=== PATIENT | male | born 1970 | race Caucasian/White ===

== ENCOUNTER 2020-11-05 19:32 | Emergency (ER) | payer OTHER, SELFPAY ==
[2020-11-05 19:36] VITALS: BP 144/76; PULSE 95; RESP 16; TEMP 37.3; BMI 54.3
--- NOTE | 2020-11-05 19:47 | PC.NURSE ---
PT AMB TO EM WITH STEADY GAIT. PT CHANGING INTO DEBORAH. WAITING EVAL.
--- NOTE | 2020-11-05 19:52 | PC.NURSE ---
PROVIDER AND THIS NURSE LOOKED AT RECTAL AREA FOR C/O HEMORRHOID.
--- NOTE | 2020-11-05 19:54 | PC.NURSE ---
PT EVALED BY DR DUNCAN.
[2020-11-05] MEDS: Lidocaine HCl 1 % MPF 5 ML VIAL SUBCUT ×2 (20:00)
--- NOTE | 2020-11-05 20:05 | CT_ITS ---
EXAMINATION: CT ABDOMEN AND PELVIS WITH CONTRAST CLINICAL INFORMATION: Evaluate perirectal versus perianal abscess. COMPARISON: CT pelvis dated 12/04/2006. TECHNIQUE: Multidetector volumetric images were obtained from the superior aspect of the liver through the pubic symphysis following administration 85 mL of Omnipaque 350 intravenous contrast. Sagittal and coronal reformatted images were obtained on the technologist's workstation. Oral Contrast: No. This CT examination was performed using dose optimization techniques as appropriate, variously including the following: *Automated exposure control. *Adjustment of mA and/or kV according to patient size (this includes techniques or standardized protocols for targeted exams where dose is matched to indication/reason for exam; i.e. extremities or head). *Use of iterative reconstruction technique. DLP: 2409 mGy-cm FINDINGS: LUNG BASES: The visualized lung bases are unremarkable. LIVER, GALLBLADDER, AND BILIARY TREE: The liver is normal in size, shape, and attenuation. No focal hepatic lesion or biliary ductal dilatation is present. The gallbladder is unremarkable with no evidence of radiopaque gallstones, gallbladder wall thickening, or obvious pericholecystic inflammatory changes. PANCREAS: Unremarkable. SPLEEN: Unremarkable. ADRENAL GLANDS: Unremarkable. KIDNEYS AND URETERS: The kidneys are normal in size, shape, and attenuation. No hydronephrosis, hydroureter, or calculi seen. No perinephric stranding. BLADDER: Nondistended and unremarkable. GASTROINTESTINAL TRACT: Sigmoid diverticulosis without evidence of acute diverticulitis. No bowel wall thickening or associated inflammatory change. No small or large bowel obstruction. Unremarkable appendix. Posterior to the anus along the inferior margin of the gluteal cleft is a peripherally enhancing fluid collection measuring 5.7 x 3.2 x 3.5 cm (AP x ML x CC), consistent with an abscess. Mild adjacent soft tissue stranding. PERITONEAL CAVITY: No intra-abdominal free air or free fluid. ABDOMINAL WALL: No significant hernia is appreciated. LYMPH NODES: Subcentimeter mesenteric, retroperitoneal, and right lower quadrant lymph nodes. No significant lymphadenopathy. VASCULAR: Unremarkable. PELVIC VISCERA: Calcifications within the prostate. OSSEOUS STRUCTURES: No concerning lytic or blastic osseous lesion. Bilateral spondylolysis at L5-S1. CT/CT abdomen pelvis w con IMPRESSION: 1. Abscess formation posterior to the anus within the inferior margin of the gluteal cleft measuring up to 5.7 x 3.2 x 3.5 cm. Mild adjacent soft tissue stranding. 2. Diverticulosis without evidence of acute diverticulitis. No small or large bowel obstruction. Unremarkable appendix. 3. Bilateral spondylolysis at L5-S1.
--- NOTE | 2020-11-05 20:29 | ED.GENADULT ---
HPI - General Adult General Chief complaint: General Medical Stated complaint: hemmroid Time Seen by Provider: 11/05/20 19:54 Source: patient Mode of arrival: ambulatory History of Present Illness HPI narrative: 49-year-old male with a past medical history of diabetes, hypertension, complaining of rectal pain/swelling since yesterday. Reports constipation with hard BM yesterday. Denies fever, chills, abdominal pain, nausea/vomiting, rectal bleeding Onset (ago): day(s) Related Data Home Medications Medication Instructions Recorded Confirmed cholecalciferol (vitamin D3) 50 50 mcg PO DAILY 09/30/20 mcg (2,000 unit) capsule Allergies Allergy/AdvReac Type Severity Reaction Status Date / Time lisinopril [LISINOPRIL] Allergy Unknown ANGIOEDEMA Verified 11/05/20 19:46 shrimp Allergy Unknown DIFFICULTY Verified 11/05/20 19:46 BREATHING Review of Systems Review of Systems: Constitutional: No Weight loss, No Fever, No Chills Cardiovascular: No Chest Pain, No SOB Respiratory: No Cough Gastrointestinal: No Nausea, No Vomiting, No Diarrhea, +Constipation, No Abdominal pain, No Melena Genitourinary: No irregular bleeding, + Dysuria, No Hematuria, +rectal pain Musculoskeletal: No joint pain, No Myalgias, No Joint Swelling Skin: No Skin Lesions, No rash Yes all other systems are reviewed and are negative [facility] Past Medical History Attestation statement: The following information was validated with the patient. Medical History (Updated 11/05/20 @ 21:20 by BARI Perez) Diabetes Hypertension Social History Social History Advance Directives: No Advance Directives Information Provided: No Physical Exam Vital Signs: Vital Signs: Last Vital Signs Temp 99.1 F 11/05/20 19:36 Pulse 95 11/05/20 19:36 Resp 16 11/05/20 19:36 BP 144/76 H 11/05/20 19:36 Body Mass Index 54.3 Const: General: cooperative and healthy appearing Orientation/consciousness: patient oriented x3 Limitations: no limitations HENMT: Head: Yes normal to inspection Ears: hearing grossly normal bilaterally General nose exam: Normal external nose present Face and sinus: Yes normal facial exam Eyes: General: appearance normal, both eyes and all related structures EOM: EOMs intact bilaterally Neck: Neck: Yes normal visual inspection Resp: Effort & Inspection: normal respiratory effort Cardio: Rate: regular rate GI: Other: +abscess with fluctuance and ttp noted at 12 o'clock region. +appreciable internal fluctuance noted on digitial rectal exam. No cellulitis, no active drainage. no induration Inspection: Yes normal to inspection Palpation (GI): Soft to palpation, nontender, no guarding and not rigid Skin: Rashes: no rashes Wounds: no wounds Neuro: General: patient oriented x3 Extrem: General: Yes normal to inspection Course Course Course Narrative: -no WBC count, glucose 405 > 1L IVF and 5U IV insulin ordered -2100-- ED care transferred to Dr. Hodges pending CT results and I&D Medical Decision Making [facility] Narrative Medical decision making narrative: 49-year-old male with a past medical history of diabetes, hypertension, complaining of rectal pain/swelling since yesterday. On exam low-grade temp 99.1?, abscess with fluctuance noted on rectal with internal involvement. Concern for perirectal vs perianal abscess. Lower concern for hemorrhoid Plan: Labs, UA, CT AP Lab Data Result diagrams: 11/05/20 20:26 11/05/20 20:26 Labs: Lab Results 11/05/20 11/05/20 11/05/20 Range/Units 20:26 20:26 20:26 WBC 9.1 (4.8-10.8) X10*3/uL RBC 4.96 (4.60-5.80) X10*6/uL Hgb 13.6 L (14.0-18.0) g/dl Hct 41.4 L (42-52) % MCV 83.5 (80-98) fL MCH 27.4 (27.0-33.0) pg MCHC 32.9 (31.0-36.0) g/dl RDW 12.6 (11.0-16.0) % Plt Count 284 (160-400) X10*3/uL MPV 10.2 (9.4-12.4) fL Immature Gran % (Auto) 0.5 H (0.0-0.4) % Neut % (Auto) 71.5 (45-73) % Lymph % (Auto) 16.0 L (20-40) % [place] % (Auto) 10.5 (2-11) % Eos % (Auto) 1.3 (0-4) % Baso % (Auto) 0.2 (0-2) % Lymph # (Auto) 1.5 (1.2-4.9) X10*3/uL [place] # (Auto) 1.0 (0.1-1.2) X10*3/uL Eos # (Auto) 0.1 (0.0-0.4) X10*3/uL Baso # (Auto) 0.0 (0.0-0.2) X10*3/uL Abs Immat Gran (auto) 0.05 H (0.00-0.03) X10*3/uL Absolute Neuts (auto) 6.5 (2.0-8.3) X10*3/uL Absolute Nucleated RBC 0.000 (0.0-0.012) X10*3/uL Nucleated RBC % (auto) 0.0 (0.0-0.2) /100WBC Hold Blue Top SEE NOTE Sodium 134 L (135-145) mmol/L Potassium 4.5 (3.3-5.1) mmol/l Chloride 96 (96-108) mmol/L Carbon Dioxide 26 (22-29) mmol/L Anion Gap 17 (12-20) BUN 11 (9-16) mg/dL Creatinine 0.84 (0.5-1.4) mg/dL Estim Creat Clear Calc 166.0 Estimated GFR > 60 Random Glucose 405 H* (60-115) mg/dL Calcium 8.9 (8.4-10.2) mg/dL Urine Color Urine Appearance Urine pH (5.0-8.0) Ur Specific [place] (1.005-1.025) Urine Protein (NEG-TRACE) MG/DL Urine Glucose (UA) (NEG) MG/DL Urine Ketones (NEG) MG/DL Urine Blood (NEG) Urine Nitrite (NEG) Ur Leukocyte Esterase (NEG) Urine RBC (0) /HPF Urine WBC (0-4) /HPF Ur Squamous Epith Cells /LPF Urine Bacteria /LPF 11/05/20 Range/Units 20:26 WBC (4.8-10.8) X10*3/uL RBC (4.60-5.80) X10*6/uL Hgb (14.0-18.0) g/dl Hct (42-52) % MCV (80-98) fL MCH (27.0-33.0) pg MCHC (31.0-36.0) g/dl RDW (11.0-16.0) % Plt Count (160-400) X10*3/uL MPV (9.4-12.4) fL Immature Gran % (Auto) (0.0-0.4) % Neut % (Auto) (45-73) % Lymph % (Auto) (20-40) % [place] % (Auto) (2-11) % Eos % (Auto) (0-4) % Baso % (Auto) (0-2) % Lymph # (Auto) (1.2-4.9) X10*3/uL [place] # (Auto) (0.1-1.2) X10*3/uL Eos # (Auto) (0.0-0.4) X10*3/uL Baso # (Auto) (0.0-0.2) X10*3/uL Abs Immat Gran (auto) (0.00-0.03) X10*3/uL Absolute Neuts (auto) (2.0-8.3) X10*3/uL Absolute Nucleated RBC (0.0-0.012) X10*3/uL Nucleated RBC % (auto) (0.0-0.2) /100WBC Hold Blue Top Sodium (135-145) mmol/L Potassium (3.3-5.1) mmol/l Chloride (96-108) mmol/L Carbon Dioxide (22-29) mmol/L Anion Gap (12-20) BUN (9-16) mg/dL Creatinine (0.5-1.4) mg/dL Estim Creat Clear Calc Estimated GFR Random Glucose (60-115) mg/dL Calcium (8.4-10.2) mg/dL Urine Color YELLOW Urine Appearance CLEAR Urine pH 5.5 (5.0-8.0) Ur Specific [place] 1.025 (1.005-1.025) Urine Protein NEG (NEG-TRACE) MG/DL Urine Glucose (UA) >=1000 H (NEG) MG/DL Urine Ketones 5 (NEG) MG/DL Urine Blood NEG (NEG) Urine Nitrite NEG (NEG) Ur Leukocyte Esterase NEG (NEG) Urine RBC 0 (0) /HPF Urine WBC 0 (0-4) /HPF Ur Squamous Epith Cells NONE /LPF Urine Bacteria NONE /LPF Discharge Plan Discharge Clinical Impression: Abscess, rectum Prescriptions: No Action cholecalciferol (vitamin D3) 50 mcg (2,000 unit) capsule 50 mcg PO DAILY RF: 0
[2020-11-05 20:36] LABS: MANUAL DIFF FLAG NO
[2020-11-05 20:47] LABS: Glucose Urine UA >=1000 MG/DL (NEG); Leukocyte Esterase Urine NEG (NEG); Nitrite Urine NEG (NEG); PH 5.5 (5.0-8.0); Specific Gravity - Urine 1.025 (1.005-1.025); Urine Blood NEG (NEG); Urine Ketones 5 MG/DL (NEG); Urine Protein NEG (NEG-TRACE)
[2020-11-05 20:49] LABS: Appearance Urine CLEAR; Color Urine YELLOW
[2020-11-05 20:52] LABS: Basophils Percent Auto 0.2 % (0-2); Eosinophils Absolute Auto 0.1 X10*3/uL (0.0-0.4); Eosinophils Percent Auto 1.3 % (0-4); Hematocrit 41.4 % (42-52); Hemoglobin 13.6 g/dl (14.0-18.0); Imm Gran Abs Auto 0.05 X10*3/uL (0.00-0.03); Imm Gran Pct Auto 0.5 % (0.0-0.4); Lymphocytes Absolute Auto 1.5 X10*3/uL (1.2-4.9); Mean Corpuscular HGB Conc 32.9 g/dl (31.0-36.0); Mean Corpuscular Hemoglobin 27.4 pg (27.0-33.0); Mean Corpuscular Volume 83.5 fL (80-98); Mean Platelet Volume 10.2 fL (9.4-12.4); Monocytes Percent Auto 10.5 % (2-11); Neutrophils Absolute Auto 6.5 X10*3/uL (2.0-8.3); Neutrophils Percent Auto 71.5 % (45-73); Platelet Count 284 X10*3/uL (160-400); Red Blood Count 4.96 X10*6/uL (4.60-5.80); Red Cell Distribution Width 12.6 % (11.0-16.0); White Blood Count 9.1 X10*3/uL (4.8-10.8)
[2020-11-05] MEDS: Ketorolac Tromethamine 15 MG/ML VIAL IVPUSH (20:53)
[2020-11-05 20:57] LABS: Anion Gap 17 (12-20); Blood Urea Nitrogen 11 mg/dL (9-16); Calcium 8.9 mg/dL (8.4-10.2); Carbon Dioxide 26 mmol/L (22-29); Chloride 96 mmol/L (96-108); Estimated Glomerular Filt Rate > 60; Glucose Random 405 mg/dL (60-115); Potassium 4.5 mmol/l (3.3-5.1); Sodium 134 mmol/L (135-145)
[2020-11-05 21:01] LABS: RBC Urine 0 /HPF (0); WBC Urine 0 /HPF (0-4)
[2020-11-05] MEDS: iohexoL 350 MG/ML 100 ML INFUS..BTL IV (21:32)
[2020-11-05] MEDS: 0.9 % Sodium Chloride 1,000 ML 999 ML IVCONT (22:01)
[2020-11-05] MEDS: Insulin Regular, Human 100 UNIT/ML 3 ML VIAL IVPUSH (22:04)
--- NOTE | 2020-11-05 22:42 | ED_ITS ---
HPI - Skin/Abscess/Foreign Bdy General Chief complaint: General Medical Stated complaint: hemmroid Time Seen by Provider: 11/05/20 19:54 Source: patient Mode of arrival: ambulatory Related Data Home Medications Medication Instructions Recorded Confirmed cholecalciferol (vitamin D3) 50 50 mcg PO DAILY 09/30/20 mcg (2,000 unit) capsule Allergies Allergy/AdvReac Type Severity Reaction Status Date / Time lisinopril [LISINOPRIL] Allergy Unknown ANGIOEDEMA Verified 11/05/20 19:46 shrimp Allergy Unknown DIFFICULTY Verified 11/05/20 19:46 BREATHING PMFSH Past Medical History Medical History (Updated 11/05/20 @ 21:20 by BARI Perez) Diabetes Hypertension Social History Social History Advance Directives: No Advance Directives Information Provided: No Physical Exam Vital Signs: Vital Signs: Last Vital Signs Temp 99.1 F 11/05/20 19:36 Pulse 95 11/05/20 19:36 Resp 16 11/05/20 19:36 BP 144/76 H 11/05/20 19:36 Body Mass Index 54.3 Procedures Abscess I/D Site: ortega-rectal (Pilonidal) Local Anesthetic: lidocaine 1% Amount of anesthesia used (mL): 10 Technique: incised with blade Amount of fluid expressed (mL): 20 Sent for culture/gram staining?: No Irrigation: No Packing used?: [email or web address] Complications: pain MDM - Skin/Abscess/Foreign Bdy MDM Narrative Medical decision making narrative: Patient with palatal abscess CT scan confirms location of abscess no difference extension. Identity was and was drained packing placed will discharge patient home on antibiotics Lab Data Result diagrams: 11/05/20 20:26 11/05/20 20:26 Labs: Lab Results 11/05/20 11/05/20 11/05/20 Range/Units 20:26 20:26 20:26 WBC 9.1 (4.8-10.8) X10*3/uL RBC 4.96 (4.60-5.80) X10*6/uL Hgb 13.6 L (14.0-18.0) g/dl Hct 41.4 L (42-52) % MCV 83.5 (80-98) fL MCH 27.4 (27.0-33.0) pg MCHC 32.9 (31.0-36.0) g/dl RDW 12.6 (11.0-16.0) % Plt Count 284 (160-400) X10*3/uL MPV 10.2 (9.4-12.4) fL Immature Gran % (Auto) 0.5 H (0.0-0.4) % Neut % (Auto) 71.5 (45-73) % Lymph % (Auto) 16.0 L (20-40) % [place] % (Auto) 10.5 (2-11) % Eos % (Auto) 1.3 (0-4) % Baso % (Auto) 0.2 (0-2) % Lymph # (Auto) 1.5 (1.2-4.9) X10*3/uL [place] # (Auto) 1.0 (0.1-1.2) X10*3/uL Eos # (Auto) 0.1 (0.0-0.4) X10*3/uL Baso # (Auto) 0.0 (0.0-0.2) X10*3/uL Abs Immat Gran (auto) 0.05 H (0.00-0.03) X10*3/uL Absolute Neuts (auto) 6.5 (2.0-8.3) X10*3/uL Absolute Nucleated RBC 0.000 (0.0-0.012) X10*3/uL Nucleated RBC % (auto) 0.0 (0.0-0.2) /100WBC Hold Blue Top SEE NOTE Sodium 134 L (135-145) mmol/L Potassium 4.5 (3.3-5.1) mmol/l Chloride 96 (96-108) mmol/L Carbon Dioxide 26 (22-29) mmol/L Anion Gap 17 (12-20) BUN 11 (9-16) mg/dL Creatinine 0.84 (0.5-1.4) mg/dL Estim Creat Clear Calc 166.0 Estimated GFR > 60 Random Glucose 405 H* (60-115) mg/dL Calcium 8.9 (8.4-10.2) mg/dL Urine Color Urine Appearance Urine pH (5.0-8.0) Ur Specific [place] (1.005-1.025) Urine Protein (NEG-TRACE) MG/DL Urine Glucose (UA) (NEG) MG/DL Urine Ketones (NEG) MG/DL Urine Blood (NEG) Urine Nitrite (NEG) Ur Leukocyte Esterase (NEG) Urine RBC (0) /HPF Urine WBC (0-4) /HPF Ur Squamous Epith Cells /LPF Urine Bacteria /LPF 11/05/20 Range/Units 20:26 WBC (4.8-10.8) X10*3/uL RBC (4.60-5.80) X10*6/uL Hgb (14.0-18.0) g/dl Hct (42-52) % MCV (80-98) fL MCH (27.0-33.0) pg MCHC (31.0-36.0) g/dl RDW (11.0-16.0) % Plt Count (160-400) X10*3/uL MPV (9.4-12.4) fL Immature Gran % (Auto) (0.0-0.4) % Neut % (Auto) (45-73) % Lymph % (Auto) (20-40) % [place] % (Auto) (2-11) % Eos % (Auto) (0-4) % Baso % (Auto) (0-2) % Lymph # (Auto) (1.2-4.9) X10*3/uL [place] # (Auto) (0.1-1.2) X10*3/uL Eos # (Auto) (0.0-0.4) X10*3/uL Baso # (Auto) (0.0-0.2) X10*3/uL Abs Immat Gran (auto) (0.00-0.03) X10*3/uL Absolute Neuts (auto) (2.0-8.3) X10*3/uL Absolute Nucleated RBC (0.0-0.012) X10*3/uL Nucleated RBC % (auto) (0.0-0.2) /100WBC Hold Blue Top Sodium (135-145) mmol/L Potassium (3.3-5.1) mmol/l Chloride (96-108) mmol/L Carbon Dioxide (22-29) mmol/L Anion Gap (12-20) BUN (9-16) mg/dL Creatinine (0.5-1.4) mg/dL Estim Creat Clear Calc Estimated GFR Random Glucose (60-115) mg/dL Calcium (8.4-10.2) mg/dL Urine Color YELLOW Urine Appearance CLEAR Urine pH 5.5 (5.0-8.0) Ur Specific [place] 1.025 (1.005-1.025) Urine Protein NEG (NEG-TRACE) MG/DL Urine Glucose (UA) >=1000 H (NEG) MG/DL Urine Ketones 5 (NEG) MG/DL Urine Blood NEG (NEG) Urine Nitrite NEG (NEG) Ur Leukocyte Esterase NEG (NEG) Urine RBC 0 (0) /HPF Urine WBC 0 (0-4) /HPF Ur Squamous Epith Cells NONE /LPF Urine Bacteria NONE /LPF Discharge Plan Discharge Clinical Impression: Abscess, rectum Prescriptions: No Action cholecalciferol (vitamin D3) 50 mcg (2,000 unit) capsule 50 mcg PO DAILY RF: 0
[2020-11-05] MEDS: cephALEXin 500 MG CAPSULE PO (23:03)
== END 2020-11-05 23:35 | disposition home or self-care (01) ==
PROVIDERS: Physician Assistant; Emergency Provider Internal Medicine
DX: K61.1 Rectal abscess (principal); E11.9 Type 2 diabetes mellitus without complications; I10 Essential (primary) hypertension
CPT/HCPCS: 36415; 46040; 74177; 80048; 81001; 85025; 96361; 96374; 96376; 99283; 99284; J1885; Q9967

== ENCOUNTER 2020-11-07 16:18 | Emergency (ER) | payer OTHER, SELFPAY ==
[2020-11-07 16:43] VITALS: BP 162/99; PULSE 79; RESP 16; TEMP 36.3; O2SAT 97; BMI 52.8
--- NOTE | 2020-11-07 18:26 | PC.NURSE ---
PT AMB TO ED19 WITH STEADY GAIT. PT HERE FOR PACKING REMOVAL. PT CHANGING INTO DEBORAH.
--- NOTE | 2020-11-07 18:42 | ED.SKABFB ---
HPI - Skin/Abscess/Foreign Bdy General Chief complaint: Skin/Abscess/Foreign Body Stated complaint: wound check Time Seen by Provider: 11/07/20 18:26 Source: patient Mode of arrival: ambulatory History of Present Illness HPI narrative: 49-year-old male with a past medical history of diabetes, hypertension, recently seen in the ED with perianal abscess s/p I&D on 11/05 presenting to ED for wound check/packing removal. Admits to compliance with previously prescribed antibiotics. Patient denies complaints since previous visit, reports symptomatic improvement, denies drainage, fever, chills, pain Related Data Home Medications Medication Instructions Recorded Confirmed cholecalciferol (vitamin D3) 50 50 mcg PO DAILY 09/30/20 mcg (2,000 unit) capsule Previous Rx's Medication Instructions Recorded cephalexin [Keflex] 500 mg PO QID 10 Days #40 cap 11/05/20 doxycycline hyclate 100 mg PO BID #20 cap 11/05/20 ibuprofen 600 mg PO Q6H PRN #20 tab 11/05/20 Allergies Allergy/AdvReac Type Severity Reaction Status Date / Time lisinopril [LISINOPRIL] Allergy Unknown ANGIOEDEMA Verified 11/07/20 16:46 shrimp Allergy Unknown DIFFICULTY Verified 11/07/20 16:46 BREATHING Review of Systems Review of Systems: Constitutional: No Weight loss, No Fever, No Chills Gastrointestinal: No Nausea, No Vomiting, No Diarrhea, No Constipation, No Abdominal pain Skin: +abscess Yes all other systems are reviewed and are negative PMFSH Past Medical History Attestation statement: The following information was validated with the patient. Medical History (Updated 11/07/20 @ 18:41 by BARI Perez) Diabetes Hypertension Social History Social History Smoking Status: Former smoker Advance Directives: No Advance Directives Information Provided: No Physical Exam Vital Signs: Vital Signs: Last Vital Signs Temp 97.3 F 11/07/20 16:43 Pulse 79 11/07/20 16:43 Resp 16 11/07/20 16:43 BP 162/99 H 11/07/20 16:43 Pulse Ox 97 11/07/20 16:43 Body Mass Index 52.8 Const: General: cooperative and healthy appearing Orientation/consciousness: patient oriented x3 Limitations: no limitations HENMT: Head: Yes normal to inspection Ears: hearing grossly normal bilaterally General nose exam: Normal external nose present Face and sinus: Yes normal facial exam Eyes: General: appearance normal, both eyes and all related structures EOM: EOMs intact bilaterally Neck: Neck: Yes normal visual inspection Resp: Effort & Inspection: normal respiratory effort Cardio: Rate: regular rate GI: Inspection: Yes normal to inspection : Other: Healing abscess with packing intact to perianal area @ 12o'clock. Packing removed. No expressible drainage. No fluctuance or induration. No surrounding cellulitis Neuro: General: patient oriented x3 Gait exam (Neuro): Normal gait present Extrem: General: Yes normal to inspection MDM - Skin/Abscess/Foreign Bdy MDM Narrative Medical decision making narrative: Healing abscess noted. No active infection. Packing removed. No fluctuance or induration. Worrisome signs and symptoms and strict return precautions discussed. Discharge Plan Discharge Clinical Impression: Wound check, abscess Patient Disposition: Home, Self-Care Instructions: Abscess Follow-up (ED) Additional Instructions: Continue taking her previously prescribed antibiotics until they are gone Keep area dry and clean If area begins to look infected, it grows, it turns red, it starts to drain, or your fever return to the ED Follow-up with the surgeon as needed Prescriptions: No Action cholecalciferol (vitamin D3) 50 mcg (2,000 unit) capsule 50 mcg PO DAILY RF: 0 doxycycline hyclate 100 mg capsule 100 mg PO BID Qty: 20 RF: 0 cephalexin [Keflex] 500 mg capsule 500 mg PO QID 10 Days Qty: 40 RF: 0 ibuprofen 600 mg tablet 600 mg PO Q6H PRN (Reason: pain) Qty: 20 RF: 0 Referrals: Physician,Unknown [Primary Care Provider] - 1 week (Your doctor)
== END 2020-11-07 18:55 | disposition home or self-care (01) ==
PROVIDERS: Emergency Provider Internal Medicine
DX: Z48.00 Encounter for change or removal of nonsurgical wound dressing (principal); E11.9 Type 2 diabetes mellitus without complications; I10 Essential (primary) hypertension
CPT/HCPCS: 99283

== ENCOUNTER 2023-10-13 10:12 | Inpatient (IN) | payer OTHER, SELFPAY ==
[2023-10-13] VITALS (8 sets, daily range): BP systolic 99–138; BP diastolic 50–71; PULSE 94–128; RESP 18–24; TEMP 36.3–37.5; O2SAT 94–97; BMI 50.7; BMI 51.3
--- NOTE | ~2023-10-13 | CT_ITS ---
CT head/brain wo IV con CLINICAL INFORMATION: Reason for Exam headache COMPARISON: No prior CT available for comparison. TECHNIQUE: Department standard protocol. This CT examination was performed using dose optimization techniques as appropriate, variously including the following: *Automated exposure control *Adjustment of mA and/or kV according to patient size (this includes techniques or standardized protocols for targeted exams where dose is matched to indication/reason for exam; i.e. extremities or head) *Use of iterative reconstruction technique DLP: 758 mGy-cm FINDINGS: CEREBRAL HEMISPHERES: There is an area of encephalomalacia in the right occipital lobe distribution of the right posterior cerebral artery might be a sequela of an old infarct. No CT evidence of acute infarct. BRAIN PARENCHYMA: Normal blevins-white matter differentiation. SUBDURAL SPACE: No bleed. BASAL GANGLIA AND PINEAL GLAND: Unremarkable VENTRICLES: Symmetric and normal in size. CEREBELLUM AND BRAINSTEM: No space-occupying mass, hemorrhage or acute infarct. CEREBELLOPONTINE ANGLES: No lesion found. ORBITS: No intraorbital mass. VESSELS: Unremarkable SKULL BASE: Unremarkable INCLUDED SINUSES AT SKULL BASE: Clear SKULL AND SKIN: No fracture or bone lesion found. CT/CT head/brain wo IV con IMPRESSION: * No CT evidence of intracranial space-occupying mass, bleed or infarct. * There is an area of encephalomalacia in the right occipital lobe distribution of the right posterior cerebral artery might be a sequela of an old infarct.
--- NOTE | ~2023-10-13 | US_ITS ---
EXAMINATION: US VENOUS ULTRASOUND WITH DOPPLER LOWER EXTREMITY, BILATERAL CLINICAL INFORMATION: Pain and swelling COMPARISON: None available. TECHNIQUE: Ultrasound of the deep veins is performed from the hip to the calf with compression sonography and color and pulse Doppler assessment. Spectral analysis with color-flow imaging is performed. FINDINGS: RIGHT: There is normal venous compression and respiratory variation and augmented flow. The visualized common femoral vein, superficial femoral vein, profunda femoral vein, popliteal vein, and the trifurcation region shows no evidence of deep venous thrombosis. There is no significant popliteal fossa cyst. LEFT: There is normal venous compression and respiratory variation and augmented flow. The visualized common femoral vein, superficial femoral vein, profunda femoral vein, popliteal vein, and the trifurcation region shows no evidence of deep venous thrombosis. There is no significant popliteal fossa cyst. If the patient's symptoms persist, followup ultrasound in 5 days 7 days might be of value to exclude proximal propagation from a non-visualized calf vein. US/US venous duplex LE BI IMPRESSION: No DVT demonstrated in the bilateral lower extremities.
--- NOTE | ~2023-10-13 | CT_ITS ---
EXAMINATION: CT head/brain w IV con, CT cervical spine w IV con INDICATION INFORMATION: Reason for Exam ?Meningitis COMPARISON: CT head 10/13/2023 TECHNIQUE: Separate CT examinations of the head and cervical spine were performed during administration of 70 mL Omnipaque 350. Coronal and sagittal images were created for each examination at the technologist workstation. This CT examination was performed using dose optimization techniques as appropriate, variously including the following: *Automated exposure control *Adjustment of mA and/or kV according to patient size (this includes techniques or standardized protocols for targeted exams where dose is matched to indication/reason for exam; i.e. extremities or head) *Use of iterative reconstruction technique DLP: 877 mGy-cm FINDINGS: Head: The ventricles and sulci are normal in size and configuration without significant volume loss or hydrocephalus. Redemonstrated chronic right MAINTENANCE EQUIPMENT OPERATOR territory infarct within the right occipitotemporal lobe with ex vacuo dilatation of the right ventricular atria and occipital horn. No new territorial loss of blevins-white differentiation. No extra-axial fluid collection. Limited assessment for intracranial hemorrhage on postcontrast acquisition, however none is suspected. No pathologic intracranial enhancement within limitations of CT, noting MRI would be more sensitive modality if not clinically contraindicated. No significant mass effect or herniation pattern. Heterogeneous appearance of the pituitary gland with apparent ovoid region of differential hypoenhancement posteriorly measuring 5 mm for which underlying lesion is not excluded and would be better assessed on contrast-enhanced MRI sellar protocol. Normal opacification of the intracranial vascular structures. The orbits are grossly normal. Paranasal sinuses and mastoid air cells are well aerated. Osseous structures are intact. Cervical spine: Smooth reversal of the normal cervical lordosis. The craniocervical junction is intact. Foci of ossification inferior to the anterior arch of C1. Several partially calcified ventral disc osteophytes. There is no significant spondylolisthesis. Vertebral body heights are normal without acute compression fracture or traumatic posterior element subluxation. No suspicious osseous lesion. Mild C5-C6 and C6-C7 disc height loss. Mild cervical spondylosis. Please note contrast enhanced MRI of the cervical spine would be a more sensitive modality if there is concern for underlying infectious process. Normal appearance of the paraspinal soft tissues. Calcified bilateral palatine tonsilloliths. Elongated and calcified styloid processes/stylohyoid ligaments can be correlated clinically for [place] syndrome. Lobulated soft tissue along the base of tongue pronounced on the left, presumably lingual tonsillar hyperplasia. Medialization of the right aryepiglottic fold with prominence of the right performed sinus and slight prominence of the right lateral ventricle can be correlated for right vocal cord paresis. The imaged lungs are clear. Partially retropharyngeal course of the distal left common carotid artery. Grossly normal opacification of the major neck vessels. Normal appearance of the thyroid gland. Nonspecific clustered right level 2/3 lymph nodes with a level 3 lymph node measuring up to 1.6 cm, and additional scattered morphologically benign-appearing cervical chain lymph nodes possibly reactive. CT/CT head/brain w IV con IMPRESSION: 1. No CT evidence of acute intracranial injury. Chronic right MAINTENANCE EQUIPMENT OPERATOR territory infarct 2. No pathologic intracranial enhancement within limitations of CT, noting MRI would be more sensitive modality if not clinically contraindicated. 3. Heterogeneous appearance of the pituitary gland with apparent 5 mm ovoid region of differential hypoenhancement posteriorly for which underlying lesion is not excluded and could be correlated with pituitary function tests and further evaluated with contrast-enhanced MRI sellar protocol. 4. Mild cervical spondylosis. Please note contrast enhanced MRI of the cervical spine would be a more sensitive modality if there is concern for underlying infectious process. 5. Findings described above that can be correlated for signs of right vocal cord paresis. 6. Elongated and calcified styloid processes/stylohyoid ligaments can be correlated clinically for [place] syndrome. 7. Nonspecific clustered right level 2/3 lymph nodes with a level 3 lymph node measuring up to 1.6 cm, possibly reactive.
--- NOTE | ~2023-10-13 | CT_ITS ---
EXAMINATION: CT LOWER LEG WITH CONTRAST, RIGHT CLINICAL INFORMATION: Right leg redness/erythema. Evaluate for abscess, deep space infection. COMPARISON: Lower extremity venous ultrasound dated 10/13/2023. TECHNIQUE: Contiguous axial CT images of the right lower leg were obtained following the IV administration of 85 mL Omnipaque [address] examination was performed using dose optimization techniques as appropriate, variously including the following: *Automated exposure control *Adjustment of mA and/or kV according to patient size (this includes techniques or standardized protocols for targeted exams where dose is matched to indication/reason for exam; i.e. extremities or head) *Use of iterative reconstruction technique. DOSE: 321 mGy-cm FINDINGS: Circumferential skin thickening within the lower leg with subcutaneous stranding. Findings could represent subcutaneous edema or indicate cellulitis in the appropriate clinical setting. No organized fluid collection or abscess formation. No evidence of infectious or inflammatory change deep to the fascia or associated with the visualized muscles and tendons. The visualized muscles and tendons are intact without evidence of tear or injury. Unremarkable vascular structures. No significant right knee joint effusion. No acute fracture or dislocation. Mild medial compartment joint space narrowing within the right knee. Tiny tricompartmental marginal osteophytes. No concerning lytic or blastic osseous lesion. No periosteal reaction or cortical erosion. CT/CT lower leg RT w IV con IMPRESSION: 1. Circumferential skin thickening and subcutaneous stranding within the lower leg. Findings could represent subcutaneous edema or indicate cellulitis in the appropriate clinical setting. No organized fluid collection or abscess formation. 2. No evidence of infectious or inflammatory change deep to the fascia or associated with the visualized muscles and tendons. 3. Mild tricompartmental osteoarthritis within the right knee.
--- NOTE | ~2023-10-13 | XR_ITS ---
EXAMINATION: XR CHEST CLINICAL INFORMATION: Shortness of breath COMPARISON: 09/25/2019 TECHNIQUE: Portable AP upright view of the chest was obtained. FINDINGS: Cardiac and mediastinal silhouettes are normal in appearance. No focal consolidation or atelectasis. The lung volumes are decreased. No acute osseous abnormality. XR/XR chest 1V IMPRESSION: Low lung volumes. The lungs are clear.
--- NOTE | ~2023-10-13 | CT_ITS ---
EXAMINATION: CT head/brain w IV con, CT cervical spine w IV con INDICATION INFORMATION: Reason for Exam ?Meningitis COMPARISON: CT head 10/13/2023 TECHNIQUE: Separate CT examinations of the head and cervical spine were performed during administration of 70 mL Omnipaque 350. Coronal and sagittal images were created for each examination at the technologist workstation. This CT examination was performed using dose optimization techniques as appropriate, variously including the following: *Automated exposure control *Adjustment of mA and/or kV according to patient size (this includes techniques or standardized protocols for targeted exams where dose is matched to indication/reason for exam; i.e. extremities or head) *Use of iterative reconstruction technique DLP: 877 mGy-cm FINDINGS: Head: The ventricles and sulci are normal in size and configuration without significant volume loss or hydrocephalus. Redemonstrated chronic right F[employer] DESIGNER territory infarct within the right occipitotemporal lobe with ex vacuo dilatation of the right ventricular atria and occipital horn. No new territorial loss of blevins-white differentiation. No extra-axial fluid collection. Limited assessment for intracranial hemorrhage on postcontrast acquisition, however none is suspected. No pathologic intracranial enhancement within limitations of CT, noting MRI would be more sensitive modality if not clinically contraindicated. No significant mass effect or herniation pattern. Heterogeneous appearance of the pituitary gland with apparent ovoid region of differential hypoenhancement posteriorly measuring 5 mm for which underlying lesion is not excluded and would be better assessed on contrast-enhanced MRI sellar protocol. Normal opacification of the intracranial vascular structures. The orbits are grossly normal. Paranasal sinuses and mastoid air cells are well aerated. Osseous structures are intact. Cervical spine: Smooth reversal of the normal cervical lordosis. The craniocervical junction is intact. Foci of ossification inferior to the anterior arch of C1. Several partially calcified ventral disc osteophytes. There is no significant spondylolisthesis. Vertebral body heights are normal without acute compression fracture or traumatic posterior element subluxation. No suspicious osseous lesion. Mild C5-C6 and C6-C7 disc height loss. Mild cervical spondylosis. Please note contrast enhanced MRI of the cervical spine would be a more sensitive modality if there is concern for underlying infectious process. Normal appearance of the paraspinal soft tissues. Calcified bilateral palatine tonsilloliths. Elongated and calcified styloid processes/stylohyoid ligaments can be correlated clinically for [place] syndrome. Lobulated soft tissue along the base of tongue pronounced on the left, presumably lingual tonsillar hyperplasia. Medialization of the right aryepiglottic fold with prominence of the right performed sinus and slight prominence of the right lateral ventricle can be correlated for right vocal cord paresis. The imaged lungs are clear. Partially retropharyngeal course of the distal left common carotid artery. Grossly normal opacification of the major neck vessels. Normal appearance of the thyroid gland. Nonspecific clustered right level 2/3 lymph nodes with a level 3 lymph node measuring up to 1.6 cm, and additional scattered morphologically benign-appearing cervical chain lymph nodes possibly reactive. CT/CT cervical spine w IV con IMPRESSION: 1. No CT evidence of acute intracranial injury. Chronic right [employer] territory infarct 2. No pathologic intracranial enhancement within limitations of CT, noting MRI would be more sensitive modality if not clinically contraindicated. 3. Heterogeneous appearance of the pituitary gland with apparent 5 mm ovoid region of differential hypoenhancement posteriorly for which underlying lesion is not excluded and could be correlated with pituitary function tests and further evaluated with contrast-enhanced MRI sellar protocol. 4. Mild cervical spondylosis. Please note contrast enhanced MRI of the cervical spine would be a more sensitive modality if there is concern for underlying infectious process. 5. Findings described above that can be correlated for signs of right vocal cord paresis. 6. Elongated and calcified styloid processes/stylohyoid ligaments can be correlated clinically for [place] syndrome. 7. Nonspecific clustered right level 2/3 lymph nodes with a level 3 lymph node measuring up to 1.6 cm, possibly reactive.
[2023-10-13 10:38] LABS: Glucose, Whole Blood 334 mg/dL (60-115)
--- NOTE | 2023-10-13 10:58 | ED.GENADULT ---
HPI - General Adult General Chief complaint: Fever Stated complaint: Fever/Headache/HBS Time Seen by Provider: 10/13/23 10:38 Source: patient Mode of arrival: ambulatory Limitations: no limitations History of Present Illness HPI narrative: This is a 52-year-old male presenting to the emergency department complaints of fatigue, malaise, fevers, headache, neck pain, myalgias, high sugars at home for the past few days. Patient reports yesterday his sugars were too high for his meter to read. He reports that he missed his morning meds and insulin and Lantus last night. He reports he just feels overall unwell. No history of DKA. Reports slight shortness of breath with ambulation. When he arrives he is diaphoretic with ambulation. Denies chest pain, shortness of breath, nausea, vomiting, abdominal pain, vision changes, dizziness and weakness. Related Data Home Medications Medication Instructions Recorded Confirmed cholecalciferol (vitamin D3) 50 50 mcg PO DAILY 09/30/20 mcg (2,000 unit) capsule Previous Rx's Medication Instructions Recorded cephalexin 500 mg capsule (Keflex) 500 mg PO QID 10 days #40 caps 11/05/20 doxycycline hyclate 100 mg capsule 100 mg PO BID #20 caps 11/05/20 ibuprofen 600 mg tablet 600 mg PO Q6H PRN pain #20 tabs 11/05/20 Allergies Allergy/AdvReac Type Severity Reaction Status Date / Time lisinopril [LISINOPRIL] Allergy Unknown ANGIOEDEMA Verified 10/13/23 10:22 shrimp Allergy Unknown DIFFICULTY Verified 10/13/23 10:22 BREATHING Review of Systems Review of Systems: Constitutional : No Weight loss, No Fever, No Chills, + Fatigue, + Malaise ENT/Mouth : No sore throat, No Rhinorrhea Eyes: No Eye Pain, No Swelling, No Redness Cardiovascular : No Chest Pain, No SOB, No Dyspnea on Exertion, No Orthopnea, No Edema, No Palpitations Respiratory : No Cough, No Sputum, No Wheezing Gastrointestinal : No Nausea, No Vomiting, No Diarrhea, No Constipation, No abdominal Pain, No Hematochezia, No Melena Genitourinary : No Dysuria, No Urinary Frequency, No Hematuria, Musculoskeletal : No joint pain, + Myalgias, No Joint Swelling Skin : No Skin Lesions, No rash Neuro : No Weakness, No Numbness, No Dizziness, No Headache Psych : No Anxiety/Panic, No Depression All other systems reviewed and are negative Yes all other systems are reviewed and are negative [facility] Past Medical History Attestation statement: The following information was validated with the patient. Source: old records reviewed and nursing notes reviewed Medical History (Updated 10/13/23 @ 11:48 by BARI Corona) Diabetes Hypertension Social History Social History Smoked in Last 30 Days: No Advance Directives: No Advance Directives Information Provided: Yes Physical Exam ED Vital Signs: Vital Signs - 24 hr 10/13/23 10:22 10/13/23 12:00 10/13/23 13:01 Temperature 99.5 F 97.7 F Pulse Rate 128 H 113 H Respiratory Rate 24 H 20 18 Blood Pressure 119/64 99/54 L 108/51 L Pulse Oximetry 95 94 96 Oxygen Delivery Method Room Air Room Air BMI result Body Mass Index 50.7 tachycardia, tachypnea noted and a low grade oral temp Appearance: Alert.? Oriented X3.? No acute distress.? Head: Normocephalic, atraumatic, no step-offs or deformities Eyes: Pupils equal, round and reactive to light.? Neck: Normal inspection.? Neck supple.?Negative kernig and burdinzski CVS: Normal heart rate and rhythm.? Pulses normal.? Respiratory: No respiratory distress.? Breath sounds normal.? Abdomen: Soft and nontender.? Skin: Skin warm and dry.? Normal skin color.? Normal skin turgor.? Extremities: No lower extremity edema.? No calf ttp. 5/5 strength to bilateral upper and lower extremities Neuro: Oriented X 3.? No motor deficit.? No sensory deficit. CN 2-12 intact. Normal finger to nose, heel to cates. Course Reevaluation(s) Reevaluation #1: Patient noted to have leukocytosis 17.5 without a shift. Chemistry unremarkable however is noted to have an elevated blood glucose 356, insulin, fluids ordered. Lactic acid elevated 2.6 this could be secondary to metformin lactic acidosis type 2 or from infection, due to unclear etiology will cover with ceftriaxone and vanco Case discussed w/ Dr. Amezcua agrees w/ dx and tx plan. Time: 11:42 Reevaluation #2: CXR and head CT pending. Obtained verbaconsent for lumbar puncture. Time: 12:29 Reevaluation #3: When I went to go get written consent patient refused and said he no longer wants lumbar puncture. I did express to him we are concerned about a possible aseptic meningitis. He is okay with antibiotics and treatment however at this time he does not want a lumbar puncture I did educate him on risk versus benefits. Patient verbalizes understanding. Reached out to Infectious Disease for input to see of initiating acyclovir is appropriate this time. Time: 12:50 Additional Reevaluation(s): Spoke to ID who states no need for IV acyclovir. Recommends MRI Cspine. Spoke to hospitalist for admission. 1320 This time plan is for hospital admission. Medications Administered Generic Name Dose Route Start Last Admin Trade Name Freq PRN Reason Stop Dose Admin Vancomycin HCl 2,000 mg in 500 mls @ 250 mls/hr 10/13/23 11:33 10/13/23 12:09 Vancomycin/Ns IV 10/13/23 13:32 250 mls/hr ONCE ONE Administration Discontinued Medications Generic Name Dose Route Start Last Admin Trade Name Freq PRN Reason Stop Dose Admin Acetaminophen 650 mg 10/13/23 11:05 10/13/23 11:39 Acetaminophen 325 Mg Tablet PO 10/13/23 11:06 650 mg ONCE ONE Administration Sodium Chloride 4,674 mls @ 4,674 mls/hr 10/13/23 10:57 10/13/23 11:06 Ns 30 ml/kg infuse over 1 hr (4674 ml) 10/13/23 11:56 4,674 mls/hr IV Administration .Q1H STA Ceftriaxone Sodium 1 gm/ 50 mls @ 100 mls/hr 10/13/23 10:57 10/13/23 12:15 Sodium Chloride IV 10/13/23 11:26 Infused ONCE ONE Infusion Insulin Human Regular 10 unit 10/13/23 11:25 10/13/23 11:40 Insulin Regular, Human 100 Unit/Ml 3 Ml Vial IVPUSH 10/13/23 11:26 10 unit ONCE ONE Administration Ketorolac Tromethamine 30 mg 10/13/23 11:06 10/13/23 11:43 Ketorolac Tromethamine 15 Mg/Ml Vial IVPUSH 10/13/23 11:07 30 mg ONCE ONE Administration Medical Decision Making Medical Decision Making [facility] Narrative: 1057 52 yo m presents w/ fevers, headache, neck pain, high surgars, myalgias X since yesterday PE- tachycardia rate around 120, tachypnea respiratory rate around 26, and low grade temp. Fast rate normal rhythm. Lungs clear. Abdomen non tender non distended. Neuro nonfocal. No meningeal signs History and physical exam concerning for viral illness flu versus COVID versus RSV. Unlikely meningitis, encephalitis. Will rule out UTI, pulmonary embolism. Unlikely ACS, dissection, CHF. Will rule out DKA/HHS . Will need to rule out aseptic meningitis, Plan- labs, urine, imaging, viral test Differential Diagnosis Differential Diagnoses: The differential diagnosis associated with the presentation includes History and physical exam concerning for viral illness flu versus COVID versus RSV. Unlikely meningitis, encephalitis. Will rule out UTI, pulmonary embolism. Unlikely ACS, dissection, CHF. Will rule out DKA/HHS . Will need to rule out aseptic meningitis, Admission/Observation Consideration of admission/observation: Escalation of care including admission/observation considered possible Lab Data [facility] Lab Attestation statement: I reviewed the patient's lab results. 10/13/23 10:55 10/13/23 10:55 Labs: Lab Results 10/13/23 10/13/23 10/13/23 Range/Units 10:32 10:55 10:56 WBC 17.5 H (4.8-10.8) X10*3/uL RBC 4.80 (4.60-5.80) X10*6/uL Hgb 13.4 L (14.0-18.0) g/dl Hct 40.4 L (42.0-52.0) % MCV 84.2 (80.0-98.0) fL MCH 27.9 (27.0-33.0) pg MCHC 33.2 (31.0-36.0) g/dl RDW 12.2 (11.0-16.0) % Plt Count 242 (160-400) X10*3/uL MPV 10.4 (9.4-12.4) fL Immature Gran % (Auto) 0.9 H (0.0-0.4) % Neut % (Auto) 90.8 H (45-73) % Lymph % (Auto) 2.7 L (20-40) % [place] % (Auto) 5.3 (2-11) % Eos % (Auto) 0.1 (0-4) % Baso % (Auto) 0.2 (0-2) % Lymph # (Auto) 0.5 L (1.2-4.9) X10*3/uL [place] # (Auto) 0.9 (0.1-1.2) X10*3/uL Eos # (Auto) 0.0 (0.0-0.4) X10*3/uL Baso # (Auto) 0.0 (0.0-0.2) X10*3/uL Abs Immat Gran (auto) 0.15 H (0.00-0.03) X10*3/uL Absolute Neuts (auto) 15.9 H (2.0-8.3) x10*3/uL Absolute Nucleated RBC 0.000 (0.0-0.012) X10*3/uL Nucleated RBC % (auto) 0.0 (0.0-0.2) /100WBC Smear Tech's Comments VERIFIED ESR 17 H (0-15) MM/HR D-Dimer High Sensitivty NG/ML VBG pH (7.32-7.43) VBG pCO2 mmHg VBG pO2 mmHg VBG HCO3 (22-26) mmol/L VBG O2 Saturation % VBG Base Excess mmol/L Sodium 136 (135-145) mmol/L Potassium 3.6 (3.3-5.1) mmol/L Chloride 102 (96-108) mmol/L Carbon Dioxide 24 (22-29) mmol/L Anion Gap 14 (12-20) BUN 13 (9-16) mg/dL Creatinine 0.83 (0.5-1.4) mg/dL Estim Creat Clear Calc 155.9 Estimated GFR > 60 POC Glucose 334 H (60-115) mg/dL Random Glucose 356 H* (60-115) mg/dL Lactic Acid (0.5-2.0) mmol/L Calcium 9.2 (8.4-10.2) mg/dL Total Bilirubin 0.7 (0.0-1.0) mg/dL AST 26 (5-37) U/L ALT 28 (0-40) U/L Alkaline Phosphatase 74 (39-117) U/L C-Reactive Protein 2.15 H (< or = 0.50) mg/dL Total Protein 7.4 (6.5-8.0) g/dL Albumin 3.9 (3.5-5.0) g/dL Beta-Hydroxybutyrate 0.14 (0.02-0.27) mmol/L Influenza Type A (PCR) (Negative) Influenza Type B (PCR) (Negative) RSV RNA Qual (PCR) (Negative) SARS-CoV-2 RNA (RT-PCR) (Negative) 10/13/23 10/13/23 10/13/23 Range/Units 10:57 11:08 11:18 WBC (4.8-10.8) X10*3/uL RBC (4.60-5.80) X10*6/uL Hgb (14.0-18.0) g/dl Hct (42.0-52.0) % MCV (80.0-98.0) fL MCH (27.0-33.0) pg MCHC (31.0-36.0) g/dl RDW (11.0-16.0) % Plt Count (160-400) X10*3/uL MPV (9.4-12.4) fL Immature Gran % (Auto) (0.0-0.4) % Neut % (Auto) (45-73) % Lymph % (Auto) (20-40) % [place] % (Auto) (2-11) % Eos % (Auto) (0-4) % Baso % (Auto) (0-2) % Lymph # (Auto) (1.2-4.9) X10*3/uL [place] # (Auto) (0.1-1.2) X10*3/uL Eos # (Auto) (0.0-0.4) X10*3/uL Baso # (Auto) (0.0-0.2) X10*3/uL Abs Immat Gran (auto) (0.00-0.03) X10*3/uL Absolute Neuts (auto) (2.0-8.3) x10*3/uL Absolute Nucleated RBC (0.0-0.012) X10*3/uL Nucleated RBC % (auto) (0.0-0.2) /100WBC Smear Tech's Comments ESR (0-15) MM/HR D-Dimer High Sensitivty 161 NG/ML VBG pH 7.39 (7.32-7.43) VBG pCO2 44 mmHg VBG pO2 56 mmHg VBG HCO3 27 H (22-26) mmol/L VBG O2 Saturation 87.0 % VBG Base Excess 1.8 mmol/L Sodium (135-145) mmol/L Potassium (3.3-5.1) mmol/L Chloride (96-108) mmol/L Carbon Dioxide (22-29) mmol/L Anion Gap (12-20) BUN (9-16) mg/dL Creatinine (0.5-1.4) mg/dL Estim Creat Clear Calc Estimated GFR POC Glucose (60-115) mg/dL Random Glucose (60-115) mg/dL Lactic Acid 2.6 H* (0.5-2.0) mmol/L Calcium (8.4-10.2) mg/dL Total Bilirubin (0.0-1.0) mg/dL AST (5-37) U/L ALT (0-40) U/L Alkaline Phosphatase (39-117) U/L C-Reactive Protein (< or = 0.50) mg/dL Total Protein (6.5-8.0) g/dL Albumin (3.5-5.0) g/dL Beta-Hydroxybutyrate (0.02-0.27) mmol/L Influenza Type A (PCR) NEGATIVE (Negative) Influenza Type B (PCR) NEGATIVE (Negative) RSV RNA Qual (PCR) NEGATIVE (Negative) SARS-CoV-2 RNA (RT-PCR) NEGATIVE (Negative) 10/13/23 Range/Units 12:19 WBC (4.8-10.8) X10*3/uL RBC (4.60-5.80) X10*6/uL Hgb (14.0-18.0) g/dl Hct (42.0-52.0) % MCV (80.0-98.0) fL MCH (27.0-33.0) pg MCHC (31.0-36.0) g/dl RDW (11.0-16.0) % Plt Count (160-400) X10*3/uL MPV (9.4-12.4) fL Immature Gran % (Auto) (0.0-0.4) % Neut % (Auto) (45-73) % Lymph % (Auto) (20-40) % [place] % (Auto) (2-11) % Eos % (Auto) (0-4) % Baso % (Auto) (0-2) % Lymph # (Auto) (1.2-4.9) X10*3/uL [place] # (Auto) (0.1-1.2) X10*3/uL Eos # (Auto) (0.0-0.4) X10*3/uL Baso # (Auto) (0.0-0.2) X10*3/uL Abs Immat Gran (auto) (0.00-0.03) X10*3/uL Absolute Neuts (auto) (2.0-8.3) x10*3/uL Absolute Nucleated RBC (0.0-0.012) X10*3/uL Nucleated RBC % (auto) (0.0-0.2) /100WBC Smear Tech's Comments ESR (0-15) MM/HR D-Dimer High Sensitivty NG/ML VBG pH (7.32-7.43) VBG pCO2 mmHg VBG pO2 mmHg VBG HCO3 (22-26) mmol/L VBG O2 Saturation % VBG Base Excess mmol/L Sodium (135-145) mmol/L Potassium (3.3-5.1) mmol/L Chloride (96-108) mmol/L Carbon Dioxide (22-29) mmol/L Anion Gap (12-20) BUN (9-16) mg/dL Creatinine (0.5-1.4) mg/dL Estim Creat Clear Calc Estimated GFR POC Glucose 233 H (60-115) mg/dL Random Glucose (60-115) mg/dL Lactic Acid (0.5-2.0) mmol/L Calcium (8.4-10.2) mg/dL Total Bilirubin (0.0-1.0) mg/dL AST (5-37) U/L ALT (0-40) U/L Alkaline Phosphatase (39-117) U/L C-Reactive Protein (< or = 0.50) mg/dL Total Protein (6.5-8.0) g/dL Albumin (3.5-5.0) g/dL Beta-Hydroxybutyrate (0.02-0.27) mmol/L Influenza Type A (PCR) (Negative) Influenza Type B (PCR) (Negative) RSV RNA Qual (PCR) (Negative) SARS-CoV-2 RNA (RT-PCR) (Negative) Independent Interpretation I performed an independent interpretation of an: Plain X-Ray Radiology Impression Discussion of test interpretation with radiology: I have reviewed the radiologist's reading. Critical Care Time Critical Care Time Critical Care Time: Yes Total Critical Care Time: 45 Attestation: I attest to this time spent taking care of the patient, obtaining history, physical, reviewing labs, imaging, speaking to my attending, speaking to specialist. Discharge Plan Discharge Clinical Impression: Acute hyperglycemia, Headache, Neck pain Patient Disposition: Admitted As Inpatient Prescriptions: No Action cholecalciferol (vitamin D3) 50 mcg (2,000 unit) capsule 50 mcg PO DAILY doxycycline hyclate 100 mg capsule 100 mg PO BID Qty: 20 0RF cephalexin [Keflex] 500 mg capsule 500 mg PO QID 10 Days Qty: 40 0RF ibuprofen 600 mg tablet 600 mg PO Q6H PRN (Reason: pain) Qty: 20 0RF
[2023-10-13 11:02] LABS: Venous Blood Gas Refer to POC result
[2023-10-13 11:03] LABS: VBG Base Excess 1.8 mmol/L; VBG HCO3 27 mmol/L (22-26); VBG pCO2 44 mmHg; VBG pH 7.39 (7.32-7.43); VBG pO2 56 mmHg
[2023-10-13 11:13] LABS: Basophils Percent Auto 0.2 % (0-2); Eosinophils Percent Auto 0.1 % (0-4); Hematocrit 40.4 % (42.0-52.0); Hemoglobin 13.4 g/dl (14.0-18.0); Imm Gran Abs Auto 0.15 X10*3/uL (0.00-0.03); Imm Gran Pct Auto 0.9 % (0.0-0.4); Lymphocytes Absolute Auto 0.5 X10*3/uL (1.2-4.9); Lymphocytes Percent Auto 2.7 % (20-40); MANUAL DIFF FLAG SCAN; Mean Corpuscular HGB Conc 33.2 g/dl (31.0-36.0); Mean Corpuscular Hemoglobin 27.9 pg (27.0-33.0); Mean Corpuscular Volume 84.2 fL (80.0-98.0); Mean Platelet Volume 10.4 fL (9.4-12.4); Monocytes Absolute Auto 0.9 X10*3/uL (0.1-1.2); Monocytes Percent Auto 5.3 % (2-11); Neutrophils Absolute Auto 15.9 x10*3/uL (2.0-8.3); Neutrophils Percent Auto 90.8 % (45-73); Platelet Count 242 X10*3/uL (160-400); Red Cell Distribution Width 12.2 % (11.0-16.0); SCAN SMEAR FLAG 1; White Blood Count 17.5 X10*3/uL (4.8-10.8)
[2023-10-13 11:18] LABS: Beta-Hydroxybutyrate 0.14 mmol/L (0.02-0.27)
[2023-10-13 11:21] LABS: Alanine Aminotransferase 28 U/L (0-40); Albumin Level 3.9 g/dL (3.5-5.0); Alkaline Phosphatase 74 U/L (39-117); Anion Gap 14 (12-20); Aspartate Amino Transferase 26 U/L (5-37); Bilirubin Total 0.7 mg/dL (0.0-1.0); Blood Urea Nitrogen 13 mg/dL (9-16); Calcium 9.2 mg/dL (8.4-10.2); Carbon Dioxide 24 mmol/L (22-29); Chloride 102 mmol/L (96-108); Creatinine Clr Calc Pharmacy 155.9; Estimated Glomerular Filt Rate > 60; Glucose Random 356 mg/dL (60-115); Potassium 3.6 mmol/L (3.3-5.1); Sodium 136 mmol/L (135-145); Total Protein 7.4 g/dL (6.5-8.0)
[2023-10-13 11:34] LABS: Lactic Acid 2.6 mmol/L (0.5-2.0)
[2023-10-13] MEDS: Acetaminophen 325 MG TABLET 650 MG PO (11:39)
[2023-10-13] MEDS: Insulin Regular, Human 100 UNIT/ML 3 ML VIAL 10 UNIT IVPUSH (11:40)
[2023-10-13] MEDS: cefTRIAXone sodium 1 GM in 0.9 % Sodium Chloride 50 ML IV (11:41)
[2023-10-13] MEDS: Ketorolac Tromethamine 15 MG/ML VIAL 30 MG IVPUSH (11:43)
[2023-10-13 11:49] LABS: C Reactive Protein 2.15 mg/dL (< or = 0.50)
[2023-10-13 11:50] LABS: SLIDE REVIEW VERIFIED
[2023-10-13 12:05] LABS: D Dimer High Sensitivity 161 NG/ML
[2023-10-13] MEDS: vancomycin/NS 2,000 MG/500 ML PLAST..BAG 250 MG IV (12:09)
--- NOTE | 2023-10-13 12:20 | MHC.EDTECH ---
POC 233 RN AWARE
[2023-10-13 12:22] LABS: Glucose, Whole Blood 233 mg/dL (60-115)
[2023-10-13 12:22] LABS: Erythrocyte Sedimentation Rate 17 MM/HR (0-15)
[2023-10-13 12:29] LABS: Influenza A PCR NEGATIVE (Negative); Influenza B PCR NEGATIVE (Negative); Resp Syncy Virus RNA Qual PCR NEGATIVE (Negative); SARS COV2 PCR INHOUSE NEGATIVE (Negative)
--- NOTE | 2023-10-13 12:55 | PM.IMHP ---
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 Patient said he experienced subjective fever and chills last evening. Does not have a thermometer at home. Symptoms seemingly resolved shortly before bedtime and patient was able to sleep restfully throughout the night. However, when he awoke this morning symptoms returned and included a 2/10 headache primarily centered in the front of his head though also wraps around to the sides of his head with neck movement. Patient also complained of neck stiffness that he describes feels like he ?slept on it wrong?. Patient also says his blood sugar levels have been quite high lately, and he admits to forgetting to take his insulin last night. Patient additionally notes he has a ?bad molar? on the upper right side, but denies any mouth pain or swelling. Denies nasal congestion, earache, sore throat. No chest pain/pressure, palpitations. No shortness of breath. Denies nausea, vomiting, abdominal pain. No changes to bowel or bladder habits. Denies any rashes. In the ED patient apparently presented with diaphoresis and nuchal rigidity thought Kernig's and Brudzinski signs were negative. Patient received ketorolac which resolved his symptoms. ED clinicians wanted to perform an LP but patient refused procedure. In the ED pt with low-grade fever of 99.5, tachycardia up to 128, tachypnea up to 24, soft BP as low as 99/54, satting 94% on RA. Labs were significant for leukocytosis of 17.5, H&H 13.4/40.4, random glucose 356, lactic acid 2.6. D-dimer negative. Electrolytes WNL. Renal function baseline. Beta hydroxybutyrate WNL at 0.14. VBG with pH WNL at 7.39. Patient tested negative for influenza type a and B, RSV, and COVID. CXR showed low lung volumes but clear lungs. CT?of head and brain pending. Pt was treated with IVF, acetaminophen, 10 units insulin, ketorolac, ceftriaxone and vancomycin. Pt will be admitted to the hospital for treatment and further workup of potential meningitis. <BARI Yang - Last Filed: 10/13/23 15:14> Review of Systems Review of Systems: Subjective fever, chills Headache Dizziness Denies nausea, vomiting, abdominal pain No changes to bowel or bowel habits Denies chest pain/pressure, palpitations No Shortness of breath <BARI Yang - Last Filed: 10/13/23 15:14> [facility] Medical History: Medical History (Updated 10/13/23 @ 14:35 by BARI Yang) Class 3 obesity CARSON (obstructive sleep apnea) CVA (cerebral vascular accident) HLD (hyperlipidemia) Insulin dependent type 2 diabetes mellitus Hypertension <BARI Yang - Last Filed: 10/13/23 15:14> Social History: Social History Household Members: Spouse Household Members Other:: Housing: Apartment Do you presently have visiting nurse or other home services: No Patient Tobacco Use Status: Former Tobacco user Smoked in Last 30 Days: No Use of substances other than those prescribed or required for medical reasons: No Currently Displaying Signs/Symptoms of Drug Intoxication Withdrawal: No Do you feel safe in your current relationship?: Yes Advance Directives: No Advance Directives Information Provided: Yes Do you have thoughts of harming others: None Do you have a plan to hurt others: No Plan Recently lost weight without trying: No Nutrition Risks: No Nutritional Risk Poor oral hygiene: No service: No <BAIR Yang Last Filed: 10/13/23 15:14> Meds Allergies/Adverse reactions: Allergies Allergy/AdvReac Type Severity Reaction Status Date / Time lisinopril [LISINOPRIL] Allergy Unknown ANGIOEDEMA Verified 10/13/23 10:22 shrimp Allergy Unknown DIFFICULTY Verified 10/13/23 10:22 BREATHING <BARI Yang - Last Filed: 10/13/23 15:14> Active Medications: Current Medications Vancomycin HCl (Vancomycin/Ns) 2,000 mg in 500 mls @ 250 mls/hr IV ONCE ONE Stop: 10/13/23 13:32 Last Admin: 10/13/23 12:09 Dose: 250 mls/hr <BARI Yang - Last Filed: 10/13/23 15:14> Home medications: Home Medications Medication Instructions Recorded Confirmed Last Taken Type cholecalciferol (vitamin D3) 50 50 mcg PO DAILY 09/30/20 10/13/23 10/12/23 History mcg (2,000 unit) capsule albuterol sulfate 90 mcg/actuation 2 puff inhalation Q4H PRN wheezing 10/13/23 10/13/23 Unknown History aerosol inhaler (Ventolin HFA) amlodipine 10 mg tablet 10 mg PO DAILY 10/13/23 10/13/23 10/12/23 History aspirin 81 mg tablet,delayed 81 mg PO DAILY 10/13/23 10/13/23 10/12/23 History release atorvastatin 80 mg tablet 80 mg PO BEDTIME 10/13/23 10/13/23 10/12/23 History cyclobenzaprine 5 mg tablet 5 mg PO BID PRN low back pain 10/13/23 10/13/23 Unknown History dulaglutide 3 mg/0.5 mL 3 mg subcut GOMEZ@0900 10/13/23 10/13/23 10/06/23 History subcutaneous pen injector (Trulicity) glipizide 5 mg tablet, extended 5 mg PO BEDTIME 10/13/23 10/13/23 10/12/23 History release 24 hr hydrochlorothiazide 12.5 mg tablet 12.5 mg PO DAILY 10/13/23 10/13/23 10/12/23 History insulin glargine 100 unit/mL (3 18 unit subcut BEDTIME 10/13/23 10/13/23 10/12/23 History mL) subcutaneous pen (Lantus Solostar U-100 Insulin) loratadine 10 mg tablet 10 mg PO DAILY 10/13/23 10/13/23 10/12/23 History metformin 500 mg tablet,extended 1,000 mg PO BID 10/13/23 10/13/23 10/12/23 History release 24 hr cgrpucxf-nrq-bgnqn acid 0.4 1 tab PO DAILY 10/13/23 10/13/2310/12/23 History mg-lycopene 300 mcg-lutein 250 mcg tablet (Cerovite Senior) naproxen 500 mg tablet 500 mg PO BID 10/13/23 10/13/23 10/12/23 History <BARI Yang - Last Filed: 10/13/23 15:14> Physical Exam Vital Signs and Narrative: Vital Signs: Last Vital Signs Temp 99.5 F 10/13/23 10:22 Pulse 113 H 10/13/23 12:00 Resp 20 10/13/23 12:00 BP 99/54 L 10/13/23 12:00 Pulse Ox 94 10/13/23 12:00 O2 Del Method Room Air 10/13/23 12:00 BMI result Body Mass Index 50.7 <BARI Yang - Last Filed: 10/13/23 15:14> Constitutional: Alert, in no acute distress. Mental Status: Oriented to person, place and time. Eyes: Pupils are equal, round, and reactive to light. Ear, Nose, and Throat: Oropharynx clear, mucous membranes moist. Ears and nose without deformities. Trachea midline. Respiratory: Clear to auscultation bilaterally. No wheezing, rales, or rhonchi. Cardiovascular: S1, S2 regular. No murmurs, rubs, or gallops. Gastrointestinal: Abdomen soft, non-tender, non-distended, obese. Normal bowel sounds. Neurologic: Cranial nerves II-XII are grossly intact bilaterally. No focal neurological deficits. Moves all extremities spontaneously. Brudzinski sign negative. Kernig's sign negative. Skin: Warm, dry. Musculoskeletal: No cyanosis or clubbing. Extremities: Non pitting edema. Psychiatric: Normal mood and affect. <BARI Yang - Last Filed: 10/13/23 15:14> Results Labs CBC and Chem 7: 10/14/23 05:50 10/14/23 05:50 <BARI Yang - Last Filed: 10/13/23 15:14> Labs: Laboratory Results - last 24 hr 10/13/23 10/13/23 10/13/23 10:32 10:55 10:56 MCV 84.2 MCH 27.9 MCHC 33.2 RDW 12.2 Plt Count 242 MPV 10.4 Immature Gran % (Auto) 0.9 H Neut % (Auto) 90.8 H Lymph % (Auto) 2.7 L Thayer % (Auto) 5.3 Eos % (Auto) 0.1 Baso % (Auto) 0.2 Lymph # (Auto) 0.5 L Thayer # (Auto) 0.9 Eos # (Auto) 0.0 Baso # (Auto) 0.0 Abs Immat Gran (auto) 0.15 H Absolute Neuts (auto) 15.9 H Absolute Nucleated RBC 0.000 Nucleated RBC % (auto) 0.0 Smear Tech's Comments VERIFIED ESR 17 H D-Dimer High Sensitivty VBG pH VBG pCO2 VBG pO2 VBG HCO3 VBG O2 Saturation VBG Base Excess Anion Gap 14 Estim Creat Clear Calc 155.9 Estimated GFR > 60 POC Glucose 334 H Random Glucose 356 H* Lactic Acid Calcium 9.2 Total Bilirubin 0.7 AST 26 ALT 28 Alkaline Phosphatase 74 C-Reactive Protein 2.15 H Total Protein 7.4 Albumin 3.9 Beta-Hydroxybutyrate 0.14 Influenza Type A (PCR) Influenza Type B (PCR) RSV RNA Qual (PCR) SARS-CoV-2 RNA (RT-PCR) 10/13/23 10/13/23 10/13/23 10:57 11:08 11:18 MCV MCH MCHC RDW Plt Count MPV Immature Gran % (Auto) Neut % (Auto) Lymph % (Auto) Thayer % (Auto) Eos % (Auto) Baso % (Auto) Lymph # (Auto) Thayer # (Auto) Eos # (Auto) Baso # (Auto) Abs Immat Gran (auto) Absolute Neuts (auto) Absolute Nucleated RBC Nucleated RBC % (auto) Smear Tech's Comments ESR D-Dimer High Sensitivty 161 VBG pH 7.39 VBG pCO2 44 VBG pO2 56 VBG HCO3 27 H VBG O2 Saturation 87.0 VBG Base Excess 1.8 Anion Gap Estim Creat Clear Calc Estimated GFR POC Glucose Random Glucose Lactic Acid 2.6 H* Calcium Total Bilirubin AST ALT Alkaline Phosphatase C-Reactive Protein Total Protein Albumin Beta-Hydroxybutyrate Influenza Type A (PCR) NEGATIVE Influenza Type B (PCR) NEGATIVE RSV RNA Qual (PCR) NEGATIVE SARS-CoV-2 RNA (RT-PCR) NEGATIVE 10/13/23 12:19 MCV MCH MCHC RDW Plt Count MPV Immature Gran % (Auto) Neut % (Auto) Lymph % (Auto) Thayer % (Auto) Eos % (Auto) Baso % (Auto) Lymph # (Auto) Thayer # (Auto) Eos # (Auto) Baso # (Auto) Abs Immat Gran (auto) Absolute Neuts (auto) Absolute Nucleated RBC Nucleated RBC % (auto) Smear Tech's Comments ESR D-Dimer High Sensitivty VBG pH VBG pCO2 VBG pO2 VBG HCO3 VBG O2 Saturation VBG Base Excess Anion Gap Estim Creat Clear Calc Estimated GFR POC Glucose 233 H Random Glucose Lactic Acid Calcium Total Bilirubin AST ALT Alkaline Phosphatase C-Reactive Protein Total Protein Albumin Beta-Hydroxybutyrate Influenza Type A (PCR) Influenza Type B (PCR) RSV RNA Qual (PCR) SARS-CoV-2 RNA (RT-PCR) <BARI Yang - Last Filed: 10/13/23 15:14> Imaging Radiologist's Impressions: Impressions Chest X-Ray 10/13/23 11:30 IMPRESSION: Low lung volumes. The lungs are clear. 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 Pt will be admitted to the hospital for treatment and further workup of potential meningitis. Question of meningitis Patient with subjective fever, chills, headache, nuchal rigidity and time of presentation to the ED Patient meets sepsis criteria: Tachypnea, tachycardia, leukocytosis, lactic acid 2.6 Patient received IVF and started on broad-spectrum antibiotics in ED Patient refused to get lumbar puncture Will treat with vancomycin, ceftriaxone, started 10/13/2023 Patient unable to fit into MRI; will get CT of head and C-spine with contrast instead Will check respiratory panel, HIV status, UA ID consult Hyperglycemia/poorly-controlled insulin-dependent diabetes type 2 Patient non compliant with home meds, insulin, Trulicity UA positive for ketones, A1c 11.5, random glucose 356 Hold metformin Sliding-scale insulin, Lantus, continue glipizide Diabetic diet HTN Will hold antihypertensives for now due to soft BP Continue home meds as warranted HLD/hx of CVA Continue statin, aspirin CARSON CPAP at night Obesity class 3 Weight loss encouraged Full Code Attending:?Dr. Campos DVT Prophylaxis: Lovenox Pt will require a hospitalization of at least two nights for treatment and further evaluation of?sepsis in the setting of possible meningitis with IV antibiotics and specialist consultation. 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 Pt will be admitted to the hospital for treatment and further workup of potential meningitis. Question of meningitis Patient with subjective fever, chills, headache, nuchal rigidity and time of presentation to the ED Patient meets sepsis criteria: Tachypnea, tachycardia, leukocytosis, lactic acid 2.6 Patient received IVF and started on broad-spectrum antibiotics in ED Patient refused to get lumbar puncture Will treat with vancomycin, ceftriaxone, started 10/13/2023 Patient unable to fit into MRI; will get CT of head and C-spine with contrast instead Will check respiratory panel, HIV status, UA ID consult Hyperglycemia/poorly-controlled insulin-dependent diabetes type 2 Patient non compliant with home meds, insulin, Trulicity UA positive for ketones, A1c 11.5, random glucose 356 Hold metformin Sliding-scale insulin, Lantus, continue glipizide Diabetic diet HTN Will hold antihypertensives for now due to soft BP Continue home meds as warranted HLD/hx of CVA Continue statin, aspirin CARSON CPAP at night Obesity class 3 Weight loss encouraged Full Code Attending:?Dr. Campos DVT Prophylaxis: Lovenox Pt will require a hospitalization of at least two nights for treatment and further evaluation of?sepsis in the setting of possible meningitis with IV antibiotics and specialist consultation. Addendum to history and physical by the advanced practice provider, BARI Waller, ALEJO 10/13/23 I interviewed and examined the patient. I discussed their presentation and management with the KUSH. I reviewed the history and physical and agree with the documentation, with the following additions and corrections: 52yo M with uncontrolled DM2, HTN, hx CVA 2005 with residual peripheral L vision loss, CARSON on CPAP presenting with 1d of subjective fever/chills/headache + kaycee stiffness. in ED noted to have nuchal rigidity; refused LP despite ED, ID, and my urging septic by HR + WBC count. LA 2.6 no thrush, no nuchal rigidity by my exam, bilateral OMs shiny and translucent, no obvious dental abscess, no adenopathy in neck check HIV, A1c per ID empiric vanco + ceftriaxone; resp pathogen panel; MRI C-spine pt cannot fit in our MRI so will do CT C-spine + contrast, also repeat CTH with contrast to see if there is leptomeningeal enhacement <Mary Campos MD - Last Filed: 10/14/23 10:44> Quality Stroke Does the patient have a stroke diagnosis?: No <BARI Yang - Last Filed: 10/13/23 15:14> VTE Prior VTE?: No <BARI Yang - Last Filed: 10/13/23 15:14> VTE Risk Level:: Medical - moderate - high <BARI Yang - Last Filed: 10/13/23 15:14> VTE Device Contraindication: Treatment Not Indicated <BARI Yang - Last Filed: 10/13/23 15:14> VTE Drug Contraindication: N/A - Med Ordered <BARI Yang - Last Filed: 10/13/23 15:14>
[2023-10-13 13:14] LABS: Reflex Lactate? Lactic Acid Added
[2023-10-13 13:48] LABS: ~Lactic Acid-LAB USE ONLY 2.1 mmol/L (0.5-2.0)
[2023-10-13 13:56] LABS: Estimated Average Glucose 283 mg/dL; Hemoglobin A1c % 11.5 % (<6.0)
[2023-10-13 14:08] LABS: Cancel Lactic Acid Canceled
--- NOTE | 2023-10-13 14:50 | PHA.MEDREC ---
Pharmacy Consult ? Medication Reconciliation Pharmacy has completed the medication reconciliation. Spoke to patient to confirm meds. Patient speaks vietnamese.
[2023-10-13 15:16] LABS: Appearance Urine Clear; Color Urine Yellow; Glucose Urine UA >=1000 mg/dL (Negative); Leukocyte Esterase Urine Negative (Negative); Nitrite Urine Negative (Negative); Specific Gravity - Urine >= 1.030 (1.005-1.025); UMIC TRIGGER UACC YES; Urine Blood Negative (Negative); Urine Ketones Trace mg/dL (Negative); Urine Protein Negative (Neg-Trace)
[2023-10-13 15:28] LABS: Bacteria Urine None Seen (None Seen); Hyaline Casts Urine 0-2 /LPF (0-2); RBC Urine 0-2 /HPF (0-2); Squamous Epithelial Cell Urine 0-2 /HPF (0-2); WBC Urine 0-5 /HPF (0-5)
--- NOTE | 2023-10-13 15:58 | PC.NURSE ---
Patient at CT at this time
[2023-10-13] MEDS: iohexoL 350 MG/ML 100 ML INFUS..BTL IV (16:10)
--- NOTE | 2023-10-13 16:12 | PC.NURSE ---
Report given to accepting unit
[2023-10-13 16:35] LABS: Glucose, Whole Blood 188 mg/dL (60-115)
[2023-10-13] MEDS: Cholecalciferol (Vitamin D3) 25 MCG TABLET 50 MCG PO (16:54)
[2023-10-13] MEDS: Multivitamin TABLET 1 TAB PO (16:54)
[2023-10-13] MEDS: 0.9 % Sodium Chloride Flush 3 ML SYRINGE IVFLUSH ×2 (16:54→19:55)
[2023-10-13] MEDS: Loratadine 10 MG TABLET PO (16:54)
[2023-10-13] MEDS: Enoxaparin Sodium 40 MG/0.4 ML SYRINGE SUBCUT (16:54)
--- NOTE | 2023-10-13 17:15 | PC.NURSE ---
Pt arrived to unit from ED A&Ox4 and cooperative with care. Pt was able to ambulate to bathroom independently. Pt LS clear on room air. Abd soft non-tender, +BS all 4 quads. Skin is intact, pt states he had scratched his right leg, upon assessment no scratch found, feet inspected skin intact. Non-pitting edema noted in bilateral lower extremities, right leg greater then left. MD Campos made aware that pts right leg is more edematous, warm to touch, and slight redness noted, Duplex US ordered. Vital signs stable, POC 188 at 1630. All needs met at this time.
[2023-10-13] MEDS: Insulin Lispro 100 UNIT/ML 3 ML VIAL SUBCUT ×2 (17:36→22:08)
[2023-10-13 20:13] LABS: Glucose, Whole Blood 219 mg/dL (60-115)
[2023-10-13] MEDS: Atorvastatin Calcium 80 MG TABLET PO (22:07)
[2023-10-13] MEDS: Insulin Glargine,Hum.rec.anlog 100 UNIT/ML 10 ML VIAL 13 UNIT SUBCUT (22:08)
[2023-10-13] MEDS: vancomycin HCL 1,500 MG in 0.9 % Sodium Chloride 500 ML 333.33 MG IV (22:10)
[2023-10-14 03:05] VITALS: BP 147/67; PULSE 100; RESP 17; TEMP 36.4; O2SAT 94
[2023-10-14 06:47] LABS: Hematocrit 36.2 % (42.0-52.0); Hemoglobin 11.9 g/dl (14.0-18.0); Mean Corpuscular HGB Conc 32.9 g/dl (31.0-36.0); Mean Corpuscular Hemoglobin 27.7 pg (27.0-33.0); Mean Corpuscular Volume 84.2 fL (80.0-98.0); Mean Platelet Volume 10.6 fL (9.4-12.4); Platelet Count 216 X10*3/uL (160-400); Red Cell Distribution Width 12.7 % (11.0-16.0); White Blood Count 13.5 X10*3/uL (4.8-10.8)
[2023-10-14 06:51] LABS: Anion Gap 9 (12-20); Blood Urea Nitrogen 6 mg/dL (9-16); Calcium 8.7 mg/dL (8.4-10.2); Carbon Dioxide 23 mmol/L (22-29); Chloride 106 mmol/L (96-108); Creatinine Clr Calc Pharmacy 197.5; Estimated Glomerular Filt Rate > 60; Glucose Random 160 mg/dL (60-115); Potassium 3.6 mmol/L (3.3-5.1); Sodium 134 mmol/L (135-145)
--- NOTE | 2023-10-14 07:00 | CA_ITS ---
Transthoracic Echocardiogram Patient (Last, First, Middle): Pavel Boyd L Gender: Male Date of : 1970 Age: 52 Procedure Date: 10/14/2023 Procedure Type: Transthoracic Echocardiogram Location: S3E Height: 175.26 cm Weight: 157.4 kg BSA: 2.61 m2 Heart Rate: bpm BP: 108 / 57 mmHg Marketing Admin: Referring MD: Mary Campos MD Symptoms: leg swelling, r/o HF Study Quality: Fair, adequate w Contrast ECG Rhythm: Sinus Conclusions: - Normal left ventricular size and systolic function. There is moderately increased left ventricular wall thickness. The visually estimated ejection fraction is between 55-60%. - E/E prime ratio is between 8 and 15 consistent with indeterminate filling pressures. - Normal right ventricular cavity size and systolic function. - There is mild dilatation of the ascending aorta measuring 3.90 cm. Findings Left Ventricle Normal left ventricular size and systolic function. There is moderately increased left ventricular wall thickness. The visually estimated ejection fraction is between 55-60%. There is no evidence of regional wall motion abnormalities. Abnormal diastolic function is noted. Spectral Doppler is indicative of a pseudonormal filling pattern. E/E prime ratio is between 8 and 15 consistent with indeterminate filling pressures. Right Ventricle Normal right ventricular cavity size and systolic function. Atria The left atrium is normal in size. Aortic Valve There is a normal trileaflet aortic valve. There is mild calcification of the aortic valve. There is no aortic valve stenosis. There is no aortic valve regurgitation. Mitral Valve The mitral valve appears normal. There is no mitral valve regurgitation. There is no mitral valve stenosis. Pulmonic Valve The pulmonic valve is likely normal. Tricuspid Valve Normal tricuspid valve structure. There is no tricuspid valve regurgitation. Normal right atrial pressure. There is no evidence of pulmonary hypertension. Great Vessels There is mild dilatation of the ascending aorta measuring 3.90 cm. The visualized portions of the pulmonary artery and branches are normal. Venous The inferior vena cava is normal in size and collapses greater than 50% with inspiration. Pericardium/Pleural There is no evidence of pericardial effusion. Measurements 2D Linear Measurements IVSd: 1.41 0.6-0.9/0.6-1.0 cm LVIDd: 3.31 3.9-5.3/4.2-5.9 cm LVIDd Index: 1.27 2.4-3.2/2.2-3.1 cm/m2 LVIDs: 2.22 2.0-3.6 cm LVPWd: 1.46 0.7-1.1 cm Ao Root: 3.10 2.1-3.5 cm LA Diam: 3.80 2.7-3.8/3.0-4.0 cm LAIDs Index: 1.46 1.5-2.3 cm/m2 LV Mass: 207.75 67-162/88-224 g LV Mass Index: 79.60 43-95/49-115 g/m2 LVOT Diam: 2.30 3.0+(-)1.3 cm Mitral Valve MV Pk E: 1.16 MV PK A: 0.78 MV Decel Time: 161.00 E/A: 1.50 E'Lateral: 11.40 E'Medial: 6.74 E/E' Med: 17.20 E/E' Lat: 10.20 PHT: 47.00 MVA PHT: 4.68 Decel Liberty: 7.17 Aortic Valve AoV Pk Giovanni: 1.66 AoV Mn Giovanni: 1.03 AoV VTI: 0.30 AoV Pk Grad: 11.00 Aov Mn Grad: 5.00 SHIRLEY Cont.VTI: 3.16 LVOT LVOT Pk Giovanni: 1.15 LVOT Mn Giovanni: 0.88 LVOT VTI: 0.23 LVOT Pk Grad: 5.00 LVOT Mn Grad: 3.00 LVOT Diam: 2.30 LVOT Area: 4.15 Diastolic Function MV Pk E: 1.16 MV Pk A: 0.78 E/A: 1.50 E'Medial: 6.74 E/E' Med: 17.20 E' Laterial: 11.40 E/E' Lat: 10.20 Right Ventricle TAPSE (mm): 26.00 TVS' Giovanni: 14.00 Tricuspid Valve TR Pk Giovanni: 2.00 TR Pk Grad: 16.00 RA Press: 3.00 RVSP: 19.00 Great Vessels Aorta Ao Root-2D: 3.10 2.0-3.7 cm Ao Asc: 3.90 2.1-3.4 cm Pulmonary Valve PV Pk Giovanni: 1.39 Peak PV Grad: 8.00 Updated in Other Vendor System with Status of Final Kalen Roth MD electronically signed on 10/15/2023 11:11:08 AM with status of Final
[2023-10-14 07:12] LABS: HIV AB/AG Nonreactive (Nonreactive); HIV Num 1 0.06 S/CO (0.00-0.99)
[2023-10-14 07:29] LABS: Glucose, Whole Blood 165 mg/dL (60-115)
[2023-10-14 07:41] VITALS: BP 108/57; PULSE 95; RESP 18; TEMP 37.1; O2SAT 95
[2023-10-14] MEDS: Multivitamin TABLET 1 TAB PO (07:56)
[2023-10-14] MEDS: Insulin Lispro 100 UNIT/ML 3 ML VIAL SUBCUT ×4 (07:56→21:13)
[2023-10-14] MEDS: 0.9 % Sodium Chloride Flush 3 ML SYRINGE IVFLUSH ×3 (07:56→21:29)
[2023-10-14] MEDS: Cholecalciferol (Vitamin D3) 25 MCG TABLET 50 MCG PO (07:57)
[2023-10-14] MEDS: Loratadine 10 MG TABLET PO (07:57)
--- NOTE | 2023-10-14 09:26 | MHC.CM.PN ---
IMM DELIVERED PT LIVES WITH SPOUSE. INDEPENDENT WITH MOBILITY. USES CPAP AT NIGHT. PT STATES MACHINE NOT WORKING ADEQUATELY. CM ENCOURAGED PT TO REACH OUT TO VENDOR ([facility]) -THRIVE ASSESSMENT. NO HCP, WILL THINK ABOUT COMPLETING ONE. PCP DEVEN JACOME. DP: HOME, NO SERVICES ANTICIPATED. PT HAS OWN RIDE HOME. CM WILL CONTINUE TO FOLLOW FOR ANY CHANGE IN DC NEEDS/PLAN.
[2023-10-14] MEDS: vancomycin HCL 1,500 MG in 0.9 % Sodium Chloride 500 ML 333.33 MG IV (09:51)
[2023-10-14 09:56] LABS: Adenovirus PCR Not Detected (Not Detect.); Bordetella parapertussis PCR Not Detected (Not Detect.); Bordetella pertussis PCR Not Detected (Not Detect.); Chlamydia pneumoniae PCR Not Detected (Not Detect.); Coronavirus 229E PCR Not Detected (Not Detect.); Coronavirus HKU1 PCR Not Detected (Not Detect.); Coronavirus NL63 PCR Not Detected (Not Detect.); Coronavirus OC43 PCR Not Detected (Not Detect.); Human metapneumovirus PCR Not Detected (Not Detect.); Influenza A PCR Not Detected (Not Detect.); Influenza B PCR Not Detected (Not Detect.); Mycoplasma pneumoniae PCR Not Detected (Not Detect.); Parainfluenza 1 PCR Not Detected (Not Detect.); Parainfluenza 2 PCR Not Detected (Not Detect.); Parainfluenza 3 PCR Not Detected (Not Detect.); Parainfluenza 4 PCR Not Detected (Not Detect.); RSV PCR Not Detected (Not Detect.); Rhino/Enterovirus PCR Not Detected (Not Detect.)
--- NOTE | 2023-10-14 10:44 | P.PNIM_ITS ---
Subjective Subjective Date of Service: 10/14/23 Interval History: no fever, headache, neck stiffness, sore throat, or cough legs swollen, tight Review of Systems Review of Systems: Yes all other systems are reviewed and are negative Physical Exam 2 Vital Signs: Vital Signs: Last Vital Signs Temp 98.8 F 10/14/23 07:41 Pulse 95 10/14/23 07:41 Resp 18 10/14/23 07:41 BP 108/57 L 10/14/23 07:41 Pulse Ox 95 10/14/23 07:41 O2 Del Method CPAP 10/14/23 07:41 BMI result Body Mass Index 51.3 Gen: in no acute distress HEENT: sclera anicteric, TMs pearly bilaterally, moist mucus membranes, no tonsillar hypertrophy, no thrush Neck: supple, no adenopathy Lungs: clear to auscultation bilaterally Heart: regular rate and rhythm, no murmurs Abd: soft, non-tender, non-distended, morbidly obese Ext: 2+ edema RLE, 1+ edema LLE Skin: warm/well-perfused Neuro: alert and oriented x3, no focal findings Psych: appropriate affect Objective Data Active Medications Acetaminophen (Acetaminophen 325 Mg Tablet) 650 mg PO Q6H PRN PRN Reason: Pain, Mild (Pain Scale 1-3) Albuterol Sulfate (Albuterol Sulfate 90 Mcg 8 Gm Inhaler) 2 puff INHALE Q4H PRN PRN Reason: wheezing Atorvastatin Calcium (Atorvastatin Calcium 80 Mg Tablet) 80 mg PO BEDTIME [facility] Last Admin: 10/13/23 22:07 Dose: 80 mg Documented By: AMANDA Benzonatate (Benzonatate 100 Mg Capsule) 100 mg PO TID PRN PRN Reason: Cough Cyclobenzaprine HCl (Cyclobenzaprine Hcl 5 Mg Tablet) 5 mg PO BID PRN PRN Reason: low back pain Dextrose (Dextrose 50 % 25 Gm/50 Ml Syringe) 25 gm IVPUSH Q15M PRN; Protocol PRN Reason: per Hypoglycemia Standing Ord. Docusate Sodium (Docusate Sodium 100 Mg Capsule) 100 mg PO DAILY PRN PRN Reason: Constipation Enoxaparin Sodium (Enoxaparin Sodium 40 Mg/0.4 Ml Syringe) 40 mg SUBCUT Q24H [facility] Last Admin: 10/13/23 16:54 Dose: 40 mg Documented By: ELIF Furosemide (Furosemide 20 Mg/2 Ml Vial) 20 mg IVPUSH BID@0900,1800 [facility]; Protocol Glucose (Glucose Gel 15 Gm Gel..Gram.) 15 gm PO Q15M PRN; Protocol PRN Reason: per Hypoglycemia Standing Ord. Vancomycin HCl 1,500 mg/ (Sodium Chloride) 500 mls @ 333.333 mls/hr IV Q12H [facility] Last Admin: 10/14/23 09:51 Dose: 333.33 mls/hr Documented By: CIERA Insulin Glargine (Insulin Glargine,Hum.Rec.Anlog 100 Unit/Ml 10 Ml Vial) 13 unit SUBCUT BEDTIME [facility] Last Admin: 10/13/23 22:08 Dose: 13 unit Documented By: AMNADA Insulin Human Lispro (Insulin Lispro 100 Unit/Ml 3 Ml Vial) 0 unit SUBCUT QIDACHS [facility]; Protocol Last Admin: 10/14/23 07:56 Dose: 2 unit Documented By: CIERA Loratadine (Loratadine 10 Mg Tablet) 10 mg PO DAILY [facility] Last Admin: 10/14/23 07:57 Dose: 10 mg Documented By: CIERA Melatonin (Melatonin 3 Mg Tablet) 6 mg PO BEDTIME PRN PRN Reason: Insomnia Multivitamins/Vitamin C (Multivitamin Tablet) 1 tab PO DAILY [facility] Last Admin: 10/14/23 07:56 Dose: 1 tab Documented By: CIERA Ondansetron HCl (Ondansetron Hcl 4 Mg/2 Ml Vial) 4 mg IVPUSH Q8H PRN PRN Reason: Nausea and Vomiting Pharmacy Consult (Consult Rx Vancomycin Dosing) 1 each MISCELLANE DAILY PRN PRN Reason: Consult order Sodium Chloride (0.9 % Sodium Chloride Flush 3 Ml Syringe) 3 ml IVFLUSH QSHIFT [facility] Last Admin: 10/14/23 07:56 Dose: 3 ml Documented By: CIERA Vitamin D (Cholecalciferol (Vitamin D3) 25 Mcg Tablet) 50 mcg PO DAILY [facility] Last Admin: 10/14/23 07:57 Dose: 50 mcg Documented By: CIERA Labs 10/14/23 05:50 10/14/23 05:50 Labs: Laboratory Results - last 24 hr 10/13/23 10/13/23 10/13/23 10:32 10:55 10:56 MCV 84.2 MCH 27.9 MCHC 33.2 RDW 12.2 Plt Count 242 MPV 10.4 Immature Gran % (Auto) 0.9 H Neut % (Auto) 90.8 H Lymph % (Auto) 2.7 L [place] % (Auto) 5.3 Eos % (Auto) 0.1 Baso % (Auto) 0.2 Lymph # (Auto) 0.5 L [place] # (Auto) 0.9 Eos # (Auto) 0.0 Baso # (Auto) 0.0 Abs Immat Gran (auto) 0.15 H Absolute Neuts (auto) 15.9 H Absolute Nucleated RBC 0.000 Nucleated RBC % (auto) 0.0 Smear Tech's Comments VERIFIED ESR 17 H D-Dimer High Sensitivty VBG pH VBG pCO2 VBG pO2 VBG HCO3 VBG O2 Saturation VBG Base Excess Anion Gap 14 Estim Creat Clear Calc 155.9 Estimated GFR > 60 POC Glucose 334 H Random Glucose 356 H* Estimat Average Glucose 283 Hemoglobin A1c % 11.5 H Lactic Acid Lactic Acid F/U @ 2Hr Calcium 9.2 Total Bilirubin 0.7 AST 26 ALT 28 Alkaline Phosphatase 74 C-Reactive Protein 2.15 H Total Protein 7.4 Albumin 3.9 Beta-Hydroxybutyrate 0.14 Urine Color Urine Appearance Urine pH Ur Specific [place] Urine Protein Urine Glucose (UA) Urine Ketones Urine Blood Urine Nitrite Ur Leukocyte Esterase Urine RBC Urine WBC Ur Squamous Epith Cells Urine Bacteria Hyaline Casts HIV 1&2 Ab/P24 Ag 4thGn Influenza Type A (PCR) Influenza Type B (PCR) RSV RNA Qual (PCR) SARS-CoV-2 RNA (RT-PCR) 10/13/23 10/13/23 10/13/23 10:57 11:08 11:18 MCV MCH MCHC RDW Plt Count MPV Immature Gran % (Auto) Neut % (Auto) Lymph % (Auto) [place] % (Auto) Eos % (Auto) Baso % (Auto) Lymph # (Auto) [place] # (Auto) Eos # (Auto) Baso # (Auto) Abs Immat Gran (auto) Absolute Neuts (auto) Absolute Nucleated RBC Nucleated RBC % (auto) Smear Tech's Comments ESR D-Dimer High Sensitivty 161 VBG pH 7.39 VBG pCO2 44 VBG pO2 56 VBG HCO3 27 H VBG O2 Saturation 87.0 VBG Base Excess 1.8 Anion Gap Estim Creat Clear Calc Estimated GFR POC Glucose Random Glucose Estimat Average Glucose Hemoglobin A1c % Lactic Acid 2.6 H* Lactic Acid F/U @ 2Hr Calcium Total Bilirubin AST ALT Alkaline Phosphatase C-Reactive Protein Total Protein Albumin Beta-Hydroxybutyrate Urine Color Urine Appearance Urine pH Ur Specific [place] Urine Protein Urine Glucose (UA) Urine Ketones Urine Blood Urine Nitrite Ur Leukocyte Esterase Urine RBC Urine WBC Ur Squamous Epith Cells Urine Bacteria Hyaline Casts HIV 1&2 Ab/P24 Ag 4thGn Influenza Type A (PCR) NEGATIVE Influenza Type B (PCR) NEGATIVE RSV RNA Qual (PCR) NEGATIVE SARS-CoV-2 RNA (RT-PCR) NEGATIVE 10/13/23 10/13/23 10/13/23 12:19 13:27 15:05 MCV MCH MCHC RDW Plt Count MPV Immature Gran % (Auto) Neut % (Auto) Lymph % (Auto) [place] % (Auto) Eos % (Auto) Baso % (Auto) Lymph # (Auto) [place] # (Auto) Eos # (Auto) Baso # (Auto) Abs Immat Gran (auto) Absolute Neuts (auto) Absolute Nucleated RBC Nucleated RBC % (auto) Smear Tech's Comments ESR D-Dimer High Sensitivty VBG pH VBG pCO2 VBG pO2 VBG HCO3 VBG O2 Saturation VBG Base Excess Anion Gap Estim Creat Clear Calc Estimated GFR POC Glucose 233 H Random Glucose Estimat Average Glucose Hemoglobin A1c % Lactic Acid Lactic Acid F/U @ 2Hr 2.1 H* Calcium Total Bilirubin AST ALT Alkaline Phosphatase C-Reactive Protein Total Protein Albumin Beta-Hydroxybutyrate Urine Color Yellow Urine Appearance Clear Urine pH 5.0 Ur Specific [place] >= 1.030 H Urine Protein Negative Urine Glucose (UA) >=1000 H Urine Ketones Trace Urine Blood Negative Urine Nitrite Negative Ur Leukocyte Esterase Negative Urine RBC 0-2 Urine WBC 0-5 Ur Squamous Epith Cells 0-2 Urine Bacteria None Seen Hyaline Casts 0-2 HIV 1&2 Ab/P24 Ag 4thGn Influenza Type A (PCR) Influenza Type B (PCR) RSV RNA Qual (PCR) SARS-CoV-2 RNA (RT-PCR) 10/13/23 10/13/23 10/14/23 16:30 20:00 05:50 MCV 84.2 MCH 27.7 MCHC 32.9 RDW 12.7 Plt Count 216 MPV 10.6 Immature Gran % (Auto) Neut % (Auto) Lymph % (Auto) [place] % (Auto) Eos % (Auto) Baso % (Auto) Lymph # (Auto) [place] # (Auto) Eos # (Auto) Baso # (Auto) Abs Immat Gran (auto) Absolute Neuts (auto) Absolute Nucleated RBC 0.000 Nucleated RBC % (auto) 0.0 Smear Tech's Comments ESR D-Dimer High Sensitivty VBG pH VBG pCO2 VBG pO2 VBG HCO3 VBG O2 Saturation VBG Base Excess Anion Gap 9 L Estim Creat Clear Calc 197.5 Estimated GFR > 60 POC Glucose 188 H 219 H Random Glucose 160 H Estimat Average Glucose Hemoglobin A1c % Lactic Acid Lactic Acid F/U @ 2Hr Calcium 8.7 Total Bilirubin AST ALT Alkaline Phosphatase C-Reactive Protein Total Protein Albumin Beta-Hydroxybutyrate Urine Color Urine Appearance Urine pH Ur Specific [place] Urine Protein Urine Glucose (UA) Urine Ketones Urine Blood Urine Nitrite Ur Leukocyte Esterase Urine RBC Urine WBC Ur Squamous Epith Cells Urine Bacteria Hyaline Casts HIV 1&2 Ab/P24 Ag 4thGn Nonreactive Influenza Type A (PCR) Influenza Type B (PCR) RSV RNA Qual (PCR) SARS-CoV-2 RNA (RT-PCR) 10/14/23 07:24 MCV MCH MCHC RDW Plt Count MPV Immature Gran % (Auto) Neut % (Auto) Lymph % (Auto) [place] % (Auto) Eos % (Auto) Baso % (Auto) Lymph # (Auto) [place] # (Auto) Eos # (Auto) Baso # (Auto) Abs Immat Gran (auto) Absolute Neuts (auto) Absolute Nucleated RBC Nucleated RBC % (auto) Smear Tech's Comments ESR D-Dimer High Sensitivty VBG pH VBG pCO2 VBG pO2 VBG HCO3 VBG O2 Saturation VBG Base Excess Anion Gap Estim Creat Clear Calc Estimated GFR POC Glucose 165 H Random Glucose Estimat Average Glucose Hemoglobin A1c % Lactic Acid Lactic Acid F/U @ 2Hr Calcium Total Bilirubin AST ALT Alkaline Phosphatase C-Reactive Protein Total Protein Albumin Beta-Hydroxybutyrate Urine Color Urine Appearance Urine pH Ur Specific [place] Urine Protein Urine Glucose (UA) Urine Ketones Urine Blood Urine Nitrite Ur Leukocyte Esterase Urine RBC Urine WBC Ur Squamous Epith Cells Urine Bacteria Hyaline Casts HIV 1&2 Ab/P24 Ag 4thGn Influenza Type A (PCR) Influenza Type B (PCR) RSV RNA Qual (PCR) SARS-CoV-2 RNA (RT-PCR) Assessment and Plan (1) Sepsis: Status: Acute Plan d2 52yo M with HTN, uncontrolled DM2, 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 ID consulted from ED and recommended continuing vanco + ceftriaxone. follow BCx. RVP pending. currently no SANTILLAN or neck stiffness. formal ID consult pending peripheral edema - could be amlodipine side effect. also assess for HF- will get TTE + BNP. will give a few doses of IV furosemide DM2, uncontrolled, with hyperglycemia - basal-bolus insulin, hold OHGs - A1c 11.5, needs better control, close PCP f/u HTN - hold amlodipine + HCTZ due to soft BP HLD hx CVA - statin, ASA CARSON - CPAP @ night morbid obesity - diet/exercise counseling VTE ppx - LMWH dispo - eventual home In my clinical judgment, the patient requires continued inpatient hospitalization for the following reasons: IV ABX, specialist consultation Total time managing care of this patient today: 35 minutes. Quality Stroke Does the patient have a stroke diagnosis?: No VTE Prior VTE?: No VTE Risk Level:: Medical - moderate - high VTE Device Contraindication: Treatment Not Indicated VTE Drug Contraindication: N/A - Med Ordered
[2023-10-14 11:17] LABS: Glucose, Whole Blood 258 mg/dL (60-115)
[2023-10-14 11:21] LABS: SARS-CoV-2 PCR Not Detected (Not Detect.)
[2023-10-14] MEDS: Aspirin 81 MG TAB.CHEW PO (11:35)
[2023-10-14] MEDS: Furosemide 20 MG/2 ML VIAL IVPUSH ×2 (11:35→18:16)
[2023-10-14 11:52] LABS: B Type Natriuretic Peptide 102 pg/mL (<100)
[2023-10-14 15:42] VITALS: BP 137/68; PULSE 95; RESP 18; TEMP 36.7; O2SAT 95
--- NOTE | 2023-10-14 15:58 | W.PM.IDCN ---
History of Present Illness Data of Consult Service Date: 10/14/23 Requesting physician: Mary Campos Primary Care Provider: AYAZ Sheikh HPI Reason for consult: headache and neck stiffness He presents with fever,malaise,frontal headache and neck stiffness reported for three days,not better with acetominophen He has DM and HTN. Headache is 7/10. He is febrile with tachycardia and tachypnea. He has WBC elevation. Review of Systems Review of Systems: Yes all other systems are reviewed and are negative PMF Past Medical History Medical History Class 3 obesity CARSON (obstructive sleep apnea) CVA (cerebral vascular accident) HLD (hyperlipidemia) Insulin dependent type 2 diabetes mellitus Hypertension Family History Family history: reviewed and not pertinent Social History Social History Household Members: Spouse Household Members Other:: Housing: Apartment Do you presently have visiting nurse or other home services: No Patient Tobacco Use Status: Former Tobacco user Smoked in Last 30 Days: No Use of substances other than those prescribed or required for medical reasons: No Currently Displaying Signs/Symptoms of Drug Intoxication Withdrawal: No Do you feel safe in your current relationship?: Yes Advance Directives: No Advance Directives Information Provided: Yes Do you have thoughts of harming others: None Do you have a plan to hurt others: No Plan Recently lost weight without trying: No Nutrition Risks: No Nutritional Risk Poor oral hygiene: No service: No Meds Allergies Allergy/AdvReac Type Severity Reaction Status Date / Time lisinopril [LISINOPRIL] Allergy Unknown ANGIOEDEMA Verified 10/13/23 10:22 shrimp Allergy Unknown DIFFICULTY Verified 10/13/23 10:22 BREATHING Active Medications: Current Medications Acetaminophen (Acetaminophen 325 Mg Tablet) 650 mg PO Q6H PRN PRN Reason: Pain, Mild (Pain Scale 1-3) Albuterol Sulfate (Albuterol Sulfate 90 Mcg 8 Gm Inhaler) 2 puff INHALE Q4H PRN PRN Reason: wheezing Aspirin (Aspirin 81 Mg Tab.Chew) 81 mg PO DAILY [facility] Last Admin: 10/14/23 11:35 Dose: 81 mg Atorvastatin Calcium (Atorvastatin Calcium 80 Mg Tablet) 80 mg PO BEDTIME [facility] Last Admin: 10/13/23 22:07 Dose: 80 mg Benzonatate (Benzonatate 100 Mg Capsule) 100 mg PO TID PRN PRN Reason: Cough Cyclobenzaprine HCl (Cyclobenzaprine Hcl 5 Mg Tablet) 5 mg PO BID PRN PRN Reason: low back pain Dextrose (Dextrose 50 % 25 Gm/50 Ml Syringe) 25 gm IVPUSH Q15M PRN; Protocol PRN Reason: per Hypoglycemia Standing Ord. Docusate Sodium (Docusate Sodium 100 Mg Capsule) 100 mg PO DAILY PRN PRN Reason: Constipation Enoxaparin Sodium (Enoxaparin Sodium 40 Mg/0.4 Ml Syringe) 40 mg SUBCUT Q24H [facility] Last Admin: 10/13/23 16:54 Dose: 40 mg Furosemide (Furosemide 20 Mg/2 Ml Vial) 20 mg IVPUSH BID@0900,1800 [facility]; Protocol Last Admin: 10/14/23 11:35 Dose: 20 mg Glucose (Glucose Gel 15 Gm Gel..Gram.) 15 gm PO Q15M PRN; Protocol PRN Reason: per Hypoglycemia Standing Ord. Vancomycin HCl 1,500 mg/ (Sodium Chloride) 500 mls @ 333.333 mls/hr IV Q12H [facility] Last Infusion: 10/14/23 11:41 Dose: Infused Insulin Glargine (Insulin Glargine,Hum.Rec.Anlog 100 Unit/Ml 10 Ml Vial) 13 unit SUBCUT BEDTIME [facility] Last Admin: 10/13/23 22:08 Dose: 13 unit Insulin Human Lispro (Insulin Lispro 100 Unit/Ml 3 Ml Vial) 0 unit SUBCUT QIDACHS [facility]; Protocol Last Admin: 10/14/23 11:36 Dose: 6 unit Loratadine (Loratadine 10 Mg Tablet) 10 mg PO DAILY [facility] Last Admin: 10/14/23 07:57 Dose: 10 mg Melatonin (Melatonin 3 Mg Tablet) 6 mg PO BEDTIME PRN PRN Reason: Insomnia Multivitamins/Vitamin C (Multivitamin Tablet) 1 tab PO DAILY [facility] Last Admin: 10/14/23 07:56 Dose: 1 tab Ondansetron HCl (Ondansetron Hcl 4 Mg/2 Ml Vial) 4 mg IVPUSH Q8H PRN PRN Reason: Nausea and Vomiting Pharmacy Consult (Consult Rx Vancomycin Dosing) 1 each MISCELLANE DAILY PRN PRN Reason: Consult order Sodium Chloride (0.9 % Sodium Chloride Flush 3 Ml Syringe) 3 ml IVFLUSH QSHIFT [facility] Last Admin: 10/14/23 07:56 Dose: 3 ml Vitamin D (Cholecalciferol (Vitamin D3) 25 Mcg Tablet) 50 mcg PO DAILY [facility] Last Admin: 10/14/23 07:57 Dose: 50 mcg Home Medications Medication Instructions Recorded Confirmed Last Taken Type cholecalciferol (vitamin D3) 50 50 mcg PO DAILY 09/30/20 10/13/23 10/12/23 History mcg (2,000 unit) capsule albuterol sulfate 90 mcg/actuation 2 puff inhalation Q4H PRN wheezing 10/13/23 10/13/23 Unknown History aerosol inhaler (Ventolin HFA) amlodipine 10 mg tablet 10 mg PO DAILY 10/13/23 10/13/23 10/12/23 History aspirin 81 mg tablet,delayed 81 mg PO DAILY 10/13/23 10/13/23 10/12/23 History release atorvastatin 80 mg tablet 80 mg PO BEDTIME 10/13/23 10/13/23 10/12/23 History cyclobenzaprine 5 mg tablet 5 mg PO BID PRN low back pain 10/13/23 10/13/23 Unknown History dulaglutide 3 mg/0.5 mL 3 mg subcut GOMEZ@0900 10/13/23 10/13/23 10/06/23 History subcutaneous pen injector (Trulicity) glipizide 5 mg tablet, extended 5 mg PO BEDTIME 10/13/23 10/13/23 10/12/23 History release 24 hr hydrochlorothiazide 12.5 mg tablet 12.5 mg PO DAILY 10/13/23 10/13/23 10/12/23 History insulin glargine 100 unit/mL (3 18 unit subcut BEDTIME 10/13/23 10/13/23 10/12/23 History mL) subcutaneous pen (Lantus Solostar U-100 Insulin) loratadine 10 mg tablet 10 mg PO DAILY 10/13/23 10/13/23 10/12/23 History metformin 500 mg tablet,extended 1,000 mg PO BID 10/13/23 10/13/23 10/12/23 History release 24 hr [id number]-bqw-ssuhd acid 0.4 1 tab PO DAILY 10/13/23 10/13/23 10/12/23 History mg-lycopene 300 mcg-lutein 250 mcg tablet (Cerovite Senior) naproxen 500 mg tablet 500 mg PO BID 10/13/23 10/13/23 10/12/23 History Physical Exam Vital Signs: Vital Signs: Last Vital Signs Temp 98.1 F 10/14/23 15:42 Pulse 95 10/14/23 15:42 Resp 18 10/14/23 15:42 BP 137/68 10/14/23 15:42 Pulse Ox 95 10/14/23 15:42 O2 Del Method Room Air 10/14/23 15:42 BMI result Body Mass Index 51.3 Const: General: cooperative HEENT: Head: Yes normal to inspection Face and sinus: Yes normal facial exam Mouth: Normal oral and palatal mucosa present Teeth and gingiva: dentition normal Eyes: General: appearance normal, both eyes and all related structures Pupils: Equal, round and reactive pupils present Resp: Effort & Inspection: normal respiratory effort Cardio: Rate: regular rate Rhythm: regular rhythm GI: Palpation (GI): Soft to palpation and nontender : General: Yes no CVA tenderness Back/Spine/Pelvis: Back: no CVA tenderness Skin: General skin exam: no rashes or lesions noted Neuro: General: moves all extremities Cranial nerves: Yes Equal, round and reactive pupils present Extrem: General: Yes normal to inspection Psych: Appearance: grossly normal Results Labs 10/14/23 05:50 10/14/23 05:50 Labs: Short CBC 10/14/23 Range/Units 05:50 WBC 13.5 H (4.8-10.8) X10*3/uL Hgb 11.9 L (14.0-18.0) g/dl Hct 36.2 L (42.0-52.0) % Plt Count 216 (160-400) X10*3/uL BMP 10/14/23 05:50 Sodium 134 L Potassium 3.6 Chloride 106 Carbon Dioxide 23 BUN 6 L Creatinine 0.66 Calcium 8.7 Microbiology Microbiology Results: Microbiology 10/13/23 11:18 Blood - Venous Blood Culture - Preliminary No growth after 24 hours. 10/13/23 11:08 Blood - Venous Blood Culture - Preliminary No growth after 24 hours. Assessment and Plan (1) Headache: Status: Acute (2) Sepsis: Status: Acute Probable viral sepsis like coxsackivirus or echovirus,not West Nile with no mosquitoes. There are no signs of meningitis (no neck stiffness at this time) and patient had refused LP. CT neck is unremarkable. Plan Stop antibiotics.
[2023-10-14 16:41] LABS: Glucose, Whole Blood 208 mg/dL (60-115)
[2023-10-14] MEDS: Enoxaparin Sodium 40 MG/0.4 ML SYRINGE SUBCUT (16:55)
[2023-10-14] MEDS: Acetaminophen 325 MG TABLET 650 MG PO (18:16)
--- NOTE | 2023-10-14 19:29 | PC.NURSE ---
pt reporting swelling, redness, and hot to touch at right calf area. Upon assessment, warm to touch, edematous, and red to lower right extremity. Reported to provider Beth, who reports s/p ultrasound, will order CT scan. Patient given Tylenol for discomfort.
[2023-10-14 19:54] VITALS: BP 142/66; PULSE 88; RESP 18; TEMP 36.7; O2SAT 96
[2023-10-14] MEDS: iohexoL 350 MG/ML 100 ML INFUS..BTL IV (20:16)
[2023-10-14 20:57] LABS: Vancomycin Random 4.6 mcg/mL (15-20)
--- NOTE | 2023-10-14 21:08 | HE.PHANOTE ---
RE VANCO TROUGH WAS 4.6 TODAY. PATIENT'S SCR IS CLEARING. FROM AN AUC STANDPOINT, PATIENT IS THERAPEUTIC WITH AN AUC OF 578. WORRIED THAT PATIENT MAY DOSE DUMP IF I INCREASE THE DOSE, SO INSTEAD I WILL GIVE THE SAME TDD BUT Q8H. PER ID NOTE, ABX TO STOP, SO WILL REEVALUATE BEFORE INCREASING ABX EXPOSURE REA
[2023-10-14] MEDS: Atorvastatin Calcium 80 MG TABLET PO (21:13)
[2023-10-14] MEDS: Insulin Glargine,Hum.rec.anlog 100 UNIT/ML 10 ML VIAL 13 UNIT SUBCUT (21:13)
[2023-10-14 21:23] LABS: Glucose, Whole Blood 221 mg/dL (60-115)
[2023-10-14] MEDS: vancomycin HCL 1,000 MG in 0.9 % Sodium Chloride 250 ML 270 MG IV (21:26)
[2023-10-15 02:55] VITALS: BP 116/60; PULSE 86; RESP 18; TEMP 38.1; O2SAT 96
[2023-10-15] MEDS: Acetaminophen 325 MG TABLET 650 MG PO ×2 (03:05→11:20)
[2023-10-15 03:22] VITALS: PULSE 89; RESP 18; O2SAT 96
[2023-10-15] MEDS: vancomycin HCL 1,000 MG in 0.9 % Sodium Chloride 250 ML 270 MG IV (05:39)
[2023-10-15 05:46] LABS: Hematocrit 37.3 % (42.0-52.0); Hemoglobin 12.2 g/dl (14.0-18.0); Mean Corpuscular HGB Conc 32.7 g/dl (31.0-36.0); Mean Corpuscular Hemoglobin 27.4 pg (27.0-33.0); Mean Corpuscular Volume 83.6 fL (80.0-98.0); Mean Platelet Volume 10.4 fL (9.4-12.4); Platelet Count 211 X10*3/uL (160-400); Red Blood Count 4.46 X10*6/uL (4.60-5.80); Red Cell Distribution Width 12.6 % (11.0-16.0)
[2023-10-15 05:58] LABS: Anion Gap 8 (12-20); Blood Urea Nitrogen 7 mg/dL (9-16); C Reactive Protein 14.78 mg/dL (< or = 0.50); Calcium 8.9 mg/dL (8.4-10.2); Carbon Dioxide 28 mmol/L (22-29); Chloride 102 mmol/L (96-108); Creatinine Clr Calc Pharmacy 188.9; Estimated Glomerular Filt Rate > 60; Glucose Random 182 mg/dL (60-115); Potassium 3.4 mmol/L (3.3-5.1); Sodium 135 mmol/L (135-145)
[2023-10-15 07:25] VITALS: BP 129/76; PULSE 74; RESP 20; TEMP 36.3; O2SAT 96
[2023-10-15 07:33] LABS: Glucose, Whole Blood 170 mg/dL (60-115)
[2023-10-15] MEDS: Aspirin 81 MG TAB.CHEW PO (07:44)
[2023-10-15] MEDS: Furosemide 20 MG/2 ML VIAL IVPUSH ×2 (07:44→17:10)
[2023-10-15] MEDS: 0.9 % Sodium Chloride Flush 3 ML SYRINGE IVFLUSH ×3 (07:45→20:44)
[2023-10-15] MEDS: Insulin Lispro 100 UNIT/ML 3 ML VIAL SUBCUT ×4 (07:45→20:44)
[2023-10-15] MEDS: Cholecalciferol (Vitamin D3) 25 MCG TABLET 50 MCG PO (07:45)
[2023-10-15] MEDS: Multivitamin TABLET 1 TAB PO (07:45)
[2023-10-15] MEDS: Loratadine 10 MG TABLET PO (07:45)
[2023-10-15 11:12] LABS: Glucose, Whole Blood 233 mg/dL (60-115)
--- NOTE | 2023-10-15 11:55 | P.PNIM_ITS ---
Subjective Subjective Date of Service: 10/15/23 Interval History: rle improving, still with pain and erythema Physical Exam 2 Vital Signs: Vital Signs: Last Vital Signs Temp 97.3 F 10/15/23 07:25 Pulse 74 10/15/23 07:25 Resp 20 10/15/23 07:25 BP 129/76 10/15/23 07:25 Pulse Ox 96 10/15/23 07:25 O2 Del Method Room Air 10/15/23 07:25 BMI result Body Mass Index 51.3 rle tender, erythema, swelling Objective Data Active Medications Acetaminophen (Acetaminophen 325 Mg Tablet) 650 mg PO Q6H PRN PRN Reason: Pain, Mild (Pain Scale 1-3) Last Admin: 10/15/23 11:20 Dose: 650 mg Documented By: ALLIE Albuterol Sulfate (Albuterol Sulfate 90 Mcg 8 Gm Inhaler) 2 puff INHALE Q4H PRN PRN Reason: wheezing Aspirin (Aspirin 81 Mg Tab.Chew) 81 mg PO DAILY [facility] Last Admin: 10/15/23 07:44 Dose: 81 mg Documented By: ALLIE Atorvastatin Calcium (Atorvastatin Calcium 80 Mg Tablet) 80 mg PO BEDTIME [facility] Last Admin: 10/14/23 21:13 Dose: 80 mg Documented By: MOOSE Benzonatate (Benzonatate 100 Mg Capsule) 100 mg PO TID PRN PRN Reason: Cough Cyclobenzaprine HCl (Cyclobenzaprine Hcl 5 Mg Tablet) 5 mg PO BID PRN PRN Reason: low back pain Dextrose (Dextrose 50 % 25 Gm/50 Ml Syringe) 25 gm IVPUSH Q15M PRN; Protocol PRN Reason: per Hypoglycemia Standing Ord. Docusate Sodium (Docusate Sodium 100 Mg Capsule) 100 mg PO DAILY PRN PRN Reason: Constipation Enoxaparin Sodium (Enoxaparin Sodium 40 Mg/0.4 Ml Syringe) 40 mg SUBCUT Q24H [facility] Last Admin: 10/14/23 16:55 Dose: 40 mg Documented By: MARJORIE Furosemide (Furosemide 20 Mg/2 Ml Vial) 20 mg IVPUSH BID@0900,1800 [facility]; Protocol Last Admin: 10/15/23 07:44 Dose: 20 mg Documented By: ALLIE Glucose (Glucose Gel 15 Gm Gel..Gram.) 15 gm PO Q15M PRN; Protocol PRN Reason: per Hypoglycemia Standing Ord. Cefazolin Sodium 1 gm/ Sodium (Chloride) 50 mls @ 100 mls/hr IV Q8H [facility] Last Infusion: 10/15/23 10:26 Dose: Infused Documented By: ALLIE Insulin Glargine (Insulin Glargine,Hum.Rec.Anlog 100 Unit/Ml 10 Ml Vial) 13 unit SUBCUT BEDTIME [facility] Last Admin: 10/14/23 21:13 Dose: 13 unit Documented By: MOOSE Insulin Human Lispro (Insulin Lispro 100 Unit/Ml 3 Ml Vial) 0 unit SUBCUT QIDACHS [facility]; Protocol Last Admin: 10/15/23 11:20 Dose: 4 unit Documented By: ALLIE Loratadine (Loratadine 10 Mg Tablet) 10 mg PO DAILY [facility] Last Admin: 10/15/23 07:45 Dose: 10 mg Documented By: ALLIE Melatonin (Melatonin 3 Mg Tablet) 6 mg PO BEDTIME PRN PRN Reason: Insomnia Multivitamins/Vitamin C (Multivitamin Tablet) 1 tab PO DAILY [facility] Last Admin: 10/15/23 07:45 Dose: 1 tab Documented By: ALLIE Ondansetron HCl (Ondansetron Hcl 4 Mg/2 Ml Vial) 4 mg IVPUSH Q8H PRN PRN Reason: Nausea and Vomiting Sodium Chloride (0.9 % Sodium Chloride Flush 3 Ml Syringe) 3 ml IVFLUSH QSHIFT [facility] Last Admin: 10/15/23 07:45 Dose: 3 ml Documented By: ALLIE Vitamin D (Cholecalciferol (Vitamin D3) 25 Mcg Tablet) 50 mcg PO DAILY [facility] Last Admin: 10/15/23 07:45 Dose: 50 mcg Documented By: ALLIE Labs 10/15/23 05:15 10/15/23 05:15 Labs: Laboratory Results - last 24 hr 10/14/23 10/14/23 10/14/23 16:22 20:07 21:05 MCV MCH MCHC RDW Plt Count MPV Absolute Nucleated RBC Nucleated RBC % (auto) Anion Gap Estim Creat Clear Calc Estimated GFR POC Glucose 208 H 221 H Random Glucose Calcium C-Reactive Protein Random Vancomycin 4.6 L 10/15/23 10/15/23 10/15/23 05:15 07:27 11:06 MCV 83.6 MCH 27.4 MCHC 32.7 RDW 12.6 Plt Count 211 MPV 10.4 Absolute Nucleated RBC 0.000 Nucleated RBC % (auto) 0.0 Anion Gap 8 L Estim Creat Clear Calc 188.9 Estimated GFR > 60 POC Glucose 170 H 233 H Random Glucose 182 H Calcium 8.9 C-Reactive Protein 14.78 H Random Vancomycin Microbiology Microbiology Results: Microbiology 10/13/23 11:18 Blood Culture - Preliminary Blood - Venous No growth after 24 hours. 10/13/23 11:08 Blood Culture - Preliminary Blood - Venous No growth after 24 hours. 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, residual L peripheral vision loss], CARSON on CPAP presented with 1d of subjective fever, chills, SANTILLAN, neck stiffness admitted for sepsis, ?source sepsis cultures negative, suspect RLE cellulitis, changed to iv ancef acute on chronic diastolic chf iv lasix DM2, uncontrolled, with hyperglycemia - basal-bolus insulin, hold OHGs - A1c 11.5, needs better control, close PCP f/u HTN hold amlodipine + HCTZ due to soft BP HLD hx CVA statin, ASA CARSON CPAP @ night morbid obesity diet/exercise counseling VTE ppx LMWH dispo - eventual home reason for continued hospitalization:had fever today, monitor for defervesnce Total time managing care of this patient today: 35 minutes. Quality Stroke Does the patient have a stroke diagnosis?: No VTE Prior VTE?: No VTE Risk Level:: Medical - moderate - high VTE Device Contraindication: Treatment Not Indicated VTE Drug Contraindication: N/A - Med Ordered
[2023-10-15] MEDS: Enoxaparin Sodium 40 MG/0.4 ML SYRINGE SUBCUT (14:33)
[2023-10-15 15:12] VITALS: BP 125/72; PULSE 84; RESP 20; TEMP 36.7; O2SAT 96
[2023-10-15] MEDS: Cyclobenzaprine HCl 5 MG TABLET PO (15:24)
[2023-10-15 17:02] LABS: Glucose, Whole Blood 218 mg/dL (60-115)
[2023-10-15 19:17] VITALS: BP 129/69; PULSE 80; RESP 18; TEMP 36.2; O2SAT 97
[2023-10-15 19:55] LABS: Glucose, Whole Blood 231 mg/dL (60-115)
[2023-10-15] MEDS: Insulin Glargine,Hum.rec.anlog 100 UNIT/ML 10 ML VIAL 13 UNIT SUBCUT (20:43)
[2023-10-15] MEDS: Atorvastatin Calcium 80 MG TABLET PO (20:44)
[2023-10-16 00:43] VITALS: PULSE 92; RESP 20; O2SAT 96
[2023-10-16 03:33] VITALS: BP 127/65; PULSE 82; RESP 18; TEMP 36.4; O2SAT 97
[2023-10-16 07:14] VITALS: BP 128/61; PULSE 88; RESP 20; TEMP 36.2; O2SAT 96
[2023-10-16 07:29] LABS: Glucose, Whole Blood 170 mg/dL (60-115)
[2023-10-16 07:54] LABS: Hematocrit 38.5 % (42.0-52.0); Hemoglobin 12.7 g/dl (14.0-18.0); Mean Corpuscular Hemoglobin 27.1 pg (27.0-33.0); Mean Corpuscular Volume 82.3 fL (80.0-98.0); Platelet Count 239 X10*3/uL (160-400); Red Blood Count 4.68 X10*6/uL (4.60-5.80); Red Cell Distribution Width 12.8 % (11.0-16.0); White Blood Count 7.2 X10*3/uL (4.8-10.8)
[2023-10-16] MEDS: Insulin Lispro 100 UNIT/ML 3 ML VIAL SUBCUT (08:01)
[2023-10-16] MEDS: Furosemide 20 MG/2 ML VIAL IVPUSH (08:01)
[2023-10-16] MEDS: Multivitamin TABLET 1 TAB PO (08:02)
[2023-10-16] MEDS: Aspirin 81 MG TAB.CHEW PO (08:02)
[2023-10-16] MEDS: Loratadine 10 MG TABLET PO (08:02)
[2023-10-16] MEDS: Cholecalciferol (Vitamin D3) 25 MCG TABLET 50 MCG PO (08:02)
[2023-10-16] MEDS: 0.9 % Sodium Chloride Flush 3 ML SYRINGE IVFLUSH (08:04)
[2023-10-16 08:05] LABS: Anion Gap 11 (12-20); Blood Urea Nitrogen 8 mg/dL (9-16); Calcium 9.2 mg/dL (8.4-10.2); Carbon Dioxide 29 mmol/L (22-29); Chloride 101 mmol/L (96-108); Estimated Glomerular Filt Rate > 60; Glucose Fasting 181 mg/dL (60-99); Potassium 3.7 mmol/L (3.3-5.1); Sodium 137 mmol/L (135-145)
--- NOTE | 2023-10-16 09:22 | P.DS_ITS ---
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 Patient said he experienced subjective fever and chills last evening. Does not have a thermometer at home. Symptoms seemingly resolved shortly before bedtime and patient was able to sleep restfully throughout the night. However, when he awoke this morning symptoms returned and included a 2/10 headache primarily centered in the front of his head though also wraps around to the sides of his head with neck movement. Patient also complained of neck stiffness that he describes feels like he ?slept on it wrong?. Patient also says his blood sugar levels have been quite high lately, and he admits to forgetting to take his insulin last night. Patient additionally notes he has a ?bad molar? on the upper right side, but denies any mouth pain or swelling. Denies nasal congestion, earache, sore throat. No chest pain/pressure, palpitations. No shortness of breath. Denies nausea, vomiting, abdominal pain. No changes to bowel or bladder habits. Denies any rashes. In the ED patient apparently presented with diaphoresis and nuchal rigidity thought Kernig's and Brudzinski signs were negative. Patient received ketorolac which resolved his symptoms. ED clinicians wanted to perform an LP but patient refused procedure. In the ED pt with low-grade fever of 99.5, tachycardia up to 128, tachypnea up to 24, soft BP as low as 99/54, satting 94% on RA. Labs were significant for leukocytosis of 17.5, H&H 13.4/40.4, random glucose 356, lactic acid 2.6. D- dimer negative. Electrolytes WNL. Renal function baseline. Beta hydroxybutyrate WNL at 0.14. VBG with pH WNL at 7.39. Patient tested negative for influenza type a and B, RSV, and COVID. CXR showed low lung volumes but clear lungs. CT of head and brain pending. Pt was treated with IVF, acetaminophen, 10 units insulin, ketorolac, ceftriaxone and vancomycin. Pt will be admitted to the hospital for treatment and further workup of potential meningitis. hospital course: Patient was admitted for sepsis likely secondary to right lower extremity cellulitis. menigitis was ruled out, as no nuchal rigidity and significant clinical improvement. He was treated with IV vancomycin, transitioned to IV Ancef. Cultures were negative. Swelling, erythema, pain significantly improved. He will continue 7 more days of p.o. Keflex, he is instructed to keep right lower extremity elevated as much as possible. for acute on chronic diastolic chf, he received iv lasix, diuresed well, hctz will be changed to lasix on discharge. amlodipine has also been held for peripheral edema,bps have been fine inpatient, if elevated outpatient may need alternative med. For diabetes with hyperglycemia was treated with basal bolus insulin. For hyperlipidemia and history of CVA was continue aspirin statin. For CARSON was continued on CPAP at night. For morbid obesity weight loss recommended. Patient feeling better will be discharged home. Time Attestation Discharge coordination time: Greater than 30 minutes Quality: Safe Use of Opioids Does Pt have an Active Cancer Diagnosis on the Problem List?: No Quality: Stroke Does the patient have a stroke diagnosis?: No Physical Exam Vital Signs: Vital Signs: Last Vital Signs Temp 97.2 F 10/16/23 07:14 Pulse 88 10/16/23 07:14 Resp 20 10/16/23 07:14 BP 128/61 10/16/23 07:14 Pulse Ox 96 10/16/23 07:14 O2 Del Method Room Air 10/16/23 07:14 BMI result Body Mass Index 51.3 rle tender, erythema, swelling improved DS: Data Data Completed and Pending Labs on day of discharge: Laboratory Results - last 24 hr 10/15/23 10/15/23 10/15/23 11:06 16:09 19:48 WBC RBC Hgb Hct MCV MCH MCHC RDW Plt Count MPV Absolute Nucleated RBC Nucleated RBC % (auto) Sodium Potassium Chloride Carbon Dioxide Anion Gap BUN Creatinine Estim Creat Clear Calc Estimated GFR POC Glucose 233 H 218 H 231 H Fasting Glucose Calcium 10/16/23 10/16/23 07:08 07:18 WBC 7.2 RBC 4.68 Hgb 12.7 L Hct 38.5 L MCV 82.3 MCH 27.1 MCHC 33.0 RDW 12.8 Plt Count 239 MPV 10.0 Absolute Nucleated RBC 0.000 Nucleated RBC % (auto) 0.0 Sodium 137 Potassium 3.7 Chloride 101 Carbon Dioxide 29 Anion Gap 11 L BUN 8 L Creatinine 0.72 Estim Creat Clear Calc 181.0 Estimated GFR > 60 POC Glucose 170 H Fasting Glucose 181 H Calcium 9.2 Preliminary micro results at discharge 10/13/23 11:18 Blood Culture - Preliminary Blood - Venous No growth after 48 hours. 10/13/23 11:08 Blood Culture - Preliminary Blood - Venous No growth after 48 hours. Discharge Plan Discharge Anticipated Discharge Date/Time: 10/16/23 09:19 Patient Disposition: Home, Self-Care Discharge Diagnosis: sepsis, cellulitis Referrals: Ailin Rizo FNP [Primary Care Provider] - 1 Week Discharge Medications: New cephalexin 500 mg capsule 500 mg PO Q12H Qty: 14 0RF furosemide 40 mg tablet 40 mg PO DAILY Qty: 30 0RF Continued cholecalciferol (vitamin D3) 50 mcg (2,000 unit) capsule 50 mcg PO DAILY atorvastatin 80 mg tablet 80 mg PO BEDTIME glipizide 5 mg tablet extended release 24hr 5 mg PO BEDTIME aspirin 81 mg tablet,delayed release (DR/EC) 81 mg PO DAILY albuterol sulfate [Ventolin HFA] 90 mcg/actuation HFA aerosol inhaler 2 puff INHALATION Q4H PRN (Reason: wheezing) metformin 500 mg tablet extended release 24 hr 1,000 mg PO BID loratadine 10 mg tablet 10 mg PO DAILY naproxen 500 mg tablet 500 mg PO BID cyclobenzaprine 5 mg tablet 5 mg PO BID PRN (Reason: low back pain) Cerovite Senior 0.4 mg-300 mcg- 250 mcg tablet 1 tab PO DAILY insulin glargine [Lantus Solostar U-100 Insulin] 100 unit/mL (3 mL) insulin pen 18 unit subcut BEDTIME Trulicity 3 mg/0.5 mL pen injector 3 mg subcut GOMEZ@0900 Discontinued amlodipine 10 mg tablet 10 mg PO DAILY hydrochlorothiazide 12.5 mg tablet 12.5 mg PO DAILY Discharge Orders: Discharge Order (Routine); Ordered 10/16/23 Ordered By: Matthew Brower Diet: Advance to usual diet Activity on Discharge: As tolerated Stand Alone Forms: Patient Portal Discharge page Care Plan Goals: recovery Health Concerns: cellulitis, chf Plan of Treatment: stop amlodipine (monitor bps, may need new med if high), 1 week keflex, start lasix, elevate RLE as much as possible Assessment: see above
--- NOTE | 2023-10-16 10:02 | MHC.CM.PN ---
PT TO [place] HOME TODAY VIA PRIVATE TRANSPORT NO SERVICES INDICATED
== END 2023-10-16 10:24 | disposition home or self-care (01) | DRG 871 ==
LOC: HO.ED 13:21 → HO.EDOVER 14:12 → HO.S3 15:49
PROVIDERS: Family Medicine; Physician Assistant; Admitting Provider Student in an Organized Health Care Education/Training Program; Emergency Provider Emergency Medicine; PCP Registered Nurse; Visit Provider Internal Medicine
DX: A41.9 Sepsis, unspecified organism (principal); I50.33 Acute on chronic diastolic (congestive) heart failure; L03.115 Cellulitis of right lower limb; Z68.43 Body mass index [BMI] 50.0-59.9, adult; I11.0 Hypertensive heart disease with heart failure; E66.01 Morbid (severe) obesity due to excess calories; Z71.3 Dietary counseling and surveillance; I69.398 Other sequelae of cerebral infarction; G47.33 Obstructive sleep apnea (adult) (pediatric); H53.8 Other visual disturbances; E78.5 Hyperlipidemia, unspecified; E11.65 Type 2 diabetes mellitus with hyperglycemia; Z20.822 Contact with and (suspected) exposure to COVID-19; Z79.82 Long term (current) use of aspirin; Z79.84 Long term (current) use of oral hypoglycemic drugs; Z79.85 Long-term (current) use of injectable non-insulin antidiabetic drugs; Z79.899 Other long term (current) drug therapy
CPT/HCPCS: 0241U; 36415; 70450; 70460; 71045; 72126; 73701; 80048; 80053; 80202; 81001; 82010; 82803; 82947; 83036; 83605; 83880; 85025; 85027; 85379; 85652; 86140; 87040; 87389; 87633; 93306; 93970; 94660; 99285; J0690; J0696; J1650; J1885; J1940; J3370; J3371; Q9957; Q9967

== ENCOUNTER 2023-10-13 14:03 | Outpatient (BNV) | payer OTHER, SELFPAY | END 2023-10-14 07:00 | PROVIDERS: Admitting Provider Student in an Organized Health Care Education/Training Program; Emergency Provider Emergency Medicine; PCP Registered Nurse; Visit Provider Internal Medicine Cardiovascular Disease | DX: I35.8 Other nonrheumatic aortic valve disorders (principal) | CPT/HCPCS: 93306 ==

== ENCOUNTER → 2023-10-13 14:03 | Outpatient (BNV) | payer OTHER, SELFPAY | PROVIDERS: Admitting Provider Student in an Organized Health Care Education/Training Program; Emergency Provider Emergency Medicine; PCP Registered Nurse; Visit Provider Internal Medicine | DX: R51.9 Headache, unspecified (principal); A41.9 Sepsis, unspecified organism | CPT/HCPCS: 99222 ==

== ENCOUNTER → 2023-10-13 14:03 | Outpatient (BNV) | payer OTHER, SELFPAY | PROVIDERS: Admitting Provider Student in an Organized Health Care Education/Training Program; Emergency Provider Emergency Medicine; PCP Registered Nurse; Visit Provider Student in an Organized Health Care Education/Training Program | DX: A41.9 Sepsis, unspecified organism (principal); E11.65 Type 2 diabetes mellitus with hyperglycemia | CPT/HCPCS: 99223; 99232; 99239 ==

== ENCOUNTER 2023-10-21 17:12 | Emergency (ER) | payer OTHER, SELFPAY ==
[2023-10-21 17:38] VITALS: BP 120/82; PULSE 71; RESP 18; TEMP 37.1; O2SAT 97; BMI 48.3
--- NOTE | 2023-10-21 17:39 | ED_ITS ---
HPI - Skin/Abscess/Foreign Bdy General Chief complaint: Extremity Problem Stated complaint: Here for IV treatment Time Seen by Provider: 10/22/23 00:15 Related Data Home Medications Medication Instructions Recorded Confirmed cholecalciferol (vitamin D3) 50 50 mcg PO DAILY 09/30/20 10/13/23 mcg (2,000 unit) capsule albuterol sulfate 90 mcg/actuation 2 puff inhalation Q4H PRN wheezing 10/13/23 10/13/23 aerosol inhaler (Ventolin HFA) aspirin 81 mg tablet,delayed 81 mg PO DAILY 10/13/23 10/13/23 release atorvastatin 80 mg tablet 80 mg PO BEDTIME 10/13/23 10/13/23 cyclobenzaprine 5 mg tablet 5 mg PO BID PRN low back pain 10/13/23 10/13/23 dulaglutide 3 mg/0.5 mL 3 mg subcut GOMEZ@0900 10/13/23 10/13/23 subcutaneous pen injector (Trulicity) glipizide 5 mg tablet, extended 5 mg PO BEDTIME 10/13/23 10/13/23 release 24 hr insulin glargine 100 unit/mL (3 18 unit subcut BEDTIME 10/13/23 10/13/23 mL) subcutaneous pen (Lantus Solostar U-100 Insulin) loratadine 10 mg tablet 10 mg PO DAILY 10/13/23 10/13/23 metformin 500 mg tablet,extended 1,000 mg PO BID 10/13/23 10/13/23 release 24 hr nemlsrle-wea-jhnlm acid 0.4 1 tab PO DAILY 10/13/23 10/13/23 mg-lycopene 300 mcg-lutein 250 mcg tablet (Cerovite Senior) naproxen 500 mg tablet 500 mg PO BID 10/13/23 10/13/23 Previous Rx's Medication Instructions Recorded cephalexin 500 mg capsule 500 mg PO Q12H #14 caps 10/16/23 furosemide 40 mg tablet 40 mg PO DAILY #30 tabs 10/16/23 linezolid 600 mg tablet (Zyvox) 600 mg PO BID #20 tabs 10/22/23 Allergies Allergy/AdvReac Type Severity Reaction Status Date / Time lisinopril [LISINOPRIL] Allergy Unknown ANGIOEDEMA Verified 10/13/23 10:22 shrimp Allergy Unknown DIFFICULTY Verified 10/13/23 10:22 BREATHING PMFSH Past Medical History Medical History Class 3 obesity CARSON (obstructive sleep apnea) CVA (cerebral vascular accident) HLD (hyperlipidemia) Insulin dependent type 2 diabetes mellitus Hypertension Social History Social History Household Members: Spouse Household Members Other:: Housing: Apartment Do you presently have visiting nurse or other home services: No Alcohol intake: never Patient Tobacco Use Status: Former Tobacco user Smoked in Last 30 Days: No Use of substances other than those prescribed or required for medical reasons: No Advance Directives: No Advance Directives Information Provided: Yes service: No Physical Exam 2 Vital Signs: Vital Signs: Last Vital Signs Temp 98.3 F 10/22/23 00:18 Pulse 68 10/22/23 00:18 Resp 18 10/22/23 00:18 BP 119/78 10/22/23 00:18 Pulse Ox 98 10/22/23 00:18 O2 Del Method Room Air 10/22/23 00:18 BMI result Body Mass Index 48.3 Course Course Course Narrative: This is rapid medical exam. Deferred additional HPI, ROS, PE to primary provider. 52 yo male with history of CVA with residual vision loss, HTN, DM, asthma, CARSON here for right lower extremity pain. Recent admit for cellulitis discharged on 10/16 currently on keflex only here with worsening pain. Feels redness/swelling the same but more pain. Went to [facility] clinic and sent in to the er. Will obtain labs VSS Medications Administered Discontinued Medications Generic Name Dose Route Start Last Admin Trade Name Freq PRN Reason Stop Dose Admin Doxycycline Monohydrate 100 mg 10/22/23 00:33 10/22/23 00:57 Doxycycline Monohydrate 100 Mg Capsule PO 10/22/23 00:34 100 mg ONCE ONE Administration Insulin Glargine 20 unit 10/22/23 00:27 10/22/23 00:58 Insulin Glargine,Hum.Rec.Anlog 100 Unit/Ml 10 Ml Vial SUBCUT 10/22/23 00:28 20 unit ONCE ONE Administration Insulin Human Lispro 10 unit 10/22/23 00:27 10/22/23 00:57 Insulin Lispro 100 Unit/Ml 3 Ml Vial SUBCUT 10/22/23 00:28 10 unit ONCE ONE Administration Medical Decision Making Lab Data 10/21/23 18:19 10/21/23 18:19 Labs: Lab Results 10/21/23 Range/Units 18:19 WBC 7.0 (4.8-10.8) X10*3/uL RBC 5.02 (4.60-5.80) X10*6/uL Hgb 13.6 L (14.0-18.0) g/dl Hct 40.9 L (42.0-52.0) % MCV 81.5 (80.0-98.0) fL MCH 27.1 (27.0-33.0) pg MCHC 33.3 (31.0-36.0) g/dl RDW 12.3 (11.0-16.0) % Plt Count 428 H D (160-400) X10*3/uL MPV 9.4 (9.4-12.4) fL Immature Gran % (Auto) 1.0 H (0.0-0.4) % Neut % (Auto) 63.1 (45-73) % Lymph % (Auto) 24.4 (20-40) % Gregory % (Auto) 7.7 (2-11) % Eos % (Auto) 3.1 (0-4) % Baso % (Auto) 0.7 (0-2) % Lymph # (Auto) 1.7 (1.2-4.9) X10*3/uL Gregory # (Auto) 0.5 (0.1-1.2) X10*3/uL Eos # (Auto) 0.2 (0.0-0.4) X10*3/uL Baso # (Auto) 0.1 (0.0-0.2) X10*3/uL Abs Immat Gran (auto) 0.07 H (0.00-0.03) X10*3/uL Absolute Neuts (auto) 4.4 (2.0-8.3) x10*3/uL Absolute Nucleated RBC 0.000 (0.0-0.012) X10*3/uL Nucleated RBC % (auto) 0.0 (0.0-0.2) /100WBC ESR 59 H (0-15) MM/HR Sodium 134 L (135-145) mmol/L Potassium 4.5 D (3.3-5.1) mmol/L Chloride 98 (96-108) mmol/L Carbon Dioxide 29 (22-29) mmol/L Anion Gap 12 (12-20) BUN 11 (9-16) mg/dL Creatinine 0.83 (0.5-1.4) mg/dL Estim Creat Clear Calc 151.6 Estimated GFR > 60 Random Glucose 364 H* (60-115) mg/dL Lactic Acid 1.1 (0.5-2.0) mmol/L Calcium 9.8 D (8.4-10.2) mg/dL Total Bilirubin 0.3 (0.0-1.0) mg/dL Direct Bilirubin 0.2 (0.0-0.5) mg/dL AST 15 (5-37) U/L ALT 45 H (0-40) U/L Alkaline Phosphatase 95 (39-117) U/L C-Reactive Protein 2.08 H (< or = 0.50) mg/dL Total Protein 8.3 H (6.5-8.0) g/dL Albumin 4.0 (3.5-5.0) g/dL Discharge Plan Discharge Clinical Impression: Cellulitis Patient Disposition: Home, Self-Care Instructions: Cellulitis (ED) Additional Instructions: Keep your legs elevated Antibiotics as prescribed Report to the ER if fever or worsening of the redness or pain Prescriptions: New linezolid [Zyvox] 600 mg tablet 600 mg PO BID Qty: 20 0RF No Action cholecalciferol (vitamin D3) 50 mcg (2,000 unit) capsule 50 mcg PO DAILY atorvastatin 80 mg tablet 80 mg PO BEDTIME glipizide 5 mg tablet extended release 24hr 5 mg PO BEDTIME aspirin 81 mg tablet,delayed release (DR/EC) 81 mg PO DAILY albuterol sulfate [Ventolin HFA] 90 mcg/actuation HFA aerosol inhaler 2 puff INHALATION Q4H PRN (Reason: wheezing) metformin 500 mg tablet extended release 24 hr 1,000 mg PO BID loratadine 10 mg tablet 10 mg PO DAILY naproxen 500 mg tablet 500 mg PO BID cyclobenzaprine 5 mg tablet 5 mg PO BID PRN (Reason: low back pain) Cerovite Senior 0.4 mg-300 mcg- 250 mcg tablet 1 tab PO DAILY insulin glargine [Lantus Solostar U-100 Insulin] 100 unit/mL (3 mL) insulin pen 18 unit subcut BEDTIME Trulicity 3 mg/0.5 mL pen injector 3 mg subcut GOMEZ@0900 cephalexin 500 mg capsule 500 mg PO Q12H Qty: 14 0RF furosemide 40 mg tablet 40 mg PO DAILY Qty: 30 0RF Interventions: ED Discharge Assessment Last Done: 10/22/23 01:18 Discharge Date/Time: 10/22/23 01:00
[2023-10-21 18:25] LABS: MANUAL DIFF FLAG NO
[2023-10-21 18:36] LABS: Lactic Acid 1.1 mmol/L (0.5-2.0)
[2023-10-21 18:40] LABS: Basophils Absolute Auto 0.1 X10*3/uL (0.0-0.2); Basophils Percent Auto 0.7 % (0-2); Eosinophils Absolute Auto 0.2 X10*3/uL (0.0-0.4); Eosinophils Percent Auto 3.1 % (0-4); Hematocrit 40.9 % (42.0-52.0); Hemoglobin 13.6 g/dl (14.0-18.0); Imm Gran Abs Auto 0.07 X10*3/uL (0.00-0.03); Lymphocytes Absolute Auto 1.7 X10*3/uL (1.2-4.9); Lymphocytes Percent Auto 24.4 % (20-40); Mean Corpuscular HGB Conc 33.3 g/dl (31.0-36.0); Mean Corpuscular Hemoglobin 27.1 pg (27.0-33.0); Mean Corpuscular Volume 81.5 fL (80.0-98.0); Mean Platelet Volume 9.4 fL (9.4-12.4); Monocytes Absolute Auto 0.5 X10*3/uL (0.1-1.2); Monocytes Percent Auto 7.7 % (2-11); Neutrophils Absolute Auto 4.4 x10*3/uL (2.0-8.3); Neutrophils Percent Auto 63.1 % (45-73); Platelet Count 428 X10*3/uL (160-400); Red Blood Count 5.02 X10*6/uL (4.60-5.80); Red Cell Distribution Width 12.3 % (11.0-16.0)
[2023-10-21 18:43] LABS: Alanine Aminotransferase 45 U/L (0-40); Alkaline Phosphatase 95 U/L (39-117); Anion Gap 12 (12-20); Aspartate Amino Transferase 15 U/L (5-37); Bilirubin Direct 0.2 mg/dL (0.0-0.5); Bilirubin Total 0.3 mg/dL (0.0-1.0); Blood Urea Nitrogen 11 mg/dL (9-16); C Reactive Protein 2.08 mg/dL (< or = 0.50); Calcium 9.8 mg/dL (8.4-10.2); Carbon Dioxide 29 mmol/L (22-29); Chloride 98 mmol/L (96-108); Creatinine Clr Calc Pharmacy 151.6; Estimated Glomerular Filt Rate > 60; Glucose Random 364 mg/dL (60-115); Potassium 4.5 mmol/L (3.3-5.1); Sodium 134 mmol/L (135-145); Total Protein 8.3 g/dL (6.5-8.0)
[2023-10-21 19:29] LABS: Erythrocyte Sedimentation Rate 59 MM/HR (0-15)
[2023-10-21 22:38] VITALS: BP 133/77; PULSE 65; RESP 18; O2SAT 97
[2023-10-22 00:18] VITALS: BP 119/78; PULSE 68; RESP 18; TEMP 36.8; O2SAT 98
--- NOTE | 2023-10-22 00:20 | MHC.EDTECH ---
Hourly rounds and vitals completed,patient is resting comfortably at this time,visitor at bedside and call busch within reach.
[2023-10-22] MEDS: Insulin Lispro 100 UNIT/ML 3 ML VIAL 10 UNIT SUBCUT (00:57)
[2023-10-22] MEDS: Doxycycline Monohydrate 100 MG CAPSULE PO (00:57)
[2023-10-22] MEDS: Insulin Glargine,Hum.rec.anlog 100 UNIT/ML 10 ML VIAL 20 UNIT SUBCUT (00:58)
== END 2023-10-22 01:00 | disposition home or self-care (01) ==
PROVIDERS: Nurse Practitioner Family; Emergency Provider Internal Medicine; PCP Registered Nurse
DX: L03.115 Cellulitis of right lower limb (principal); M79.604 Pain in right leg; E11.9 Type 2 diabetes mellitus without complications; I10 Essential (primary) hypertension; Z79.02 Long term (current) use of antithrombotics/antiplatelets; Z79.82 Long term (current) use of aspirin; Z79.4 Long term (current) use of insulin
CPT/HCPCS: 36415; 80048; 80076; 83605; 85025; 85652; 86140; 87040; 99283; 99284

== ENCOUNTER 2024-02-27 12:43 | Outpatient (REF) | payer OTHER, SELFPAY ==
--- NOTE | ~2024-02-27 | XR_ITS ---
EXAMINATION: XR ELBOW, LEFT CLINICAL INFORMATION: Chronic intermittent pain. COMPARISON: None available. TECHNIQUE: AP, lateral, and oblique views of the left elbow. FINDINGS: The bones and soft tissues are normal. No fracture or joint effusion. Alignment is anatomic. Joint spaces are maintained. XR/XR elbow LT min 3V IMPRESSION: Normal left elbow.
--- NOTE | ~2024-02-27 | XR_ITS ---
EXAMINATION: XR SHOULDER, LEFT CLINICAL INFORMATION: Pain. COMPARISON: None available. TECHNIQUE: AP external rotation, Grashey, scapular Y, and axillary views of the left shoulder. FINDINGS: Bony alignment and mineralization are normal. The glenohumeral joint is intact. The acromioclavicular and coracoclavicular intervals are normal. There is mild osteoarthritic change of the glenohumeral and acromioclavicular joints. There is a small distal acromial undersurface osteophyte. There is cortical irregularity and subcortical cyst formation of the greater tuberosity of the proximal left humerus. No soft tissue calcification or foreign body is seen. There is no left pneumothorax. XR/XR shoulder LT min 2V IMPRESSION: 1. No fracture or dislocation is seen. 2. There is mild osteoarthritic change of the left glenohumeral and acromioclavicular joints. 3. Findings suggest left rotator cuff impingement, without tamy calcific tendinitis noted.
== END 2024-02-27 12:44 | disposition home or self-care (01) ==
LOC: HO.XRAY 12:43
PROVIDERS: PCP Registered Nurse; Visit Provider Registered Nurse
DX: M25.522 Pain in left elbow (principal); M25.512 Pain in left shoulder; G89.29 Other chronic pain
CPT/HCPCS: 73030; 73080

== ENCOUNTER 2024-05-01 15:24 | Outpatient (REF) | payer OTHER, SELFPAY ==
--- NOTE | ~2024-05-01 | US_ITS ---
EXAMINATION: US VENOUS ULTRASOUND WITH DOPPLER LOWER EXTREMITY, RIGHT CLINICAL INFORMATION: Tenderness COMPARISON: Ultrasound venous Doppler lower extremity bilateral from 10/13/2023 TECHNIQUE: Ultrasound of the deep veins is performed from the hip to the calf with compression sonography and color and pulse Doppler assessment. Spectral analysis with color-flow imaging is performed. FINDINGS: There is normal venous compression and respiratory variation and augmented flow. The visualized common femoral vein, superficial femoral vein, profunda femoral vein, popliteal vein, and the trifurcation region shows no evidence of deep venous thrombosis. There is no significant popliteal fossa cyst. Contralateral common femoral vein is patent. If the patient's symptoms persist, followup ultrasound in 5 days 7 days might be of value to exclude proximal propagation from a non-visualized calf vein. US/US venous duplex LE RT IMPRESSION: No DVT demonstrated in the right lower extremity.
== END 2024-05-01 15:25 | disposition home or self-care (01) ==
LOC: HO.HMGCX 15:24
PROVIDERS: PCP Registered Nurse; Visit Provider Registered Nurse
DX: M79.89 Other specified soft tissue disorders (principal)
CPT/HCPCS: 93971

== ENCOUNTER 2024-07-21 14:46 | Outpatient (AMB) | payer OTHER, SELFPAY ==
--- NOTE | 2024-07-21 14:50 | MHC.OFFVIS ---
Intake Visit Reasons: AUDITOR INTERNAL- Left Elbow Pain Intake Note: Pavel is a 53 year right hand dominant male who represents today for evaluation of his left elbow pain. No hx of injury. Patient reports ongoing pain for a couple months. He states that his pain is worse when he is lifting his arm and getting dressed. PAPatient has tried and failed Tylenol/ibuprofen. Allergies lisinopril [LISINOPRIL] Allergy (Unknown, Verified 07/21/24 14:53) ANGIOEDEMA shrimp Allergy (Unknown, Verified 07/21/24 14:53) DIFFICULTY BREATHING HPI HPI AUDITOR INTERNAL- Left Elbow Pain: Details: 53-year-old male who presents in the office today for an evaluation of left elbow pain. The patient was evaluated on 06/30/24 by his PCP who referred him to our office. ? ? While in the office today, the patient denies any known history of injury. He reports his pain has been present for a couple of months. He claims to have an increase in pain when lifting his left upper extremity and getting dressed. He reports the use of Tylenol and ibuprofen with no relief. [facility] Medical History Class 3 obesity CARSON (obstructive sleep apnea) CVA (cerebral vascular accident) HLD (hyperlipidemia) Insulin dependent type 2 diabetes mellitus Hypertension Social History (Updated 07/21/24 @ 14:56 by Janet Rizo) Household Members: Spouse Household Members Other:: Housing: Apartment Do you presently have visiting nurse or other home services: No Alcohol intake: never Patient Tobacco Use Status: Former Tobacco user service: No Current occupational status: employed Current occupation: [employer]/ right hand dominant Review of Systems Const All systems reviewed & are unremarkable except as noted in HPI and below Physical Exam Const General: cooperative, healthy appearing and no acute distress Resp Effort & Inspection: normal respiratory effort and able to speak in complete sentences Cardio Rate: regular rate Peripheral pulses: Peripheral pulses 2+ throughout GI Palpation (GI): Soft to palpation Skin Lesions: no lesions Rashes: no rashes Extrem Other: Left elbow: Normal to inspection. No ecchymosis, erythema, or edema. Pain along the lateral epicondyle increased with resisted wrist extension. NVI. Assessment & Plan Assessment & Plan (1) Lateral epicondylitis of left elbow: Code(s): M77.12 - Lateral epicondylitis, left elbow Category: Medical Plan Mr. Boyd is a 53-year-old right hand dominant male who presents in the office today for an evaluation of left elbow pain. The patient was evaluated on 06/30/24 by his PCP who referred him to our office. ? ? While in the office today, the patient denies any known history of injury. He reports his pain has been present for a couple of months. He claims to have an increase in pain when lifting his left upper extremity and getting dressed. He reports the use of Tylenol and ibuprofen with no relief.? ? We discussed the use of a counterforce brace versus a tennis elbow brace. I have provided the patient with information on how to obtain these items. He will be referred to occupational therapy. We briefly discussed the role of cortisone injection in the left elbow but elected to defer at this time. I would like for the patient to?try and fail bracing and occupational therapy before we move forward with this option. Follow-up will be PRN, or sooner if needed. ? ? X-rays of the left elbow, obtained on 02/27/24, revealed: no acute fracture or dislocation. ? Orders: Orders OT Evaluation and Treatment Today M77.12 - Lateral epicondylitis, left elbow Medications: Discontinued furosemide Discontinued Reason: Patient no longer taking 40 mg PO DAILY 30 tabs 0RF Patient Instructions: Scribed by Mildred Gold medical accounts receivable specialist, for Barbie Pappas PA-C on 07/21/2024 at 2:58 pm, EST.? Coding Level of Care Code New Pt Level 3 (09864) Diagnoses Lateral epicondylitis of left elbow M77.12
== END 2024-07-21 15:03 | disposition home or self-care (01) ==
PROVIDERS: PCP Registered Nurse; Visit Provider Physician Assistant
DX: M77.12 Lateral epicondylitis, left elbow (principal)
CPT/HCPCS: 99203

== ENCOUNTER → 2024-07-21 14:46 | Outpatient (BNVA) | payer OTHER, SELFPAY | PROVIDERS: PCP Registered Nurse; Visit Provider Physician Assistant | DX: M77.12 Lateral epicondylitis, left elbow (principal) | CPT/HCPCS: 99202 ==

== ENCOUNTER 2024-08-19 13:30 | Outpatient (RCR) | payer OTHER, SELFPAY ==
--- NOTE | 2024-08-04 15:11 | MHC.OT.EP ---
[address] [phone] Occupational Therapy Plan of Care Patient Name: Pavel Boyd Date of Evaluation: 08/04/24 Diagnosis: Left Tennis Elbow Pain Location: Moderate resting pain left lateral elbow, radiates down forearm Tenderness over lateral elbow and over extensor wad Pain Score: 4 Pain Scale Used: Numeric (0 - 10) Aggravating Factors: Gripping, reaching, sleeping Alleviating Factors: Massage, resting Assessment: 53 yo male presents w/ left elbow/forearm pain over the past several months, now w/ worsening pain and numbness into ulnar aspect of hand. He is not working but is Ind w/ daily activities and spends time with two young grandchildren. Today he reports pain at left lateral epicondyle and at times radiating down dorsal forearm, he has tenderness to palpate both areas. He offers no radial nerve complaints, but does have nighttime ulnar nerve symptoms w/ increased pain w/ prolonged flexed elbow position and left D4-D5 numbness which is nworse on waking. 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 I anticipate he will do well w/ course of occupational therapy to progress functional activities and strengthening w/ focus on joint protection and activity modification. Frequency and Duration: The patient will be seen 2x/wk for 4 weeks Short Term Goals: Ind w/ HEP Ind w/ heat and cold modalities as appropriate Good follow through w/ joint protection techniques (including CFB) Jail Goals: Pain free LUE at rest Pt to report ease of nighttime ulnar nerve symptoms QuickDASH score <35 pts Pt to report pain <3/10 w/ moderate home tasks and lifting grandchildren Treatment Plan: Therapeutic Exercise Therapeutic Activity Home Exercise Program Splinting Patient Education Edema Control ADL Training Ultrasound Iontophoresis Fluidotherapy MHP Cold Packs Soft Tissue Mobilization Kinesiotaping Ionto w/ dex (*discuss with patient re: management) Nighttime wrist orthosis PRN Electronically Signed By: Patsy Church OTR/L CHT Please Sign and return to therapist. Thank you once again for your referral.
--- NOTE | 2024-09-16 14:01 | MHC.OT.DC ---
[address] [phone] F: [phone] Occupational Therapy Discharge Note Patient Name: Pavel Boyd Provider: Barbie Pappas PA-C Diagnosis: Left Tennis Elbow Date of Surgery: Date of Evaluation: 08/04/24 Date of Discharge: 09/16/24 Treatments to Date: 5 Cancellations to Date: 1 No Shows to Date: 1 Discharge Status: Improved Function Independent with HEP Patient Elected to Stop Discharge Summary: Pavel was referred to OT w/ left tennis elbow, was seen for brief course of OT but he missed last two appointments and did not follow up for the past month. On last visit, he was pain free at rest, but aggravated at times w/ heavy tasks. He was very motivated and good follow through w/ HEP and nighttime orthosis wear, I anticipate he is doing well w/ self management. Electronically Signed By: Patsy Church OTR/Shakila CHT Reviewed/agree with student documentation: Therapist: Please Sign and return to therapist, thank you for your referral.
== END 2024-09-16 14:01 | disposition home or self-care (01) ==
LOC: HO.OT 13:30
PROVIDERS: PCP Registered Nurse; Visit Provider Physician Assistant
DX: M77.12 Lateral epicondylitis, left elbow (principal)
CPT/HCPCS: 29125; 97035; 97110; 97140; 97165; 97760

== ENCOUNTER 2024-08-27 10:00 | Outpatient (RCR) | payer OTHER, SELFPAY | END 2024-11-05 13:57 | disposition home or self-care (01) | LOC: HO.PT 10:00 | PROVIDERS: PCP Registered Nurse; Visit Provider Registered Nurse | DX: M25.511 Pain in right shoulder (principal); G89.29 Other chronic pain | CPT/HCPCS: 97110; 97162 ==

== ENCOUNTER 2024-08-28 15:30 | Emergency (ER) | payer OTHER, SELFPAY ==
--- NOTE | ~2024-08-28 | US_ITS ---
EXAMINATION: US ABDOMEN LIMITED CLINICAL INFORMATION: Right upper quadrant pain status post fatty meal. COMPARISON: CT abdomen/pelvis 11/05/2020. TECHNIQUE: Real-time imaging of the right upper quadrant abdominal viscera. FINDINGS: Limited evaluation secondary to body habitus and shadowing from overlying bowel gas. PANCREAS: Not well visualized. LIVER: Partially seen with increased parenchymal echogenicity. No discrete mass or intrahepatic biliary ductal dilatation. GALLBLADDER: No evidence of cholelithiasis, gallbladder wall thickening or pericholecystic free fluid. Negative Kay's sign. COMMON BILE DUCT: Partially visualized measuring up to 0.4 cm in diameter. FREE FLUID: None. US/US abdomen limited IMPRESSION: 1. Limited evaluation secondary to body habitus and shadowing from overlying bowel gas. 2. No evidence of cholelithiasis or acute cholecystitis. 3. Increased parenchymal echogenicity of the liver which is nonspecific but could be seen in the setting of hepatic steatosis. Electronically signed by: Bianka Greer MD 08/28/2024 05:49 PM EDT
--- NOTE | ~2024-08-28 | CT_ITS ---
EXAMINATION: CT ABDOMEN AND PELVIS WITHOUT CONTRAST CLINICAL INFORMATION: Upper abdominal pain. COMPARISON: Abdominal ultrasound 08/28/2024. CT abdomen/pelvis 11/05/2020. TECHNIQUE: Multidetector volumetric imaging was performed from the superior aspect of the liver through the pubic symphysis. Sagittal and coronal reformatted images were obtained on the technologist's workstation. This CT examination was performed using dose optimization techniques as appropriate, variously including the following: *Automated exposure control *Adjustment of mA and/or kV according to patient size (this includes techniques or standardized protocols for targeted exams where dose is matched to indication/reason for exam; i.e. extremities or head) *Use of iterative reconstruction technique DLP: 1253 mGy-cm FINDINGS: The lack of intravenous contrast limits evaluation of the solid visceral organs including the liver, spleen, pancreas, and kidneys. LUNG BASES: No focal consolidation or pleural effusion. LIVER, GALLBLADDER, AND BILIARY TREE: Enlarged liver measuring 19.3 cm craniocaudally with decreased parenchymal density suggesting hepatic steatosis. No discrete focal liver lesion in this limited noncontrast examination. No biliary ductal dilatation. The gallbladder is unremarkable with no evidence of radiopaque gallstones, gallbladder wall thickening, or obvious pericholecystic inflammatory changes. PANCREAS: Unremarkable. SPLEEN: Unremarkable. ADRENAL GLANDS: Unremarkable. KIDNEYS AND URETERS: The kidneys are normal in size, shape, and attenuation. No hydronephrosis, hydroureter, or calculi seen. No perinephric stranding. BLADDER: Unremarkable. GASTROINTESTINAL TRACT: Colonic diverticulosis without significant pericolonic inflammatory changes. Normal appendix. Nonspecific moderate gastric distention. The small bowel is nondilated. ABDOMINAL WALL: No significant hernia. Trace body wall anasarca. Redemonstration of superficial varicosities in the posterior abdominal wall. LYMPH NODES: Mildly enlarged right iliac lymph nodes are stable, for instance on measuring 1.2 cm on image 629 series 4. Scattered prominent retroperitoneal and mesenteric lymph nodes are stable. VASCULAR: [id number] atherosclerotic disease. Normal caliber of the abdominal aorta. PELVIC VISCERA: Unremarkable. OSSEOUS STRUCTURES: No acute or aggressive appearing osseous findings. Degenerative changes of the spine. CT/CT abdomen pelvis wo IV con IMPRESSION: 1. Hepatomegaly and hepatic steatosis. 2. Colonic diverticulosis without evidence of acute diverticulitis. 3. Nonspecific moderate gastric distention. Recommend clinical correlation for postprandial state and gastroparesis, less likely gastric outlet obstruction. Electronically signed by: Bianka Greer MD 08/28/2024 11:30 PM EDT RP
[2024-08-28 15:44] VITALS: BP 128/96; PULSE 115; RESP 18; TEMP 36.9; O2SAT 96; BMI 45.4
--- NOTE | 2024-08-28 15:45 | ED.ABDPAIN ---
HPI - Abdominal Pain General Chief Complaint: Abdominal Pain Stated Complaint: stomach pain Time Seen by Provider: 08/28/24 21:31 Source: patient Mode of arrival: ambulatory Limitations: no limitations History of Present Illness ED Provider: fifi QUEEN narrative: Patient no significant abdominal complaints in the past woke up at 03:00 with right upper abdominal pain in epigastric pain with no nausea and feel hungry all day. Also patient had watery stool about 5 times today,Patient does have history of diabetes blood sugar been high in last 2months has increased dose Lantus 24 units last week on arrival blood sugar was 399 no fever no chills no urinary symptoms Related Data Home Medications ?Medication ?Instructions ?Recorded ?Confirmed cholecalciferol (vitamin D3) 50 50 mcg PO DAILY 09/30/20 10/13/23 mcg (2,000 unit) capsule albuterol sulfate 90 mcg/actuation 2 puff inhalation Q4H PRN wheezing 10/13/23 10/13/23 aerosol inhaler (Ventolin HFA) aspirin 81 mg tablet,delayed 81 mg PO DAILY 10/13/23 10/13/23 release atorvastatin 80 mg tablet 80 mg PO BEDTIME 10/13/23 10/13/23 cyclobenzaprine 5 mg tablet 5 mg PO BID PRN low back pain 10/13/23 10/13/23 dulaglutide 3 mg/0.5 mL 3 mg subcut GOMEZ@0900 10/13/23 10/13/23 subcutaneous pen injector (Trulicity) glipizide 5 mg tablet, extended 5 mg PO BEDTIME 10/13/23 10/13/23 release 24 hr insulin glargine 100 unit/mL (3 18 unit subcut BEDTIME 10/13/23 10/13/23 mL) subcutaneous pen (Lantus Solostar U-100 Insulin) loratadine 10 mg tablet 10 mg PO DAILY 10/13/23 10/13/23 metformin 500 mg tablet,extended 1,000 mg PO BID 10/13/23 10/13/23 release 24 hr rlexwsvz-gcm-ioaga acid 0.4 1 tab PO DAILY 10/13/23 10/13/23 mg-lycopene 300 mcg-lutein 250 mcg tablet (Cerovite Senior) naproxen 500 mg tablet 500 mg PO BID 10/13/23 10/13/23 hydrochlorothiazide 12.5 mg tablet 12.5 mg PO DAILY 08/27/24 Previous Rx's ?Medication ?Instructions ?Recorded cephalexin 500 mg capsule 500 mg PO Q12H #14 caps 10/16/23 linezolid 600 mg tablet (Zyvox) 600 mg PO BID #20 tabs 10/22/23 Allergies Allergy/AdvReac Type Severity Reaction Status Date / Time lisinopril [LISINOPRIL] Allergy Unknown ANGIOEDEMA Verified 08/28/24 15:46 shrimp Allergy Unknown DIFFICULTY Verified 08/28/24 15:46 BREATHING Review of Systems Review of Systems Yes all other systems are reviewed and are negative [facility] Past Medical History Medical History Class 3 obesity CARSON (obstructive sleep apnea) CVA (cerebral vascular accident) HLD (hyperlipidemia) Insulin dependent type 2 diabetes mellitus Hypertension Social History Social History Household Members: Spouse Household Members Other:: Housing: Apartment Do you presently have visiting nurse or other home services: No Alcohol intake: never Patient Tobacco Use Status: Former Tobacco user Smoked in Last 30 Days: No Use of substances other than those prescribed or required for medical reasons: No Advance Directives: No Advance Directives Information Provided: No service: No Current occupational status: employed Current occupation: [employer]/ right hand dominant Physical Exam ED Vital Signs: Vital Signs - 24 hr 08/28/24 15:44 08/28/24 22:14 Temperature 98.5 F 98.7 F Pulse Rate 115 H 99 Respiratory Rate 18 18 Blood Pressure 128/96 H 134/76 Pulse Oximetry 96 97 Oxygen Delivery Method Room Air Room Air BMI result Body Mass Index 45.4 Appearance: Alert. Oriented X3. No acute distress. Eyes: No pallor or icterus ENT: Pharynx normal. Oral Mucosa moist Neck: Normal inspection. Neck supple. CVS: Normal heart rate and rhythm. Pulses normal. Respiratory: No respiratory distress. Equal air entry bilateral, no wheezing/rales/rhonchi Abdomen: Soft and tenderness in right upper quadrant no guarding no rebound tenderness Bowel sounds are present, no mass palpable, no CVA tenderness Skin: Skin warm and dry. Normal skin color. Normal skin turgor. Extremities: No lower extremity edema. No calf tenderness Neuro: Oriented X 3. No motor deficit. No sensory deficit.No cerebellar signs , cranial nerves II-XII intact Course Course Course Narrative: This is a Rapid Medical Examination (RME) performed by Conrad Clark PA-C in triage. Full HPI, ROS, assessment and treatment plan per primary provider in the Main ED. 53 yo male hx of CARSON, HDL, CVA, T2DM, obesity here for eval of acute worsening epigastric/ RUQ abd pain on waking this morning. reports eating [employer] last night. no etoh consumption. still has GB. Plan: labs, RUQ US Medical Decision Making Medical Decision Making [facility] Narrative: Patient has acute enteritis with hyperglycemia improved after IV hydration and insulin ultrasound revealed fatty liver as the cause for the pain. Patient advised to drink plenty of fluids control of blood sugar increase the dose of Lantus to 30 units everyday and follow with PCP Differential Diagnosis Differential Diagnoses: The differential diagnosis associated with the presentation includes Admission/Observation Consideration of admission/observation: Escalation of care including admission/observation considered Lab Data [facility] Lab Attestation statement: I reviewed the patient's lab results. 08/28/24 17:35 08/28/24 17:35 Labs: Lab Results 08/28/24 08/28/24 08/28/24 Range/Units 17:35 21:55 22:21 WBC 10.9 H (4.8-10.8) X10*3/uL RBC 5.41 (4.60-5.80) X10*6/uL Hgb 15.1 (14.0-18.0) g/dl Hct 45.2 (42.0-52.0) % MCV 83.5 (80.0-98.0) fL MCH 27.9 (27.0-33.0) pg MCHC 33.4 (31.0-36.0) g/dl RDW 12.2 (11.0-16.0) % Plt Count 286 D (160-400) X10*3/uL MPV 11.0 (9.4-12.4) fL Immature Gran % (Auto) Cancelled Neut % (Auto) Cancelled Lymph % (Auto) Cancelled [place] % (Auto) Cancelled Eos % (Auto) Cancelled Baso % (Auto) Cancelled Lymph # (Auto) Cancelled [place] # (Auto) Cancelled Eos # (Auto) Cancelled Baso # (Auto) Cancelled Abs Immat Gran (auto) Cancelled Absolute Neuts (auto) Cancelled Absolute Nucleated RBC 0.000 (0.0-0.012) X10*3/uL Nucleated RBC % (auto) 0.0 (0.0-0.2) /100WBC Neutrophils % (Manual) 73 (45-73) % Band Neutrophils % 20 H (3-5) % Lymphocytes % (Manual) 3 L (20-40) % Monocytes % (Manual) 4 (2-11) % Abs Neuts (Manual) 10.1 H (2.0-8.3) X10*3/uL Lymphocytes # (Manual) 0.3 L (1.2-4.9) X10*3/uL Monocytes # (Manual) 0.4 (0.1-1.2) X10*3/uL Platelet Estimate NORMAL (NORMAL) Plt Morphology Comment NORMAL RBC Morphology NORMAL Smear Tech's Comments MANUAL DIFF Sodium 135 (135-145) mmol/L Potassium 4.5 (3.3-5.1) mmol/L Chloride 104 (96-108) mmol/L Carbon Dioxide 20 L (22-29) mmol/L Anion Gap 16 (12-20) BUN 11 (9-16) mg/dL Creatinine 0.80 (0.5-1.4) mg/dL Estim Creat Clear Calc 150.1 Estimated GFR > 60 POC Glucose 351 H* (60-115) mg/dL Random Glucose 399 H* (60-115) mg/dL Lactic Acid 1.9 (0.5-2.0) mmol/L Calcium 9.6 (8.4-10.2) mg/dL Magnesium 1.8 (1.6-2.6) mg/dL Total Bilirubin 0.5 (0.0-1.0) mg/dL AST 10 (5-37) U/L ALT 14 (0-40) U/L Alkaline Phosphatase 73 (39-117) U/L Total Protein 7.9 (6.5-8.0) g/dL Albumin 4.1 (3.5-5.0) g/dL Lipase 17 (8-78) U/L Urine Color Urine Appearance Urine pH (5.0-9.0) Ur Specific [place] (1.005-1.025) Urine Protein (Neg-Trace) mg/dL Urine Glucose (UA) (Negative) mg/dL Urine Ketones (Negative) mg/dL Urine Blood (Negative) Urine Nitrite (Negative) Ur Leukocyte Esterase (Negative) Urine RBC (0-2) /HPF Urine WBC (0-5) /HPF Ur Squamous Epith Cells (0-2) /HPF Urine Bacteria (None Seen) Hyaline Casts (0-2) /LPF 08/28/24 08/29/24 Range/Units 23:58 00:02 WBC (4.8-10.8) X10*3/uL RBC (4.60-5.80) X10*6/uL Hgb (14.0-18.0) g/dl Hct (42.0-52.0) % MCV (80.0-98.0) fL MCH (27.0-33.0) pg MCHC (31.0-36.0) g/dl RDW (11.0-16.0) % Plt Count (160-400) X10*3/uL MPV (9.4-12.4) fL Immature Gran % (Auto) Neut % (Auto) Lymph % (Auto) [place] % (Auto) Eos % (Auto) Baso % (Auto) Lymph # (Auto) [place] # (Auto) Eos # (Auto) Baso # (Auto) Abs Immat Gran (auto) Absolute Neuts (auto) Absolute Nucleated RBC (0.0-0.012) X10*3/uL Nucleated RBC % (auto) (0.0-0.2) /100WBC Neutrophils % (Manual) (45-73) % Band Neutrophils % (3-5) % Lymphocytes % (Manual) (20-40) % Monocytes % (Manual) (2-11) % Abs Neuts (Manual) (2.0-8.3) X10*3/uL Lymphocytes # (Manual) (1.2-4.9) X10*3/uL Monocytes # (Manual) (0.1-1.2) X10*3/uL Platelet Estimate (NORMAL) Plt Morphology Comment RBC Morphology Smear Tech's Comments Sodium (135-145) mmol/L Potassium (3.3-5.1) mmol/L Chloride (96-108) mmol/L Carbon Dioxide (22-29) mmol/L Anion Gap (12-20) BUN (9-16) mg/dL Creatinine (0.5-1.4) mg/dL Estim Creat Clear Calc Estimated GFR POC Glucose 297 H (60-115) mg/dL Random Glucose (60-115) mg/dL Lactic Acid (0.5-2.0) mmol/L Calcium (8.4-10.2) mg/dL Magnesium (1.6-2.6) mg/dL Total Bilirubin (0.0-1.0) mg/dL AST (5-37) U/L ALT (0-40) U/L Alkaline Phosphatase (39-117) U/L Total Protein (6.5-8.0) g/dL Albumin (3.5-5.0) g/dL Lipase (8-78) U/L Urine Color Yellow Urine Appearance Clear Urine pH 5.0 (5.0-9.0) Ur Specific [place] >= 1.030 H (1.005-1.025) Urine Protein Negative (Neg-Trace) mg/dL Urine Glucose (UA) >=1000 H (Negative) mg/dL Urine Ketones 80 (Negative) mg/dL Urine Blood Negative (Negative) Urine Nitrite Negative (Negative) Ur Leukocyte Esterase Negative (Negative) Urine RBC 0-2 (0-2) /HPF Urine WBC 0-5 (0-5) /HPF Ur Squamous Epith Cells 0-2 (0-2) /HPF Urine Bacteria None Seen (None Seen) Hyaline Casts 0-2 (0-2) /LPF Independent Interpretation I performed an independent interpretation of an: Ultrasound Radiology Impression Discussion of test interpretation with radiology: I have reviewed the radiologist's reading. Radiologist Impression: US/US abdomen limited IMPRESSION: 1. Limited evaluation secondary to body habitus and shadowing from overlying bowel gas. 2. No evidence of cholelithiasis or acute cholecystitis. 3. Increased parenchymal echogenicity of the liver which is nonspecific but could be seen in the setting of hepatic steatosis. Electronically signed by: Bianka Greer MD 08/28/2024 05:49 PM EDT Medications Administered Discontinued Medications Generic Name Dose Route Start Last Admin Trade Name Freq PRN Reason Stop Dose Admin Famotidine 20 mg 08/28/24 21:45 08/28/24 21:57 Famotidine/Pf 20 Mg/2 Ml Vial IVPUSH 08/28/24 21:46 20 mg ONCE ONE Administration Sodium Chloride 1,000 mls @ 999 mls/hr 08/28/24 21:35 08/29/24 00:05 Ns IV 08/28/24 22:35 Infused .Q1H1M ONE Infusion Sodium Chloride 1,000 mls @ 999 mls/hr 08/28/24 21:45 08/29/24 00:05 Ns IV 08/28/24 22:45 Infused .Q1H1M ONE Infusion Insulin Human Lispro 8 unit 08/28/24 21:45 08/28/24 22:42 Insulin Lispro 100 Unit/Ml 3 Ml Vial SUBCUT 08/28/24 21:46 8 unit ONCE ONE Administration Ondansetron HCl 4 mg 08/28/24 21:35 08/28/24 21:57 Ondansetron Hcl 4 Mg/2 Ml Vial IVPUSH 08/28/24 21:36 4 mg ONCE ONE Administration Discharge Plan Discharge Clinical Impression: Abdominal pain Patient Disposition: Home, Self-Care Instructions: Abdominal Pain (ED), Enteritis (ED) Additional Instructions: Drink plenty of fluids You have fatty new liver need to reduce weight , exercise and no alcohol Follow with your PCP Prescriptions: No Action cholecalciferol (vitamin D3) 50 mcg (2,000 unit) capsule 50 mcg PO DAILY atorvastatin 80 mg tablet 80 mg PO BEDTIME glipizide 5 mg tablet extended release 24hr 5 mg PO BEDTIME aspirin 81 mg tablet,delayed release (DR/EC) 81 mg PO DAILY albuterol sulfate [Ventolin HFA] 90 mcg/actuation HFA aerosol inhaler 2 puff INHALATION Q4H PRN (Reason: wheezing) metformin 500 mg tablet extended release 24 hr 1,000 mg PO BID loratadine 10 mg tablet 10 mg PO DAILY naproxen 500 mg tablet 500 mg PO BID cyclobenzaprine 5 mg tablet 5 mg PO BID PRN (Reason: low back pain) Cerovite Senior 0.4 mg-300 mcg- 250 mcg tablet 1 tab PO DAILY insulin glargine [Lantus Solostar U-100 Insulin] 100 unit/mL (3 mL) insulin pen 18 unit subcut BEDTIME Trulicity 3 mg/0.5 mL pen injector 3 mg subcut GOMEZ@0900 cephalexin 500 mg capsule 500 mg PO Q12H Qty: 14 0RF linezolid [Zyvox] 600 mg tablet 600 mg PO BID Qty: 20 0RF hydrochlorothiazide 12.5 mg tablet 12.5 mg PO DAILY Print Language: French
[2024-08-28 18:12] LABS: Alanine Aminotransferase 14 U/L (0-40); Albumin Level 4.1 g/dL (3.5-5.0); Alkaline Phosphatase 73 U/L (39-117); Anion Gap 16 (12-20); Aspartate Amino Transferase 10 U/L (5-37); Bilirubin Total 0.5 mg/dL (0.0-1.0); Blood Urea Nitrogen 11 mg/dL (9-16); Calcium 9.6 mg/dL (8.4-10.2); Carbon Dioxide 20 mmol/L (22-29); Chloride 104 mmol/L (96-108); Creatinine Clr Calc Pharmacy 150.1; Estimated Glomerular Filt Rate > 60; Glucose Random 399 mg/dL (60-115); Lipase 17 U/L (8-78); Magnesium 1.8 mg/dL (1.6-2.6); Potassium 4.5 mmol/L (3.3-5.1); Sodium 135 mmol/L (135-145); Total Protein 7.9 g/dL (6.5-8.0)
[2024-08-28 19:21] LABS: Hematocrit 45.2 % (42.0-52.0); Hemoglobin 15.1 g/dl (14.0-18.0); Mean Corpuscular HGB Conc 33.4 g/dl (31.0-36.0); Mean Corpuscular Hemoglobin 27.9 pg (27.0-33.0); Mean Corpuscular Volume 83.5 fL (80.0-98.0); Platelet Count 286 X10*3/uL (160-400); Red Blood Count 5.41 X10*6/uL (4.60-5.80); Red Cell Distribution Width 12.2 % (11.0-16.0); White Blood Count 10.9 X10*3/uL (4.8-10.8)
[2024-08-28 21:09] LABS: SLIDE REVIEW MANUAL DIFF
[2024-08-28 21:18] LABS: Neutrophils Percent Manual 73 % (45-73)
[2024-08-28 21:21] LABS: Band Neutrophils Percent 20 % (3-5); Lymphocytes Absolute Manual 0.3 X10*3/uL (1.2-4.9); Lymphocytes Percent Manual 3 % (20-40); Monocytes Absolute Manual 0.4 X10*3/uL (0.1-1.2); Monocytes Percent Manual 4 % (2-11); Neutrophils Absolute Manual 10.1 X10*3/uL (2.0-8.3)
[2024-08-28 21:23] LABS: Platelet Estimate NORMAL (NORMAL); Platelet Morphology Comment NORMAL; RBC Morphology NORMAL
[2024-08-28] MEDS: Famotidine/PF 20 MG/2 ML VIAL IVPUSH (21:57)
[2024-08-28] MEDS: ondansetron HCL 4 MG/2 ML VIAL IVPUSH (21:57)
[2024-08-28 22:14] VITALS: BP 134/76; PULSE 99; RESP 18; TEMP 37.1; O2SAT 97
[2024-08-28 22:21] LABS: Lactic Acid 1.9 mmol/L (0.5-2.0)
[2024-08-28 22:24] LABS: Glucose, Whole Blood 351 mg/dL (60-115)
[2024-08-28] MEDS: 0.9 % Sodium Chloride 1,000 ML 999 ML IV ×2 (22:42)
[2024-08-28] MEDS: Insulin Lispro 100 UNIT/ML 3 ML VIAL 8 UNIT SUBCUT (22:42)
--- NOTE | 2024-08-28 22:45 | PC.NURSE ---
Patient medicated per JAN. Patient resting on the stretcher bed, watching TV, call busch in reach
[2024-08-29 00:02] LABS: Glucose, Whole Blood 297 mg/dL (60-115)
[2024-08-29 00:08] LABS: Appearance Urine Clear; Color Urine Yellow; Glucose Urine UA >=1000 mg/dL (Negative); Leukocyte Esterase Urine Negative (Negative); Nitrite Urine Negative (Negative); Specific Gravity - Urine >= 1.030 (1.005-1.025); UMIC TRIGGER UACC YES; Urine Blood Negative (Negative); Urine Ketones 80 mg/dL (Negative); Urine Protein Negative (Neg-Trace)
[2024-08-29 00:10] LABS: Bacteria Urine None Seen (None Seen); Hyaline Casts Urine 0-2 /LPF (0-2); RBC Urine 0-2 /HPF (0-2); Squamous Epithelial Cell Urine 0-2 /HPF (0-2); WBC Urine 0-5 /HPF (0-5)
[2024-08-29 01:05] VITALS: BP 112/80; PULSE 95; RESP 16; TEMP 36.8; O2SAT 96
[2024-08-29 01:40] VITALS: BP 112/88; PULSE 95; RESP 16; TEMP 36.8; O2SAT 96
== END 2024-08-29 01:41 | disposition home or self-care (01) ==
PROVIDERS: Physician Assistant Medical; Emergency Provider Internal Medicine; PCP Registered Nurse
DX: R10.13 Epigastric pain (principal); E11.9 Type 2 diabetes mellitus without complications; I10 Essential (primary) hypertension; E78.5 Hyperlipidemia, unspecified; Z87.891 Personal history of nicotine dependence; Z86.73 Personal history of transient ischemic attack (TIA), and cerebral infarction without residual deficits; Z79.82 Long term (current) use of aspirin; Z79.85 Long-term (current) use of injectable non-insulin antidiabetic drugs; Z79.02 Long term (current) use of antithrombotics/antiplatelets; Z79.4 Long term (current) use of insulin; Z79.84 Long term (current) use of oral hypoglycemic drugs
CPT/HCPCS: 36415; 74176; 76705; 80053; 81001; 82947; 83605; 83690; 83735; 85007; 85025; 85027; 87040; 99284; 99285; J2405

== ENCOUNTER 2025-03-05 10:04 | Outpatient (AMB) | payer OTHER, SELFPAY ==
[2025-03-05 10:09] VITALS: BP 120/76; PULSE 82; BMI 43.0
--- NOTE | 2025-03-05 10:09 | A.OFFVIS_ITS ---
Vital Signs 03/05/25 10:09 Height 5 ft 9 in Weight 291 lb 0.163 oz BMI 43.0 BP 120/76 Blood Pressure Location Lt brachial Position Sitting Pulse 82 Intake Visit Reasons: accounts receivable clerk/acacia العليen/intermittent chest pain Intake Note: New patient dx chest pain hasn't been having anymore chest pain Credit Union Manager Required: No Allergies lisinopril [LISINOPRIL] Allergy (Unknown, Verified 08/28/24 15:46) ANGIOEDEMA shrimp Allergy (Unknown, Verified 08/28/24 15:46) DIFFICULTY BREATHING LAVONNE Inhibitors Allergy (Verified 03/01/25 09:51) Unknown Medication List - Last Reconciled 03/05/25 by Edmundo Li MD albuterol sulfate 90 mcg/actuation (Ventolin HFA) 2 puffs inhalation Q4H PRN aspirin 81 mg PO DAILY atorvastatin 80 mg PO BEDTIME cholecalciferol (vitamin D3) 50 mcg PO DAILY cyclobenzaprine 5 mg PO BID PRN dulaglutide (Trulicity) 3 mg subcut GOMEZ@0900 glipizide ER 5 mg PO BEDTIME hydrochlorothiazide 12.5 mg PO DAILY insulin glargine (Lantus Solostar U-100 Insulin) 18 units subcut BEDTIME linezolid (Zyvox) 600 mg PO BID loratadine 10 mg PO DAILY metformin ER 1,000 mg PO BID upfzzqwa-kbh-ZD-lycopen-lutein 0.4 mg-300 mcg- 250 mcg (Cerovite Senior) 1 tab PO DAILY naproxen 500 mg PO BID HPI Comments Details: Thank you for referring Pavel in cardiology consultation today for chest pain. He is a 54-year-old male with prior history of hyperlipidemia, diabetes which is not well controlled, hypertension, obesity, was referred here for further evaluation for chest pain. Patient says that couple months ago while he was hauling trash, heavy trash with a barrel and dumping he then when he came back he started noticing unusual shortness of breath and chest discomfort which is unusual for him. Since then he has not done he says with regular activity does not get similar symptoms. Symptoms have not progressed. He has not. He denies any worsening shortness of breath, orthopnea, PND. No prolonged palpitation irregular heartbeat. No lightheadedness, syncope. He takes all his medications. He is encouraged to pursue lifestyle modification. [facility] Medical History Asthma Allergic rhinitis Class 3 obesity CARSON (obstructive sleep apnea) CVA (cerebral vascular accident) (~2005) HLD (hyperlipidemia) Insulin dependent type 2 diabetes mellitus Hypertension Social History Household Members: Spouse Household Members Other:: Housing: Apartment Do you presently have visiting nurse or other home services: No Alcohol intake: never Patient Tobacco Use Status: Former Tobacco user service: No Current occupational status: employed Current occupation: [employer]/ right hand dominant Review of Systems Const Denies chills, Denies daytime sleepiness, Denies fatigue, Denies fever(s), Denies frequent falls, Denies poor appetite, Denies snoring, Denies stops breathing during sleep, Denies weakness, Denies weight gain and Denies weight loss Eyes Denies loss of vision ENT Denies dizziness and Denies hearing loss Card Denies chest pain, Denies claudication, Denies leg edema, Denies lightheadedness, Denies palpitations, Denies dyspnea, Denies dyspnea on exertion and Denies orthopnea Resp Denies cough, Denies excessive phlegm production, Denies dyspnea, Denies dyspnea on exertion, Denies snoring and Denies wheezing GI Denies abdominal pain, Denies hematochezia, Denies change in bowel habits, Denies nausea and Denies vomiting Denies dysuria and Denies urinary frequency Musc Denies arthralgias, Denies muscle weakness, Denies numbness and Denies other (frequent falls) Skin/Breast Denies nail changes and Denies rash Neuro Denies Abnormal speech present, Denies dizziness, Denies frequent falls, Denies loss of vision, Denies memory loss, Denies numbness and Denies weakness Psych Denies depression and Denies memory loss Endo Denies fatigue and Denies palpitations Ashutosh/Lymph Reports easy bruising and Reports other (anemia) Aller/Immun Denies wheezing Physical Exam Vital Signs: Last Vital Signs Pulse 82 03/05/25 10:09 BP 120/76 03/05/25 10:09 BMI result Body Mass Index 43.0 Const General: cooperative, comfortable, no acute distress, alert and awake Nutritional Appearance: obese Orientation/consciousness: patient oriented x3 Limitations: no limitations HEENT Head: Yes normocephalic and Yes atraumatic Neck Neck: Yes trachea midline, Yes supple and Yes no JVD Resp Effort & Inspection: normal respiratory effort Auscultation: clear to auscultation bilaterally Cardio Jugular venous distension: no JVD Palpation: normal PMI Rate: regular rate Rhythm: regular rhythm Heart sounds: S1 normal heart sound present, S2 normal heart sound present, no click, no gallops and no murmurs GI Inspection: Yes obesity Skin General skin exam: no rashes or lesions noted Neuro General: patient oriented x3 and no focal motor deficits Speech: No Abnormal speech present Extrem General: Yes no clubbing, cyanosis or edema Psych Appearance: grossly normal Office Procedures EKG Details: EKG shows normal sinus rhythm with sinus arrhythmia otherwise normal EKG [id number], Complete Assessment & Plan Assessment & Plan (1) Exertional chest pain: Code(s): R07.9 - Chest pain, unspecified Category: Medical Plan: Exertional chest pain in this middle-aged man with significant risk factors including prior CVA, abdominal atherosclerosis with uncontrolled diabetes, hypertension as well as hyperlipidemia. Patient did have 1 episode of exertional chest pain but no recurrence since then although he was not probably performed similar level activity. With day-to-day life he does not have any significant chest pain. I would recommend him to undergo a treadmill stress test given his normal baseline EKG to assess for myocardial ischemia. Also recommend echocardiogram to evaluate LV systolic and diastolic function to evaluate for RV size and function as well as for pulmonary hypertension. These tests will be scheduled in near future. I have advised him to avoid strenuous exertion till then. He has he is advised to seek emergency care if he was sudd en-onset similar discomfort at rest. He needs more intense lipid modification consider adding SGLT2 inhibitor therapy to control his diabetes. He will benefit from aggressive weight loss program. Blood pressure is optimized. Also recommend lipid panel near future along with CRP. Target goal LDL less than 55 mg/dL. Recommend to continue aspirin therapy. Will follow up in the clinic in 4 weeks time, sooner p.r.n.. Thank you for allowing me to partake in his care Coding Level of Care Code New Pt Level 4 (68035) Complex EM visit Add On G2211 Diagnoses Exertional chest pain R07.9 CPT Codes EKG - CPT: 01386-[id number], Complete ([id number])
--- OUTSIDE RECORDS SUMMARY | 2025-03-05 10:44 | XMS_ITS | Encounter Summary ---
Author Organization [employer] [facility] Address [address] [place] [address] [address] [place] [address] Care Team Providers Care Bulk System Operator Name Role Phone Ailin Rizo HAT MENDER Primary Care Provider [phone] Reason for Visit * Reason Comments Med Refill Encounter Details Date Type Department Care Team (Late Contact Info) Description 06/11/2023 Refill [facility] [address] [place] [address] [facility] [address] [place] [address] Vitamin D insufficiency Social History Tobacco Use Types Packs/Day Years Used Date Smoking Tobacco: Never Passive Smoke Exposure: Never Alcohol Use Standard Drinks/Week Comments Never 0 (1 standard drink = 0.6 oz pur e alcohol) Depression Answer Date Recorded Patient Health Questionnaire-9 Score 2 04/18/2023 Depression Answer Date Recorded Patient Health Questionnaire-2 Score 0 04/18/2023 Sex and Gender Information Value Date Recorded Sex Assigned at Male 09/24/2022 10:15 AM EDT Legal Sex Male 10:15 AM EDT Gender Identity Male 09/24/2022 10:15 AM EDT Sexual Orientation Straight 09/24/2022 10 :15 AM EDT documented as of this encounter Plan of Treatment Upcoming Encounters Date Type Department Care Team (Late st Contact Info) Description 03/08/2025 2:30 PM EDT Medication Management [facility] [address] [place] [address] Juliet Garcia, RashiD [address] [place] [address] documented as of this encounter Visit Diagnoses Diagnosis Vitamin D insufficiency documented in this encounter Additional Health Concerns Assessment Noted Time PHQ-9 Depression Total Score: 2 04/18/20 23 3:00 PM EDT documented as of this encounter Care Teams Bulk System Operator Relationship Specialty Start Date End Date Ailin Rizo FNP [address] [place] [address] PCP - General Family Medicine 07/23/22 documented as of this encounter
--- OUTSIDE RECORDS SUMMARY | 2025-03-05 10:44 | XMS_ITS | Encounter Summary ---
Author Organization [employer] Address [address] [facility] [address] [place] [address] Care Team Providers Care Business Analytics Intern Name Role Phone Ailin Rizo Primary Care Provider [phone] Reason for Visit * Reason Onset Date Comments Medication Question 11/03/2024 Encounter Details Date Type Department Care Team ([facility] st Contact Info) Description 11/03/2024 Telephone [facility] [address] [place] [address] Ailin Rizo FNP [address] [place] [address] Medication Question Social History Tobacco Use Types Packs/Day Years Used Date Smoking Tobacco: Former Cigarettes Passive Smoke Exposure: Never Smokeless Tobacco: Former Comments:Pt Quit 14 years ag o Alcohol Use Standard Drinks/Week Comments Never 0 (1 standard drink = 0.6 oz pur e alcohol) Depression Answer Date Recorded Patient Health Questionnaire-9 Score 3 06/30/2024 Patient Health Questionnaire-9 Score 3 06/30/2024 Last PHQ-9: Questionnaire Data Not on file 0 06/30/2024 Housing Stability Answer Date Recorded What is your housing situation today? I have housing today, but I am worried about losing housing in the future 06/30/[address] you li ve. Do you have problems with any of the following? None of the above 06/30/2024 Food Insecurity Answer Date Recorded Within the past 12 months, y ou worried that your food would run out before you got money to buy more: Never True 06/30/2024 Within the past 12 months,th e food you bought just didn't last and you didn't have enough money to get more: Never True 04/2024 Transportation Answer Date Recorded In the past 12 months, has l ack of transportation kept you from medical appts, meetings, work or from getting things needed for daily living? No 06/30/2024 Utilities Answer Date Recorded In the past 12 months, has t he electric, gas, oil or water company threatened to shut off services in your home? I am not sure 06/30/2024 Depression Answer Date Recorded Patient Health Questionnaire-2 Score 1 06/30/2024 Internet Access Answer Date Recorded Internet Access Q1 Yes 07/27/2024 Internet Access Q2 Not on file 07/27/2024 Sex and Gender Information Value Date Recorded Sex Assigned at Male 09/24/2022 10:15 AM EDT Legal Sex Male 10:15 AM EDT Gender Identity Male 09/24/2022 10:15 AM EDT Sexual Orientation Straight 09/24/2022 10 :15 AM EDT documented as of this encounter Miscellaneous Notes * Telephone Encounter - Wing Princess RN - 11/06/2024 9:07 AM EST Attempted tc to pt to ask if they would like to restart amlodipine with history of side effect lower extremity edema. Unable to reach pt, left message to call back. * Telephone Encounter - AYAZ Sheikh - 11/05/2024 10:03 AM EST Please see under problem list: hypertension - Amlodipine had been discontinued due to lower extremity edema. If he would like to restart, that is okay with me. Please review this with pt/spouse before cuing medication to make sure they indeed would like to restart with hx of SE - lower extremity edema. If interested, please cue: amlodipine 5mg daily. Thanks * Telephone Encounter - Urvashi Kendall RN - 11/05/2024 9:36 AM EST Please review POC regarding amlodipine. Pt is scheduled with you on Saturday. * Telephone Encounter - Flower Reno - 11/03/2024 4:33 PM EST Tc from pt and spouse requesting script for Amlodipine. Curtain Feller Blindstitch did not see medication on medlist. [employer] advise will send a message. Contact pt at [phone] * Telephone Encounter - Dheeraj Adamson - 11/03/2024 3:11 PM EST Tc from spouse requesting a callback as she informs pcp was supposed to give pt a script (unknown name ) to medication and pt has been waiting . Callback number [phone] documented in this encounter Plan of Treatment Upcoming Encounters Date Type Department Care Team (Late st Contact Info) Description 03/08/2025 2:30 PM EDT Medication Management [facility] [address] [place] [address] Juliet Garcia PharmD [address] [place] [address] documented as of this encounter Visit Diagnoses Not on filedocumented in this encounter Additional Health Concerns Assessment Noted Time PHQ-9 Depression Total Score: 3 06/30/20 24 9:37 AM EDT documented as of this encounter Care Teams Business Analytics Intern Relationship Specialty Start Date End Date Ailin Rizo FNP [address] [place] [address] PCP - General Family Medicine 07/23/22 documented as of this encounter
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
--- OUTSIDE RECORDS SUMMARY | 2025-03-05 10:44 | XMS_ITS | Encounter Summary ---
Author Organization [employer] Address [address] [facility] [address] [place] [address] Care Team Providers Care Manager Distribution Name Role Phone Ailin Rizo Primary Care Provider [phone] Reason for Visit * Reason Comments Med Refill Encounter Details Date Type Department Care Team ([facility] st Contact Info) Description 10/04/2024 Refill [facility] [address] [place] [address] Ailin Rizo FNP [address] [place] [address] Primary hypertension Social History Tobacco Use Types Packs/Day Years [...] Description 03/08/2025 2:30 PM EDT Medication Management [facility] [address] [place] [address] Juliet Garcia PharmD [address] [place] [address] documented as of this encounter Visit Diagnoses Diagnosis Primary hypertension Unspecified essential hypertension documented in this encounter Additional Health Concerns Assessment Noted Time PHQ-9 Depression Total Score: 3 06/30/20 24 9:37 AM EDT documented as of this encounter Care Teams Manager Distribution Relationship Specialty Start Date End Date Ailin Rizo FNP [address] [place] [address] PCP - General Family Medicine 07/23/22 documented as of this encounter
--- OUTSIDE RECORDS SUMMARY | 2025-03-05 10:44 | XMS_ITS | Encounter Summary ---
Author Organization [facility] Address [address] [place] [address] [address] [place] [address] Care Team Providers Care Grant Administrator Name Role Phone Ailin Rizo Primary Care Provider Reason for Visit * Reason Onset Date Comments Appointment Request 03/04/2023 Encounter Details Date Type Department Care Team ([facility] Contact Info) Description 03/04/2023 Telephone [facility] [address] [place] [phone] Ailin Rizo FNP [address] [place] [phone] Appointment Request Social History Tobacco Use Types Packs/Day Years Used Date Smoking Tobacco: Never Assessed Sex and Gender Information Value Date Recorded Sex Assigned at Male 09/24/2022 10:15 AM EDT Legal Sex Male 10:15 AM EDT Gender Identity Male 09/24/2022 10:15 AM EDT Sexual Orientation Straight 09/24/2022 10 :15 AM EDT documented as of this encounter Miscellaneous Notes * Telephone Encounter - Moy Delgado - 03/04/2023 9:43 AM EDT Tc from [facility] [place] requesting a Physical appt for pt. Please contact pt at [phone] documented in this encounter Plan of Treatment Upcoming Encounters Date Type Department Care Team ([facility] Contact Info) Description 03/08/2025 2:30 PM EDT Medication Management [facility] [address] [place] [phone] Juliet Garcia, [address] [place] [address] documented as of this encounter Visit Diagnoses Not on filedocumented in this encounter Care Teams Grant Administrator Relationship Specialty Start Date End Date Ailin Rizo FNP [address] [place] [address] PCP - General Family Medicine 07/23/22 documented as of this encounter
--- OUTSIDE RECORDS SUMMARY | 2025-03-05 10:44 | XMS_ITS | Encounter Summary ---
Author Organization [facility] Address [address] [place] [address] [address] [place] [address] Care Team Providers Care Environmental Health Technologist Name Role Phone Ailin Rizo Primary Care Provider [phone] Reason for Visit * Reason Comments Med Refill Encounter Details Date Type Department Care Team (Late st Contact Info) Description 01/13/2023 Refill [facility] [address] [place] [address] Ailin Rizo FNP [address] [place] [address] Vitamin D insufficiency Social History Tobacco Use [...] Encounters Date Type Department Care Team (Late Contact Info) Description 03/08/2025 2:30 PM EDT Medication Management [facility] [address] [place] [address] Juliet Garcia, [address] [place] [address] documented as of this encounter Visit Diagnoses Diagnosis Vitamin D insufficiency documented in this encounter Care Teams Environmental Health Technologist Relationship Specialty Start Date End Date Ailin Rizo FNP [address] [place] [address] PCP - General Family Medicine 07/23/22 documented as of this encounter
--- OUTSIDE RECORDS SUMMARY | 2025-03-05 10:44 | XMS_ITS | Data Portability ---
Author Organization [facility] [place] Address [address] [place] [id number] Care Team Providers Care Insulation Extruder Operator Name Role Phone HIM ERVIN OTHER Assessment Encounter Date Assessment Date Assessment LastModified by Organization Details LastModified Time 11/03/2024 11/03/2024 As noted, we were called to see this patient regarding concerns of chest pain on exertion, resolving with rest, and not worsening. Evaluation in the field was performed by my fitting room associate colleague, as noted above, I provided real-time direction and supervision for this visit. The evaluation revealed normal VS and a story suggestive of angina without any elements pointing to unstable angina or ACS. EKG is reassuring without any acute ischemic stigmata. 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 Mention of palpitations, on questioning these sound benign -- a brief pinging -- without LH, rapid tachy, dyspnea. Probably PACs/PVCs. Impression: Probable angina, ongoing and unchanged over past 2 weeks, not c/w ACS, in a fairly high risk patient. Given the stable pattern and lack of severe sx, I do not think this is ACS, and therefore he would derive relatively little benefit from ED visit, which would likely only evaluate for NM and then d/c to stress testing. That said, there is some risk of progression. This was discussed in detail, and he and I favor calling PCP tomorrow to arrange urgent visit and/or referral for stress testing. Plan: Continue current CAD regimen - confirmed he is taking and emphasized importance Starting metoprolol low dose to further reduce myocardial ischemia and arrhythmia risk Recommended he call PCP office, tell them he was told he was having angina, and ask for urgent visit or urgent stress test referral Emphasized risk of significant exertion and need to minimize supranormal exercise/exerti on Emphasized danger signs to prompt 911 call Emphasized with this approach still some risk of NM, arrhythmia, SCD that cannot be eliminated Primary care, please arrange expedited ischemia workup [place] We discussed the diagnostic uncertainty of home visits and the risk associated with this. In this case, the patient and I felt this to be an acceptable and reasonable amount of risk given the benefit of avoiding an ED visit. We discussed the need to seek care urgently/emerge ntly in the setting of any new or worsening serious symptoms, particularly severe chest pain, unresolving chest pain, severe sudden fatigue, diaphoresis, jaw pain, LH, or pallor. [email or web address] Not available 11/03/2024 21:10:09 Plan of Treatment Reminders Order Date Submit Date Provider Last Modified By Organization Details Last Modified Time Details Appointments None recorded. Lab glucose, fingersti ck, blood [address], [address] 4 08:32:04 BMP, serum or plasma [address], [address] 18:53:37 Referral None recorded. Procedures None recorded. Surgeries None recorded. Imaging electroca rdiogram [email or web address], [address] 4 09:45:01 Medication Orders metoprolo l succinate ER 25 mg tablet,ex tended release 24 hr 2023 [facility], [address] [place], [address], 4 18:30:29 Lasix 40 mg tablet 2023 [facility], [address] [place], [address], 4 18:53:40 furosemid e 20 mg tablet 2023 [facility], [address] [place], [address], 18:53:37 Patient TargetsNo targets recorded. Patient InstructionsNo instructions recorded. Reason for Referral None Reported. Results Created Date Observation Date Name Description Value Unit Range Abnormal Flag Note LastModifiedBy Organization Detail LastModifiedTime 06/01/20 24 06/01/2024 BMP, serum or plasm a CRE 0.44 Not Available [facility] - [facility] [address], [address] [place] [address] 06/01/2024 18:51:00 06/01/20 24 06/01/2024 BMP, serum or plasm a GLU 364 Not Available [facility] [address], [address] [place] [address] 06/01/2024 18:51:00 06/01/20 24 06/01/2024 BMP, serum or plasm a K+ 4.3 Not Available [facility] [address], [address] [place] [address] 06/01/2024 18:51:00 11/03/20 24 11/04/2024 elect ashley siegel am No observ ation record ed. [address], [address] [place] [address] 11/04/2024 07:58:43 Result Notes None recorded. Procedures Surgical History None recorded. Imaging Results Imaging Date Name Status LastModified by Organization Details LastModified Time 11/04/2024 electrocardiogram completed [address], [address] 11/04/2024 07:58:43 Procedure Notes None recorded. Medical Equipment None Reported. Allergies Allergen ID Allergen Name Allergen Category Reaction Reaction Severity Criticality Documentation Date Start Date Code Code System Note Provider Name and Address Organization Details Recorded Time 5348 lisinopri l medicatio n Not available Not available Not available 06/01/2024 54132 RxNorm Not Available [facility] 17:13:04 5349 shrimp allergeni c extract food Not available Not available Not available 06/01/2024 82741 2 RxNorm Bonny Oakley MD [address] [place] [address],[address], [place], [address] [place] [address] [facility] 18:30:52 Medications Name Sig Start Date Stop Date Status Note LastModified by Organization Details LastModified Time amoxicillin 500 mg capsule TAKE ONE CAPSULE BY MOUTH EVERY 8 HOURS FOR 7 DAYS active Not Available Not Available No t Available furosemide 40 mg tablet TAKE ONE TABLET BY MOUTH EVERY DAY FOR 3 DAYS active Not Available Not Available No t Available BD Alcohol Swabs USE TO TEST BLOOD SUGARS 3 TIMES A DAY. active Not Available Not Available No t Available atorvastatin 80 mg tablet TAKE ONE TABLET BY MOUTH DAILY AT BEDTIME active Not Available Not Available N ot Available doxycycline hyclate 100 mg capsule TAKE ONE CAPSULE BY MOUTH TWICE A DAY FOR 7 DAYS; TAKE WITH AT LEAST 8 OUNCES LARGE GLASS) OF WATER, DO NOT LIE DOWN FOR 3O MINUTES AFTER. active Not Available Not Available No t Available ibuprofen 800 mg tablet TAKE ONE TABLET BY MOUTH EVERY 8 HOURS NEEDED FOR PAIN active Not Available Not Available No t Available fluconazole 200 mg tablet TAKE 1 TABLET BY MOUTH ONCE WEEKLY FOR 2 WEEKS active Not Available Not Available No t Available FreeStyle Lancets 28 gauge NOT APPLICABLE ONE THREE TIMES A DAY active Not Available Not Available Not Available glipizide ER 5 mg tablet, extended release 24 hr TAKE 1 TABLET BY MOUTH ONCE DAILY. active Not Available Not Available No t Available clindamycin HCl 150 mg capsule TAKE ONE CAPSULE BY MOUTH FOUR TIMES A DAY FOR 7 DAYS active Not Available Not Available N ot Available aspirin 81 mg tablet,delay ed release TAKE ONE TABLET BY MOUTH EVERY DAY active Not Available Not Available No t Available acetaminophe n 500 mg tablet TAKE ONE TABLET BY MOUTH EVERY 8 HOURS NEEDED FOR MILD OR MODERATE PAIN FOR UP TO 5 DAYS. active Not Available Not Available N ot Available acetaminophe n ER 650 mg tablet,exten ded release TAKE ONE TABLET BY MOUTH EVERY 8 HOURS NEEDED FOR PAIN. DO NOT CRUSH CHEW OR SPLIT active Not Available Not Available No t Available Deep Sea Nasal 0.65 % spray aerosol ADMINISTER 1 SPRAY TO EACH NOSTRIL NEEDED FOR CONGESTION active Not Available Not Available N ot Available linezolid 600 mg tablet TAKE ONE TABLET BY MOUTH TWICE A DAY DO NOT TAKE CYCLOBENZAP RINE WHILE ON LINEZOLID) active Not Available Not Available N ot Available amlodipine 10 mg tablet TAKE ONE TABLET BY MOUTH EVERY DAY IN THE MORNING active Not Available Not Available No t Available econazole nitrate 1 % topical cream APPLY TOPICALLY 2 TIMES A DAY FOR 14 DAYS; MAY USE UP TO 28 DAYS NEEDED. active Not Available Not Available No t Available cephalexin 500 mg capsule TAKE ONE CAPSULE BY MOUTH EVERY 12 HOURS active Not Available Not Available No t Available hydrocortiso ne 2.5 % topical cream APPLY PEA SIZE AMOUNT TO AFFECTED AREA TOPICALLY TWO TIMES A DAY FOR 2 WEEKS active Not Available Not Available No t Available furosemide 20 mg tablet Take 2 tablets every day by oral route for 1 day. 2023 active Not Available Not Available Not Avai lable metoprolol succinate ER 25 mg tablet,exten ded release 24 hr TAKE ONE TABLET BY MOUTH EVERY DAY active Not Available Not Available No t Available ketoconazole 2 % topical cream APPLY A THIN LAYER BY TOPICAL ROUTE DAILY TO AFFECTED AREA active Not Available Not Available No t Available metformin ER 500 mg tablet,exten ded release 24 hr TAKE TWO TABLETS BY MOUTH TWICE A DAY active Not Available Not Available No t Available clotrimazole 1 % topical cream APPLY TWICE DAILY TO AFFECTED AREA OF GENITALS UNTIL 1 WEEK AFTER RESOLUTION OF SYMPTOMS TYPICAL DURATION 2-4 WEEKS) active Not Available Not Available N ot Available doxycycline hyclate 100 mg tablet TAKE ONE TABLET BY MOUTH TWICE A DAY FOR 7 DAYS. TAKE WITH FULL GLASSD OF WATER AND DO NOT LIE DOWN FOR AT LEAST 30 MINUTES AFTER active Not Available Not Available No t Available loratadine 10 mg tablet TAKE ONE TABLET BY MOUTH EVERY DAY IN THE MORNING active Not Available Not Available No t Available naproxen 500 mg tablet TAKE ONE TABLET BY MOUTH TWICE A DAY NEEDED FOR PAIN WITH FOOD active Not Available Not Available No t Available amoxicillin 875 mg-potassium clavulanate 125 mg tablet TAKE ONE TABLET BY MOUTH TWICE A DAY FOR 7 DAYS active Not Available Not Available No t Available Ventolin HFA 90 mcg/actuatio n aerosol inhaler INHALE TWO PUFFS BY MOUTH EVERY 4 HOURS NEEDED FOR WHEEZING OR FOR SHORTNESS OF BREATH active Not Available Not Available No t Available cyclobenzapr ine 5 mg tablet TAKE 1 TO 2 TABLETS BY MOUTH THREE TIMES DAILY NEEDED FOR BACK PAIN active Not Available Not Available No t Available chlorhexidin e gluconate 0.12 % mouthwash USE 15ML BY MOUTH/THROA T IF NEEDED AND SWISH AND SPIT TWO TIMES A DAY FOR UP TO 14 DAYS active Not Available Not Available N ot Available hydrochlorot hiazide 12.5 mg tablet TAKE ONE TABLET BY MOUTH EVERY DAY active Not Available Not Available No t Available FreeStyle Lite Strips USE DIRECTED TO TEST BLOOD SUGAR THREE TIMES DAILY active Not Available Not Available Not Available Lantus Solostar U-100 Insulin 100 unit/mL (3 mL) subcutaneous pen INJECT 25 UNITS SUBCUTANEOU SLY EVERY EVENING. active Not Available Not Available No t Available FreeStyle [place] Lite kit USE DIRECTED TO TEST BLOOD SUGAR THREE TIMES DAILY active Not Available Not Available Not Available Cerovite Senior 0.4 mg-300 mcg-250 mcg tablet TAKE 1 TABLET BY MOUTH IN THE MORNING. active Not Available Not Available No t Available Certavite-An tioxidant 18 mg-400 mcg tablet TAKE ONE TABLET BY MOUTH EVERY MORNING active Not Available Not Available No t Available Vitamin D3 50 mcg (2,000 unit) capsule TAKE ONE CAPSULE BY MOUTH EVERY DAY. active Not Available Not Available No t Available TRUEplus Lancets 33 gauge USE DIRECTED TO TEST BLOOD SUGAR THREE TIMES DAILY active Not Available Not Available Not Available BD Jane 2nd Gen Pen Needle 32 gauge x 5/32 FOR USE WITH INSULIN PEN. active Not Available Not Available No t Available Trulicity 3 mg/0.5 mL subcutaneous pen injector INJECT 0.5 ML. UNDER THE SKIN EVERY 7 DAYS SUBCUTANEOU S). active Not Available Not Available No t Available Vitals Date Recorded Respiratory rate Body temperature Body height Oxygen saturation Oxygen saturation in Arterial blood by Pulse oximetry Body weight Heart rate Systolic blood pressure Diastolic blood pressure Provider Name and Address Organization Details Last Updated DateTime 4 16 /min 97.8 [degF] 175.26 cm 95 % 95 % 946876. 48 g 77 /min 163 mm[Hg] 90 mm[Hg] Not Available [facility] 4 18:34:40 Date Recorded Heart rate Oxygen saturation Oxygen saturation in Arterial blood by Pulse oximetry Body temperature Respiratory rate Systolic blood pressure Diastolic blood pressure Provider Name and Address Organization Details Last Updated DateTime 4 93 /min 96 % 96 % 99.2 [degF] 18 /min 124 mm[Hg] 85 mm[Hg] Not Available [facility] 4 21:44:01 Date Recorded Body temperature Oxygen saturation Oxygen saturation in Arterial blood by Pulse oximetry Heart rate Respiratory rate Systolic blood pressure Diastolic blood pressure Provider Name and Address Organization Details Last Updated DateTime 4 98.4 [degF] 97 % 97 % 81 /min 18 /min 136 mm[Hg] 89 mm[Hg] Not Available [facility] 18:22:06 Social History None recorded. Functional Status None recorded. Mental Status None recorded. Family History Nothing Reported. Medical History No medical history recorded. Past Encounters Encounter ID Performer Location Encounter Start Date Encounter Closed Date Diagnosis/Indication Diagnosis SNOMED-CT Code Diagnosis ICD10 Code Diagnosis Note [id number] Bonny Oakley MD Main - [address] [phone] 06/01/2024 18:34:20 06/02/2024 16:59:30 Peripheral edema 718525340 R60.9 As noted, we were called to see this patient regarding concerns of LE edema. Evaluation in the field was performed by my fitting room associate colleague, as noted above, I provided real-time direction and supervisio n for this visit. The evaluation revealed 53 y/o man with HTN who calls for 1-4 weeks of LE edema with discolorat ion. He is only on HCTZ for his blood pressure. Denies orthopnea, dyspnea. He has also had increased BG recently, in the -300. He takes 20 lantus at night.BMP without concerning findings aside from hyperglyce chi. Impression :- low suspicions for cellulitis of LE, appears more like venous stasis with bilateral edema.- concerning for elevated BG with normal BMP for uncontroll ed DM Plan:- 40 PO lasix x 1; prescribe 40mg daily x 3 days- advice to increase lantus to 24u at night- he has follow up with [facility] in 2 days Primary care, considerin creased BP and DM control Dispositio n: We discussed the diagnostic uncertaint y of home visits and the risk associated with this. In this case, the patient and I felt this to be an acceptable and reasonable amount of risk given the benefit of avoiding an ED visit. We discussed the need to seek care urgently/e mergently in the setting of any new or worsening serious symptoms, particular ly changes to consciousn ess, chest pain, difficulty breathing. [id number] Kojo Parsons MD Main - [address] [address] 09/02/2024 21:43:59 09/03/2024 19:32:16 Retention of urine [id number] R33.9 As noted, we were called to see this patient regarding concerns of pelvic pain and loss of bladder control. Evaluation in the field was performed by my fitting room associate colleague, as noted above, I provided real-time direction and supervisio n for this visit. The evaluation revealed a story concerning for loss of bladder control with urinary retention and incontinen ce. Evaluation notable for BG 317 (a1c noted previously 14.5%), and non-focal neuro exam, not gait issues, and voiding successful ly just before medic arrival. He reports persistent sensation of retention. Impression :Not clear what's going on here. Acute/sub- acute onset of new focal pelvic deficit typically calls for emergency MRI. The stody is somewhat atypical owing to the lack of cauda equina sx and the active abdomino-p elvic sx, but we nonetheles s recommend emergency or urgent evaluation . Ddx would also include prostatiti s/prostati tism but nothing else going for this and unable to parse on history. Plan:Given uncertaint y and his sense of retention, recommende d ED referralGi aimee he just peed, and accepting some risk, if unable to go tonight, seeking care in the morning would be next bestNo testing we can do at this time to further parse as Cr would not bump for a day or so. Primary care, considerch jerson in call tomorrow. Dispositio n:We discussed the situation and I recommende d referral to the emergency department . This was based on sudden focal neurologic deficits. [id number] Kojo Parsons MD Main - [facility] [address] [place] [phone] 11/03/2024 18:21:57 11/05/2024 00:03:44 Angina pectoris [id number] I20.9 Health Concerns Section Related Observation LastModified by Organization Detai ls LastModified Time None Recorded Concern Status LastModified by Organization Details LastModified Time None Recorded Advance Directives Directive None Recorded Payers Encounter Date Sequence Insurance Name Policy Number Policy Baum Covered Member ID Baum Member ID Guarantor Name 06/01/2024 1 [facility] - DOS ON OR AFTER 2023 - DUAL ELIGIBLE - SKILLED NURSING OPTIONS AND ONE CARE (MEDICARE REPLACEMENT/ADV ANTAGE - HMO) Pavel Boyd [id number] Pavel Boyd 09/02/2024 1 [facility] - DOS ON OR AFTER 2023 - DUAL ELIGIBLE - SKILLED NURSING OPTIONS AND ONE CARE (MEDICARE REPLACEMENT/ADV ANTAGE - HMO) Pavel Boyd [id number] Pavel Boyd 11/03/2024 1 [facility] - DOS ON OR AFTER 2023 - DUAL ELIGIBLE - SKILLED NURSING OPTIONS AND ONE CARE (MEDICARE REPLACEMENT/ADV ANTAGE - HMO) Pavel Boyd [id number] Pavel Boyd Notes Date Note Type Note Provider Name and Address Organization Details Recorded Time 06/01/2024 text/html HPI: Patient with two day history of upper calf outer knee pain on right leg. Treated in the past for cellulitis and pain and redness resolved. Area feels tight ................... ................... ................... ................... ................... ................... ................... ........ [facility] Nurse Triage Notes (Chris Garber): Comments: Networking Engineer verified the member's name//address and phone number. Education provided on the response time and the member was advised to monitor reported s/s and seek emergency treatment if needed.Member reports right calf pain - Increased pain - Skin is brown and hard - Small blister. swelling reported - Denies warmth/redness - Denies fever - Denies SOB - Hx of Cellulitis in same in 10/17 - Wellness check requested Information Technology Analyst POC [facility] (18:25:05) pH: 7.44 pH units pCO2: 40.1 mmHg pO2: 50.5 mmHg Na: 137 mmol/L K: 4.3 mmol/L iCa: 1.17 mmol/L Cl: 100 mmol/L TCO2: 27.1 mEq/L Hct: 45 % Hb: 15.4 g/dL Glu: 364 mg/dL Lac: 1.2 mmol/L Cr: 0.44 mg/dL BUN: 12 mg/dL A ................... ................... ................... ................... ................... ................... ................... ........ Information Technology Analyst Note From [facility]: Pt with hx of DM, HTN, HLD reports 2-3 weeks of BLE edema. Pt sts he is supposed to be taking HCTZ 12.5 mg qd but doesn? t always take it faithfully. Pt sts he used to take furosemide but was taken off of it years ago and is unsure why. Pt takes lantus 20 u qd, metformin and glipizide for his DM. Pt sts BG levels have been elevated for a while now in the 300? s. Pt denies CP, SOB, BOWERS, f/n/v/d. Pt is alert, NAD. VSS. Afebrile. Non focal neuro exam. Normal gait. Lungs CTA. Benign ABD exam. BLE pitting edema, +2 left, +3 right. POC labs uploaded, BG 364. Pt treated with furosemide 40 mg PO. Pt instructed to increase lantus dose to 24 u qd until he speaks with PCP, f/u with PCP tomorrow morning, continue daily meds as prescribed, elevate legs and limit salt intake. Red flags reviewed. ................... ................... ................... ................... ................... ................... ................... ........ Disposition: Fulfilled Bonny Oakley MD [address] [facility],[address], [place], [address], [facility] 06/01/2024 20:03:41 09/02/2024 text/html HPI: I had gone to the emergency room on Saturday with abdominal pain and diarrhea I guess with the stuff they gave me something went wrong because I have lost the sensation of going to the bathroom and I still have the diarrhea, please help I am in pain?? ................... ................... ................... ................... ................... ................... ................... ........ [facility] Nurse Triage Notes (Chris Garber): Chief Complaints: Abdominal Pain PMH: COPD/Asthma, Diabetes, Hypertension Allergies: Unknown Comments: Reviewed HPI -Abdominal pain with Diarrhea - Denies N/V - Denies fever - Seen in the ER - Fatty liver. Medication prescribed and S/S have not improved. Denies blood in stool - Wellness check requested Kojo Parsons MD [address] [facility],[address], [place], [address], [facility] 09/02/2024 22:31:20 11/03/2024 text/html HPI: Patient reports that he has been out of Amlopidine for greater than one month. Previous provider has retired. Patient can confirm with [facility] dose as needed. Patient reports that he feels heart racing with exertion at times and right sided non radiation chest pain that resolves with rest. Describes like heart is beating out of my chest ................... ................... ................... ................... ................... ................... ................... ........ [facility] Nurse Triage Notes (Vandana Mullen): Chief Complaints: Chest pain PMH: COPD/Asthma, Hypertension, Asthma, Diabetes Mellitus Type 2, Obesity Comments: An outreach was completed, but was unable to reach member at this time Information Technology Analyst Organization Information for [employer] [facility] [employer] Business Legal Name: [employer]? ? Address: [address] [place] [address], Transportation Broker: Harman Mandel MD [place] No.: [id number] Information Technology Analyst POC Test Results from [facility] (18:17:07) EKG test performed. Attachments uploaded as part of this test result can be found under Documents section. ................... ................... ................... ................... ................... ................... ................... ........ Information Technology Analyst Note From [facility]: Dispatched to the call address for the male with intermittent chest pain. Pt advises that for the last 2 weeks he has been getting chest pain when he exerts himself, even if it is just walking. He states it feels like a sharp pain in the center of his chest and it feels like his heart is pounding. Pt advises he has not had his amlodipine for a month now due to miss communication between the doctor and the pharmacy. He states that when he gets this chest pain, if he sits down and relaxes the pain will go away within a minute or two. He denies and cold/flu like symptoms at this time and does not currently have chest pain. Pt was found opening door, CAOx4, airway open and patent, breathing non labored, able to speak in full sentences, -JVD, -HEENT, skin PWD with good turgor, abd soft non tender/distended, pupils PERRL, mucous membranes pink and moist, +CMSx4, lungs CTA, NSR, 12 lead non diagnostic for STEMI. C consulted. Script called into preferred pharmacy. Red flags discussed. ALL times are approx. ................... ................... ................... ................... ................... ................... ................... ........ [facility] Consulted: Rob Parsons ................... ................... ................... ................... ................... ................... ................... ........ Disposition: Christofer Parsons MD [address] [facility],[address], [place], [address], [email or web address] 11/03/2024 21:10:19
--- OUTSIDE RECORDS SUMMARY | 2025-03-05 10:44 | XMS_ITS ---
Author Organization [facility] Address [address] [place] [address] Care Team Providers Care Cable Assembler Name Role Phone JOSE ANGEL NICHOLS, DEVEN Primary Care Provider Nilesh Way Unavailable [phone] REASON FOR VISIT screening Encounters Encounter Location Date Provider Diagnosis [facility] [address] [facility] [place] [place] [id number] 03/03/2025 Nilesh Pittman Plan Of Treatment No Information Progress Notes * OLIVIA HAINESDOB:1970 ( 54 yo M)Acc No.[id number]:03/03/2025 COLON WITH MAC Patient:?OLIVIA HAINES Provider:?Nilesh Pittman MD :1970???Age:54 Y???Sex:Male Nolan e:03/03/2025 Address:[facility] [address], [id number] Pcp:DEVEN WALTER MD Subjective: * Chief Complaints: * ???1. Screening. * Medical History:? Objective: * Vitals:? Assessment: Plan: * Treatment: * * The named appointment provid er may or may not be the originator of this progress note, and it is not deemed complete until electronically signed by the appointment provider. Sign off status: Pending * Provider:?Nilesh Pittman MD Date:? 025 Generated for Clyde jc/Girish/eTransmitting on:?03/05/2025 10:43 AM EDT
--- OUTSIDE RECORDS SUMMARY | 2025-03-05 10:44 | XMS_ITS | Encounter Summary ---
Author Organization [employer] Address [address] [facility] [address] [place] [address] Care Team Providers Care Mail Room Name Role Phone Ailin Rizo Primary Care Provider [phone] Reason for Visit * Reason Comments Med Refill Encounter Details Date Type Department Care Team ([facility] st Contact Info) Description 06/08/2024 Refill [facility] [address] [place] [address] Ailin Rizo FNP [address] [place] [address] Primary hypertension Social History Tobacco Use Types Packs/Day Years Used Date Smoking Tobacco: Former Cigarettes Passive Smoke Exposure: Never Smokeless Tobacco: Former Comments:Pt Quit 14 years ag o Alcohol Use Standard Drinks/Week Comments Never 0 (1 standard drink = 0.6 oz pur e alcohol) Depression Answer Date Recorded Patient Health Questionnaire-9 Score 2 04/18/2023 Housing Stability Answer Date Recorded What is your housing situation today? I have christophe roque 09/10/[address] you li ve. Do you have problems with any of the following? None of the above 09/10/2023 Food Insecurity Answer Date Recorded Within the past 12 months, y ou worried that your food would run out before you got money to buy more: Never True 09/10/2023 Within the past 12 months,th e food you bought just didn't last and you didn't have enough money to get more: Never True Transportation Answer Date Recorded In the past 12 months, has l ack of transportation kept you from medical appts, meetings, work or from getting things needed for daily living? No 09/10/2023 Utilities Answer Date Recorded In the past 12 months, has t he electric, gas, oil or water company threatened to shut off services in your home? No 09/10/2023 Depression Answer Date Recorded Patient Health Questionnaire-2 [...] Description 03/08/2025 2:30 PM EDT Medication Management [facility] [address] [place] [address] Juliet Garcia, RashiD [address] [place] [address] documented as of this encounter Visit Diagnoses Diagnosis Primary hypertension Unspecified essential hypertension documented in this encounter Additional Health Concerns Assessment Noted Time PHQ-9 Depression Total Score: 2 04/18/20 23 3:00 PM EDT documented as of this encounter Care Teams Mail Room Relationship Specialty Start Date End Date Ailin Rizo FNP [address] [place] [address] PCP - General Family Medicine 07/23/22 documented as of this encounter
--- OUTSIDE RECORDS SUMMARY | 2025-03-05 10:44 | XMS_ITS | Encounter Summary ---
Author Organization [facility] Address [address] [place] [address] [address] [place] [address] Care Team Providers Care Service Center Manager Name Role Phone Ailin Rizo Primary Care Provider [phone] Encounter Details Date Type Department Care Team (Late st Contact Info) Description 11/28/2022 Orders Only [facility] [address] [place] [address] Aria Montgomery LPN Social History Tobacco Use Types Packs/Day Years [...] Description 03/08/2025 2:30 PM EDT Medication Management [facility] [address] [place] [address] Juliet Garcia, RashiD [address] [place] [address] documented as of this encounter Visit Diagnoses Not on filedocumented in this encounter Care Teams Service Center Manager Relationship Specialty Start Date End Date Ailin Rizo FNP [address] [place] [address] PCP - General Family Medicine 07/23/22 documented as of this encounter
--- OUTSIDE RECORDS SUMMARY | 2025-03-05 10:44 | XMS_ITS | Encounter Summary ---
Author Organization [employer] Address [address] [facility] [address] [place] [address] Care Team Providers Care Aluminum Hydroxide Process Operator Name Role Phone Ailin Rizo Primary Care Provider [phone] Reason for Visit * Reason Comments Med Refill Encounter Details Date Type Department Care Team ([facility] st Contact Info) Description 04/27/2024 Refill [facility] [address] [place] [address] Ailin Rizo FNP [address] [place] [address] Primary hypertension Social History Tobacco Use Types [...] Description 03/08/2025 2:30 PM EDT Medication Management [facility] [address] [place] [address] Juliet Garcia, RashiD [address] [place] [address] documented as of this encounter Visit Diagnoses Diagnosis Primary hypertension Unspecified essential hypertension documented in this encounter Additional Health Concerns Assessment Noted Time PHQ-9 Depression Total Score: 2 04/18/20 23 3:00 PM EDT documented as of this encounter Care Teams Aluminum Hydroxide Process Operator Relationship Specialty Start Date End Date Ailin Rizo FNP [address] [place] [address] PCP - General Family Medicine 07/23/22 documented as of this encounter
--- OUTSIDE RECORDS SUMMARY | 2025-03-05 10:44 | XMS_ITS | Clinical Summary ---
Author Organization [employer] Address [address] [facility] [address] [place] [address] Care Team Providers Care Rn Neurosurgical Name Role Phone Ailin Rizo AYAZ Primary Care Provider [phone] Allergies Active Allergy Reactions Criticality Noted Date Comments Rigo Inhibitors Angioedema,Hives 06/27/2018 Lisinopril 02/12/2024 Shellfish-Derived Products 7 Shrimp Extract Unknown 07/20/2024 Medications * This document contains information received from the source organization and may not represent a complete record from that organization. FreeStyle lancets USE TO TEST BLOOD SUGAR 3 TIMES DAILY 023 Active Alcohol Swabs (B-D SINGLE USE SWABS REGULAR) pads USE TO CLEAN SKIN PRIOR TO CHECKING BLOOD SUGAR 100 each 11 023 Active furosemide (Lasix) 40 MG tablet TAKE ONE TABLET BY MOUTH EVERY DAY 023 Active Multiple Vitamins-Mineral s (Cerovite Senior) tablet TAKE 1 TABLET BY MOUTH IN THE MORNING. 90 tablet 2 023 Active albuterol (Ventolin HFA) 108 (90 Base) MCG/ACT inhalerIndicatio ns:Mild intermittent asthma without complication Inhale 2 puffs every 4 (four) hours if needed for wheezing or shortness of breath. 18 g 3 024 Active fluticasone (Flonase) 50 MCG/ACT nasal spray USE 1 SPRAY BY INTRANASAL ROUTE 2 TIMES A DAY IN EACH NOSTRIL. 16 g 5 024 Active Continuous Blood Gluc Sensor (FreeStyle Kathi 2 Sensor) miscIndications: Type 2 diabetes mellitus without complication, with long-term current use of insulin ([facility]) Apply 1 sensor every 14 days 2 each 11 Active Continuous Blood Gluc Director Decision Support (FreeStyle Kathi 2 [place]) deviceIndication s:Type 2 diabetes mellitus without complication, with long-term current use of insulin ([facility]) Scan sensor every 8 hours 1 each Active acetaminophen (Tylenol) 500 MG tablet Take 1 tablet (500 mg) by mouth every 6 (six) hours if needed for mild pain for up to 20 doses. 20 tablet Active atorvastatin (Lipitor) 80 MG tablet TAKE ONE TABLET BY MOUTH AT BEDTIME 90 tablet 3 Active hydroCHLOROthiaz earl 12.5 MG tabletIndication s:Primary hypertension Take 1 tablet by mouth Once per day. Active sodium chloride (Power) 0.65 % nasal sprayIndications :Nasal congestion Administer 1 spray into each nostril if needed for congestion. 15 mL 024 2024 Active ketoconazole (NIZOral) 2 % creamIndications :Rash of genital area Apply thin layer by topical route daily to affected area 30 g 1 Active hydrocortisone 2.5 % creamIndications :Rash of genital area Apply topically 2 times daily. Apply pea sized amount to affected area twice daily for 2 weeks. 30 g 1 Active multivitamin with minerals (Centrum) 9-200 mg-mcg tablet split tablet Take 1 tablet by mouth in the morning. Active BD Pen Needle Jane 2nd Gen 32G X 4 MM misc FOR USE WITH INSULIN PEN. 100 each 11 Active Aspirin Low Dose 81 MG EC tablet TAKE ONE TABLET BY MOUTH EVERY DAY 90 tablet 3 Active econazole nitrate 1 % creamIndications :Intertrigo Apply topically Once per day. 85 g 024 2024 Active Lancets miscIndications: Type 2 diabetes mellitus without complication, with long-term current use of insulin ([facility]) Use to test blood sugar 3 times daily 100 each 3 Active Blood Glucose Monitoring Suppl (FreeStyle Garrison Lite) w/Device kitIndications:T ype 2 diabetes mellitus without complication, with long-term current use of insulin ([facility]) Use to test blood sugar 3 times daily 1 kit 024 Active glucose blood (FREESTYLE LITE) test stripIndications :Type 2 diabetes mellitus without complication, with long-term current use of insulin ([facility]) USE TO TEST BLOOD SUGAR 3 TIMES DAILY 100 each 11 024 Active cyclobenzaprine (Flexeril) 5 MG tabletIndication s:Muscle spasm TAKE 1 TO 2 TABLETS BY MOUTH THREE TIMES DAILY NEEDED FOR BACK PAIN 60 tablet 2 024 Active metoprolol succinate XL (Toprol-XL) 25 MG 24 hr tablet Take 1 tablet by mouth Once per day. 024 Active cholecalciferol (D3 Super Strength) 50 MCG (1999) capsuleIndicatio ns:Vitamin D insufficiency TAKE ONE CAPSULE BY MOUTH EVERY DAY. 90 capsule 1 025 Active metFORMIN XR (Glucophage-XR) 500 MG 24 hr tablet TAKE TWO TABLETS BY MOUTH TWICE A DAY 360 tablet 025 Active glipiZIDE XL (Glucotrol XL) 5 MG 24 hr tabletIndication s:Type 2 diabetes mellitus treated with insulin ([facility]) TAKE 1 TABLET BY MOUTH ONCE DAILY. 90 tablet 1 025 Active Trulicity 3 MG/0.5ML solution auto-injector INJECT 0.5 ML. UNDER THE SKIN EVERY 7 DAYS (SUBCUTANEOUS). 2 mL 3 025 Active naproxen (Naprosyn) 500 MG tabletIndication s:Pain TAKE ONE TABLET BY MOUTH TWICE A DAY NEEDED FOR PAIN WITH FOOD 60 tablet 3 025 Active insulin glargine (Lantus SoloStar) 100 UNIT/ML pen INJECT 30 UNITS SUBCUTANEOUSLY EVERY EVENING. 15 mL 5 025 Active loratadine (Claritin) 10 MG tabletIndication s:Seasonal allergies Take 1 tablet (10 mg) by mouth if needed each day for allergies. 90 tablet 3 025 Active Alcohol Swabs (B-D SINGLE USE SWABS REGULAR) padsIndications: Type 2 diabetes mellitus without complication, with long-term current use of insulin ([facility]) USE TO TEST BLOOD SUGARS 3 TIMES A DAY. 100 each 11 025 Active loratadine (Claritin) 10 MG tabletIndication s:Seasonal allergies TAKE ONE TABLET BY MOUTH EVERY DAY IN THE MORNING 90 tablet 2 023 2024 Discontinued FREESTYLE LITE test stripIndications :Type 2 diabetes mellitus without complication, with long-term current use of insulin (CMS/HCC) Use to test blood sugar 3 times daily 100 each 12 024 2024 Alcohol Swabs (B-D SINGLE USE SWABS REGULAR) padsIndications: Type 2 diabetes mellitus without complication, with long-term current use of insulin (CMS/HCC) USE TO TEST BLOOD SUGAR 3 TIMES DAILY. 100 each 11 024 2024 Discontinued Active Problems Problem Noted Date Diagnosed Date Lateral epicondylitis of left elbow 09/24/2024 Overview (09/24/2024): Followed by [facility] Ortho Tx: counterforce brace, referred to OT. Consider cortisone injection if conservative measures fail Hepatic steatosis 09/24/2024 Assessment & Plan (09/24/2024 8:27 AM EDT): Abd Aug 2024 in ED c/w hepatic steatosis Reviewed basic education regarding condition Lifestyle interventions encouraged Lab Results Component Value Date AST 10 08/28/2024 ALT 14 08/28/2024 TOTPROTEIN 7.9 08/28/2024 ALB 4.1 08/28/2024 ALP 73 08/28/2024 TOTALBILIRUB 0.5 08/28/2024 Dental root caries 03/05/2024 Class 3 severe obesity due t o excess calories without serious comorbidity with body mass index (BMI) of 45.0 to 49.9 in adult 02/13/2024 Overview (02/13/2024): Wt Readings from Last 5 Encounters: 02/10/24 316 lb 6 oz (144 kg) 11/20/23 329 lb 6.4 oz (149 kg) 11/04/23 333 lb 12.8 oz (151 kg) 10/21/23 323 lb 6 oz (147 kg) 09/13/23 329 lb 2 oz (149 kg) -Lost approx 15 lbs over the past 3 months through changes in dietary habits. Encouraged to continue with sustainable lifestyle interventions. On Trulicity for T2DM. Vitamin D insufficiency 02/13/2024 Assessment & Plan (07/02/2024 10:29 AM EDT): Continues with Vit D 2000 units daily Plan: Recheck Vit D Assessment & Plan (02/13/2024 2:34 PM EDT): Continues with Vit D 2000 units daily Plan: Recheck Vit D History of CVA (cerebrovascular accident) 2022 Assessment & Plan (04/19/2023 9:24 AM EDT): Occipital CVA Nov 2006 Healthcare maintenance 04/19/2023 Overview (07/02/2024): Colonoscopy: referred to GI 04/19/23, re-referral 07/02/24 PSA: WNL March 2023 Smoking: none STI: asymptomatic labs neg March 2023 Last PE: 06/30/24 Assessment & Plan (04/19/2023 9:41 AM EDT): Colonoscopy: referred to GI 04/19/23 PSA: shared decision making to proceed with screening March 2023 Smoking: none STI: asymptomatic labs pending -Hep B and PCV20 administered today Allergic rhinitis 09/23/2015 Hyperlipidemia associated with type 2 diabetes marianna basia 09/23/2015 Assessment & Plan (04/18/2023 1:12 PM EDT): ?? Continue with atorvastatin 80mg nightly Primary hypertension 09/23/2015 Assessment & Plan (07/02/2024 10:51 AM EDT): Well controlled BP goal < 130/80 mmHg Encouraged lifestyle interventions such as low salt diet and daily physical activity Continue with current med regimen: hydrochlorothiazide 12.5mg daily Previous medications: - History of angioedema with ACEi/ARB, avoid - Amlodipine discontinued due to lower extremity edema Assessment & Plan (04/19/2023 9:37 AM EDT): ?? BP goal < 130/80 mmHg ?? Encouraged lifestyle interventions such as low salt diet and daily physical activity ?? Continue with current med regimen: ?? Amlodipine 10mg daily ?? hydrochlorothiazide 12.5mg daily (History of angioedema with ACEi/ARB, avoid) Low back pain 09/23/2015 Mild intermittent asthma 09/23/2015 Assessment & Plan (06/30/2024 6:09 AM EDT): Reports well controlled Continues with albuterol PRN Assessment & Plan (04/19/2023 9:31 AM EDT): ?? Reports well controlled ?? Continues with albuterol PRN Obstructive sleep apnea syndrome 09/23/2015 Assessment & Plan (07/02/2024 10:35 AM EDT): In need of updated CPAP Due for repeat sleep study, unclear when last report or titration. Ordered in hospital sleep study for further eval 11/20/23 Pt planning to reschedule appt Referral placed to Sleep Medicine on 06/30/24 Assessment & Plan (11/21/2023 10:12 AM EST): ?? Continue with CPAP and lifestyle interventions ?? Due for repeat sleep study, unclear when last report or titration. Ordered in hospital sleep study for further eval 11/20/23 Assessment & Plan (11/10/2023 10:59 PM EST): ?? Continue with CPAP and lifestyle interventions ?? Message sent to DME team to please assist with CPAP supplies Assessment & Plan (04/19/2023 9:31 AM EDT): ?? Continue with CPAP and lifestyle interventions Type 2 diabetes mellitus 09/23/2015 Overview (11/10/2024): Lab Results Component Value Date HGBA1C 14.0 (A) 09/23/2024 HGBA1C 13.4 (A) 06/30/2024 HGBA1C 13.9 (A) 02/10/2024 HGBA1C 11.5 (H) 10/13/2023 HGBA1C >14.0 (H) 04/18/2023 HGBA1C 8.3 (H) 09/07/2021 A1c goal < 7%, above goal CGM Approved, referred to pharmacy [place] Jun 2024, referral to CDTM placed 09/24/24 Current med regimen: Trulicity 3mg subcutaneous weekly Metformin 1000mg BID Lantus 30 units at bedtime Glipizide 5mg daily -Discussed importance of lifestyle/dietary monitoring and interventions. -Reviewed ED precautions. -Consider initiation SGLT-2i once A1c </= 9% -CGM DME: [facility] approval 02/13/24 - 02/11/25 Assessment & Plan (11/10/2024 9:40 AM EST): BG uncontrolled, suspect due to various contributing factors Mr. Boyd currently feeling overwhelmed r/t health and life stressors Will defer med changes today, but may be good candidate for Mounjaro and SGLT2i in the future. Goal weight loss, so would like to be able to transition off of glipizide and lantus in future Goal to establish with CDTM for collaborative management of T2DM Assessment & Plan (07/02/2024 10:53 AM EDT): Increased lantus to 20 units nightly. Referral to [place]. Assessment & Plan (04/19/2023 9:36 AM EDT): Lab Results Component Value Date HGBA1C 14.5 (A) 04/18/2023 ?? A1c goal < 7%, not currently well controlled ?? Current med regimen: ?? Trulicity 3mg subcutaneous weekly ?? Metformin 1000mg BID ?? INCREASE to Lantus 25 units at bedtime ?? Glipizide 5mg daily -Discussed importance of lifestyle/dietary monitoring and interventions. -Record BG readings and follow up in 2 weeks. -Reviewed ED precautions. -May need to consider short duration of bolus insulin until improved glucose control achieved. -Consider initiation SGLT-2i once A1c </= 9% Encounters Date Type Department Care Team Description 02/25/2025 Telephone [facility] [address] [place] [address] Ailin Rizo FNP recall 02/21/2025 Refill [facility] [address] [place] [address] Phalen, Ailin, FACIALIST Type 2 diabetes mellitus without complication, with long-term current use of insulin ([facility]) 02/07/2025 Refill [facility] [address] [place] [phone] Sallie Ailin, FACIALIST Seasonal allergies 01/28/2025 Refill [facility] [address] [place] [address] Ailin Rizo, FACIALIST 01/27/2025 Refill [facility] [address] [place] [address] Ailin Rizo, FACIALIST Pain 12/31/2024 Refill [facility] [address] [place] [address] Ailin Rizo, FACIALIST 12/06/2024 Refill [facility] [address] [place] [address] Ailin Rizo, FACIALIST Type 2 diabetes mellitus treated with insulin ([facility]) 12/05/2024 Refill [facility] [address] [place] [address] Delaney Rivera MD Type 2 diabetes mellitus treated with insulin ([facility]) from Last 3 Months Immunizations Name Administration Dates Next Due Hep B, adult 04/18/2023,10/23/2021 Influenza injectable quadriv alent IIV4 with preservative 12/19/2017,10/24/2016,09/15/2015 Influenza injectable quadriv alent preservative free 09/07/2021,09/10/2019,11/06/2018 Influenza, IIV3, injectable 09/03/2014 Influenza, Split (incl. hayes fied surface antigen) 10/27/2012 Pneumococcal Conjugate PCV 20 04/18/2023 Pneumococcal Polysaccharide PPSV23 07/14/2013 TD (adult), 2 Lf tetanus tox oid, preservative free, adsorbed 05/07/2006 Tdap 06/30/2024,07/14/2013 Family History Medical History Relation Name Comments Coronary artery disease Father Hypertension Father Stroke Father's Brother Diabetes Mother Stomach cancer Paternal Grandfather Relation Name Status Comments Father Father's Brother Mother Paternal Grandfather Social History Tobacco Use Types Packs/Day Years [...] Orientation Straight 09/24/2022 10 :15 AM EDT Last Filed Vital Signs Vital Sign Reading Time Taken Comments Blood Pressure 130/77 11/09/2024 4:21 PM EST Pulse 70 11/09/2024 4:21 PM EST Temperature 36.6 ??C (97.9 ??F) 11/09/2024 4:21 PM ES T Respiratory Rate 20 11/09/2024 4:21 PM EST Oxygen Saturation 98% 11/09/2024 4:21 PM EST Inhaled Oxygen Concentration - - Weight 135 kg (298 lb 6 oz) 11/09/2024 4:[address] Height 174 cm (5' 8.5 ) 11/09/2024 4:21 PM EST Body Mass Index 44.71 11/09/2024 4:21 PM EST Plan of Treatment Upcoming Encounters Date Type Department Care Team (Late st Contact Info) Description 03/08/2025 2:30 PM EDT Medication Management [facility] [address] [place] [address] Juliet Garcia, PharmD [address] [place], [place] [id number] Health Maintenance Due Date Last Done Comments CT Colonography 1971 Colonoscopy 1971 Colorectal Cancer Screening 1971 FIT DNA/Cologuard 1971 FIT 1971 FOBT 1971 Sigmoidoscopy 1971 Diabetes: Foot Exam 1981 Eye Exam 1981 Hepatitis A Vaccines (1 of 2 - Risk 2-dose series) 1990 Dental Prophylaxis 03/31/2020 09/30/2019, 0 04/23/2018, 09/26/2016, Additional history exists Zoster Vaccines (1 of 2) 2021 Diabetes: Urine Protein Screening 09/07/2022 09/07/2021 Hepatitis B Vaccines (3 of 3 - 19+ 3-dose series) 06/13/2023 04/18/2023, 10/23/2021 Lipid Panel 04/18/2024 04/18/2023, 09/07/2021 COVID-19 Vaccine ( season) 2024 12/25/2021, 04/13/2021, 03/16/2021 Influenza Vaccine (#1) 2024 , 09/10/2019, 11/06/2018, Additional history exists Dental Oral Exam 08/15/2024 02/12/2024, , 03/22/2016 Diabetes: Hemoglobin A1C 12/24/2024 024, 06/30/2024, 02/10/2024, Additional history exists Alcohol/Substance Use Screening 06/30/2025 06/30/2024 Depression Screening 06/30/2025 06/30/2024, 06/30/20 24 SDOH Screening 06/30/2025 06/30/2024 Dental X-Ray: Bitewings 08/08/2025 08/07/20 24, 02/12/2024, 01/16/2024, Additional history exists Tobacco Screening 11/09/2025 11/09/2024 Dental X-Ray: Full Mouth 02/12/2027 02/12/2024, 02/24 DTaP/Tdap/Td Vaccines (3 - Td or Tdap) 06/30/2034 06/30/2024, 07/14/2013, 05/07/2006 RSV Patients and Patients Aged 60 years or older (1 - 1-dose 75+ series) 2046 HIV Screening Completed 04/18/2023, 09/07/2021 Hepatitis C Screening Completed 04/18/2023, 021 Pneumococcal Vaccine: 50+ Years Completed 04/18/2023, 07/14/2013 HIB Vaccines Aged Out No longer eligi ble based on patient's age to complete this topic HPV Vaccines Aged Out No longer eligi ble based on patient's age to complete this topic IPV Vaccines Aged Out No longer eligi ble based on patient's age to complete this topic Meningococcal Vaccine Aged Out No pat arsenio eligible based on patient's age to complete this topic RSV under 20 months Aged Out No longe r eligible based on patient's age to complete this topic Rotavirus Vaccines Aged Out No longer eligible based on patient's age to complete this topic Procedures Procedure Name Priority Date/Time Associated Diagnosis Comments POCT GLYCATED HEMOGLOBIN, TOTAL Routine 09/23/2024 10:34 AM EDT Type 2 diabetes mellitus without complication, with long-term current use of insulin ([facility]) BITEWING - SINGLE RADIOGRAPHIC IMAGE Routine 08/07/2024 11:30 AM EDT Dental caries Dental abscess Periodontal disease INTRAORAL - COMPLETE SERIES OF RADIOGRAPHIC IMAGES Routine 02/12/2024 9:00 AM EDT Encounter for dental examination Dental calculus Periodontal disease PERIODIC ORAL EVALUATION - ESTABLISHED PATIENT Routine 02/12/2024 9:00 AM EDT Encounter for dental examination Dental calculus Periodontal disease HEPATITIS C AB W/REFL TO HCV RNA, QN, PCR Routine 04/18/2023 4:02 PM EDT Encounter for routine history and physical examination of adult HIV 1 RNA, QN PCR W/REFLEX TO GENOTYPE Routine 04/18/2023 4:02 PM EDT Encounter for routine history and physical examination of adult LIPID PANEL, STANDARD Routine 04/18/2023 4:02 PM EDT Encounter for routine history and physical examination of adult ALBUMIN, RANDOM URINE W/CREATININE Routine 09/07/2021 10:51 AM EDT PROPHYLAXIS - ADULT Routine 09/30/2019 1 2:00 AM EST from Last 3 Months or Most Recently Relevant to Health Maintenance Results * (ABNORMAL) POCT HGB A1C (09/23/2024 10:34 AM EDT) Hemoglobin A1C 14.0(A) 4.0 - 6.0 % QC Media Lot # [id number] Lot# Expiration Date [id number] Blood 09/23/2024 10:3 4 AM EDT Ailin Rizo FACIALIST POINT OF CARE TEST ENTER/EDIT ORDERABLES Final Result * HIV-1 RNA, Quantitative, PCR with Reflex to Genotype (04/18/2023 4:02 PM EDT) HIV 1 RNA, QN PCR Not Detected Copies/mL [facility] HIV 1 RNA, QN PCR Not Detected Log cps/mL [facility] Comment: Reference Range: ?Not Detected ? copies/mL ?Not Detected Log copies/mL The test was performed using Real-Time Polymerase Chain Reaction. ? Reportable Range: 20 copies/mL to 10,000,000 copies/mL (1.30 Log copies/mL to 7.00 Log copies/mL). 04/18/2023 4:02 PM EDT 04/18/2023 4:03 PM EDT Ailin Rizo [facility] B[facility]OD ORDERABLES Final Res ult Performing Organization Address [facility] Co de Phone Number [facility] [address] [place] [address], [facility] [place] [address] [facility] [address] [facility] [place] [address] * Hepatitis C Antibody with Reflex to HCV, RNA, Quantitative, Real-Time PCR (04/18/2023 4:02 PM EDT) Hepatitis C Antibody NON-REACT RENY NON-REACT RENY [facility] [place] [facility] Index 0.13 <1.00 [facility] [place] [facility] Comment: HCV antibody was non-reactive. There is no laboratory evidence of HCV infection. In most cases, no further action is required. However, if recent HCV exposure is suspected, a test for HCV RNA (test code 45759) is suggested. For additional information please refer to http://education.Memorandom/faq/YYU59k6 (This link is being provided for informational/ educational purposes only.) Blood Venous blood specimen / Unknown 04/18/2023 4:02 PM EDT 04/18/2023 4:03 PM EDT Ailin Rizo [facility] BLOOD ORDERABLES Final Res ult Performing Organization Address [facility] de Phone Number [address], [facility] [place] [address] [facility] [place] [facility] [address] [place] [phone] * (ABNORMAL) Lipid Panel, Standard (04/18/2023 4:02 PM EDT) Cholesterol, Total 143 <200 mg/dL [facility] [place] [facility] HDL Cholesterol 39(L) > OR = 40 mg/dL [facility] [place] [facility] Triglycerides 122 <150 mg/dL [facility] [place] [facility] LDL Cholesterol 82 mg/dL (calc) [facility] [place] [facility] Comment: Reference range: <100 Desirable range <100 mg/dL for primary prevention; ?? <70 mg/dL for patients with CHD or diabetic patients with > or = 2 CHD risk factors. LDL-C is now calculated using the Alley calculation, which is a validated novel method providing better accuracy than the Friedewald equation in the estimation of LDL-C. Benedicto SS et al. NICK. 2013;310(19): 0824-1827 (http://education.TranZfinity/faq/VZJ028) Chol/HDLC Ratio 3.7 <5.0 (calc) [facility] [place] [facility] Non-HDL Cholesterol 104 <130 mg/dL (calc) [facility] [place] [facility] Comment: For patients with diabetes plus 1 major ASCVD risk factor, treating to a non-HDL-C goal of <100 mg/dL (LDL-C of <70 mg/dL) is considered a therapeutic option. Blood Venous blood specimen / Unknown 04/18/2023 4:02 PM EDT 04/18/2023 4:03 PM EDT Ailin Rizo [facility] BLOOD ORDERABLES Final Res ult [facility] [address] [place] [address] [facility] [place] [facility] [facility] [address] [place] [address] * ALBUMIN, RANDOM URINE W/CREATININE (09/07/2021 10:51 AM EDT) Pathologist [facility] Microalbumin Urine 2.4 See Note: mg/dL [facility] Comment: Reference Range: ?? Reference Range Not established Microalb/Creat Ratio 10 <30 mcg/mg creat [facility] Comment: ?? The ADA defines abnormalities in albumin excretion as follows: ?? Albuminuria Category ?Result (mcg/mg creatinine) ?? Normal to Mildly increased ?? <30 Moderately increased ? 30-299 ?? Severely increased ? > OR = 300 ?? The ADA recommends that at least two of three specimens collected within a 3-6 month period be abnormal before considering a patient to be within a diagnostic category. Creatinine, Urine 247 20 - 320 mg/dL [facility] 09/07/2021 10:5 1 AM EDT us Jia Morgan FACIALIST LAB URINE ORDERABLES Final Res ult [facility] [address] [place] [address], from Last 3 Months or Most Recently Relevant to Health Maintenance Insurance [facility] - [facility] Care Teams Rn Neurosurgical Relationship Specialty Start Date End Date Ailin Rizo FNP [address] [place] [address] PCP - General Family Medicine 07/23/22
--- OUTSIDE RECORDS SUMMARY | 2025-03-05 10:44 | XMS_ITS | Encounter Summary ---
Author Organization [email or web address] [facility] Address [address] [place] [address] 7t [place] [address] Care Team Providers Care Foundry Hand Name Role Phone Ailin Rizo AYAZ Primary Care Provider Reason for Referral * Consultation (Routine) - Authorized Specialty Diagnoses / Procedures Referred By Contac t Referred To Contact Pharmacy Diagnoses Type 2 diabetes mellitus without complication, with long-term current use of insulin (CMS/HCC) Ángela Penny MD [address] [place] [id number] Phone: tel: fax: Referral ID Status Reason Start Date Expiration Date Visits Requested Visits Authorized [id number] Authorized Consult and Treat 12/01/2024 12/01/2025 6 6 Encounter Details Date Type Department Care Team (Late st Contact Info) Description 12/01/2024 Orders Only [facility] [address] [place] [address] [phone] Ángela Penny MD [address] [place] [address] [phone] Type 2 diabetes mellitus without complication, with long-term current use of insulin (CMS/HCC) (Primary Dx) Social History Tobacco Use Types Packs/Day Years [...] Description 03/08/2025 2:30 PM EDT Medication Management [facility] [address] [place] [address] Juliet Garcia, PharmD [address] [place] [address] Scheduled Referrals Name Type Priority Associated Diagnoses Orde r Schedule Referral to Pharmacy CDTM Outpatient Referral Routine Type 2 diabetes mellitus without complication, with long-term current use of insulin ([facility]) Ordered: 12/01/2024 documented as of this encounter Visit Diagnoses Diagnosis Type 2 diabetes mellitus without complication, with long-term current use of insulin ([facility])- Primary documented in this encounter Additional Health Concerns Assessment Noted Time PHQ-9 Depression Total Score: 3 06/30/20 24 9:37 AM EDT documented as of this encounter Care Teams Foundry Hand Relationship Specialty Start Date End Date Ailin Rizo FNP [address] [place] [address] PCP - General Family Medicine 07/23/22 documented as of this encounter
--- OUTSIDE RECORDS SUMMARY | 2025-03-05 10:44 | XMS_ITS ---
Author Organization [facility] Address [address] [place] [address] Care Team Providers Care [employer] French Teacher Name Role Phone DEVEN WALTER MD Primary Care Provider Nilesh Way Unavailable [phone] Allergies Allergen (clinical drug ingredient) Drug/Non Drug Allergy documented on EMR Reaction Allergy Type Onset Date Status Shellfish (FN) Shellfish-derived Products Unknown Drug Allergy Active lisinopril Lisinopril Unknown Drug Allergy Activ e angiotensin-converting enzyme inhibitor (FN) LAVONNE Inhibitors Unknown Drug Allergy Acti ve REASON FOR VISIT Patient presents today for a screening colonoscopy Medications Medication SIG (Take, Route, Frequency, Duration) Notes Start Date End Date Status Naproxen 500 MG TAKE ONE TABLET BY MOUTH TWICE A DAY NEEDED FOR PAIN WITH FOOD Oral for 30 Active Acetaminophen ER 650 MG TAKE ONE TABLET BY MOUTH EVERY 8 HOURS NEEDED FOR PAIN. DO NOT CRUSH CHEW OR SPLIT Oral every 6 hours Active Ventolin HFA 108 (90 Base) MCG/ACT INHALE TWO PUFFS BY MOUTH EVERY 4 HOURS NEEDED FOR WHEEZING OR FOR SHORTNESS OF BREATH Inhalation for 16 Active Cyclobenzaprine HCl 5 MG TAKE ONE TO TWO TABLETS BY MOUTH THREE TIMES A DAY NEEDED FOR BACK PAIN. Oral for 10 Active glipiZIDE ER 5 MG TAKE 1 TABLET BY ONCE DAILY. Oral for 90 Active Aspirin Low Dose 81 MG Oral for 90 Active Atorvastatin Calcium 80 MG Oral for 90 Active metFORMIN HCl ER 500 MG TAKE TWO TABLETS BY MOUTH TWICE A DAY Oral for 90 Active Lantus SoloStar 100 UNIT/ML INJECT 25 UN ITS SUBCUTANEOUSLY EVERY EVENING. Subcutaneous for 60 Active D3 Super Strength 50 MCG (2000 UT) TAKE ONE CAPSULE BY MOUTH EVERY DAY. Oral for 90 Active hydroCHLOROthiazide 25 MG 1 tablet in th e morning Orally Once a day for 30 day(s) Active Loratadine 10 MG 1 tablet Orally Once a day for 30 day(s) Active Metoprolol Succinate ER 25 MG Oral for 30 Active Trulicity 3 MG/0.5ML Subcutaneous for 28 Active Social History Tobacco Use: Social History [...] Status Risk Notes Problem Colon cancer screening (962544878) Colon cancer screening (Z12.11) Active confirmed Problem Diarrhea (94377169) Diarrhea (R19.7) Active confirmed Problem Fatty liver (029726060) Fatty liver (K76.0) Active confirmed Vital Signs Blood pressure systolic 00 mm Hg 11/10/20 24 Blood pressure diastolic 00 mm Hg 024 Height 5 ft 10 in in 11/10/2024 Weight 306 lbs 11/10/2024 BMI 43.90 kg/m2 11/10/2024 Encounters Encounter Location Date Provider Diagnosis [facility] [address] [facility] [address] [place] [id number] 11/10/2024 Nilesh Pittman Colon cancer screening Z12.11 [...] advised of his progress. Plan Of Treatment Treatment Notes Assessment Notes Colon cancer screening DO NOT USE TRULICITY FOR AT LEAST 7 DAYS BEFORE THE COLONOSCOPY DO NOT TAKE THE METFORMIN OR GLIPIZIDE THE NIGHT BEFORE NOR ON THE MORNING OF THE COLONOSCOPY TAKE ONLY 1/2 THE USUAL INSULIN AT NIGHT DO NOT TAKE THE HYDROCHLOROTHIAZIDE THE DAY BEFORE NOR ON THE DAY OF THE COLONOSCOPY DO NOT TAKE THE ASPIRIN ON THE DAY OF THE COLONOSCOPY Fatty liver Keep watching the di et, exercising, and losing weight to help the fattyliver and everything else Future Test Test Name Order Date COLONOSCOPY 11/10/2024 Next Appt Details Follow Up: prn, Reason: Progress Notes * ZAKI RONY:1970 ( 53 yo M)Acc No.[id number]:11/10/2024 Progress Notes Patient:OLIVIA MONTANA Provider:?Nilesh Pittman MD :1970???Age:53 Y???Sex:Male Nolan e:11/10/2024 Address:[address] [place], [place] [id number] Pcp:DEVEN WALTER MD Subjective: * Chief Complaints: * ???Patient presents today fo r a screening colonoscopy * HPI: ???incontinence:? I saw Olivia in the office today in consultation in regard to his reported fatty liver and discussion of colorectal cancer screening. ?As you know, Olivia is a 53-year-old male with an underlying history of obesity and diabetes who was noted to have a fatty liver on imaging studies. His most recent imaging study was a CT scan this past August of 2024 describing a fatty liver but no sign of any focal liver lesions, cirrhosis, biliary disease, splenomegaly, nor ascites. His LFTs were normal at the time of the CT scan. He has no known history of liver disease in himself nor family members. He does not use any significant amounts of alcohol. ?His weight has been as high as 475 pounds but he is currently down to 306 pounds. He describes that this has been a very gradual process with some exercise and dietary changes over the past few years. He has also been using Trulicity and trying to keep better control of his diabetes. ?He enjoys a good appetite otherwise and denies any significant heartburn or dysphagia. He denies abdominal pain, signs of jaundice, change in bowel habits, hematochezia, nor melena. He denies any known family history of colorectal cancer. He has never had a colonoscopy. ?Of note, he does describe the onset of some diarrhea about 2 months ago after eating at [employer]. This gradually improved although he is still having some occasional symptoms of loose bowel movements. However things are much better than they had been at the time. He did not notice any hematochezia, vomiting, melena, or fevers at the time of the acute diarrhea from [employer]. There was no preceding history of antibiotic use, travel, nor ill contacts. * ROS:?General/Constitutional:?Change in appetite?denies.?Chills?denies.?Fatigue?denies.?Ophthalmologic:?Comments?all negative.?ENT:?Comments?all negative.?Respiratory:?hemoptysis?denies.?Cough?denies.?Cardiovascular:?Chest pain?denies.?Orthopnea?denies.?Gastrointestinal:?Comments?See HPI for details.?Genitourinary:?Hematuria?denies.?Dysuria?denies.?Musculoskeletal:?Painful joints?denies.?Weakness?denies.?Skin:?Itching?denies.?Rash?denies.?Neurologic:?Headache?denies.?Seizures?denies.?Psychiatric:?Comments?all negative.? * Medical History:? * Surgical History:?dental wor k * Hospitalization/Major Diagno stic Procedure:?No Hospitalization History. * Family History:?Father: piedad george, diagnosed with Diabetes.?Mother: alive, diagnosed with Diabetes, HTN (hypertension).?Paternal Grand Father: alive, stomach cancer .? no known hx of colon ca, colon polyps. * Social History:?Tobacco Use:?Tobacco Use/Smoking?Patient is a?former smoker,?How long has it been since you last smoked??> 10 years.?Drugs/Alcohol:?Alcohol Screen?Did you have a drink containing alcohol in the past year??No,?Points?0,?Interpretation?Negative.?Miscellaneous:?Marital status: . Occupation: disabled. * Medications:?TakingLoratadin e 10 MG Tablet 1 tablet Orally Once a dayhydroCHLOROthiazide 25 MG Tablet 1 tablet in the morning Orally Once a dayTrulicity 3 MG/0.5ML Solution Auto-injector Subcutaneous Metoprolol Succinate ER 25 MG Tablet Extended Release 24 Hour Oral Atorvastatin Calcium 80 MG Tablet Oral Aspirin Low Dose 81 MG Tablet Delayed Release Oral Lantus SoloStar 100 UNIT/ML Solution Pen-injector INJECT 25 UNITS SUBCUTANEOUSLY EVERY EVENING. Subcutaneous metFORMIN HCl ER 500 MG Tablet Extended Release 24 Hour TAKE TWO TABLETS BY MOUTH TWICE A DAY Oral D3 Super Strength 50 MCG (2000 UT) Capsule TAKE ONE CAPSULE BY MOUTH EVERY DAY. Oral glipiZIDE ER 5 MG Tablet Extended Release 24 Hour TAKE 1 TABLET BY MOUTH ONCE DAILY. Oral Cyclobenzaprine HCl 5 MG Tablet TAKE ONE TO TWO TABLETS BY MOUTH THREE TIMES A DAY NEEDED FOR BACK PAIN. Oral Acetaminophen ER 650 MG Tablet Extended Release TAKE ONE TABLET BY MOUTH EVERY 8 HOURS NEEDED FOR PAIN. DO NOT CRUSH CHEW OR SPLIT Oral every 6 hoursNaproxen 500 MG Tablet TAKE ONE TABLET BY MOUTH TWICE A DAY NEEDED FOR PAIN WITH FOOD Oral Ventolin HFA 108 (90 Base) MCG/ACT Aerosol Solution INHALE TWO PUFFS BY MOUTH EVERY 4 HOURS NEEDED FOR WHEEZING OR FOR SHORTNESS OF BREATH Inhalation Medication List reviewed and reconciled with the patientTaking Loratadine 10 MG Tablet 1 tablet Orally Once a dayTaking hydroCHLOROthiazide 25 MG Tablet 1 tablet in the morning Orally Once a dayTaking Trulicity 3 MG/0.5ML Solution Auto-injector Subcutaneous Taking Metoprolol Succinate ER 25 MG Tablet Extended Release 24 Hour Oral Taking Atorvastatin Calcium 80 MG Tablet Oral Taking Aspirin Low Dose 81 MG Tablet Delayed Release Oral Taking Lantus SoloStar 100 UNIT/ML Solution Pen-injector INJECT 25 UNITS SUBCUTANEOUSLY EVERY EVENING. Subcutaneous Taking metFORMIN HCl ER 500 MG Tablet Extended Release 24 Hour TAKE TWO TABLETS BY MOUTH TWICE A DAY Oral Taking D3 Super Strength 50 MCG (2000 UT) Capsule TAKE ONE CAPSULE BY MOUTH EVERY DAY. Oral Taking glipiZIDE ER 5 MG Tablet Extended Release 24 Hour TAKE 1 TABLET BY MOUTH ONCE DAILY. Oral Taking Cyclobenzaprine HCl 5 MG Tablet TAKE ONE TO TWO TABLETS BY MOUTH THREE TIMES A DAY NEEDED FOR BACK PAIN. Oral Taking Acetaminophen ER 650 MG Tablet Extended Release TAKE ONE TABLET BY MOUTH EVERY 8 HOURS NEEDED FOR PAIN. DO NOT CRUSH CHEW OR SPLIT Oral every 6 hoursTaking Naproxen 500 MG Tablet TAKE ONE TABLET BY MOUTH TWICE A DAY NEEDED FOR PAIN WITH FOOD Oral Taking Ventolin HFA 108 (90 Base) MCG/ACT Aerosol Solution INHALE TWO PUFFS BY MOUTH EVERY 4 HOURS NEEDED FOR WHEEZING OR FOR SHORTNESS OF BREATH Inhalation Medication List reviewed and reconciled with the patient * Allergies:?LisinoprilShellfi sh-derived ProductsACE Inhibitorsyes[Allergies Verified] Objective: * Vitals:?Wt: 306 lbs, Ht: 5 f t 10 in, BMI:43.90 Index, BP: 00/00 mm Hg. * Examination: ???General Examination: ?GENERAL APPEARANCE:?pleasant, well nourished, well developed, in no acute distress.?EYES:?sclera non-icteric.?ORAL CAVITY:?mucosa moist.?NECK/THYROID:?no cervical lymphadenopathy, neck supple.?SKIN:?nonjaundiced, no spider angiomata.?HEART:?S1, S2 normal.?LUNGS:?clear to auscultation bilaterally.?ABDOMEN:?normal bowel sounds, no guarding or rigidity, no guarding or rigidity, no masses palpable, soft, nontender, nondistended.?EXTREMITIES:?no edema.?NEUROLOGIC:?alert and oriented.? Assessment: * Assessment: 1.?Fatty liver - K76.0 (Prim garrett)?2.?Colon cancer screening - Z12.11?3.?Diarrhea - R19.7? Overall, Olivia appears well f rom a GI standpoint. He is not having [...] to keep you advised of his progress. Plan: * Treatment: 2.?Colon cancer screening?Procedure: COLONOSCOPY (Ordered for 11/10/2024) Notes: DO NOT USE TRULICITY FOR AT LEAST 7 DAYS BEFORE THE COLONOSCOPY DO NOT TAKE THE METFORMIN OR GLIPIZIDE THE NIGHT BEFORE NOR ON THE MORNING OF THE COLONOSCOPY TAKE ONLY 1/2 THE USUAL INSULIN AT NIGHT DO NOT TAKE THE HYDROCHLOROTHIAZIDE THE DAY BEFORE NOR ON THE DAY OF THE COLONOSCOPY DO NOT TAKE THE ASPIRIN ON THE DAY OF THE COLONOSCOPY?? * Procedure Codes:?3017F COLOR ECTAL CA SCREEN DOC [id number] TOBACCO [id number] BP SCR NOT PRFRM REC REASON NOS * Preventive Medicine:? ??Counseling:?Care goal follow-up plan:?Above Normal BMI Follow-up?Giving encouragement to exercise,?BMI management provided?Yes.? * Follow Up:?prn * * Sign off status: Completed true * Provider:?Nilesh Pittman MD Date:? 024 Generated for Clyde jc/Girish/Esdrassmitting on:?03/05/2025 10:44 AM EDT History and Physical Notes * HPI (History of Present Illness) Category Sub-Category Detail Notes Category Not es incontinence I saw Olivia in the office today in consultation in regard to his reported fatty liver and discussion of colorectal cancer screening. As you know, Olivia is a 53-year-old male with an underlying history of obesity and diabetes who was noted to have a fatty liver on imaging studies. His most recent imaging study was a CT scan this past August of 2024 describing a fatty liver but no sign of any focal liver lesions, cirrhosis, biliary disease, splenomegaly, nor ascites. His LFTs were normal at the time of the CT scan. He has no known history of liver disease in himself nor family members. He does not use any significant amounts of alcohol. His weight has been as high as 475 pounds but he is currently down to 306 pounds. He describes that this has been a very gradual process with some exercise and dietary changes over the past few years. He has also been using Trulicity and trying to keep better control of his diabetes. He enjoys a good appetite otherwise and denies any significant heartburn or dysphagia. He denies abdominal pain, signs of jaundice, change in bowel habits, hematochezia, nor melena. He denies any known family history of colorectal cancer. He has never had a colonoscopy. Of note, he does describe the onset of some diarrhea about 2 months ago after eating at [employer]. This gradually improved although he is still having some occasional symptoms of loose bowel movements. However things are much better than they had been at the time. He did not notice any hematochezia, vomiting, melena, or fevers at the time of the acute diarrhea from [employer]. There was no preceding history of antibiotic use, travel, nor ill contacts. Examination Category Sub-Category Detail Notes Category Not es General Examination GENERAL APPEARANCE: pleasant , well nourished, well developed, in no acute distress HEAD: EYES: sclera non-icteric EARS: NOSE: THROAT: NECK/THYROID: no cervical lymphade nopathy, neck supple HEART: S1, S2 normal CHEST: LUNGS: clear to auscultatio n bilaterally ABDOMEN: normal bowel sounds, no guarding or rigidity, no guarding or rigidity, no masses palpable, soft, nontender, nondistended NEUROLOGIC: alert and oriented SKIN: nonjaundiced, no spi hayes angiomata EXTREMITIES: no edema PERIPHERAL PULSES: BACK: BREASTS: MUSCULOSKELETAL: MALE GENITOURINARY: LYMPH NODES: RECTAL EXAM: FEMALE GENITOURINARY: ORAL CAVITY: mucosa moist
--- OUTSIDE RECORDS SUMMARY | 2025-03-05 10:44 | XMS_ITS | Encounter Summary ---
Author Organization [employer] Address [address] [facility] 7t [place] [address] Care Team Providers Care Recycling Technician Name Role Phone Ailin Rizo Primary Care Provider [phone] Reason for Visit * Reason Comments Med Refill Encounter Details Date Type Department Care Team ([facility] st Contact Info) Description 09/10/2024 Refill [facility] [address] [place] [address] Ailin Rizo FNP [address] [place] [address] Type 2 diabetes mellitus treated with insulin ([facility]) Social History Tobacco Use Types Packs/Day Years [...] Description 03/08/2025 2:30 PM EDT Medication Management [facility] [address] [place] [address] Juliet Garcia PharmD [address] [place] [address] documented as of this encounter Visit Diagnoses Diagnosis Type 2 diabetes mellitus treated with insulin ([facility]) documented in this encounter Additional Health Concerns Assessment Noted Time PHQ-9 Depression Total Score: 3 06/30/20 24 9:37 AM EDT documented as of this encounter Care Teams Recycling Technician Relationship Specialty Start Date End Date Ailin Rizo FNP [address] [place] [address] PCP - General Family Medicine 07/23/22 documented as of this encounter
--- OUTSIDE RECORDS SUMMARY | 2025-03-05 10:44 | XMS_ITS | Encounter Summary ---
Author Organization [employer] Address [address] 7t [place] [address] Care Team Providers Care Laboratory Supervisor Name Role Phone Ailin Rizo Primary Care Provider [phone] Encounter Details Date Type Department Care Team ([facility] st Contact Info) Description 05/07/2023 Telephone [facility] [address] [place] [address] Ailin Rizo FNP [address] [place] [address] Social History Tobacco Use Types Packs/Day Years [...] Orientation Straight 09/24/2022 10 :15 AM EDT COVID-19 Exposure Response Date Recorded In the last 10 days, have yo u been in contact with someone who was confirmed or suspected to have Coronavirus/COVID-19? No / Unsure 04/18/2023 2:14 PM EDT documented as of this encounter Miscellaneous Notes * Telephone Encounter - Urvashi Kendall RN - 05/07/2023 2:20 PM EDT Noted Appt details updated. * Telephone Encounter - Crystal Malcolm - 05/07/2023 2:06 PM EDT Tc from [facility] calling to inform PCP, in regards to upcoming appt on 05/09/23. States patient needs a new CPAP machine and new sleep study test. documented in this encounter Plan of Treatment Upcoming Encounters Date Type Department Care Team (Late st Contact Info) Description 03/08/2025 2:30 PM EDT Medication Management [facility] [address] [place], [place] [phone] Juliet Garcia, RashiD [address] [place] [address] documented as of this encounter Visit Diagnoses Not on filedocumented in this encounter Additional Health Concerns Assessment Noted Time PHQ-9 Depression Total Score: 2 04/18/20 23 3:00 PM EDT documented as of this encounter Care Teams Laboratory Supervisor Relationship Specialty Start Date End Date Ailin Rizo FNP [address] [place] [address] PCP - General Family Medicine 07/23/22 documented as of this encounter
--- OUTSIDE RECORDS SUMMARY | 2025-03-05 10:44 | XMS_ITS | Encounter Summary ---
Author Organization [employer] [facility] Address [address] [place] [address] [address] [place] [address] Care Team Providers Care Home Care Attendant Name Role Phone Ailin Rizo Primary Care Provider [phone] Reason for Visit * Reason Comments Med Refill Encounter Details Date Type Department Care Team (Late st Contact Info) Description 02/04/2023 Refill [facility] [address] [place] [address] Ailin Rizo FNP [address] [place] [address] Vitamin D insufficiency Social History Tobacco Use [...] 03/08/2025 2:30 PM EDT Medication Management [facility] [address] [place] [address] Juliet Garcia, Aurelio [address] [place] [address] documented as of this encounter Visit Diagnoses Diagnosis Vitamin D insufficiency documented in this encounter Care Teams Home Care Attendant Relationship Specialty Start Date End Date Ailin Rizo FNP [address] [place] [address] PCP - General Family Medicine 07/23/22 documented as of this encounter
--- OUTSIDE RECORDS SUMMARY | 2025-03-05 10:44 | XMS_ITS | Encounter Summary ---
Author Organization [employer] [facility] Address [address] [place] [address] [place] [address] Care Team Providers Care Senior Gamemaster Name Role Phone Ailin Rizo MATERIAL ASSISTANT Primary Care Provider [phone] Reason for Visit * Reason Comments Med Refill Encounter Details Date Type Department Care Team (Late Contact Info) Description 06/11/2023 Refill [facility] [address] [place] [address] Xiomara Carreon FNP [address] [place] [address] [place] [address] Pain Social History Tobacco Use Types Packs/Day Years [...] Description 03/08/2025 2:30 PM EDT Medication Management [facility] [address] [place], [place] [phone] Juliet Garcia PharmD [address] [place], [place] [phone] documented as of this encounter Visit Diagnoses Diagnosis Pain Generalized pain documented in this encounter Additional Health Concerns Assessment Noted Time PHQ-9 Depression Total Score: 2 04/18/20 23 3:00 PM EDT documented as of this encounter Care Teams Senior Gamemaster Relationship Specialty Start Date End Date Ailin Rizo FNP [address] [place] [address] PCP - General Family Medicine 07/23/22 documented as of this encounter
--- OUTSIDE RECORDS SUMMARY | 2025-03-05 10:44 | XMS_ITS | Encounter Summary ---
Author Organization [employer] Address [address] [facility] 7t [place] [address] Care Team Providers Care Office Services Coordinator Name Role Phone Ailin Rizo Primary Care Provider [phone] Reason for Visit * Reason Comments Med Refill Encounter Details Date Type Department Care Team ([facility] st Contact Info) Description 04/01/2024 Refill [facility] [address] [place] [address] Ailin Rizo FNP [address] [place] [address] Social History Tobacco Use Types Packs/Day Years [...] 03/08/2025 2:30 PM EDT Medication Management [facility] [address] [place] [address] Juliet Garcia, RashiD [address] [place] [address] documented as of this encounter Visit Diagnoses Not on filedocumented in this encounter Additional Health Concerns Assessment Noted Time PHQ-9 Depression Total Score: 2 04/18/20 23 3:00 PM EDT documented as of this encounter Care Teams Office Services Coordinator Relationship Specialty Start Date End Date Ailin Rizo FNP [address] [place] [address] PCP - General Family Medicine 07/23/22 documented as of this encounter
--- OUTSIDE RECORDS SUMMARY | 2025-03-05 10:44 | XMS_ITS | Encounter Summary ---
Author Organization [facility] Address [address] [place] [address] [address]t [place] [address] Care Team Providers Care Water Resource Manager Name Role Phone Ailin Rizo Primary Care Provider [phone] Encounter Details Date Type Department Care Team (Latest Contact Info) Description 09/30/2019 Abstract [facility] CONVERSIONS Dental, Provider, DDS Social History Tobacco Use Types Packs/Day Years [...] 2:30 PM EDT Medication Management [facility] [address] [place] [address] Juliet Garcia, RashiD [address] [place] [address] documented as of this encounter Visit Diagnoses Not on filedocumented in this encounter Care Teams Water Resource Manager Relationship Specialty Start Date End Date Ailin Rizo FNP [address] [place] [address] PCP - General Family Medicine 07/23/22 documented as of this encounter
== END 2025-03-05 10:33 | disposition home or self-care (01) ==
LOC: HO.HCS 10:05
PROVIDERS: PCP Registered Nurse; Visit Provider Internal Medicine Cardiovascular Disease
DX: R07.9 Chest pain, unspecified (principal)
CPT/HCPCS: 93010; 99204; G2211

== ENCOUNTER → 2025-03-05 10:04 | Outpatient (BNVA) | payer OTHER, SELFPAY | PROVIDERS: PCP Registered Nurse; Visit Provider Internal Medicine Cardiovascular Disease | DX: R07.9 Chest pain, unspecified (principal) | CPT/HCPCS: 93005; 99202 ==

== ENCOUNTER → 2025-04-21 14:38 | Outpatient (REF) | payer OTHER, SELFPAY ==
--- NOTE | 2025-04-21 14:41 | CA_ITS ---
Transthoracic Echocardiogram Patient (Last, First, Middle): Pavel Boyd L Gender: Male Date of : 1970 Age: 54 Procedure Date: 04/21/2025 Procedure Type: Transthoracic Echocardiogram Location: OP Height: 177.8 cm Weight: 131.09 kg BSA: 2.44 m2 Heart Rate: bpm BP: 119 / 70 mmHg Restuarant Crew Worker: TO/RC Referring MD: Edmundo Li MD Radiophone Operator: Edmundo Li MD Symptoms: R07.9 - Chest pain, unspecified Study Quality: Fair, contrast ECG Rhythm: Sinus Conclusions: - 1. Normal LV ejection fraction of 60 65% with possible pseudonormal filling pattern 2. Mildly dilated left atrium 3. Normal measured RV systolic pressure with significantly elevated right atrial pressures 4. Cardiac valvular Dopplers within normal limits 5. Upper limits of normal ascending aortic size measured on this study, could be underestimated Findings Procedure Information Contrast agent, definity, is being given per protocol without apparent complications. Left Ventricle Normal left ventricular size, thickness, and systolic function. The visually estimated ejection fraction is between 60-65%. Spectral Doppler is indicative of a pseudonormal filling pattern. Right Ventricle The right ventricle was not well visualized. Atria The left atrium is mildly dilated. There is no evidence of interatrial shunt. The right atrium is normal in size. Aortic Valve There is mild calcification of the aortic valve. There is no aortic valve stenosis. There is no aortic valve regurgitation. Mitral Valve The mitral valve was not well visualized. There is trace mitral valve regurgitation. There is no mitral valve stenosis. Pulmonic Valve The pulmonic valve was not well visualized. Tricuspid Valve Likely normal tricuspid valve structure and function. There is mild tricuspid valve regurgitation. The right ventricular systolic pressure is normal. The right ventricular systolic pressure is 33 mmHg. Significantly elevated right atrial pressure. Great Vessels The aorta was not well visualized. The pulmonary artery was not well visualized. Venous The inferior vena cava is moderately dilated and does not collapse with inspiration. Pericardium/Pleural The pericardium was not well visualized. Prior Study Comparison Changes noted compared to prior study dated: 10/14/2023. right atrial pressures appear to be increased on this study. Measurements 2D Linear Measurements IVSd: 1.07 0.6-0.9/0.6-1.0 cm LVIDd: 5.60 3.9-5.3/4.2-5.9 cm LVIDd Index: 2.30 2.4-3.2/2.2-3.1 cm/m2 LVIDs: 3.91 2.0-3.6 cm LVPWd: 0.88 0.7-1.1 cm LA Diam: 4.00 2.7-3.8/3.0-4.0 cm LAIDs Index: 1.64 1.5-2.3 cm/m2 LV Mass: 264.41 67-162/88-224 g LV Mass Index: 108.36 43-95/49-115 g/m2 LVOT Diam: 2.40 3.0+(-)1.3 cm 2D Systolic Function EF 4C: 61.00 >55% EF 2C: 58.70 >55% EF BiP: 59.90 >55% Mitral Valve MV Pk E: 0.84 MV PK A: 0.59 MV Decel Time: 218.00 E/A: 1.40 E'Lateral: 11.40 E'Medial: 6.64 E/E' Med: 12.70 E/E' Lat: 7.40 PHT: 64.00 MVA PHT: 3.44 Decel Hidalgo: 3.87 Aortic Valve AoV Pk Giovanni: 1.46 AoV Mn Giovanni: 0.97 AoV VTI: 0.30 AoV Pk Grad: 9.00 Aov Mn Grad: 4.00 SHIRLEY Cont.VTI: 4.24 LVOT LVOT Pk Giovanni: 1.37 LVOT Mn Giovanni: 0.89 LVOT VTI: 0.28 LVOT Pk Grad: 8.00 LVOT Mn Grad: 4.00 LVOT Diam: 2.40 LVOT Area: 4.52 Diastolic Function MV Pk E: 0.84 MV Pk A: 0.59 E/A: 1.40 E'Medial: 6.64 E/E' Med: 12.70 E' Laterial: 11.40 E/E' Lat: 7.40 Right Ventricle TAPSE (mm): 19.90 TVS' Giovanni: 11.90 Tricuspid Valve TR Pk Giovanni: 2.14 TR Pk Grad: 18.00 RA Press: 15.00 RVSP: 33.00 Great Vessels Aorta Sinus of Valsalva: 3.50 2.0-3.5 cm Ao Asc: 3.50 2.1-3.4 cm Pulmonary Valve PV Pk Giovanni: 0.86 Peak PV Grad: 3.00 Updated in Other Vendor System with Status of Final Edmundo Li MD electronically signed on 04/22/2025 12:42:54 PM with status of Final
--- OUTSIDE RECORDS SUMMARY | 2025-04-21 15:29 | XMS_ITS | Encounter Summary ---
Author Organization [employer] Address [address] [facility] [address] [place] [address] Care Team Providers Care Stratigraphy Teacher Name Role Phone Ailin Rizo Primary Care Provider [phone] Juliet Garcia PharmD Unavailable [phone] Reason for Visit * Reason Onset Date Comments Medication Question 11/03/2024 Encounter Details Date Type Department Care Team ([facility] st Contact Info) Description 11/03/2024 Telephone [facility] [address] [place] [address] Ailin Rizo FNP [address] [place], [place] [phone] Medication Question Social History Tobacco Use Types [...] pt and spouse requesting script for Amlodipine. Enterprise Records Analyst did not see medication on medlist. Enterprise Records Analyst advise will send a message. Contact pt at [phone] * Telephone Encounter - Dheeraj Adamson - 11/03/2024 3:11 PM EST Tc from spouse requesting a callback as she informs pcp was supposed to give pt a script (unknown name ) to medication and pt has been waiting . Callback number [phone] documented in this encounter Plan of Treatment Upcoming Encounters Date Type Department Care Team (Late st Contact Info) Description 07/12/2025 2:00 PM EDT Medication Management [facility] [address] [place] [address] Juliet Garcia PharmD [address] [place] [address] documented as of this encounter Visit Diagnoses Not on filedocumented in this encounter Additional Health Concerns Assessment Noted Time PHQ-9 Depression Total Score: 3 06/30/20 24 9:37 AM EDT documented as of this encounter Care Teams Stratigraphy Teacher Relationship Specialty Start Date End Date Ailin Rizo FNP [address] [place] [address] PCP - General Family Medicine 07/23/22 Juliet Garcia PharmD [address] [place] [phone] Pharmacist Internal Medicine 03/09/25 documented as of this encounter
== END ==
LOC: HO.CARD 14:38
PROVIDERS: PCP Registered Nurse; Visit Provider Internal Medicine Cardiovascular Disease
DX: R07.9 Chest pain, unspecified (principal)
CPT/HCPCS: 93306; Q9957

== ENCOUNTER → 2025-04-21 14:41 | Outpatient (BNV) | payer OTHER, SELFPAY | PROVIDERS: PCP Registered Nurse; Visit Provider Internal Medicine Cardiovascular Disease | DX: I51.7 Cardiomegaly (principal); I35.8 Other nonrheumatic aortic valve disorders; I36.1 Nonrheumatic tricuspid (valve) insufficiency | CPT/HCPCS: 93306 ==

== ENCOUNTER 2025-05-17 11:02 | Outpatient (REF) | payer OTHER, SELFPAY ==
--- OUTSIDE RECORDS SUMMARY | 2025-05-17 12:37 | XMS_ITS | Encounter Summary ---
Author Organization [employer] Address [address] [facility] 7[address] [place] [address] Care Team Providers Care Ship Erector Name Role Phone Ailin Rizo Primary Care Provider [phone] Juliet Garcia PharmD Unavailable [phone] Reason for Visit * Reason Onset Date Comments Medication Question 11/03/2024 Encounter Details Date Type Department Care Team ([facility] st Contact Info) Description 11/03/2024 Telephone [facility] [address] [place] [address] Ailin Rizo FNP [address] [place], [place] [phone] Medication Question Social History Tobacco Use Types [...] pt and spouse requesting script for Amlodipine. Residential Roofer Helper did not see medication on medlist. Residential Roofer Helper advise will send a message. Contact pt at [phone] * Telephone Encounter - Dheeraj Adamson - 11/03/2024 3:11 PM EST Tc from spouse requesting a callback as she informs pcp was supposed to give pt a script (unknown name ) to medication and pt has been waiting . Callback number [phone] documented in this encounter Plan of Treatment Upcoming Encounters Date Type Department Care Team (Late st Contact Info) Description 07/12/2025 2:00 PM EDT Medication Management [facility] [address] [place] [address] Juliet Garcia PharmD [address] [place] [address] documented as of this encounter Visit Diagnoses Not on filedocumented in this encounter Additional Health Concerns Assessment Noted Time PHQ-9 Depression Total Score: 3 06/30/20 24 9:37 AM EDT documented as of this encounter Care Teams Ship Erector Relationship Specialty Start Date End Date Ailin Rizo FNP [address] [place] [address] PCP - General Family Medicine 07/23/22 Juliet Garcia PharmD [address] [place] [phone] Pharmacist Internal Medicine 03/09/25 documented as of this encounter
[2025-05-17 12:52] LABS: Appearance Urine Clear; Color Urine Yellow; Glucose Urine UA Negative (Negative); Leukocyte Esterase Urine Negative (Negative); Nitrite Urine Negative (Negative); PH 5.5 (5.0-9.0); Specific Gravity - Urine >= 1.030 (1.005-1.025); Urine Blood Negative (Negative); Urine Ketones Negative (Negative); Urine Protein Negative (Neg-Trace)
[2025-05-17 13:00] LABS: Bacteria Urine None Seen (None Seen); Hyaline Casts Urine 0-2 /LPF (0-2); MANUAL DIFF FLAG NO; RBC Urine 0-2 /HPF (0-2); Squamous Epithelial Cell Urine 0-2 /HPF (0-2); WBC Urine 0-5 /HPF (0-5)
[2025-05-17 13:07] LABS: Basophils Percent Auto 0.4 % (0-2); Eosinophils Absolute Auto 0.9 X10*3/uL (0.0-0.4); Eosinophils Percent Auto 9.1 % (0-4); Hematocrit 41.5 % (42.0-52.0); Hemoglobin 13.6 g/dl (14.0-18.0); Imm Gran Abs Auto 0.04 X10*3/uL (0.00-0.03); Imm Gran Pct Auto 0.4 % (0.0-0.4); Lymphocytes Absolute Auto 1.6 X10*3/uL (1.2-4.9); Lymphocytes Percent Auto 15.8 % (20-40); Mean Corpuscular HGB Conc 32.8 g/dl (31.0-36.0); Mean Corpuscular Hemoglobin 27.8 pg (27.0-33.0); Mean Corpuscular Volume 84.9 fL (80.0-98.0); Mean Platelet Volume 10.5 fL (9.4-12.4); Monocytes Absolute Auto 0.8 X10*3/uL (0.1-1.2); Monocytes Percent Auto 8.1 % (2-11); Neutrophils Absolute Auto 6.7 x10*3/uL (2.0-8.3); Neutrophils Percent Auto 66.2 % (45-73); Platelet Count 273 X10*3/uL (160-400); Red Blood Count 4.89 X10*6/uL (4.60-5.80); Red Cell Distribution Width 12.3 % (11.0-16.0); White Blood Count 10.1 X10*3/uL (4.8-10.8)
[2025-05-17 13:12] LABS: Estimated Average Glucose 318 mg/dL; Hemoglobin A1c % 12.7 % (<6.0)
[2025-05-17 13:28] LABS: Alanine Aminotransferase 17 U/L (0-40); Alkaline Phosphatase 79 U/L (39-117); Anion Gap 11 (12-20); Aspartate Amino Transferase 19 U/L (5-37); Bilirubin Total 0.4 mg/dL (0.0-1.0); Blood Urea Nitrogen 9 mg/dL (9-16); Calcium 9.1 mg/dL (8.4-10.2); Carbon Dioxide 28 mmol/L (22-29); Chloride 104 mmol/L (96-108); Cholesterol 168 mg/dL (<200); Estimated Glomerular Filt Rate > 60; Glucose Random 181 mg/dL (60-115); HDL Cholesterol 40 mg/dL (>40); LDL Cholesterol Calculated 101 mg/dL (<100); Sodium 139 mmol/L (135-145); Total Protein 7.4 g/dL (6.5-8.0); Triglycerides 137 mg/dL (<150)
[2025-05-17 13:33] LABS: Microalbum/Creatinine Ratio Ur 12.5 ug/mg cr (<30)
[2025-05-17 13:48] LABS: TSH reflex Free T4 2.32 uIU/mL (0.32-4.0); Vitamin D 25-OH Total 18.7 ng/mL (>30)
[2025-05-17 16:10] LABS: CT PCR NOT DETECTED (Not Detect.); NG PCR NOT DETECTED (Not Detect.)
[2025-05-18 08:17] LABS: HBS Num1 3.96 mIU/mL (0-7.99); HBc Num1 0.17 S/CO (0.00-0.79); HBsAGNum1 0.41 S/CO (0.00-0.99); HIV AB/AG Nonreactive (Nonreactive); HIV Num 1 0.07 S/CO (0.00-0.99); Hepatitis B Core Antibody Nonreactive (Nonreactive); Hepatitis B Surface Antigen Negative (Negative); ~Hepatitis B Surface Antibody NONREACTIVE (Nonreactive)
[2025-05-18 14:38] LABS: RPR Rapid Plasma Reagin NON-REACTIVE (NON-REACTIVE)
[2025-05-18 20:39] LABS: HCV Log PCR <1.18 NOT DETECTED Log IU/mL (NOT DETECTED); HepC Viral Load <15 NOT DETECTED IU/mL (NOT DETECTED)
[2025-05-20 07:24] LABS: Glutamic acid decarboxylase Ab <5 IU/mL (<5)
[2025-05-20 12:18] LABS: CRP High Sensitivity 4.7 mg/L
[2025-05-22 01:43] LABS: Insulinoma associated 2 aatb <5.4 U/mL (<5.4)
== END 2025-05-17 11:03 | disposition home or self-care (01) ==
LOC: HO.HHCL 11:02
PROVIDERS: Internal Medicine Cardiovascular Disease; PCP Registered Nurse; Visit Provider Registered Nurse
DX: E11.9 Type 2 diabetes mellitus without complications (principal); R07.9 Chest pain, unspecified; Z00.00 Encounter for general adult medical examination without abnormal findings; Z79.4 Long term (current) use of insulin; N48.9 Disorder of penis, unspecified; E55.9 Vitamin D deficiency, unspecified
CPT/HCPCS: 36415; 80053; 80061; 81001; 82043; 82306; 82570; 83036; 84443; 85025; 86141; 86341; 86592; 86704; 86706; 87340; 87389; 87491; 87522; 87591

== ENCOUNTER → 2025-06-14 07:54 | Outpatient (REF) | payer OTHER, SELFPAY ==
--- OUTSIDE RECORDS SUMMARY | 2025-03-03 03:30 | XMS_ITS ---
Author Organization [facility] Address [address] [place] [address] Care Team Providers Care Pool Table Mechanic Name Role Phone JOSE ANGEL NICHOLS, DEVEN Primary Care Provider Nilesh Way [phone] REASON FOR VISIT screening Encounters Encounter Location Date Provider Diagnosis [facility] [place] [facility] [address] [place], [place] [phone] 03/03/2025 Nilesh Pittman Plan Of Treatment No Information Progress Notes * OLIVIA HAINESDOB:1970 ( 54 yo M)Acc No.[id number]:03/03/2025 COLON WITH MAC Patient: OLIVIA LAUREN Provider: Antoine Pittman MD :1970 A ge:54 Y S ex:Male Date:03/03/2025 Address:[address] [place] [address] [address] [place], [place] [id number] Pcp:DEVEN WALTER MD Subjective: * Chief Complaints: [...] 0 03/03/2025 Generated for Clyde jc/Girish/Akilitting on: 0 06/14/2025 07:58 AM EDT
--- OUTSIDE RECORDS SUMMARY | 2025-06-14 07:58 | XMS_ITS | Clinical Summary ---
Author Organization [facility] Address [address] [facility] [address] [place] [address] Phone Care Team Providers Care Wet Chemistry Analyst Name Role Phone Pcp, Unknown Primary Care Provider Unavailabl e Allergies Active Allergy Reactions Criticality Noted Date Comments Lisinopril 09/03/2024 Shrimp 09/03/2024 Social History Tobacco Use Types Packs/Day Years Used Date Smoking Tobacco: Never Assessed Education Answer Date Recorded Are you interested in more education? Not on john e 09/03/2024 Are you concerned about learning? Not on file 09/03/2024 No 09/03/2024 No 09/03/2024 Digital Access Answer Date Recorded No 09/03/2024 No 09/03/2024 Reliable internet access at home? Not on file 09/03/2024 Device with a working camera? Not on file Intimate Partner Violence Answer Date R ecorded Are you denied basic needs s uch as food, clothing, or medical care? No 09/03/2024 In the past 12 months have y ou been in a relationship with a person who hurts, threatens, or tries to control you? No 09/03/2024 Are you denied basic needs s uch as food, clothing, or medical care? No 09/03/2024 In the past 12 months have y ou been in a relationship with a person who hurts, threatens, or tries to control you? No 09/03/2024 Sex and Gender Information Value Date Recorded Sex Assigned at Male 09/03/2024 4:45 AM EDT Legal Sex Male 10:31 PM EDT Gender Identity Male 09/03/2024 4:45 AM EDT Sexual Orientation Straight 09/03/2024 4: 45 AM EDT Last Filed Vital Signs Vital Sign Reading Time Taken Comments Blood Pressure 124/78 09/03/2024 4:11 AM EDT Pulse 104 09/03/2024 4:11 AM EDT Temperature 37 C (98.6 F) 09/03/2024 4:11 AM EDT Respiratory Rate 16 09/03/2024 4:11 AM EDT Oxygen Saturation 96% 09/03/2024 4:11 AM EDT Inhaled Oxygen Concentration - - Weight 141.5 kg (312 lb) 09/03/2024 12:19 AM EDT Height 177.8 cm (5' 10 ) 09/03/2024 12:19 AM EDT Body Mass Index 44.77 09/03/2024 12:19 AM EDT Plan of Treatment Health Maintenance Due Date Last Done Comments DEPRESSION SCREENING 1983 SMOKING Hx and SMOKELESS TOBACCO SCREENING 1984 HEPATITIS C SCREENING 1989 HIV ONE-TIME SCREENING (18-6 5 YEARS) 1989 COLOGUARD 2016 COLONOSCOPY 2016 COLORECTAL CANCER SCREENING 2016 FIT TEST 2016 FOBT 2016 SIGMOIDOSCOPY 2016 VIRTUAL COLONOSCOPY 2016 PNEUMOCOCCAL VACCINES (50+ years) (2 of 2 - PCV) 2021 07/14/2013 ZOSTER VACCINES (1 of 2) 2021 COVID-19 VACCINE ( - 2023-2 5 season) 2024 SCREENING FOR DIABETES 06/30/2027 06/30/2024 LIPID PANEL 04/18/2028 04/18/2023 Adult Td,Tdap Booster 06/30/2034 06/30/2024 , 07/14/2013 HEPATITIS A VACCINES Aged Out No long er eligible based on patient's age to complete this topic HIB VACCINES Aged Out No longer eligi ble based on patient's age to complete this topic MENINGOCOCCAL VACCINES (ACWY) Aged Out No longer eligible based on patient's age to complete this topic MENINGOCOCCAL VACCINES (B) Aged Out N o longer eligible based on patient's age to complete this topic Medical Devices Not on file Insurance [facility] ONE CARE MEDICARE REPLACEMENT [facility] CARE MEDICARE REPLACEMENT [facility] CARE MEDICARE REPLACEMENT [facility] CARE MEDICARE REPLACEMENT [facility] CARE MEDICARE REPLACEMENT [facility] MEDICARE REPLACEMENT Care Teams Wet Chemistry Analyst Relationship Specialty Start Date End Date Pcp, Unknown PCP - General 09/03/24 Additional Source Comments The information contained in this document represents components of the legal health record. It is not the complete legal health record.[facility]
--- OUTSIDE RECORDS SUMMARY | 2025-06-14 07:58 | XMS_ITS | Data Portability ---
Author Organization [facility], [facility] Address [address] [place] [address] Care Team Providers Care Senior Mechanical Estimator Name Role Phone HIM ERVIN OTHER Assessment Encounter Date Assessment Date Assessment LastModified by Organization Details LastModified Time 11/03/2024 11/03/2024 As noted, we were called to see this patient regarding concerns of chest pain on exertion, resolving with rest, and not worsening. Evaluation in the field was performed by my bulk sugar handler colleague, as noted above, I provided real-time [...] visit, which would likely only evaluate for AR and then d/c to stress testing. That [...] with this approach still some risk of AR, arrhythmia, SCD that cannot be eliminated Primary [...] fatigue, diaphoresis, jaw pain, LH, or pallor. Not available 11/03/2024 21:10:09 Plan of Treatment Reminders Order Date Submit Date Provider Last Modified By Organization Details Last Modified Time Details Appointments None recorded. Lab glucose, fingersti ck, blood [address], [phone] 4 08:32:04 BMP, serum or plasma [address], [address] 4 18:53:37 Referral None recorded. Procedures None recorded. Surgeries None recorded. Imaging electroca rdiogram [address], [address] 4 09:45:01 Medication Orders metoprolo l succinate ER 25 mg tablet,ex tended release 24 hr 2023 [facility], [address] [place], [address], 4 18:30:29 Lasix 40 mg tablet 2023 [facility], [address] [place], [address], 4 18:53:40 furosemid e 20 mg tablet 2023 [facility], [address] [place], [address], 18:53:37 Patient TargetsNo targets recorded. Patient InstructionsNo instructions recorded. Reason for Referral None Reported. Results Created Date Observation Date Name Description Value Unit Range Abnormal Flag Note LastModifiedBy Organization Detail LastModifiedTime 06/01/20 24 06/01/2024 BMP, serum or plasm a CRE 0.44 Not Available [facility] - [facility] [address], [address] 06/01/2024 18:51:00 06/01/2006/01/2024 BMP, serum or plasm a GLU 364 Not Available [facility] [address], [address] 06/01/2024 18:51:00 06/01/2006/01/2024 BMP, serum or plasm a K+ 4.3 Not Available [facility] [address], [address] 06/01/2024 18:51:00 11/03/20 24 11/04/2024 elect ashley siegel am No observ ation record ed. [facility] [address], [address] 11/04/2024 07:58:43 Result Notes None recorded. Medical Equipment None Reported. Allergies Allergen ID Allergen Name Allergen Category Reaction Reaction Severity Criticality Documentation Date Start Date Code Code System Note Provider Name and Address Organization Details Recorded Time 5348 lisinopri l medicatio n Not available Not available Not available 06/01/2024 35504 RxNorm Not Available [employer] - production 17:13:04 5349 shrimp allergeni c extract food Not available Not available Not available 06/01/2024 39068 2 RxNorm Bonny Oakley MD [address] [place] [address],[address], [place], [address] , [employer] 18:30:52 Medications Name Sig Start Date Stop [...] Available Not Available No t Available [employer] Jeffers Lite kit USE DIRECTED TO TEST BLOOD [...] Pulse oximetry Body weight Heart rate Systolic And Diastolic Provider Name and Address Organization Details Last Updated DateTime 4 16 /min 97.8 [degF] 175.26 cm 95 % 95 % 844665. 48 g 77 /min 163/90 mm[Hg] Not Available [employer] 4 18:34:40 Date Recorded Heart rate Oxygen saturation Oxygen saturation in Arterial blood by Pulse oximetry Body temperature Respiratory rate Systolic And Diastolic Provider Name and Address Organization Details Last Updated DateTime 4 93 /min 96 % 96 % 99.2 [degF] 18 /min 124/85 mm[Hg] Not Available [employer] 4 21:44:01 Date Recorded Body temperature Oxygen saturation Oxygen saturation in Arterial blood by Pulse oximetry Heart rate Respiratory rate Systolic And Diastolic Provider Name and Address Organization Details Last Updated DateTime 4 98.4 [degF] 97 % 97 % 81 /min 18 /min 136/89 mm[Hg] Not Available [employer] 4 18:22:06 Social History None recorded. Functional Status None recorded. Mental Status None recorded. Family History Nothing Reported. Medical History No medical history recorded. Past Encounters Encounter ID Performer Location Encounter Start Date Encounter Closed Date Diagnosis/Indication Diagnosis SNOMED-CT Code Diagnosis ICD10 Code Diagnosis Note [id number] Bonny Oakley MD Main - [facility] [address] [place] [phone] 06/01/2024 18:34:20 06/02/2024 16:59:30 Peripheral edema 960119409 R60.9 As noted, we were called to see this patient regarding concerns of LE edema. Evaluation in the field was performed by my bulk sugar handler colleague, as noted above, I provided real-time direction and supervisio n for this visit. The evaluation revealed 53 y/o man with HTN who calls for 1-4 weeks of LE edema with discolorat ion. He is only on HCTZ for his blood pressure. Denies orthopnea, dyspnea. He has also had increased BG recently, in the 2-300. He takes 20 lantus at night.BMP without [...] with CCA in 2 days Primary care, considerthalia creased BP and DM control Dispositio n: [...] to consciousn ess, chest pain, difficulty breathing. [id number] Kojo Parsons MD Main - [facility] [address] [place] [phone] 09/02/2024 21:43:59 09/03/2024 19:32:16 Retention of urine [id number] R33.9 As noted, we were called to see this patient regarding concerns of pelvic pain and loss of bladder control. Evaluation in the field was performed by my bulk sugar handler colleague, as noted above, I provided real-time [...] was based on sudden focal neurologic deficits. [id number] Kojo Parsons MD Main - [address] [phone] 11/03/2024 18:21:57 11/05/2024 00:03:44 Angina pectoris [id number] I20.9 Health Concerns Section Related Observation LastModified by Organization Detai ls LastModified Time None Recorded Concern Status LastModified by Organization Details LastModified Time None Recorded Advance Directives Directive None Recorded Payers Insurance Date Sequence Insurance Name Policy Number Policy Baum Covered Member ID Baum Member ID Guarantor Name 11/18/2024 1 [facility] - DOS ON OR AFTER 2023 - DUAL ELIGIBLE - ASSISTED OPTIONS AND ONE CARE (MEDICARE REPLACEMENT/ADV ANTAGE - HMO) Pavel Boyd [id number] Pavel Boyd Notes Date Note Type Note Provider Name and Address Organization Details Recorded Time 06/01/2024 text/html HPI: Patient with two day history of upper calf outer knee pain on right leg. Treated in the past for cellulitis and pain and redness resolved. Area feels tight ................... ................... ................... ................... ................... ................... ................... ........ CRC Nurse Triage Notes (Chris Garber): Comments: Cleaning Validation Consultant verified the member's name//address and phone number. [...] same in 10/17 - Wellness check requested Mop Machine Operator POC Test Results from Jeff Rangel [facility] (18:25:05) pH: 7.44 pH units pCO2: 40.1 mmHg pO2: 50.5 mmHg Na: 137 mmol/L K: 4.3 mmol/L iCa: 1.17 mmol/L Cl: 100 mmol/L TCO2: 27.1 mEq/L Hct: 45 % Hb: 15.4 g/dL Glu: 364 mg/dL Lac: 1.2 mmol/L Cr: 0.44 mg/dL BUN: 12 mg/dL A ................... ................... ................... ................... ................... ................... ................... ........ Mop Machine Operator Note From Jeff Rangel: Pt with hx of DM, HTN, HLD reports 2-3 weeks of BLE edema. Pt sts he is supposed to be taking HCTZ 12.5 mg qd but doesn t always take it faithfully. Pt sts he used to take furosemide but was taken off of it years ago and is unsure why. Pt takes lantus 20 u qd, metformin and glipizide for his DM. Pt sts BG levels have been elevated for a while now in the 300 s. Pt denies CP, SOB, BOWERS, f/n/v/d. [...] ................... ................... ................... ................... ................... ........ Disposition: Christfoer Oakley MD [address] [place] [address],[address], [place], [phone], [employer] 06/01/2024 20:03:41 09/02/2024 text/html HPI: I had gone to the emergency room on Saturday with abdominal pain and diarrhea I guess with the stuff they gave me something went wrong because I have lost the sensation of going to the bathroom and I still have the diarrhea, please help I am in pain ................... ................... ................... ................... ................... ................... ................... [...] Wellness check requested Kojo Parsons MD [address] [facility],[address], [place], [address], [employer] 09/02/2024 22:31:20 11/03/2024 text/html HPI: Patient reports [...] unable to reach member at this time Mop Machine Operator Organization Information for Ernst [employer] Legal Name: [employer]. Address: [address] [place] [address], Industrial Maintenance Instructor: Harman MOSS No.: [id number] Mop Machine Operator POC Test Results from Ernst Madhu - AYDEN EKG (18:17:07) EKG test performed. Attachments uploaded as part of this test result can be found under Documents section. ................... ................... ................... ................... ................... ................... ................... ........ Mop Machine Operator Note From Ernst Madhu: Dispatched to the call address for the [...] NSR, 12 lead non diagnostic for STEMI. [facility] consulted. Script called into preferred pharmacy. Red flags discussed. ALL times are approx. ................... ................... ................... ................... ................... ................... ................... ........ [facility] Consulted: Rob Parsons ................... ................... ................... ................... ................... ................... ................... ........ Disposition: Fulfilled Kojo Parsons MD [address] [facility],[address], [place], [address], [employer] [facility] [place] 11/03/2024 21:10:19
--- NOTE | 2025-06-14 08:02 | CA_ITS ---
Acquisition Time: 2025-06-14 08:13:58 Total Exercise Time: 00:05:30 Test Indications: CP, SOB Medications: SEE H&P Protocol: KAREN Max HR: 164 BPM 98% of Pred: 167 BPM Max BP: 158/88 mmHG Max Work Load: 7.0 METS Exercise stress test with exercise 5 mins 30 secs of Karen Protocol, achieving 98% MPHR, with reports of SOB, no chest pain, with sinus arrythmia in recovery, with normotenisve response to exercise. Without EKG changes meeting criteria for ischemia. In recovery, breathing returned to baseline. Test reviewed with Dr. Roth. Referred By: Edmundo Li Electronically Signed By: Fadi Hart
== END ==
LOC: HO.CARD 07:54
PROVIDERS: PCP Registered Nurse; Visit Provider Internal Medicine Cardiovascular Disease
DX: R06.02 Shortness of breath (principal); R07.9 Chest pain, unspecified
CPT/HCPCS: 93017

== ENCOUNTER → 2025-06-14 08:02 | Outpatient (BNV) | payer OTHER, SELFPAY | PROVIDERS: PCP Registered Nurse | DX: R06.02 Shortness of breath (principal); I49.9 Cardiac arrhythmia, unspecified | CPT/HCPCS: 93016; 93018 ==

== ENCOUNTER 2025-06-30 15:26 | Outpatient (AMB) | payer OTHER, SELFPAY ==
--- NOTE | 2025-06-30 15:35 | A.OFFVIS_ITS ---
Intake Visit Reasons: recurrent penile rash Intake Note: Patient is present for RECURRENT PENILE RASH Urology Medication:NONE Antibiotic Allergy:NONE Blood Thinner:ASPIRIN Scientist Electronics Required: No Allergies lisinopril (LISINOPRIL) Allergy (Unknown, Verified 06/30/25 22:08) ANGIOEDEMA shrimp Allergy (Unknown, Verified 06/30/25 22:08) DIFFICULTY BREATHING LAVONNE Inhibitors Allergy (Verified 06/30/25 22:08) Unknown Medication List - Last Reconciled 06/30/25 by TALITA Pedroza albuterol sulfate 90 mcg/actuation (Ventolin HFA) 2 puffs inhalation Q4H PRN aspirin 81 mg PO DAILY atorvastatin 80 mg PO BEDTIME cholecalciferol (vitamin D3) 50 mcg PO DAILY cyclobenzaprine 5 mg PO BID PRN dulaglutide (Trulicity) 3 mg subcut GOMEZ@0900 ezetimibe 10 mg PO DAILY glipizide ER 5 mg PO BEDTIME insulin glargine (Lantus Solostar U-100 Insulin) 18 units subcut BEDTIME loratadine 10 mg PO DAILY metformin ER 1,000 mg PO BID xiljbjfn-gpb-UT-lycopen-lutein 0.4 mg-300 mcg- 250 mcg (Cerovite Senior) 1 tab PO DAILY naproxen 500 mg PO BID HPI Comments Details: Pavel is a 54-year-old male patient of Dr. Rizo. He has a past medical history of asthma, allergic rhinitis, class 3 obesity, obstructive sleep apnea, cerebrovascular accident, hyperlipidemia, type 2 diabetes, and hypertension. He presents to the office today as a new patient for a penile rash. In discussion with the patient today he reports having followed up with his PCP for an ongoing penile rash he has been experiencing at which time he was prescribed a cream that he did not find helpful in recommendations were made for urology referral for further assessment evaluation. However he reports shortly after following up with his PCP his daughter gave him a charcoal like bar of soap that he started utilizing and felt this has significantly improved his penile rash. In assessment of the patient today the penis is buried into the abdominal pannus however upon retraction there does not appear to be any open areas, lesions, and or drainage noted. He denies having had any bothersome urinary issues. He denies urinary urgency, urinary frequency, incontinence, nocturia, hematuria, dysuria, foul smelling urine, changes to urinary stream, flank pain, fever, and or chills. He is happy with his current voiding parameters. In office urinalysis results reviewed with the patient today. He otherwise offers no other issues or concerns at this time. [facility] Medical History Asthma Allergic rhinitis Class 3 obesity CARSON (obstructive sleep apnea) CVA (cerebral vascular accident) (~2005) HLD (hyperlipidemia) Insulin dependent type 2 diabetes mellitus Hypertension Social History Household Members: Spouse Household Members Other:: Housing: Apartment Do you presently have visiting nurse or other home services: No Alcohol intake: never Patient Tobacco Use Status: Former Tobacco user service: No Current occupational status: employed Current occupation: [employer]/ right hand dominant Review of Systems Const All systems reviewed & are unremarkable except as noted in HPI and below Physical Exam Const General: cooperative, healthy appearing, comfortable, no acute distress, well developed, alert and awake Nutritional Appearance: overweight Orientation/consciousness: patient oriented x3 Limitations: no limitations HEENT Head: Yes normal to inspection, Yes normocephalic and Yes atraumatic Ears: hearing grossly normal bilaterally Eyes General: appearance normal, both eyes and all related structures Neck Neck: Yes normal visual inspection and Yes trachea midline Chest Chest palpation & inspection: normal inspection of the chest Resp Effort & Inspection: normal respiratory effort and able to speak in complete sentences Cardio Rate: regular rate GI Inspection: Yes normal to inspection General: Yes no CVA tenderness Back/Spine/Pelvis Back: no CVA tenderness Skin General skin exam: no rashes or lesions noted Neuro General: patient oriented x3 Extrem General: Yes normal to inspection Psych Appearance: grossly normal and well kempt Mental Status: mental status grossly normal Speech and movement: Normal speech and movement present and Clear speech present Affect: normal affect Attitude: cooperative Thought process: Normal thought process present Thought content: Normal thought content present Insight: Fair insight present (Psych) Judgement: Fair judgement present (Psych) Results AMB Urinalysis, Automated UA Leukoctes 0 Alea/uL Last Edit by LATOSHA Kingston on 06/30/25 15:48 UA Nitrite Negative Last Edit by LATOSHA Kingston on 06/30/25 15:48 UA Urobilinogen 0.2 mg/dL Last Edit by LATOSHA Kingston on 06/30/25 15:4 8 UA Protein 0 mg/dL Last Edit by LATOSHA Kingston on 06/30/25 15:48 UA pH 6.0 Last Edit by LATOSHA Kingston on 06/30/25 15:48 UA Blood 0 Jeronimo/uL Last Edit by LATOSHA Kingston on 06/30/25 15:48 UA Specific [place] 1.015 Last Edit by LATOSHA Kingston on 06/30/25 15: 48 UA Ketone Negative Last Edit by LATOSHA Kingston on 06/30/25 15:48 UA Bilirubin 0 mg/dL Last Edit by LATOSHA Kingston on 06/30/25 15:48 UA Glucose 1000 mg/dL Last Edit by LATOSHA Kingston on 06/30/25 15:48 Results Reviewed Results Reviewed: Laboratory Last Values Urine pH (Auto) 6.0 06/30/25 15:48 Specific [place] (Auto) 1.015 06/30/25 15:48 Urine Protein (Auto) 0 mg/dL 06/30/25 15:48 Glucose (UA)(Auto) 1000 mg/dL 06/30/25 15:48 Urine Ketones (Auto) Negative 06/30/25 15:48 Urine Blood (Auto) 0 Jeronimo/uL 06/30/25 15:48 Urine Nitrite (Auto) Negative 06/30/25 15:48 Urine Bilirubin (Auto) 0 mg/dL 06/30/25 15:48 Urine Urobilinogen (Auto) 0.2 mg/dL 06/30/25 15:48 Leukocyte Esterase (Auto) 0 Alea/uL 06/30/25 15:48 Assessment & Plan Assessment & Plan (1) Penile rash: Code(s): R21 - Rash and other nonspecific skin eruption Category: Medical Plan In office urinalysis results with the patient today; as noted above. Patient reports penile rash she had been experiencing has since subsided. We did discussed the importance of management and diabetes for improvement overall health and well-being. We discussed obtaining PSA for further assessment evaluation and surveillance monitoring of prostate cancer. EDA was offered however deferred. He currently denies any bothersome urinary issues or concerns. He reports be happy with current voiding parameters. Follow-up in 3 months with PSA; or sooner with any issues, concerns, and or questions. Orders: Orders AMB Urinalysis Automated Today Z13.9 - Encounter for screening, unspecified Prostate Specific Antigen Today N40.0 - Benign prostatic hyperplasia without lower urinary tract symptoms Patient Instructions: The patient had an opportunity to ask questions regarding the treatment plan. All questions were answered. Physical exam, labs, and imaging were discussed and reviewed in detail. As well as risks, benefits, and discussion of treatment choices. No major barriers to understanding were identified. The patient expressed understanding and agreement with the above treatment plan. The patient was made aware they should contact our office by phone for worsening of their current condition, the appearance of new symptoms, or with any questions or concerns. Compliance is encouraged with any medications and follow up testing that is ordered. It is a privilege to be allowed the opportunity to participate in? your urological care.? Again, if you have any questions or concerns If you have any questions or concerns please do not hesitate to contact me. The office is [phone]. This note is constructed using voice recognition software. While every effort has been made to ensure accuracy first aid instructor errors may have been included. Yours sincerely, TALITA Pedroza Coding Level of Care Code New Pt Level 3 (88049) Diagnoses Penile rash R21
--- OUTSIDE RECORDS SUMMARY | 2025-06-30 15:56 | XMS_ITS | Clinical Summary ---
Author Organization [facility] Address [address] [place] [address] Phone Care Team Providers Care Auto Carrier Driver Name Role Phone Pcp, Unknown Primary Care [...] topic Medical Devices Not on file Insurance [facility] ONE CARE MEDICARE REPLACEMENT [facility] C[facility] MEDICARE REPLACEMENT [facility] MEDICARE REPLACEMENT [facility] MEDICARE REPLACEMENT [facility] MEDICARE REPLACEMENT [facility] MEDICARE REPLACEMENT Care Teams Auto Carrier Driver Relationship Specialty Start Date End Date Pcp, Unknown PCP - General 09/03/24 Additional Source Comments The information contained in this document represents components of the legal health record. It is not the complete legal health record.[facility]
--- OUTSIDE RECORDS SUMMARY | 2025-06-30 15:56 | XMS_ITS | Patient Health Record ---
Author Organization [facility] Address [address] [place] [address] Care Team Providers Care Dosier Operator Name Role Phone DEVEN WALTER MD Primary Care Provider Nilesh Way Unavailable [phone] Allergies Allergen (clinical drug ingredient) Drug/Non Drug [...] Status Risk Notes Problem Colon cancer screening (422383476) Colon cancer screening (Z12.11) Active confirmed Problem Diarrhea (28544037) Diarrhea (R19.7) Active confirmed Problem Fatty liver (736995113) Fatty liver (K76.0) Active confirmed Vital Signs Blood pressure diastolic 00 mm Hg 11/10/2024 Height 5 ft 10 in in 11/10/2024 Blood pressure systolic 00 mm Hg 11/10/2024 Weight 306 lbs 11/10/2024 BMI 43.90 kg/m2 11/10/2024 Encounters Encounter Location Date Provider Diagnosis [facility] [address] [place] [id number] 11/10/2024 Nilesh Pittman Colon cancer screening Z12.11 ; Fatty liver K76.[address] [facility] [address] [place] [phone] 03/07/2025 Nilesh Pittman Assessments Encounter Date Diagnosis (ICD Code) Assessment [...] Insured Coverage Start Date Coverage End Date [facility] [address] Attn Claims BARI Stanley [id number] OLIVIA HAINES Self - patient is the insured Medical [...] lesion, biliary disease, splenomegaly, nor ascites Denies [place],renal disease HTN Hyperlipidemia Surgical History Surgery Date(Month/Year) dental work
--- OUTSIDE RECORDS SUMMARY | 2025-06-30 15:56 | XMS_ITS | Encounter Summary ---
Author Organization [employer] Address [address] [place] [address] Care Team Providers Care Appraiser Real Estate Name Role Phone Ailin Rizo Primary Care Provider [phone] Juliet Garcia PharmD Unavailable [phone] Reason for Visit * Reason Onset Date Comments Medication Question 11/03/2024 Encounter Details Date Type Department Care Team ([facility] st Contact Info) Description 11/03/2024 Telephone [facility] [address] [place] [address] Ailin Rizo FNP [address] [place], [place] [phone] Medication Question Social History Tobacco Use Types [...] pt and spouse requesting script for Amlodipine. Mechanical Supervisor did not see medication on medlist. Mechanical Supervisor advise will send a message. Contact pt at [phone] * Telephone Encounter - Dheeraj Adamson - 11/03/2024 3:11 PM EST Tc from spouse requesting a callback as she informs pcp was supposed to give pt a script (unknown name ) to medication and pt has been waiting . Callback number [phone] documented in this encounter Plan of Treatment Upcoming Encounters Date Type Department Care Team (Late st Contact Info) Description 07/12/2025 2:00 PM EDT Medication Management [facility] [address] [place] [address] Juliet Garcia PharmD [address] [place] [address] documented as of this encounter Visit Diagnoses Not on filedocumented in this encounter Additional Health Concerns Assessment Noted Time PHQ-9 Depression Total Score: 3 06/30/20 24 9:37 AM EDT documented as of this encounter Care Teams Appraiser Real Estate Relationship Specialty Start Date End Date Ailin Rizo FNP [address] [place] [address] PCP - General Family Medicine 07/23/22 Juliet Garcia PharmD [address] [place] [phone] Pharmacist Internal Medicine 03/09/25 documented as of this encounter
== END 2025-06-30 16:12 | disposition home or self-care (01) ==
LOC: HO.HUSH 15:27
PROVIDERS: PCP Registered Nurse; Visit Provider Nurse Practitioner Family
DX: R21 Rash and other nonspecific skin eruption (principal); Z13.9 Encounter for screening, unspecified
CPT/HCPCS: 99203

== ENCOUNTER → 2025-06-30 15:26 | Outpatient (BNVA) | payer OTHER, SELFPAY | PROVIDERS: PCP Registered Nurse; Visit Provider Nurse Practitioner Family | DX: R21 Rash and other nonspecific skin eruption (principal); N40.0 Benign prostatic hyperplasia without lower urinary tract symptoms | CPT/HCPCS: 81003; 99202 ==

== ENCOUNTER 2025-07-07 15:33 | Outpatient (REF) | payer OTHER, SELFPAY ==
--- OUTSIDE RECORDS SUMMARY | 2025-07-07 15:36 | XMS_ITS | Encounter Summary ---
Author Organization [employer] Address [address] [facility] [address] [place] [address] Care Team Providers Care Cephalometric Technician Name Role Phone Ailin Rizo Primary Care Provider [phone] Juliet Garcia PharmD Unavailable [phone] Reason for Visit * Reason Onset Date Comments Medication Question 11/03/2024 Encounter Details Date Type Department Care Team ([facility] st Contact Info) Description 11/03/2024 Telephone [facility] [address] [place] [address] Ailin Rizo FNP [address] [place], [place] [phone] Medication Question Social History Tobacco Use Types [...] pt and spouse requesting script for Amlodipine. Strategic Sourcing Manager did not see medication on medlist. Strategic Sourcing Manager advise will send a message. Contact pt at [phone] * Telephone Encounter - Dheeraj Adamson - 11/03/2024 3:11 PM EST Tc from spouse requesting a callback as she informs pcp was supposed to give pt a script (unknown name ) to medication and pt has been waiting . Callback number [phone] documented in this encounter Plan of Treatment Upcoming Encounters Date Type Department Care Team (Late st Contact Info) Description 07/12/2025 2:00 PM EDT Medication Management [facility] [address] [place] [address] Juliet Garcia PharmD [address] [place] [address] documented as of this encounter Visit Diagnoses Not on filedocumented in this encounter Additional Health Concerns Assessment Noted Time PHQ-9 Depression Total Score: 3 06/30/20 24 9:37 AM EDT documented as of this encounter Care Teams Cephalometric Technician Relationship Specialty Start Date End Date Ailin Rizo FNP [address] [place] [address] PCP - General Family Medicine 07/23/22 Juliet Garcia PharmD [address] [place] [address] Pharmacist Internal Medicine 03/09/25 documented as of this encounter
--- OUTSIDE RECORDS SUMMARY | 2025-07-07 15:36 | XMS_ITS | Clinical Summary ---
Author Organization [facility] Address [address] [place] [address] Phone Care Team Providers Care Stitch Wheeler Name Role Phone Pcp, Unknown Primary Care [...] topic Medical Devices Not on file Insurance [facility] ONE CARE MEDICARE REPLACEMENT [facility] MEDICARE REPLACEMENT [facility] MEDICARE [facility]PLACEMENT [facility] MEDICARE REPLACEMENT [facility] MEDICARE REPLACEMENT [facility] MEDICARE REPLACEMENT Care Teams Stitch Wheeler Relationship Specialty Start Date End Date Pcp, Unknown PCP - General 09/03/24 Additional Source Comments The information contained in this document represents components of the legal health record. It is not the complete legal health record.[facility]
--- OUTSIDE RECORDS SUMMARY | 2025-07-07 15:36 | XMS_ITS | Patient Health Record ---
Author Organization [facility] Address [address] [place] [address] Care Team Providers Care Tree Sapper Name Role Phone DEVEN WALTER MD Primary Care Provider Nilesh Way Unavailable [phone] Allergies Allergen (clinical drug ingredient) Drug/Non Drug [...] Status Risk Notes Problem Colon cancer screening (312560965) Colon cancer screening (Z12.11) Active confirmed Problem Diarrhea (96846743) Diarrhea (R19.7) Active confirmed Problem Fatty liver (774602656) Fatty liver (K76.0) Active confirmed Vital Signs Blood pressure diastolic 00 mm Hg 11/10/2024 Height 5 ft 10 in in 11/10/2024 Blood pressure systolic 00 mm Hg 11/10/2024 Weight 306 lbs 11/10/2024 BMI 43.90 kg/m2 11/10/2024 Encounters Encounter Location Date Provider Diagnosis [facility] [address] [place] [phone] 11/10/2024 Nilesh Pittman Colon cancer screening Z12.11 ; Fatty liver K76.0 and Diarrhea R19.7 [facility] [address] [place] [phone] 03/07/2025 Nilesh Pittman Assessments Encounter Date Diagnosis [...] Insured Coverage Start Date Coverage End Date [facility] [address] Attn Claims BARI Stanley [id number] OLIVIA HAINES Self - patient is the [...] lesion, biliary disease, splenomegaly, nor ascites Denies [place],renal disease HTN Hyperlipidemia Surgical History Surgery Date(Month/Year) dental work
[2025-07-07 16:47] LABS: MANUAL DIFF FLAG NO
[2025-07-07 16:52] LABS: Hematocrit 39.7 % (42.0-52.0); Hemoglobin 13.0 g/dl (14.0-18.0); Imm Gran Abs Auto 0.01 X10*3/uL (0.00-0.03); Imm Gran Pct Auto 0.2 % (0.0-0.4); Lymphocytes Absolute Auto 1.6 X10*3/uL (1.2-4.9); Mean Corpuscular HGB Conc 32.7 g/dl (31.0-36.0); Mean Corpuscular Hemoglobin 27.5 pg (27.0-33.0); Mean Corpuscular Volume 83.9 fL (80.0-98.0); NRBC Abs Auto 0.000 X10*3/uL (0.0-0.012); NRBC Pct Auto 0.0 /100WBC (0.0-0.2); Platelet Count 269 X10*3/uL (160-400); Red Blood Count 4.73 X10*6/uL (4.60-5.80); White Blood Count 5.5 X10*3/uL (4.8-10.8)
[2025-07-07 17:24] LABS: Alanine Aminotransferase 20 U/L (0-40); Albumin Level 4.2 g/dL (3.5-5.0); Alkaline Phosphatase 77 U/L (39-117); Amylase 38 U/L (28-100); Anion Gap 10 (12-20); Aspartate Amino Transferase 17 U/L (5-37); Blood Urea Nitrogen 11 mg/dL (9-16); Calcium 8.9 mg/dL (8.4-10.2); Carbon Dioxide 30 mmol/L (22-29); Chloride 102 mmol/L (96-108); Cholesterol 115 mg/dL (<200); Estimated Glomerular Filt Rate > 60; HDL Cholesterol 43 mg/dL (>40); Lipase 29 U/L (8-78); Potassium 4.3 mmol/L (3.3-5.1); Sodium 138 mmol/L (135-145); Total Protein 7.4 g/dL (6.5-8.0); Triglycerides 70 mg/dL (<150)
[2025-07-07 17:46] LABS: Prostate Specific Antigen 0.49 ng/mL (<0.05-4.0)
== END 2025-07-07 15:34 | disposition home or self-care (01) ==
LOC: HO.HHCL 15:33
PROVIDERS: Internal Medicine Cardiovascular Disease; Nurse Practitioner Family; PCP Registered Nurse; Referring Provider Registered Nurse; Visit Provider Nurse Practitioner
DX: R10.11 Right upper quadrant pain (principal); N40.0 Benign prostatic hyperplasia without lower urinary tract symptoms; E78.5 Hyperlipidemia, unspecified; R07.9 Chest pain, unspecified; Z12.5 Encounter for screening for malignant neoplasm of prostate
CPT/HCPCS: 36415; 80053; 80061; 82150; 83690; 84153; 85025; 86141

== ENCOUNTER 2025-07-08 21:16 | Emergency (ER) | payer OTHER, SELFPAY ==
--- NOTE | ~2025-07-08 | CT_ITS ---
CLINICAL HISTORY: RLQ pain CT abdomen and pelvis with contrast Comparison: CT/[place]/SR - CT ABDOMEN PELVIS WITHOUT IV CONTRAST - 08/28/24 22:00 EDT Findings: No consolidation or effusion. The gallbladder and solid organs are within normal limits. No hydronephrosis or hydroureter. The kidneys enhance symmetrically. No bowel obstruction, pneumoperitoneum, or pneumatosis. Vrix-eb-uogydoif rectal stool burden. There is colonic diverticulosis without convincing CT evidence for acute diverticulitis. Minimal calcification present within the prostate gland. No bladder wall thickening. Nondilated appendix. No acute fracture visualized. Vacuum disc phenomenon present at L5-S1. There are bilateral L5 pars interarticularis defects. IMPRESSION: 1. No acute inflammatory process identified within the abdomen or pelvis. Normal appendix. 2. Colonic diverticulosis. No CT evidence for acute diverticulitis. 3. Iwek-su-avpjsznj rectal stool burden. No bowel obstruction. This document has been electronically signed by: Gonzalo Cullen MD on 07/09/2025 04:57:54
[2025-07-08 21:58] VITALS: BP 160/73; PULSE 67; RESP 18; TEMP 36.9; O2SAT 96; BMI 46.1
[2025-07-08 22:55] LABS: Hematocrit 38.8 % (42.0-52.0); Hemoglobin 12.8 g/dl (14.0-18.0); Imm Gran Abs Auto 0.01 X10*3/uL (0.00-0.03); Imm Gran Pct Auto 0.1 % (0.0-0.4); Lymphocytes Absolute Auto 1.9 X10*3/uL (1.2-4.9); MANUAL DIFF FLAG SCAN; Mean Corpuscular HGB Conc 33.0 g/dl (31.0-36.0); Mean Corpuscular Hemoglobin 27.7 pg (27.0-33.0); Mean Corpuscular Volume 84.0 fL (80.0-98.0); NRBC Abs Auto 0.000 X10*3/uL (0.0-0.012); NRBC Pct Auto 0.0 /100WBC (0.0-0.2); PLT CLUMP 1; Red Blood Count 4.62 X10*6/uL (4.60-5.80); SCAN SMEAR FLAG 1; White Blood Count 6.9 X10*3/uL (4.8-10.8)
[2025-07-08 23:04] LABS: Alanine Aminotransferase 17 U/L (0-40); Albumin Level 4.1 g/dL (3.5-5.0); Alkaline Phosphatase 79 U/L (39-117); Anion Gap 13 (12-20); Aspartate Amino Transferase 20 U/L (5-37); Blood Urea Nitrogen 9 mg/dL (9-16); Calcium 9.6 mg/dL (8.4-10.2); Carbon Dioxide 30 mmol/L (22-29); Chloride 104 mmol/L (96-108); Creatinine Clr Calc Pharmacy 196.3; Estimated Glomerular Filt Rate > 60; Lipase 38 U/L (8-78); Magnesium 1.9 mg/dL (1.6-2.6); Potassium 4.5 mmol/L (3.3-5.1); Sodium 142 mmol/L (135-145); Total Protein 7.5 g/dL (6.5-8.0)
[2025-07-08 23:25] LABS: Platelet Count 219 X10*3/uL (160-400)
[2025-07-09 01:04] VITALS: BP 166/75; PULSE 62; RESP 18; TEMP 36.8; O2SAT 95
[2025-07-09 01:16] LABS: Appearance Urine Clear; Glucose Urine UA Negative (Negative); PH 5.5 (5.0-9.0); Specific Gravity - Urine 1.020 (1.005-1.025)
--- NOTE | 2025-07-09 03:14 | ED.ABDPAIN ---
HPI - Abdominal Pain General Chief Complaint: Abdominal Pain Stated Complaint: abd pain Time Seen by Provider: 07/09/25 03:01 Source: patient Mode of arrival: ambulatory Limitations: no limitations History of Present Illness ED Provider: Dr. Brittany Bentley Related Data Home Medications ?Medication ?Instructions ?Recorded ?Confirmed cholecalciferol (vitamin D3) 50 50 mcg PO DAILY 09/30/20 06/30/25 mcg (2,000 unit) capsule albuterol sulfate 90 mcg/actuation 2 puff inhalation Q4H PRN wheezing 10/13/23 06/30/25 aerosol inhaler (Ventolin HFA) aspirin 81 mg tablet,delayed 81 mg PO DAILY 10/13/23 06/30/25 release atorvastatin 80 mg tablet 80 mg PO BEDTIME 10/13/23 06/30/25 cyclobenzaprine 5 mg tablet 5 mg PO BID PRN low back pain 10/13/23 06/30/25 dulaglutide 3 mg/0.5 mL 3 mg subcut GOMEZ@0900 10/13/23 06/30/25 subcutaneous pen injector (Trulicity) glipizide 5 mg tablet, extended 5 mg PO BEDTIME 10/13/23 06/30/25 release 24 hr insulin glargine 100 unit/mL (3 18 unit subcut BEDTIME 10/13/23 06/30/25 mL) subcutaneous pen (Lantus Solostar U-100 Insulin) loratadine 10 mg tablet 10 mg PO DAILY 10/13/23 06/30/25 metformin 500 mg tablet,extended 1,000 mg PO BID 10/13/23 06/30/25 release 24 hr fgrufian-wfm-fbguk acid 0.4 1 tab PO DAILY 10/13/23 06/30/25 mg-lycopene 300 mcg-lutein 250 mcg tablet (Cerovite Senior) naproxen 500 mg tablet 500 mg PO BID 10/13/23 06/30/25 Previous Rx's ?Medication ?Instructions ?Recorded ezetimibe 10 mg tablet 10 mg PO DAILY #30 tabs 05/24/25 Allergies Allergy/AdvReac Type Severity Reaction Status Date / Time lisinopril (LISINOPRIL) Allergy Unknown ANGIOEDEMA Verified 07/08/25 22:00 shrimp Allergy Unknown DIFFICULTY Verified 07/08/25 22:00 BREATHING LAVONNE Inhibitors Allergy Unknown Verified 07/08/25 22:00 [facility] Past Medical History Medical History Asthma Allergic rhinitis Class 3 obesity CARSON (obstructive sleep apnea) CVA (cerebral vascular accident) (~2005) HLD (hyperlipidemia) Insulin dependent type 2 diabetes mellitus Hypertension Social History Social History Household Members: Spouse Household Members Other:: Housing: Apartment Do you presently have visiting nurse or other home services: No Alcohol intake: never Patient Tobacco Use Status: Former Tobacco user Advance Directives: No Advance Directives Information Provided: Yes Do you have a plan to hurt others: No Plan service: No Current occupational status: employed Current occupation: [employer]/ right hand dominant Physical Exam ED Vital Signs: Vital Signs - 24 hr 07/08/25 21:58 07/09/25 01:04 07/09/25 04:00 Temperature 98.5 F 98.3 F 97.5 F Pulse Rate 67 62 62 Respiratory Rate 18 18 Blood Pressure 160/73 H 166/75 H 140/68 H Pulse Oximetry 96 95 97 Oxygen Delivery Method Room Air Room Air Room Air BMI result Body Mass Index 46.1 Medical Decision Making Medical Decision Making [facility] Narrative: My interpretation of labs: No significant abnormality in patient's hematology or chemistry, normal LFTs and lipase, normal urinalysis CT scan does not show any acute abnormality. Differential Diagnosis Differential Diagnoses: The differential diagnosis associated with the presentation includes (Diverticulitis, pancreatitis, acute cholecystitis, appendicitis) Admission/Observation Consideration of admission/observation: Escalation of care including admission/observation considered (Given patient's initial set of complaints and severity of symptoms, observation was considered) Lab Data [facility] Lab Attestation statement: I reviewed the patient's lab results. 07/08/25 22:45 07/08/25 22:45 Labs: Lab Results 07/08/25 07/09/25 Range/Units 22:45 01:07 WBC 6.9 (4.8-10.8) X10*3/uL RBC 4.62 (4.60-5.80) X10*6/uL Hgb 12.8 L (14.0-18.0) g/dl Hct 38.8 L (42.0-52.0) % MCV 84.0 (80.0-98.0) fL MCH 27.7 (27.0-33.0) pg MCHC 33.0 (31.0-36.0) g/dl RDW 12.1 (11.0-16.0) % Plt Count 219 (160-400) X10*3/uL MPV 9.9 (9.4-12.4) fL Immature Gran % (Auto) 0.1 (0.0-0.4) % Neut % (Auto) 61.8 (45-73) % Lymph % (Auto) 27.0 (20-40) % Gila % (Auto) 8.8 (2-11) % Eos % (Auto) 1.9 (0-4) % Baso % (Auto) 0.4 (0-2) % Lymph # (Auto) 1.9 (1.2-4.9) X10*3/uL Gila # (Auto) 0.6 (0.1-1.2) X10*3/uL Eos # (Auto) 0.1 (0.0-0.4) X10*3/uL Baso # (Auto) 0.0 (0.0-0.2) X10*3/uL Abs Immat Gran (auto) 0.01 (0.00-0.03) X10*3/uL Absolute Neuts (auto) 4.3 (2.0-8.3) x10*3/uL Absolute Nucleated RBC 0.000 (0.0-0.012) X10*3/uL Nucleated RBC % (auto) 0.0 (0.0-0.2) /100WBC Smear Tech's Comments VERIFIED Sodium 142 (135-145) mmol/L Potassium 4.5 (3.3-5.1) mmol/L Chloride 104 (96-108) mmol/L Carbon Dioxide 30 H (22-29) mmol/L Anion Gap 13 (12-20) BUN 9 (9-16) mg/dL Creatinine 0.61 (0.5-1.4) mg/dL Estim Creat Clear Calc 196.3 Estimated GFR > 60 Random Glucose 180 H (60-115) mg/dL Calcium 9.6 D (8.4-10.2) mg/dL Magnesium 1.9 (1.6-2.6) mg/dL Total Bilirubin 0.4 (0.0-1.0) mg/dL Direct Bilirubin 0.2 (0.0-0.5) mg/dL AST 20 (5-37) U/L ALT 17 (0-40) U/L Alkaline Phosphatase 79 (39-117) U/L Total Protein 7.5 (6.5-8.0) g/dL Albumin 4.1 (3.5-5.0) g/dL Lipase 38 (8-78) U/L Urine Color Yellow Urine Appearance Clear Urine pH 5.5 (5.0-9.0) Ur Specific [place] 1.020 (1.005-1.025) Urine Protein Negative (Neg-Trace) mg/dL Urine Glucose (UA) Negative (Negative) mg/dL Urine Ketones Negative (Negative) mg/dL Urine Blood Negative (Negative) Urine Nitrite Negative (Negative) Ur Leukocyte Esterase Negative (Negative) Independent Interpretation I performed an independent interpretation of an: CT Scan Radiology Impression Discussion of test interpretation with radiology: I have reviewed the radiologist's reading. Radiologist Impression: No consolidation or effusion. The gallbladder and solid organs are within normal limits. No hydronephrosis or hydroureter. The kidneys enhance symmetrically. No bowel obstruction, pneumoperitoneum, or pneumatosis. Ozdo-nv-jbfahemf rectal stool burden. There is colonic diverticulosis without convincing CT evidence for acute diverticulitis. Minimal calcification present within the prostate gland. No bladder wall thickening. Nondilated appendix. No acute fracture visualized. Vacuum disc phenomenon present at L5-S1. There are bilateral L5 pars interarticularis defects. IMPRESSION: 1. No acute inflammatory process identified within the abdomen or pelvis. Normal appendix. 2. Colonic diverticulosis. No CT evidence for acute diverticulitis. 3. Iqqy-va-xfbfgogk rectal stool burden. No bowel obstruction. Medications Administered Discontinued Medications Generic Name Dose Route Start Last Admin Trade Name Freq PRN Reason Stop Dose Admin Iohexol 100 ml 07/09/25 03:32 07/09/25 03:33 Iohexol 350 Mg/Ml 100 Ml Infus..Btl IV 07/09/25 03:33 100 ml ONCE ONE Administration Ketorolac Tromethamine 30 mg 07/09/25 03:13 07/09/25 03:47 Ketorolac Tromethamine 30 Mg/Ml Vial IVPUSH 07/09/25 03:14 30 mg ONCE ONE Administration Critical Care Time Critical Care Time Critical Care Time: Yes Total Critical Care Time: 35 Attestation: I have personally provided critical care time. Time includes review of lab data, radiology results, discussion with consultants, and monitoring for potential decompensation. Intervention performed as documented. Discharge Plan Discharge Clinical Impression: Abdominal pain Patient Disposition: Home, Self-Care Instructions: Abdominal Pain (ED) Additional Instructions: Please follow-up with your primary care physician tomorrow. If you have any worsening or new symptoms, please return to the emergency room or call 911 Prescriptions: No Action cholecalciferol (vitamin D3) 50 mcg (2,000 unit) capsule 50 mcg PO DAILY ezetimibe 10 mg tablet 10 mg PO DAILY Qty: 30 5RF atorvastatin 80 mg tablet 80 mg PO BEDTIME glipizide 5 mg tablet extended release 24hr 5 mg PO BEDTIME aspirin 81 mg tablet,delayed release (DR/EC) 81 mg PO DAILY albuterol sulfate [Ventolin HFA] 90 mcg/actuation HFA aerosol inhaler 2 puff INHALATION Q4H PRN (Reason: wheezing) metformin 500 mg tablet extended release 24 hr 1,000 mg PO BID loratadine 10 mg tablet 10 mg PO DAILY naproxen 500 mg tablet 500 mg PO BID cyclobenzaprine 5 mg tablet 5 mg PO BID PRN (Reason: low back pain) Cerovite Senior 0.4 mg-300 mcg- 250 mcg tablet 1 tab PO DAILY insulin glargine [Lantus Solostar U-100 Insulin] 100 unit/mL (3 mL) insulin pen 18 unit subcut BEDTIME Trulicity 3 mg/0.5 mL pen injector 3 mg subcut GOMEZ@0900 Print Language: Uzbek
[2025-07-09] MEDS: iohexoL 350 MG/ML 100 ML INFUS..BTL IV (03:33)
[2025-07-09 04:00] VITALS: BP 140/68; PULSE 62; TEMP 36.4; O2SAT 97
[2025-07-09 05:48] VITALS: BP 138/85; PULSE 68; TEMP 36.5; O2SAT 96
[2025-07-09 06:31] VITALS: BP 138/85; PULSE 68; RESP 16; TEMP 36.5; O2SAT 96
== END 2025-07-09 05:40 | disposition home or self-care (01) ==
PROVIDERS: Emergency Provider Emergency Medicine
DX: R10.2 Pelvic and perineal pain (principal); Z87.891 Personal history of nicotine dependence; Z79.899 Other long term (current) drug therapy
CPT/HCPCS: 36415; 74177; 80053; 81003; 82248; 83690; 83735; 85025; 96374; 99284; J1885; Q9967

== ENCOUNTER → 2025-07-09 03:12 | Outpatient (BNV) | payer OTHER, SELFPAY | PROVIDERS: Emergency Provider Emergency Medicine; Visit Provider Radiology Diagnostic Radiology | DX: K57.90 Diverticulosis of intestine, part unspecified, without perforation or abscess without bleeding (principal) | CPT/HCPCS: 74177 ==

== ENCOUNTER 2025-07-15 13:45 | Outpatient (REF) | payer OTHER, SELFPAY ==
--- NOTE | ~2025-07-15 | US_ITS ---
CLINICAL HISTORY: RUQ pain US abdomen limited Comparison: 08/28/2024 Findings: The visualized pancreas is normal. The aorta and inferior vena cava are normal caliber. The liver is normal in size and echotexture. There is no intrahepatic bile duct dilatation. The common duct is 4.0 mm in diameter. The gallbladder is normal. There is no sonographic Kay sign. The main portal vein is antegrade. The right kidney is 13.2 cm in length. No ascites. IMPRESSION: 1. Normal limited abdominal ultrasound. This document has been electronically signed by: Tato Camacho MD on 07/16/2025 09:07:07
--- OUTSIDE RECORDS SUMMARY | 2025-07-15 13:55 | XMS_ITS | Patient Health Record ---
Author Organization [facility] Address [address] [place] [address] Care Team Providers Care Bookmaker'S Clerk Name Role Phone DEVEN WALTER MD Primary Care Provider Nilesh Way Unavailable [phone] Allergies Allergen (clinical drug ingredient) Drug/Non Drug [...] Status Risk Notes Problem Colon cancer screening (287733269) Colon cancer screening (Z12.11) Active confirmed Problem Diarrhea (60489947) Diarrhea (R19.7) Active confirmed Problem Fatty liver (873175142) Fatty liver (K76.0) Active confirmed Vital Signs Blood pressure diastolic 00 mm Hg 11/10/2024 Height 5 ft 10 in in 11/10/2024 Blood pressure systolic 00 mm Hg 11/10/2024 Weight 306 lbs 11/10/2024 BMI 43.90 kg/m2 11/10/2024 Encounters Encounter Location Date Provider Diagnosis [facility] [address] [place] [phone] 11/10/2024 Nilesh Pittman Colon cancer screening Z12.11 ; Fatty liver K76.0 and Diarrhea R19.7 [facility] [address] [place] [phone] 03/07/2025 Nilesh Pittman Assessments Encounter Date Diagnosis [...] Coverage Start Date Coverage End Date [facility] [address] Attn Claims BARI Stanley [id number] OLIVIA HAINES Self - patient is the [...] lesion, biliary disease, splenomegaly, nor ascites Denies [place],renal disease HTN Hyperlipidemia Surgical History Surgery Date(Month/Year) dental work
--- OUTSIDE RECORDS SUMMARY | 2025-07-15 13:55 | XMS_ITS | Encounter Summary ---
Author Organization [facility] Address [address] [address] [place] [address] Care Team Providers Care Senior Sales Associate Name Role Phone Ailin Rizo J2EE JAVA DEVELOPER Primary Care Provider [phone] Juliet Garcia PharmD Unavailable [phone] Encounter Details Date Type Department Care Team ([facility] Contact Info) Description 07/14/2025 Telephone [facility] [address] [place], [place] [phone] Ailin Rizo FNP [address] [place] [address] Social History Tobacco Use Types Packs/Day Years [...] Care Team (Late st Contact Info) Description 09/29/2025 9:15 AM EST Office Visit [facility] [address] [place] [address] Ailin Rizo FNP [address] [place] [address] documented as of this encounter Visit Diagnoses Not on filedocumented in this encounter Additional Health Concerns Assessment Noted Time PHQ-9 Depression Total Score: 3 06/30/20 24 9:37 AM EDT documented as of this encounter Care Teams Senior Sales Associate Relationship Specialty Start Date End Date Ailin Rizo FNP [address] [place] [address] PCP - General Family Medicine 07/23/22 Juliet Garcia PharmD [address] [place] [address] Pharmacist Internal Medicine 03/09/25 documented as of this encounter
--- OUTSIDE RECORDS SUMMARY | 2025-07-15 13:55 | XMS_ITS | Clinical Summary ---
Author Organization [facility] Address [address] [facility] [address] [place] [phone] Phone Care Team Providers Care Manager Unit Name Role Phone Pcp, Unknown Primary Care [...] on file Insurance [facility] ONE CARE MEDICARE REPLACEMENT [facility] CARE MEDICARE [facility]PLACEMENT [facility] CARE MEDICARE REPLACEMENT [facility] CARE MEDICARE REPLACEMENT [facility] CARE MEDICARE REPLACEMENT [facility] MEDICARE REPLACEMENT Care Teams Manager Unit Relationship Specialty Start Date End Date Pcp, Unknown PCP - General 09/03/24 Additional Source Comments The information contained in this document represents components of the legal health record. It is not the complete legal health record.[facility]
== END 2025-07-15 13:46 | disposition home or self-care (01) ==
LOC: HO.US 13:45
PROVIDERS: PCP Registered Nurse; Visit Provider Nurse Practitioner
DX: R10.11 Right upper quadrant pain (principal)
CPT/HCPCS: 76705

== ENCOUNTER → 2025-07-15 13:47 | Outpatient (BNV) | payer OTHER, SELFPAY | PROVIDERS: PCP Registered Nurse; Visit Provider Specialist | DX: R10.11 Right upper quadrant pain (principal) | CPT/HCPCS: 76705 ==

== ENCOUNTER 2025-08-28 14:55 | Emergency (ER) | payer OTHER, SELFPAY ==
--- OUTSIDE RECORDS SUMMARY | 2025-03-03 03:30 | XMS_ITS ---
Author Organization [facility] Address [address] [place] [address] Care Team Providers Care Hardboard Grinder Name Role Phone JOSE ANGEL NICHOLS, DEVEN Primary Care Provider Nilesh Way [phone] REASON FOR VISIT screening Encounters Encounter Location Date Provider Diagnosis [facility] [address] [place], [place] [phone] 03/03/2025 Nilesh Pittman Plan Of Treatment No Information Progress Notes * OLIVIA HAINESDOB:1970 ( 54 yo M)Acc No.[id number]:03/03/2025 COLON WITH MAC Patient: OLIVIA LAUREN Provider: Antoine Pittman MD :1970 A ge:54 Y S ex:Male Date:03/03/2025 Address:[address] [place] [address] [address] [place], [place] [phone] Pcp:DEVEN WALTER MD Subjective: * Chief Complaints: [...] MD Date: 0 03/03/2025 Generated for Clyde jc/Girish/Esdrassmitting on: 05:28 PM EDT
--- NOTE | ~2025-08-28 | CT_ITS ---
CLINICAL HISTORY: RUQ epigastric pain, dec BM, ?constipation CT abdomen and pelvis with contrast Comparison: CT abdomen and pelvis most recently on 07/09/2025 Findings: No acute findings within visualized lung bases. Liver, gallbladder, spleen, pancreas, are unremarkable. Normal adrenal glands. No hydronephrosis or perinephric fat stranding. Unremarkable urinary bladder. Partially calcified but otherwise normal-sized prostate. Calcified but nonaneurysmal abdominal aorta and iliofemoral vessels. Nondistended stomach. Normal caliber small bowel. No obstruction. Scattered colonic diverticuli without CT evidence of acute diverticulitis. No acute appendicitis. No pathologically enlarged lymph nodes. No acute osseous abnormality. No lytic or sclerotic osseous lesions. Impression: 1. No acute findings identified. 2. Stable chronic/nonacute findings as above. This document has been electronically signed by: Uvaldo Jones MD on 08/28/2025 21:05:52
[2025-08-28 15:13] VITALS: BP 130/70; PULSE 83; RESP 16; TEMP 36.6; O2SAT 97; BMI 41.7
--- NOTE | 2025-08-28 15:15 | ED.GENADULT ---
HPI - General Adult General Chief complaint: Abdominal Pain Stated complaint: abdominal pain Time Seen by Provider: 08/28/25 18:04 Source: patient Mode of arrival: ambulatory Limitations: no limitations History of Present Illness ED Provider: EVETTE CLARK PA-C HPI narrative: 54-year-old male with pmhx significant for asthma, HLD, CVA, CARSON, DM presents to the ED today for evaluation of right-sided abdominal pain x weeks. Pain wraps around to his right back and is intermittent. Admits to increasing constipation. Reports passing bowel movements once daily over the past month, states his baseline is twice daily. Last passed flatus an hour ago. Reports work up for same in the past, told he was obstructed . States he did not require admission and was discharged home with outpatient follow up. Denies fever, chills, chest pain, nausea/vomiting, diarrhea, urinary symptoms. Related Data Home Medications ?Medication ?Instructions ?Recorded ?Confirmed cholecalciferol (vitamin D3) 50 50 mcg PO DAILY 09/30/20 06/30/25 mcg (2,000 unit) capsule albuterol sulfate 90 mcg/actuation 2 puff inhalation Q4H PRN wheezing 10/13/23 06/30/25 aerosol inhaler (Ventolin HFA) aspirin 81 mg tablet,delayed 81 mg PO DAILY 10/13/23 06/30/25 release atorvastatin 80 mg tablet 80 mg PO BEDTIME 10/13/23 06/30/25 cyclobenzaprine 5 mg tablet 5 mg PO BID PRN low back pain 10/13/23 06/30/25 dulaglutide 3 mg/0.5 mL 3 mg subcut GOMEZ@0900 10/13/23 06/30/25 subcutaneous pen injector (Trulicity) glipizide 5 mg tablet, extended 5 mg PO BEDTIME 10/13/23 06/30/25 release 24 hr insulin glargine 100 unit/mL (3 18 unit subcut BEDTIME 10/13/23 06/30/25 mL) subcutaneous pen (Lantus Solostar U-100 Insulin) loratadine 10 mg tablet 10 mg PO DAILY 10/13/23 06/30/25 metformin 500 mg tablet,extended 1,000 mg PO BID 10/13/23 06/30/25 release 24 hr eohyvfvm-oxk-fboqy acid 0.4 1 tab PO DAILY 10/13/23 06/30/25 mg-lycopene 300 mcg-lutein 250 mcg tablet (Cerovite Senior) naproxen 500 mg tablet 500 mg PO BID 10/13/23 06/30/25 Previous Rx's ?Medication ?Instructions ?Recorded ezetimibe 10 mg tablet 10 mg PO DAILY #30 tabs 05/24/25 docusate sodium 100 mg capsule 100 mg PO BID PRN constipation #30 08/28/25 (Colace) caps polyethylene glycol 3350 17 17 g PO DAILY PRN constipation 08/28/25 gram/dose oral powder (Miralax) #510 grams Allergies Allergy/AdvReac Type Severity Reaction Status Date / Time lisinopril (LISINOPRIL) Allergy Unknown ANGIOEDEMA Verified 08/28/25 15:15 shrimp Allergy Unknown DIFFICULTY Verified 08/28/25 15:15 BREATHING LAVONNE Inhibitors Allergy Unknown Verified 08/28/25 15:15 Review of Systems Review of Systems: Yes all other systems are reviewed and are negative PMFSH Past Medical History Attestation statement: The following information was validated with the patient. Source: old records reviewed and nursing notes reviewed Medical History Asthma Allergic rhinitis Class 3 obesity CARSON (obstructive sleep apnea) CVA (cerebral vascular accident) (~2005) HLD (hyperlipidemia) Insulin dependent type 2 diabetes mellitus Hypertension Social History Social History Household Members: Spouse Household Members Other:: Housing: Apartment Do you presently have visiting nurse or other home services: No Alcohol intake: current Alcohol intake frequency: holidays/special occasions only Patient Tobacco Use Status: Former Tobacco user Smoked in Last 30 Days: No Use of substances other than those prescribed or required for medical reasons: No Advance Directives: Yes Advance Directives on File: Yes Advance Directives Date on File: 10/18/23 Do you have a plan to hurt others: No Plan service: No Current occupational status: employed Current occupation: [employer]/ right hand dominant Physical Exam ED Vital Signs: Vital Signs - 24 hr 08/28/25 17:13 08/28/25 20:47 08/28/25 21:36 Temperature 98.3 F 98.0 F Pulse Rate 86 61 76 Respiratory Rate 17 15 18 Blood Pressure 138/81 122/63 128/71 Pulse Oximetry 97 96 96 Oxygen Delivery Method Room Air Room Air Room Air BMI result Body Mass Index 41.7 Vital signs stable, afebrile General: Well appearing, in no acute distress. Skin: Warm, dry, intact. No rashes or lesions. Head: Normocephalic, atraumatic. EENT: Hearing is intact b/l. Conjunctiva clear. Sclera is anicteric. PERRLA. EOM intact. Moist mucous membranes.? Cardiac: Chest wall symmetric. RRR Lungs: Normal respiratory effort without accessory muscle use. CTA bilaterally Abdomen: Soft, non-tender, non-distended. No rebound tenderness or guarding. Positive BS x4. Negative Kay's sign. Back: No midline spinous or paraspinal tenderness. No step off deformity. Ext: Upper and lower extremities atraumatic, without tenderness, deformity, swelling or erythema Neuro: AOx3. Normal speech. Ambulating with steady gait. Course Course Course Narrative: Medical screening exam performed. Please refer to detailed history, exam, evaluation, and management by primary provider. Abdominal pain, some constipation. JS Reevaluation(s) Reevaluation #1: CBC without leukocytosis or left shift. Normocytic anemia, H&H around baseline when compared to priors. Above transfusion threshold. Random glucose 367, no anion gap. No MARLENA. Liver function WNL. Lipase WNL. Urine without infection, trace ketones. CT abdomen/pelvis unremarkable. no bowel obstruction. > patient reports significant improvement in pain after receiving Toradol. Treated with a L of IV fluids. I do not have suspicion for DKA. He is well-appearing. tolerting PO. He is constipated. Will start on bowel regimen. Patient has remained stable throughout ED visit today. Discussed worrisome signs and symptoms and when to return to the ED. All questions answered at this time. Patient is agreeable with disposition and stable for discharge. Medications Administered Discontinued Medications Generic Name Dose Route Start Last Admin Trade Name Freq PRN Reason Stop Dose Admin Sodium Chloride 1,000 mls @ 999 mls/hr 08/28/25 18:15 08/28/25 21:36 Ns IV 08/28/25 19:15 Infused .Q1H1M AICHA Infusion Iohexol 100 ml 08/28/25 19:55 08/28/25 19:55 Iohexol 350 Mg/Ml 100 Ml Infus..Btl IV 08/28/25 19:56 85 ml ONCE ONE Administration Ketorolac Tromethamine 30 mg 08/28/25 18:17 08/28/25 19:12 Ketorolac Tromethamine 30 Mg/Ml Vial IVPUSH 08/28/25 18:18 30 mg ONCE ONE Administration Medical Decision Making Medical Decision Making [facility] Narrative: 54-year-old male with pmhx significant for asthma, HLD, CVA, CARSON, DM presents to the ED today for evaluation of right-sided abdominal pain x weeks. Vital signs stable. He is well-appearing and in no acute distress. Abdominal exam benign. Differential diagnosis includes anemia, electrolyte abnormality, dehydration, gastritis, gastroenteritis. Lower suspicion for pancreatitis, cholecystitis, biliary colic, renal colic, nephrolithiasis. Plan for labs, UA, imaging, IV fluids, re-evaluation. Differential Diagnosis Differential Diagnoses: The differential diagnosis associated with the presentation includes As above Admission/Observation Not indicated Lab Data [facility] Lab Attestation statement: I reviewed the patient's lab results. As above 08/28/25 16:44 08/28/25 16:44 Labs: Lab Results 08/28/25 08/28/25 Range/Units 16:44 19:03 WBC 6.0 (4.8-10.8) X10*3/uL RBC 4.76 (4.60-5.80) X10*6/uL Hgb 13.4 L (14.0-18.0) g/dl Hct 38.4 L (42.0-52.0) % MCV 80.7 (80.0-98.0) fL MCH 28.2 (27.0-33.0) pg MCHC 34.9 (31.0-36.0) g/dl RDW 12.2 (11.0-16.0) % Plt Count 241 (160-400) X10*3/uL MPV 9.7 (9.4-12.4) fL Immature Gran % (Auto) 0.3 (0.0-0.4) % Neut % (Auto) 64.0 (45-73) % Lymph % (Auto) 23.5 (20-40) % [place] % (Auto) 9.2 (2-11) % Eos % (Auto) 2.5 (0-4) % Baso % (Auto) 0.5 (0-2) % Lymph # (Auto) 1.4 (1.2-4.9) X10*3/uL [place] # (Auto) 0.6 (0.1-1.2) X10*3/uL Eos # (Auto) 0.2 (0.0-0.4) X10*3/uL Baso # (Auto) 0.0 (0.0-0.2) X10*3/uL Abs Immat Gran (auto) 0.02 (0.00-0.03) X10*3/uL Absolute Neuts (auto) 3.8 (2.0-8.3) x10*3/uL Absolute Nucleated RBC 0.000 (0.0-0.012) X10*3/uL Nucleated RBC % (auto) 0.0 (0.0-0.2) /100WBC Sodium 136 (135-145) mmol/L Potassium 4.3 (3.3-5.1) mmol/L Chloride 103 (96-108) mmol/L Carbon Dioxide 27 (22-29) mmol/L Anion Gap 10 L (12-20) BUN 12 (9-16) mg/dL Creatinine 0.64 (0.5-1.4) mg/dL Estim Creat Clear Calc 182.1 Estimated GFR > 60 Random Glucose 367 H* (60-115) mg/dL Calcium 9.3 (8.4-10.2) mg/dL Total Bilirubin 0.5 (0.0-1.0) mg/dL AST 15 (5-37) U/L ALT 14 (0-40) U/L Alkaline Phosphatase 72 (39-117) U/L Total Protein 7.3 (6.5-8.0) g/dL Albumin 4.0 (3.5-5.0) g/dL Lipase 40 (8-78) U/L Urine Color Yellow Urine Appearance Clear Urine pH 6.0 (5.0-9.0) Ur Specific [place] >= 1.030 H (1.005-1.025) Urine Protein Negative (Neg-Trace) mg/dL Urine Glucose (UA) >=1000 H (Negative) mg/dL Urine Ketones Trace (Negative) mg/dL Urine Blood Negative (Negative) Urine Nitrite Negative (Negative) Ur Leukocyte Esterase Negative (Negative) Urine RBC 0-2 (0-2) /HPF Urine WBC 0-5 (0-5) /HPF Ur Squamous Epith Cells 0-2 (0-2) /HPF Urine Bacteria None Seen (None Seen) Hyaline Casts 0-2 (0-2) /LPF Independent Interpretation I performed an independent interpretation of an: CT Scan Interpretation: CT abdomen/pelvis without bowel obstruction Radiology Impression Discussion of test interpretation with radiology: I have reviewed the radiologist's reading. Radiologist Impression: Procedure(s): CT abdomen pelvis w IV con Accession Number(s): [id number] cc: Ailin Rizo; Evette Clark~ Report Number: [id number]: Total DLP = 1253.00 mGy-cm Reason for Exam: RUQ/ epigastric pain, dec BM, ?constipation CLINICAL HISTORY: RUQ epigastric pain, dec BM, ?constipation CT abdomen and pelvis with contrast Comparison: CT abdomen and pelvis most recently on 07/09/2025 Findings: No acute findings within visualized lung bases. Liver, gallbladder, spleen, pancreas, are unremarkable. Normal adrenal glands. No hydronephrosis or perinephric fat stranding. Unremarkable urinary bladder. Partially calcified but otherwise normal-sized prostate. Calcified but nonaneurysmal abdominal aorta and iliofemoral vessels. Nondistended stomach. Normal caliber small bowel. No obstruction. Scattered colonic diverticuli without CT evidence of acute diverticulitis. No acute appendicitis. No pathologically enlarged lymph nodes. No acute osseous abnormality. No lytic or sclerotic osseous lesions. Impression: 1. No acute findings identified. 2. Stable chronic/nonacute findings as above. This document has been electronically signed by: Uvaldo Jones MD on 08/28/2025 21:05:52 External Record Review External record reviewed: Inpatient record Prescription Management I considered prescription management with: Other (Colace, MiraLax) Chronic Conditions Patient?s care impacted by: Diabetes Social Determinants Patient?s care significantly limited by Social Determinants of Health including: Other Social Determinant of Health Critical Care Time Critical Care Time Critical Care Time: No Discharge Plan Discharge Clinical Impression: Abdominal pain, Constipation Patient Disposition: Home, Self-Care Instructions: Constipation (DC), Abdominal Pain (ED) Additional Instructions: You were evaluated in the ED today for abdominal pain. Your workup is reassuring. You are constipated. See home care intructions. CT scan shows no evidence of obstruction. I recommend using stool softeners such as colace 100 mg twice daily. In addition, take over the counter miralax 2-3 times daily until you begin having multiple large volume bowel movements. Follow up with your doctor in 2 weeks. Return with new or worsening symptoms. In the case of an emergency call 911. Prescriptions: New polyethylene glycol 3350 [Miralax] 17 gram/dose powder 17 g PO DAILY PRN (Reason: constipation) Qty: 510 0RF docusate sodium [Colace] 100 mg capsule 100 mg PO BID PRN (Reason: constipation) Qty: 30 0RF No Action cholecalciferol (vitamin D3) 50 mcg (2,000 unit) capsule 50 mcg PO DAILY ezetimibe 10 mg tablet 10 mg PO DAILY Qty: 30 5RF atorvastatin 80 mg tablet 80 mg PO BEDTIME glipizide 5 mg tablet extended release 24hr 5 mg PO BEDTIME aspirin 81 mg tablet,delayed release (DR/EC) 81 mg PO DAILY albuterol sulfate [Ventolin HFA] 90 mcg/actuation HFA aerosol inhaler 2 puff INHALATION Q4H PRN (Reason: wheezing) metformin 500 mg tablet extended release 24 hr 1,000 mg PO BID loratadine 10 mg tablet 10 mg PO DAILY naproxen 500 mg tablet 500 mg PO BID cyclobenzaprine 5 mg tablet 5 mg PO BID PRN (Reason: low back pain) Cerovite Senior 0.4 mg-300 mcg- 250 mcg tablet 1 tab PO DAILY insulin glargine [Lantus Solostar U-100 Insulin] 100 unit/mL (3 mL) insulin pen 18 unit subcut BEDTIME Trulicity 3 mg/0.5 mL pen injector 3 mg subcut GOMEZ@0900 Referrals: Ailin Rizo FNP [Primary Care Provider, Family Practice] Stand Alone Forms: Work/School Release Interventions: ED Discharge Assessment Last Done: 08/28/25 21:36 Discharge Date/Time: 08/28/25 21:40 Print Language: Monegasque
[2025-08-28 16:53] LABS: MANUAL DIFF FLAG NO
[2025-08-28 17:10] LABS: Alanine Aminotransferase 14 U/L (0-40); Albumin Level 4.0 g/dL (3.5-5.0); Alkaline Phosphatase 72 U/L (39-117); Anion Gap 10 (12-20); Aspartate Amino Transferase 15 U/L (5-37); Blood Urea Nitrogen 12 mg/dL (9-16); Calcium 9.3 mg/dL (8.4-10.2); Carbon Dioxide 27 mmol/L (22-29); Chloride 103 mmol/L (96-108); Creatinine Clr Calc Pharmacy 182.1; Estimated Glomerular Filt Rate > 60; Lipase 40 U/L (8-78); Potassium 4.3 mmol/L (3.3-5.1); Sodium 136 mmol/L (135-145); Total Protein 7.3 g/dL (6.5-8.0)
[2025-08-28 17:12] LABS: Hematocrit 38.4 % (42.0-52.0); Hemoglobin 13.4 g/dl (14.0-18.0); Imm Gran Abs Auto 0.02 X10*3/uL (0.00-0.03); Imm Gran Pct Auto 0.3 % (0.0-0.4); Lymphocytes Absolute Auto 1.4 X10*3/uL (1.2-4.9); Mean Corpuscular HGB Conc 34.9 g/dl (31.0-36.0); Mean Corpuscular Hemoglobin 28.2 pg (27.0-33.0); Mean Corpuscular Volume 80.7 fL (80.0-98.0); NRBC Abs Auto 0.000 X10*3/uL (0.0-0.012); NRBC Pct Auto 0.0 /100WBC (0.0-0.2); Platelet Count 241 X10*3/uL (160-400); Red Blood Count 4.76 X10*6/uL (4.60-5.80); White Blood Count 6.0 X10*3/uL (4.8-10.8)
[2025-08-28 17:13] VITALS: BP 138/81; PULSE 86; RESP 17; O2SAT 97
--- NOTE | 2025-08-28 17:16 | PC.NURSE ---
54 M presents to ED with RUQ pain/R flank pain that travels to his back 4/10 pain for a couple weeks, persistent. A+OX4, calm, cooperative. RR even and unlabored. Denies CP or SOB. Pt is ambulatory. Pt denies any n/v/d/ but sts some pain BMs.
--- OUTSIDE RECORDS SUMMARY | 2025-08-28 17:29 | XMS_ITS | Clinical Summary ---
Author Organization [facility] Address [address] [place] [phone] Phone Care Team Providers Care Textile Pin Worker Name Role Phone Pcp, Unknown Primary Care [...] 07/14/2013 ZOSTER VACCINES (1 of 2) 2021 INFLUENZA VACCINE (#1) 2025 COVID-19 VACCINE (1 - 2023-2 5 season) 2025 SCREENING FOR DIABETES 06/30/2027 06/30/2024 LIPID PANEL [...] topic Medical Devices Not on file [place] [address] [place] [address] CARE [address] [place] [address] [place] [address] [place] [place] [address] MEDICARE REPLACEMENT [facility] CARE MEDICARE [place] [address] [place] [address] CARE MEDICARE REPLACEMENT [facility] MEDICARE REPLACEMENT Care Teams Textile Pin Worker Relationship Specialty Start Date End Date Pcp, Unknown PCP - General 09/03/24 Additional Source Comments The information contained in this document represents components of the legal health record. It is not the complete legal health record.[facility]
--- OUTSIDE RECORDS SUMMARY | 2025-08-28 17:29 | XMS_ITS | Patient Health Record ---
Author Organization [facility] Address [address] [place] [address] Care Team Providers Care Director Of Software Engineering Name Role Phone DEVEN WALTER MD Primary Care Provider Nilesh Way Unavailable [phone] Allergies Allergen (clinical drug ingredient) Drug/Non Drug [...] Status Risk Notes Problem Colon cancer screening (829240642) Colon cancer screening (Z12.11) Active confirmed Problem Diarrhea (02267441) Diarrhea (R19.7) Active confirmed Problem Fatty liver (350347048) Fatty liver (K76.0) Active confirmed Vital Signs Blood pressure diastolic 00 mm Hg 11/10/2024 Height 5 ft 10 in in 11/10/2024 Blood pressure systolic 00 mm Hg 11/10/2024 Weight 306 lbs 11/10/2024 BMI 43.90 kg/m2 11/10/2024 Encounters Encounter Location Date Provider Diagnosis [facility] [address] [place] [phone] 11/10/2024 Nilesh Pittman Colon cancer screening Z12.11 ; Fatty liver K76.0 and Diarrhea R19.7 [facility] [address] [place] [phone] 03/07/2025 Nilesh Pittman Assessments Encounter Date Diagnosis [...] Insured Coverage Start Date Coverage End Date [facility] [address] Attn Claims BARI Stanley [id number] OLIVIA HAINES Self - patient is the [...] lesion, biliary disease, splenomegaly, nor ascites Denies [place],renal disease HTN Hyperlipidemia Surgical History Surgery Date(Month/Year) dental work
[2025-08-28 19:10] LABS: Appearance Urine Clear; Glucose Urine UA >=1000 mg/dL (Negative); PH 6.0 (5.0-9.0); Specific Gravity - Urine >= 1.030 (1.005-1.025); UMIC TRIGGER UA YES
[2025-08-28] MEDS: iohexoL 350 MG/ML 100 ML INFUS..BTL IV (19:55)
[2025-08-28 20:47] VITALS: BP 122/63; PULSE 61; RESP 15; TEMP 36.8; O2SAT 96
[2025-08-28 21:36] VITALS: BP 128/71; PULSE 76; RESP 18; TEMP 36.7; O2SAT 96
== END 2025-08-28 21:40 | disposition home or self-care (01) ==
PROVIDERS: Physician Assistant; Emergency Provider Student in an Organized Health Care Education/Training Program; PCP Registered Nurse
DX: K59.00 Constipation, unspecified (principal); R10.31 Right lower quadrant pain; M54.50 Low back pain, unspecified; E11.9 Type 2 diabetes mellitus without complications; R11.0 Nausea; Z79.899 Other long term (current) drug therapy; Z79.4 Long term (current) use of insulin
CPT/HCPCS: 36415; 74177; 80053; 81001; 83690; 85025; 96361; 96374; 99285; J1885; Q9967

== ENCOUNTER → 2025-08-28 18:11 | Outpatient (BNV) | payer OTHER, SELFPAY | PROVIDERS: Emergency Provider Student in an Organized Health Care Education/Training Program; PCP Registered Nurse; Visit Provider Radiology Diagnostic Radiology | DX: R10.13 Epigastric pain (principal); R10.11 Right upper quadrant pain | CPT/HCPCS: 74177 ==

== ENCOUNTER 2025-09-29 10:22 | Outpatient (REF) | payer OTHER, SELFPAY ==
--- OUTSIDE RECORDS SUMMARY | 2025-03-03 02:30 | XMS_ITS ---
Author Organization [facility] Address [address] [place] [id number] Care Team Providers Care Occ Ther Name Role Phone JOSE ANGEL NICHOLS, DEVEN Primary Care Provider Nilesh aWy [phone] REASON FOR VISIT screening Encounters Encounter Location Date Provider Diagnosis [facility] [address] [place], [place] [phone] 03/03/2025 Nilesh Pittman Plan Of Treatment No Information Progress Notes * OLIVIA HAINESDOB:1970 ( 54 yo M)Acc No.[id number]:03/03/2025 COLON WITH MAC Patient: OLIVIA LAUREN Provider: Antoine Pittman MD :1970 A ge:54 Y S ex:Male Date:03/03/2025 Address:[address] [place] [address] [place], [place] [id number] Pcp:DEVEN WALTER MD Subjective: * Chief Complaints: * 1 . Screening. * Medical History: Objective: * Vitals: Assessment: Plan: * Treatment: * * The named appointment provid er may or may not be the originator of this progress note, and it is not deemed complete until electronically signed by the appointment provider. Sign off status: Pending * Provider: Antoine Pittman MD Date: 0 03/03/2025 Generated for Clyde jc/Girish/Akilitting on: 11/29/2024 12:05 PM EST
--- OUTSIDE RECORDS SUMMARY | 2025-09-28 14:00 | XMS_ITS | Encounter Summary ---
Author Organization [employer] Address [address] [facility] [address] [place] [address] Care Team Providers Care Staining Machine Operator Name Role Phone AlinaAilin wood FRONT END SOFTWARE DEVELOPER Primary Care Provider [phone] Juliet Garcia PharmD Unavailable [phone] Reason for Visit * Reason Comments Extraction Ext on tooth# 14 Encounter Details Date Type Department Care Team ([facility] st Contact Info) Description 09/28/2025 2:00 PM EST Office Visit [facility] ADULT DENTAL [address] [place] [address] Humza Clay DDS [address] [place], [place] [phone] Dental abscess (Primary Dx); Open fracture of [...] Time: 1356 (ext on tooth# 14) Location: [facility] Tooth: Maxilla and #14 Only, per pt request Procedure: Extraction Verified the above with patient, assistant coach, and provider. Confirmed via patient's chart, intraorally and by radiographs. Mule Packer: not applicable Chief Complaint Patient presents with [...] NV: F/U as needed / cont. exos Welcome Hostess: Gely Iverson Dentist: Humza Clay DDS [1] [...] 100 each 11 Blood Glucose Monitoring Suppl (Consumer Agent Portal (CAP)Style [place] Lite) w/Device kit Use to test blood sugar 3 times daily 1 kit 0 chlorhexidine (Peridex) 0.12 % solution Swish 15 mL morning and night for 1 minute. Spit, do not swallow. Do not eat or drink for 30 minutes following use. 473 mL 0 Continuous Glucose House Fellow (FreeStyle Kathi 3 [place]) device 1 each Once per day. Use [...] Description 10/26/2025 12:45 PM EST Office Visit [facility] ADULT DENTAL [address] [place], [place] [phone] Alexa Murphy 11/09/2025 2:30 PM EST Office Visit [facility] ADULT DENTAL [address] [place] [address] Humza Clay DDS [address] [place] [address] documented as of this encounter Procedures Procedure [...] documented as of this encounter Care Teams Staining Machine Operator Relationship Specialty Start Date End Date Ailin Rizo FNP [address] [place] [address] PCP - General Family Medicine 07/23/22 Juliet Garcia PharmD [address] [place] [address] Pharmacist Internal Medicine 03/09/25 documented as of this encounter
--- OUTSIDE RECORDS SUMMARY | 2025-09-29 09:15 | XMS_ITS | Encounter Summary ---
Author Organization [employer] Address [address] [facility] 7t [place] [address] Care Team Providers Care Spout Worker Name Role Phone Ailin Rizo Primary Care Provider [phone] Juliet Garcia PharmD Unavailable [phone] Reason for Visit * Reason Comments Follow-up Diabetes Encounter Details Date Type Department Care Team ([facility] st Contact Info) Description 09/29/2025 9:15 AM EST Office Visit [facility] MEDICINE [address] [place] [address] Ailin Rizo FNP [address] [place] [address] Type 2 diabetes mellitus without complication, with long-term current use of insulin (HCC) (Primary Dx); Dietary counseling; Exercise counseling; Encounter for immunization Social History Tobacco Use Types Packs/Day Years [...] the past 12 months, has t he [employer], gas, oil or water company threatened to [...] Author Several days 09/29/2025 9:15 AM [facility] [employer] [place] * Feeling down, depressed, or hopeless [...] Garcia [place] documented as of this encounter Plan of Treatment Upcoming Encounters Date Type Department Care Team ([facility] st Contact Info) Description 10/26/2025 12:45 PM EST Office Visit [facility] ADULT DENTAL [address] [place] [address] Katherine Alexa 11/09/2025 2:30 PM EST Office Visit [facility] ADULT DENTAL [address] [place] [address] Humza Clay, DDS [address] [place] [address] Scheduled Orders Name Type Priority Associated Diagnoses [...] complication, with long-term current use of insulin ([facility]) documented in this encounter Results * (ABNORMAL) POCT Hgb A1c (09/29/2025 9:17 AM EST) Hemoglobin A1C 13.4(A) 4.0 - 5.7 % QC Media Lot # [id number] Lot# Expiration Date , Blood 09/29/2025 9:17 AM EST us Ailin Rizo LAMPS TESTER AND INSPECTOR POINT OF CARE TEST ENTER/EDIT ORDERABLES Final Result * (ABNORMAL) POCT Glucose (09/29/2025 9:17 AM EST) Pathologist [facility] Glucose Blood, POC 345(A) 60 - 200 mg/dL QC Media Lot # [id number] Lot# Expiration Date 3,026 Blood Capillary blood specimen / Unknown 09/29/2025 9:17 AM EST us Ailin JACOME POINT OF CARE TEST ENTER/EDIT ORDERABLES Final Result documented in this encounter Visit Diagnoses Diagnosis Type 2 diabetes mellitus without complication, with long-term current use of insulin (HCC)- Primary Dietary counseling Dietary surveillance and counseling Exercise counseling Encounter for immunization documented in this encounter Additional Health Concerns Assessment Noted Time PHQ-9 Depression Total Score: 3 09/29/20 25 9:15 AM EST documented as of this encounter Care Teams Spout Worker Relationship Specialty Start Date End Date Ailin Rizo FNP [address] [place] [address] PCP - General Family Medicine 07/23/22 Juliet Garcia PharmD [address] [place] [address] Pharmacist Internal Medicine 03/09/25 documented as of this encounter
[2025-09-29 11:46] LABS: Prostate Specific Antigen 0.47 ng/mL (<0.05-4.0)
--- OUTSIDE RECORDS SUMMARY | 2025-09-29 12:05 | XMS_ITS | Encounter Summary ---
Author Organization [employer] Address [address] [facility] 7t [place] [address] Care Team Providers Care Banking Assistant Name Role Phone Ailin Rizo Primary Care Provider [phone] Juliet Garcia PharmD Unavailable [phone] Reason for Visit * Reason Onset Date Comments Medication Question 11/03/2024 Encounter Details Date Type Department Care Team ([facility] st Contact Info) Description 11/03/2024 Telephone [facility] MEDICINE [address] [place] [address] Ailin Rizo FNP [address] [place], [place] [phone] Medication Question Social History Tobacco Use Types [...] pt and spouse requesting script for Amlodipine. Information Clerk Cashier did not see medication on medlist. Information Clerk Cashier advise will send a message. Contact pt at [phone] * Telephone Encounter - Dheeraj Adamson - 11/03/2024 3:11 PM EST Tc from spouse requesting a callback as she informs pcp was supposed to give pt a script (unknown name ) to medication and pt has been waiting . Callback number [phone] documented in this encounter Plan of Treatment Upcoming Encounters Date Type Department Care Team (Late st Contact Info) Description 10/26/2025 12:45 PM EST Office Visit [facility] ADULT DENTAL [address] [place] [address] Alexa Murphy 11/09/2025 2:30 PM EST Office Visit [facility] ADULT DENTAL [address] [place] [address] Humza Clay DDS [address] [place] [address] documented as of this encounter Visit Diagnoses Not on filedocumented in this encounter Additional Health Concerns Assessment Noted Time PHQ-9 Depression Total Score: 3 06/30/20 24 9:37 AM EDT documented as of this encounter Care Teams Banking Assistant Relationship Specialty Start Date End Date Ailin Rizo FNP [address] [place] [address] PCP - General Family Medicine 07/23/22 Juliet Garcia PharmD [address] [place] [address] Pharmacist Internal Medicine 03/09/25 documented as of this encounter
--- OUTSIDE RECORDS SUMMARY | 2025-09-29 12:05 | XMS_ITS | Patient Health Record ---
Author Organization [facility] Address [address] [place] [address] Care Team Providers Care Physician Relations Representative Name Role Phone DEVEN WALTER MD Primary Care Provider Nilesh Way Unavailable [phone] Allergies Allergen (clinical drug ingredient) Drug/Non Drug [...] MG TAKE 1 TABLET BY ONCE DAILY. Oral; Duration: 90 Active D3 Super Strength 50 MCG (1999 UT) TAKE ONE CAPSULE BY MOUTH EVERY DAY. Oral; Duration: 90 Active Aspirin Low Dose 81 MG Oral; Duration: 90 Active Atorvastatin Calcium 80 MG Oral; Duration: 90 Active metFORMIN HCl ER 500 MG TAKE TWO TABLETS BY MOUTH TWICE A DAY Oral; Duration: 90 Active Lantus SoloStar 100 UNIT/ML INJECT 25 UN ITS SUBCUTANEOUSLY EVERY EVENING. Subcutaneous; Duration: 60 Active hydroCHLOROthiazide 25 MG 1 tablet in th e morning Orally Once a day; Duration: 30 day(s) Active Naproxen 500 MG TAKE ONE TABLET BY MOUTH TWICE A DAY NEEDED FOR PAIN WITH FOOD Oral; Duration: 30 Active Loratadine 10 MG 1 tablet Orally Once a day; Duration: 30 day(s) Active Acetaminophen ER 650 MG TAKE ONE TABLET BY MOUTH EVERY 8 HOURS NEEDED FOR PAIN. DO NOT CRUSH CHEW OR SPLIT Oral every 6 hours Active Metoprolol Succinate ER 25 MG Oral; Duration: 30 Active Trulicity 3 MG/0.5ML Subcutaneous; Durat ion: 28 Active Ventolin HFA 108 (90 Base) MCG/ACT INHALE TWO PUFFS BY MOUTH EVERY 4 HOURS NEEDED FOR WHEEZING OR FOR SHORTNESS OF BREATH Inhalation; Duration: 16 Active Cyclobenzaprine HCl 5 MG TAKE ONE TO TWO TABLETS BY MOUTH THREE TIMES A DAY NEEDED FOR BACK PAIN. Oral; Duration: 10 Active Social History Tobacco Use: Social [...] Status Risk Notes Problem Colon cancer screening (472706837) Colon cancer screening (Z12.11) Active confirmed Problem Diarrhea (16005074) Diarrhea (R19.7) Active confirmed Problem Fatty liver (257338500) Fatty liver (K76.0) Active confirmed Vital Signs Blood pressure diastolic 00 mm Hg 11/10/2024 Height 5 ft 10 in in 11/10/2024 Blood pressure systolic 00 mm Hg 11/10/2024 Weight 306 lbs 11/10/2024 BMI 43.90 kg/m2 11/10/2024 Encounters Encounter Location Date Provider Diagnosis [facility] [address] [place] [phone] 11/10/2024 Nilesh Pittman Colon cancer screening Z12.11 ; Fatty liver K76.0 and Diarrhea R19.7 [facility] [address] [place] [phone] 03/07/2025 Nilesh Pittman Assessments Encounter Date Diagnosis [...] Insured Coverage Start Date Coverage End Date [facility] [address] Attn Claims BARI Stanley [id number] OLIVIA HAINES Self - patient is the [...] lesion, biliary disease, splenomegaly, nor ascites Denies [place],renal disease HTN Hyperlipidemia Surgical History Surgery Date(Month/Year) dental work
--- OUTSIDE RECORDS SUMMARY | 2025-09-29 12:05 | XMS_ITS | Encounter Summary ---
Author Organization [employer] Address [address] [facility] 7t [place] [address] Care Team Providers Care Enamel Cracker Name Role Phone Ailin Rizo Primary Care Provider [phone] Juliet Garcia PharmD Unavailable [phone] Reason for Visit * Reason Comments Med Refill Encounter Details Date Type Department Care Team ([facility] st Contact Info) Description 09/26/2025 Refill [facility] MEDICINE [address] [place] [address] Ailin Rizo FNP [address] [place], [place] [phone] Pain Social History Tobacco Use Types Packs/Day [...] Description 10/26/2025 12:45 PM EST Office Visit [facility] ADULT DENTAL [address] [place] [address] Alexa Murphy 11/09/2025 2:30 PM EST Office Visit [facility] ADULT DENTAL [address] [place] [address] Humza Clay DDS [address] [place] [address] documented as of this encounter Visit Diagnoses Diagnosis Pain Generalized pain documented in this encounter Additional Health Concerns Assessment Noted Time PHQ-9 Depression Total Score: 3 06/30/20 24 9:37 AM EDT documented as of this encounter Care Teams Enamel Cracker Relationship Specialty Start Date End Date Ailin Rizo FNP [address] [place] [address] PCP - General Family Medicine 07/23/22 Juliet Garcia PharmD [address] [place] [address] Pharmacist Internal Medicine 03/09/25 documented as of this encounter
--- OUTSIDE RECORDS SUMMARY | 2025-09-29 12:05 | XMS_ITS | Encounter Summary ---
Author Organization [employer] Address [address] [facility] [address] 7[address] [place] [address] Care Team Providers Care Brand Ambassador Name Role Phone AlinaAilin wood BARREL RIFLER Primary Care Provider [phone] Juliet Garcia PharmD Unavailable [phone] Encounter Details Date Type Department Care Team (Latest Contact Info) Description 09/27/2025 Travel Social History Tobacco Use Types Packs/Day Years [...] 10/26/2025 12:45 PM EST Office Visit [facility] ADULT DENTAL [address] [place] [address] Alexa Murphy 11/09/2025 2:30 PM EST Office Visit [facility] ADULT DENTAL [address] [place] [address] Humza Clay DDS [address] [place] [address] documented as of this encounter Visit Diagnoses Not on filedocumented in this encounter Additional Health Concerns Assessment Noted Time PHQ-9 Depression Total Score: 3 06/30/20 24 9:37 AM EDT documented as of this encounter Care Teams Brand Ambassador Relationship Specialty Start Date End Date Ailin Rizo FNP [address] [place] [address] PCP - General Family Medicine 07/23/22 Juliet Garcia PharmD [address] [place] [address] Pharmacist Internal Medicine 03/09/25 documented as of this encounter
--- OUTSIDE RECORDS SUMMARY | 2025-09-29 12:05 | XMS_ITS | Encounter Summary ---
Author Organization [employer] Address [address] [facility] [address] 7t [place] [address] Care Team Providers Care Software Database Architect Name Role Phone Ailin Rizo Primary Care Provider [phone] Juliet Garcia PharmD Unavailable [phone] Reason for Visit * Reason Comments Med Refill Encounter Details Date Type Department Care Team (Late st Contact Info) Description 04/27/2024 Refill [facility] MEDICINE [address] [place] [address] Ailin Rizo FNP [address] [place], [place] [phone] Primary hypertension Social History Tobacco Use Types [...] Description 10/26/2025 12:45 PM EST Office Visit [facility] ADULT DENTAL [address] [place] [address] Alexa Murphy 11/09/2025 2:30 PM EST Office Visit [facility] ADULT DENTAL [address] [place] [address] Humza Clay DDS [address] [place] [address] documented as of this encounter Visit Diagnoses Diagnosis Primary hypertension Unspecified essential hypertension documented in this encounter Additional Health Concerns Assessment Noted Time PHQ-9 Depression Total Score: 2 04/18/20 23 3:00 PM EDT documented as of this encounter Care Teams Software Database Architect Relationship Specialty Start Date End Date Ailin Rizo FNP [address] [place] [address] PCP - General Family Medicine 07/23/22 Juliet Garcia PharmD [address] [place] [address] Pharmacist Internal Medicine 03/09/25 documented as of this encounter
--- OUTSIDE RECORDS SUMMARY | 2025-09-29 12:05 | XMS_ITS | Encounter Summary ---
Author Organization [employer] Address 75 [facility] 7t [place] [address] Care Team Providers Care Personal Care Worker Name Role Phone Ailin Rizo Primary Care Provider [phone] Juliet Garcia PharmD Unavailable [phone] Reason for Visit * Reason Comments Med Refill Encounter Details Date Type Department Care Team ([facility] st Contact Info) Description 09/10/2024 Refill [facility] MEDICINE [address] [place] [address] Ailin Rizo FNP [address] [place], [place] [phone] Type 2 diabetes mellitus treated with insulin ([facility]) Social History Tobacco Use Types Packs/Day Years [...] Description 10/26/2025 12:45 PM EST Office Visit [facility] ADULT DENTAL [address] [place] [address] Alexa Murphy 11/09/2025 2:30 PM EST Office Visit [facility] ADULT DENTAL [address] [place] [address] Humza Clay DDS [address] [place] [address] documented as of this encounter Visit Diagnoses Diagnosis Type 2 diabetes mellitus treated with insulin (HCC) documented in this encounter Additional Health Concerns Assessment Noted Time PHQ-9 Depression Total Score: 3 06/30/20 24 9:37 AM EDT documented as of this encounter Care Teams Personal Care Worker Relationship Specialty Start Date End Date Ailin Rizo FNP [address] [place] [address] PCP - General Family Medicine 07/23/22 Juliet Garcia PharmD [address] [place] [address] Pharmacist Internal Medicine 03/09/25 documented as of this encounter
--- OUTSIDE RECORDS SUMMARY | 2025-09-29 12:05 | XMS_ITS | Encounter Summary ---
Author Organization [employer] Address [address] [facility] [address] 7t [place] [address] Care Team Providers Care Packing Room Supervisor Name Role Phone Ailin Rizo Primary Care Provider [phone] Juliet Garcia PharmD Unavailable [phone] Reason for Visit * Reason Comments Med Refill Encounter Details Date Type Department Care Team ([facility] st Contact Info) Description 10/04/2024 Refill [facility] MEDICINE [address] [place] [address] Ailin Rizo FNP [address] [place], [place] [phone] Primary hypertension Social History Tobacco Use Types [...] Description 10/26/2025 12:45 PM EST Office Visit [facility] ADULT DENTAL [address] [place] [address] Alexa Murphy 11/09/2025 2:30 PM EST Office Visit [facility] ADULT DENTAL [address] [place] [address] Humza Clay DDS [address] [place] [address] documented as of this encounter Visit Diagnoses Diagnosis Primary hypertension Unspecified essential hypertension documented in this encounter Additional Health Concerns Assessment Noted Time PHQ-9 Depression Total Score: 3 06/30/20 24 9:37 AM EDT documented as of this encounter Care Teams Packing Room Supervisor Relationship Specialty Start Date End Date Ailin Rizo FNP [address] [place] [address] PCP - General Family Medicine 07/23/22 Juliet Garcia PharmD [address] [place] [address] Pharmacist Internal Medicine 03/09/25 documented as of this encounter
--- OUTSIDE RECORDS SUMMARY | 2025-09-29 12:05 | XMS_ITS | Encounter Summary ---
Author Organization [employer] Address [address] [facility] 7t [place] [address] Care Team Providers Care Settlement Processor Name Role Phone Ailin Rizo Primary Care Provider [phone] Juliet Garcia PharmD Unavailable [phone] Reason for Visit * Reason Comments Med Refill Encounter Details Date Type Department Care Team (Late st Contact Info) Description 06/06/2025 Refill [facility] MEDICINE [address] [place] [address] Ailin Rizo FNP [address] [place], [place] [phone] Type 2 diabetes mellitus treated with insulin ([facility]) Social History Tobacco Use Types Packs/Day Years [...] Description 10/26/2025 12:45 PM EST Office Visit [facility] ADULT DENTAL [address] [place] [address] Alexa Murphy 11/09/2025 2:30 PM EST Office Visit [facility] ADULT DENTAL [address] [place] [address] Humza Clay DDS [address] [place] [address] documented as of this encounter Visit Diagnoses Diagnosis Type 2 diabetes mellitus treated with insulin (HCC) documented in this encounter Additional Health Concerns Assessment Noted Time PHQ-9 Depression Total Score: 3 06/30/20 24 9:37 AM EDT documented as of this encounter Care Teams Settlement Processor Relationship Specialty Start Date End Date Ailin Rizo FNP [address] [place] [address] PCP - General Family Medicine 07/23/22 Juliet Garcia PharmD [address] [place] [address] Pharmacist Internal Medicine 03/09/25 documented as of this encounter
--- OUTSIDE RECORDS SUMMARY | 2025-09-29 12:05 | XMS_ITS | Encounter Summary ---
Author Organization [employer] Address [address] [facility] 7t [place] [address] Care Team Providers Care Computer Systems Software Engineer Name Role Phone Ailin Rizo BOSS DYER Primary Care Provider [phone] Juliet Garcia PharmD Unavailable [phone] Encounter Details Date Type Department Care Team ([facility] st Contact Info) Description 09/29/2025 Orders Only GENERIC EXTERNAL DATA DEPARTMENT Provider, Generic External Data Social History Tobacco Use Types Packs/Day Years [...] AM EDT documented as of this encounter Functional Status * Over the past 2 weeks, how often have you been bothered by any of the following problems? Question Answer Date of Assessment Author Patient Health Questionnaire -2 Score 1 09/29/2025 9:15 AM Binta Montes [place] * Little interest or pleasure in [...] Description 10/26/2025 12:45 PM EST Office Visit [facility] ADULT DENTAL [address] [place] [address] Alexa Murphy 11/09/2025 2:30 PM EST Office Visit [facility] ADULT DENTAL [address] [place] [address] Humza Clay DDS [address] [place] [address] documented as of this encounter Procedures Procedure Name Priority Date/Time Associated Diagnosis Comments PSA, TOTAL Routine 09/29/2025 10:33 AM EST documented in this encounter Results * PSA,Total (09/29/2025 10:33 AM EST) Prostate Specific Antigen 0.47 <0.05 - 4.0 ng/mL [facility] Comment:PSA methodology: Dane Neri i ChemiluminescentMicroparticle Immunoassay (CMIA) 09/29/2025 10:3 3 AM EST 09/29/2025 10:33 AM EST us Generic External Data Provider LAB BLOOD ORDERAB LES Final Result [facility] [address] [place] [address] [phone] documented in this encounter Visit Diagnoses Not on filedocumented in this encounter Additional Health Concerns Assessment Noted Time PHQ-9 Depression Total Score: 3 09/29/20 25 9:15 AM EST documented as of this encounter Care Teams Computer Systems Software Engineer Relationship Specialty Start Date End Date Ailin Rizo FNP [address] [place] [address] PCP - General Family Medicine 07/23/22 Juliet Garcia PharmD [address] [place] [address] Pharmacist Internal Medicine 03/09/25 documented as of this encounter
--- OUTSIDE RECORDS SUMMARY | 2025-09-29 12:05 | XMS_ITS | Encounter Summary ---
Author Organization [employer] Address [address] [facility] [address] 7[address] [place] [address] Care Team Providers Care Music Professionals Name Role Phone Ailin Rizo Primary Care Provider [phone] Juliet Garcia PharmD Unavailable [phone] Reason for Visit * Reason Comments Med Refill Encounter Details Date Type Department Care Team (Late st Contact Info) Description 04/01/2024 Refill [facility] MEDICINE [address] [place] [address] Ailin Rizo FNP [address] [place], [place] [phone] Social History Tobacco Use Types Packs/Day Years [...] Description 10/26/2025 12:45 PM EST Office Visit [facility] ADULT DENTAL [address] [place] [address] Alexa Murphy 11/09/2025 2:30 PM EST Office Visit [facility] ADULT DENTAL [address] [place] [address] Humza Clay DDS [address] [place] [address] documented as of this encounter Visit Diagnoses Not on filedocumented in this encounter Additional Health Concerns Assessment Noted Time PHQ-9 Depression Total Score: 2 04/18/20 23 3:00 PM EDT documented as of this encounter Care Teams Music Professionals Relationship Specialty Start Date End Date Ailin Rizo FNP [address] [place] [address] PCP - General Family Medicine 07/23/22 Juliet Garcia PharmD [address] [place] [address] Pharmacist Internal Medicine 03/09/25 documented as of this encounter
--- OUTSIDE RECORDS SUMMARY | 2025-09-29 12:05 | XMS_ITS | Data Portability ---
Author Organization [employer] [facility], [facility] Address [address] [place] [address] Care Team Providers Care Scout Leaser Name Role Phone HIM ERVIN OTHER Assessment Encounter Date Assessment Date Assessment LastModified by Organization Details LastModified Time 11/03/2024 11/03/2024 As noted, we were called to see this patient regarding concerns of chest pain on exertion, resolving with rest, and not worsening. Evaluation in the field was performed by my channeler insole colleague, as noted above, I provided real-time [...] visit, which would likely only evaluate for IA and then d/c to stress testing. That [...] with this approach still some risk of IA, arrhythmia, SCD that cannot be eliminated Primary [...] fatigue, diaphoresis, jaw pain, LH, or pallor. [email or web address] Not available 11/03/2024 21:10:09 Plan of Treatment Reminders Order Date Submit Date Provider Last Modified By Organization Details Last Modified Time Details Appointments None recorded. Lab glucose, fingersti ck, blood [address], [address] 4 08:32:04 BMP, serum or plasma [address], [address] 4 18:53:37 Referral None recorded. Procedures None recorded. Surgeries None recorded. Imaging electroca rdiogram [email or web address], [address] 4 09:45:01 Medication Orders metoprolo l succinate ER 25 mg tablet,ex tended release 24 hr 2023 [facility], [address] [place], [address], 4 18:30:29 Lasix 40 mg tablet 2023 [facility], [address] [place], [address], 4 18:53:40 furosemid e 20 mg tablet 2023 [facility], [address] [place], [address], 18:53:37 Patient TargetsNo targets recorded. Patient InstructionsNo instructions recorded. Reason for Referral None Reported. Results Created Date Observation Date Name Description Value Unit Range Abnormal Flag Note LastModifiedBy Organization Detail LastModifiedTime 06/01/20 24 06/01/2024 BMP, serum or plasm a CRE 0.44 Not Available [facility] [address], [address] 06/01/2024 18:51:00 06/01/2006/01/2024 BMP, serum or plasm a GLU 364 Not Available [facility] [address], [address] 06/01/2024 18:51:00 06/01/2006/01/2024 BMP, serum or plasm a K+ 4.3 Not Available [facility] [address], [address] 06/01/2024 18:51:00 11/03/20 24 11/04/2024 elect ashley siegel am No observ ation record ed. [email or web address] [address], [address] 11/04/2024 07:58:43 Result Notes None recorded. Medical Equipment None Reported. Allergies Allergen ID Allergen Name Allergen Category Reaction Reaction Severity Criticality Documentation Date Start Date Code Code System Note Provider Name and Address Organization Details Recorded Time 5348 lisinopri l medicatio n Not available Not available Not available 06/01/2024 43543 RxNorm Not Available [employer] - production 17:13:04 5349 shrimp allergeni c extract food Not available Not available Not available 06/01/2024 35684 2 RxNorm Bonny Oakley MD [address] [place] [address],[address], [place], [address] , [employer] 18:30:52 Medications Name Sig Start Date Stop [...] Available Not Available No t Available FreeStyle Arcata Lite kit USE DIRECTED TO TEST BLOOD [...] [degF] 175.26 cm 95 % 95 % 043533. 48 g 77 /min 163/90 mm[Hg] Not Available [employer] 4 18:34:40 Date Recorded Heart rate Oxygen saturation Oxygen saturation in Arterial blood by Pulse oximetry Body temperature Respiratory rate Systolic And Diastolic Provider Name and Address Organization Details Last Updated DateTime 4 93 /min 96 % 96 % 99.2 [degF] 18 /min 124/85 mm[Hg] Not Available [employer] 4 21:44:01 Date Recorded Body temperature Oxygen saturation Oxygen saturation in Arterial blood by Pulse oximetry Heart rate Respiratory rate Systolic And Diastolic Provider Name and Address Organization Details Last Updated DateTime 4 98.4 [degF] 97 % 97 % 81 /min 18 /min 136/89 mm[Hg] Not Available [employer] 4 18:22:06 Social History None recorded. Functional Status None recorded. Mental Status None recorded. Family History Nothing Reported. Medical History No medical history recorded. Past Encounters Encounter ID Performer Location Encounter Start Date Encounter Closed Date Diagnosis/Indication Diagnosis SNOMED-CT Code Diagnosis ICD10 Code Diagnosis IMO Codes Diagnosis Note [id number] Bonny Oakley MD Main - [facility] [address] [place] [phone] 06/01/2024 18:34:20 06/02/2024 16:59:30 Peripheral edema 662798145 R60.9 As noted, we were called to see this patient regarding concerns of LE edema. Evaluation in the field was performed by my channeler insole colleague, as noted above, I provided real-time [...] to consciousn ess, chest pain, difficulty breathing. [id number] Kojo Parsons MD Main - [facility] [address] [place] [phone] 09/02/2024 21:43:59 09/03/2024 19:32:16 Retention of urine 836630437 R33.9 As noted, we were called to see this patient regarding concerns of pelvic pain and loss of bladder control. Evaluation in the field was performed by my channeler insole colleague, as noted above, I provided real-time [...] was based on sudden focal neurologic deficits. [id number] Kojo Parsons MD Main - [address] [phone] 11/03/2024 18:21:57 11/05/2024 00:03:44 Angina pectoris 254534154 I20.9 Health Concerns Section Related Observation LastModified by Organization Detai ls LastModified Time None Recorded Concern Status LastModified by Organization Details LastModified Time None Recorded Advance Directives Directive None Recorded Payers Insurance Date Sequence Insurance Name Policy Number Policy Baum Covered Member ID Baum Member ID Guarantor Name 11/18/2024 [facility] ON OR AFTER 2023 - DUAL ELIGIBLE - PRISON OPTIONS AND ONE CARE (MEDICARE REPLACEMENT/ADV ANTAGE - HMO) Pavel Boyd [id number] Pavel Boyd Notes Date Note Type Note Provider Name and Address Organization Details Recorded Time 06/01/2024 text/html HPI: Patient with two day history of upper calf outer knee pain on right leg. Treated in the past for cellulitis and pain and redness resolved. Area feels tight ................... ................... ................... ................... ................... ................... ................... ........ CRC Nurse Triage Notes (Chris Garber): Comments: Freight Clerk verified the member's name//address and phone number. [...] same in 10/17 - Wellness check requested [employer] Team Member POC Test Results from Jeff Rangel [facility] (18:25:05) pH: 7.44 pH units pCO2: 40.1 mmHg pO2: 50.5 mmHg Na: 137 mmol/L K: 4.3 mmol/L iCa: 1.17 mmol/L Cl: 100 mmol/L TCO2: 27.1 mEq/L Hct: 45 % Hb: 15.4 g/dL Glu: 364 mg/dL Lac: 1.2 mmol/L Cr: 0.44 mg/dL BUN: 12 mg/dL A ................... ................... ................... ................... ................... ................... ................... ........ [employer] Team Member Note From Jeff Rangel: Pt with hx [...] for a while now in the 300 s . Pt denies CP, SOB, BOWERS, f/n/v/d. Pt [...] ................... ................... ................... ................... ........ Disposition: Christofer Oakley MD [address] [place] [address],[address], [place], [address], BAILEY Laird [email or web address] ROCKWELL 06/01/2024 20:03:41 09/02/2024 text/html HPI: I had [...] - Wellness check requested Kojo Parsons MD [address] [place] [address],[address], [place], [address], [employer] 09/02/2024 22:31:20 11/03/2024 text/html HPI: Patient reports [...] unable to reach member at this time [employer] Team Member Organization Information for Ernst Madhu [employer] Legal Name: [employer]. Address: [address] [place] [address], Speech Assistant: Harman Mandel MD [facility] No.: [id number] [employer] Team Member POC Test Results from Ernst Madhu - AYDEN EKG (18:17:07) EKG test performed. Attachments uploaded as part of this test result can be found under Documents section. ................... ................... ................... ................... ................... ................... ................... ........ [employer] Team Member Note From Ernst Madhu: Dispatched to the [...] ................... ................... ................... ................... ................... ................... ........ [facility] Consulted: Rob Parsons ................... ................... ................... ................... ................... ................... ................... ........ Disposition: Fulfilled Kojo Parsons MD [address] [facility], [place], [address], [facility] - damntheradioMOIZ, GINNY 11/03/2024 21:10:19
--- OUTSIDE RECORDS SUMMARY | 2025-09-29 12:05 | XMS_ITS | Encounter Summary ---
Author Organization [employer] Address [address] 7[address] [place] [address] Care Team Providers Care Records Assistant Name Role Phone Ailin Rizo Primary Care Provider [phone] Juliet Garcia PharmD Unavailable [phone] Reason for Visit * Reason Comments Med Refill Encounter Details Date Type Department Care Team (Late st Contact Info) Description 06/08/2024 Refill [facility] MEDICINE [address] [place] [address] Ailin Rizo FNP [address] [place], [place] [phone] Primary hypertension Social History Tobacco Use Types [...] Description 10/26/2025 12:45 PM EST Office Visit [facility] ADULT DENTAL [address] [place] [address] Alexa Murphy 11/09/2025 2:30 PM EST Office Visit [facility] ADULT [facility] [address] [place] [address] Humza Clay DDS [address] [place] [address] documented as of this encounter Visit Diagnoses Diagnosis Primary hypertension Unspecified essential hypertension documented in this encounter Additional Health Concerns Assessment Noted Time PHQ-9 Depression Total Score: 2 04/18/20 23 3:00 PM EDT documented as of this encounter Care Teams Records Assistant Relationship Specialty Start Date End Date Ailin Rizo FNP [address] [place] [address] PCP - General Family Medicine 07/23/22 Juliet Garcia PharmD [address] [place] [address] Pharmacist Internal Medicine 03/09/25 documented as of this encounter
--- OUTSIDE RECORDS SUMMARY | 2025-09-29 12:06 | XMS_ITS | Encounter Summary ---
Author Organization [employer] Address [address] [place] [address] [address] [place] [address] Care Team Providers Care Embedded Software Design Engineer Name Role Phone Ailin Rizo Primary Care Provider [phone] Juliet Garcia PharmD Unavailable [phone] Reason for Visit * Reason Comments Med Refill Encounter Details Date Type Department Care Team (Late st Contact Info) Description 01/13/2023 Refill [facility] [address] [place] [address] Ailin Rizo FNP [address] [place] [address] Vitamin D insufficiency Social History Tobacco Use [...] 12:45 PM EST Office Visit [facility] ADULT DENTAL [address] [place] [address] Alexa Murphy 11/09/2025 2:30 PM EST Office Visit [facility] ADULT DENTAL [address] [place] [address] Humza Clay DDS [address] [place] [address] documented as of this encounter Visit Diagnoses Diagnosis Vitamin D insufficiency documented in this encounter Care Teams Embedded Software Design Engineer Relationship Specialty Start Date End Date Ailin Rizo FNP [address] [place] [address] PCP - General Family Medicine 07/23/22 Juliet Garcia PharmD [address] [place] [address] Pharmacist Internal Medicine 03/09/25 documented as of this encounter
--- OUTSIDE RECORDS SUMMARY | 2025-09-29 12:06 | XMS_ITS | Encounter Summary ---
Author Organization [employer] Address [address] [facility] [address] [place] [address] Care Team Providers Care Woodworker Name Role Phone Ailin Rizo Primary Care Provider [phone] Juliet Garcia PharmD Unavailable [phone] Reason for Visit * Reason Onset Date Comments Appointment Request 03/04/2023 Encounter Details Date Type Department Care Team (Late Contact Info) Description 03/04/2023 Telephone [facility] MEDICINE [address] [place] [address] Ailin Rizo FNP [address] [place] [address] Appointment Request Social History Tobacco Use Types [...] - 03/04/2023 9:43 AM EDT Tc from [facility] requesting a Physical appt for pt. Please contact pt at [phone] documented in this encounter Plan of Treatment Upcoming Encounters Date Type Department Care Team (Late Contact Info) Description 10/26/2025 12:45 PM EST Office Visit [facility] ADULT DENTAL [address] [place] [address] Alexa Murphy 11/09/2025 2:30 PM EST Office Visit [facility] ADULT DENTAL [address] [place], [place] [phone] Humza Clay DDS [address] [place] [address] documented as of this encounter Visit Diagnoses Not on filedocumented in this encounter Care Teams Woodworker Relationship Specialty Start Date End Date Ailin Rizo FNP [address] [place] [address] PCP - General Family Medicine 07/23/22 Juliet Garcia PharmD [address] [place] [address] Pharmacist Internal Medicine 03/09/25 documented as of this encounter
--- OUTSIDE RECORDS SUMMARY | 2025-09-29 12:06 | XMS_ITS | Clinical Summary ---
Author Organization [facility] Address [address] [facility] [address] [place] [address] Phone Care Team Providers Care Silk Spreader Name Role Phone Pcp, Unknown Primary Care [...] (2 of 2 - PCV) 2021 07/14/2013 RSV VACCINE (1 - Risk 50-74 years 1-dose series) 2021 ZOSTER VACCINES (1 of 2) 2021 INFLUENZA VACCINE (#1) 2025 COVID-19 VACCINE (1 - 2024-2 6 season) 2025 SCREENING FOR DIABETES 06/30/2027 06/30/2024 [...] topic Medical Devices Not on file Insurance [facility] C[facility] MEDICARE REPLACEMENT [facility] MEDICARE REPLACEMENT [facility] MEDICARE [facility]PLACEMENT [facility] CARE MEDICARE [facility]PLACEMENT [facility] MEDICARE REPLACEMENT [facility] MEDICARE REPLACEMENT Care Teams Silk Spreader Relationship Specialty Start Date End Date Pcp, Unknown PCP - General 09/03/24 Additional Source Comments The information contained in this document represents components of the legal health record. It is not the complete legal health record.[facility]
--- OUTSIDE RECORDS SUMMARY | 2025-09-29 12:06 | XMS_ITS | Encounter Summary ---
Author Organization [employer] Address [address] [facility] [address] [place] [address] Care Team Providers Care Manager Business Name Role Phone Ailin Rizo Primary Care Provider [phone] Juliet Garcia PharmD Unavailable [phone] Encounter Details Date Type Department Care Team (Late st Contact Info) Description 11/28/2022 Orders Only [facility] [address] [place] [address] Aria Montgomery LPN Social History Tobacco Use [...] Description 10/26/2025 12:45 PM EST Office Visit [facility] ADULT DENTAL [address] [place] [address] Alexa Murphy 11/09/2025 2:30 PM EST Office Visit [facility] ADULT DENTAL [address] [place], [place] [phone] Humza Clay DDS [address] [place] [address] documented as of this encounter Visit Diagnoses Not on filedocumented in this encounter Care Teams Manager Business Relationship Specialty Start Date End Date Ailin Rizo FNP [address] [place] [address] PCP - General Family Medicine 07/23/22 Juliet Garcia PharmD [address] [place] [address] Pharmacist Internal Medicine 03/09/25 documented as of this encounter
--- OUTSIDE RECORDS SUMMARY | 2025-09-29 12:06 | XMS_ITS | Encounter Summary ---
Author Organization [email or web address] Address [address] 7t [place] [address] Care Team Providers Care Light Air Defense Artillery Crewmember Name Role Phone Ailin Rizo Primary Care Provider [phone] Juliet Garcia PharmD Unavailable [phone] Encounter Details Date Type Department Care Team ([facility] st Contact Info) Description 05/07/2023 Telephone [facility] [address] [place] [address] Ailin Rizo FNP [address] [place] [address] Social History Tobacco Use Types Packs/Day Years [...] details updated. * Telephone Encounter - Crystal Cainez - 05/07/2023 2:06 PM EDT Tc from [facility] calling to inform PCP, in regards to upcoming appt on 05/09/23. States patient needs a new CPAP machine and new sleep study test. documented in this encounter Plan of Treatment Upcoming Encounters Date Type Department Care Team (Late st Contact Info) Description 10/26/2025 12:45 PM EST Office Visit [facility] ADULT DENTAL [address] [place] [address] Alexa Murphy 11/09/2025 2:30 PM EST Office Visit [facility] [address] [place] [address] Humza Clay DDS [address] [place] [address] documented as of this encounter Visit Diagnoses Not on filedocumented in this encounter Additional Health Concerns Assessment Noted Time PHQ-9 Depression Total Score: 2 04/18/20 3:00 PM EDT documented as of this encounter Care Teams Light Air Defense Artillery Crewmember Relationship Specialty Start Date End Date Ailin Rizo FNP [address] [place] [address] PCP - General Family Medicine 07/23/22 Juliet Garcia PharmD [address] [place] [address] Pharmacist Internal Medicine 03/09/25 documented as of this encounter
--- OUTSIDE RECORDS SUMMARY | 2025-09-29 12:06 | XMS_ITS | Encounter Summary ---
Author Organization [employer] Address [address] [place] [address] [address] [address] Care Team Providers Care Cotton Agent Name Role Phone Ailin Rizo Primary Care Provider [phone] Juliet Garcia PharmD Unavailable [phone] Encounter Details Date Type Department Care Team (Latest Contact Info) Description 09/30/2019 Abstract [facility] CONVERSIONS Dental, Provider, DDS Social History Tobacco [...] Upcoming Encounters Date Type Department Care Team ( st Contact Info) Description 10/26/2025 12:45 PM EST Office Visit [facility] ADULT DENTAL [address] [place] [address] Alexa Murphy 11/09/2025 2:30 PM EST Office Visit [facility] ADULT DENTAL [address] [place] [address] Humza Clay DDS [address] [place] [address] documented as of this encounter Visit Diagnoses Not on filedocumented in this encounter Care Teams Cotton Agent Relationship Specialty Start Date End Date Ailin Rizo FNP [address] [place] [address] PCP - General Family Medicine 07/23/22 Juliet Garcia, Aurelio [address] [place] [address] Pharmacist Internal Medicine 03/09/25 documented as of this encounter
--- OUTSIDE RECORDS SUMMARY | 2025-09-29 12:06 | XMS_ITS | Encounter Summary ---
Author Organization [employer] Address [address] [facility] 7t [place] [address] Care Team Providers Care Health And Wellness Director Name Role Phone Ailin Rizo AYAZ Primary Care Provider [phone] Juliet Garcia PharmD Unavailable [phone] Reason for Referral * Consultation (Routine) - Pending Review Specialty Diagnoses / Procedures Referred By Contac t Referred To Contact Pharmacy Diagnoses Type 2 diabetes mellitus without complication, with long-term current use of insulin (HCC) Ángela Penny MD [address] [place] [address] Phone: tel: fax: Referral ID Status Reason Start Date Expiration Date Visits Requested Visits Authorized [id number] Pending Review Consult and Treat 12/01/2024 12/01/2025 6 6 Encounter Details Date Type Department Care Team (Late st Contact Info) Description 12/01/2024 Orders Only [facility] MEDICINE [address] [place] [address] Ángela Penny MD [address] [place] [phone] Type 2 diabetes mellitus without complication, with [...] Description 10/26/2025 12:45 PM EST Office Visit [facility] ADULT DENTAL [address] [place] [address] Alexa Murphy 11/09/2025 2:30 PM EST Office Visit [facility] ADULT DENTAL [address] [place] [address] Humza Clay DDS [address] [place] [address] Scheduled Referrals Name Type Priority Associated Diagnoses Orde r Schedule Referral to Pharmacy CDTM Outpatient Referral Routine Type 2 diabetes mellitus without complication, with long-term current use of insulin ([facility]) Ordered: 12/01/2024 documented as of this encounter Visit Diagnoses Diagnosis Type 2 diabetes mellitus without complication, with long-term current use of insulin ([facility])- Primary documented in this encounter Additional Health Concerns Assessment Noted Time PHQ-9 Depression Total Score: 3 06/30/20 24 9:37 AM EDT documented as of this encounter Care Teams Health And Wellness Director Relationship Specialty Start Date End Date Ailin Rizo FNP [address] [place] [address] PCP - General Family Medicine 07/23/22 Juliet Garcia PharmD [address] [place] [address] Pharmacist Internal Medicine 03/09/25 documented as of this encounter
--- OUTSIDE RECORDS SUMMARY | 2025-09-29 12:06 | XMS_ITS | Encounter Summary ---
Author Organization [employer] Address [address] [facility] 7t [place] [address] Care Team Providers Care Kettle Hand Name Role Phone Ailin Rizo Primary Care Provider [phone] Juliet Garcia PharmD Unavailable [phone] Reason for Visit * Reason Onset Date Comments Med Refill 08/16/2025 Encounter Details Date Type Department Care Team ([facility] st Contact Info) Description 08/16/2025 Telephone [facility] MEDICINE [address] [place] [address] Ailin Rizo FNP [address] [place], [place] [phone] Med Refill Social History Tobacco Use Types Packs/Day Years [...] encounter Miscellaneous Notes * Telephone Encounter - Aria Montgomery LPN - 08/16/2025 12:22 PM EDT Medication sent to [facility] on 08/09/25 with 11 refills. * Telephone Encounter - Monique Alston - 08/16/2025 12:11 PM EDT TC from pt requesting medication refill. Medications needing refill : - BD Pen Needle Jane 2nd Gen 32G X 4 MM misc To be sent to: - [facility] - [address] documented in this encounter Plan of Treatment Upcoming Encounters Date Type Department Care Team (Late st Contact Info) Description 10/26/2025 12:45 PM EST Office Visit [facility] ADULT DENTAL [address] [place] [address] Alexa Murphy 11/09/2025 2:30 PM EST Office Visit [facility] ADULT DENTAL [address] [place] [address] Humza Clay DDS [address] [place], [place] [phone] documented as of this encounter Visit Diagnoses Not on filedocumented in this encounter Additional Health Concerns Assessment Noted Time PHQ-9 Depression Total Score: 3 06/30/20 24 9:37 AM EDT documented as of this encounter Care Teams Kettle Hand Relationship Specialty Start Date End Date Ailin Rizo FNP [address] [place] [address] PCP - General Family Medicine 07/23/22 Juliet Garcia PharmD [address] [place] [address] Pharmacist Internal Medicine 03/09/25 documented as of this encounter
--- OUTSIDE RECORDS SUMMARY | 2025-09-29 12:06 | XMS_ITS | Clinical Summary ---
Author Organization [employer] Address [address] [facility] [address] [place] [address] Care Team Providers Care Faculty Neuropsychologist Name Role Phone Ailin Rizo Primary Care Provider [phone] Juliet Garcia PharmD Unavailable [phone] Allergies Active Allergy Reactions Criticality Noted Date Comments Rigo Inhibitors Angioedema,Hives 06/27/2018 Lisinopril 02/12/2024 Shellfish Protein-Containing Drug Products 04/09/2017 Shrimp Extract Unknown 07/20/2024 Medications * This document contains information received from the source organization and may not represent a complete record from that organization. FreeStyle lancets USE TO TEST BLOOD SUGAR 3 TIMES DAILY 023 Active furosemide (Lasix) 40 MG tablet [...] EACH NOSTRIL. 16 g 5 024 Active hydroCHLOROthiaz earl 12.5 MG tabletIndication s:Primary hypertension Take 1 tablet by mouth Once per day. Active ketoconazole (NIZOral) 2 % creamIndications :Rash of genital area Apply thin layer by topical route daily to affected area 30 g 1 08/06/2 024 Active Additional Information Patient not taking.Reported on 09/28/2025 hydrocortisone 2.5 % creamIndications :Rash of genital area Apply topically 2 times daily. Apply pea sized amount to affected area twice daily for 2 weeks. 30 g 1 024 Active Additional Information Patient not taking.Reported on 09/28/2025 Lancets miscIndications: Type 2 diabetes mellitus without complication, with long-term current use of insulin ([facility]) Use to test blood sugar 3 times daily 100 each 3 024 Active Additional Information Patient not taking.Reported on 09/28/2025 Blood Glucose Monitoring Suppl (FreeStyle Solo Lite) w/Device kitIndications:T ype 2 diabetes mellitus without complication, with long-term current use of insulin ([facility]) Use to test blood sugar 3 times daily 1 kit Active glucose blood (FREESTYLE LITE) test stripIndications :Type 2 diabetes mellitus without complication, with long-term current use of insulin ([facility]) USE TO TEST BLOOD SUGAR 3 TIMES DAILY 100 each 11 024 Active cyclobenzaprine (Flexeril) 5 MG tabletIndication s:Muscle spasm TAKE 1 TO 2 TABLETS BY MOUTH THREE TIMES DAILY NEEDED FOR BACK PAIN 60 tablet 2 024 Active metoprolol succinate XL (Toprol-XL) 25 MG 24 hr tablet Take 1 tablet by mouth Once per day. 024 Active insulin glargine (Lantus SoloStar) 100 UNIT/ML [...] long-term current use of insulin ([facility]) USE TO TEST BLOOD SUGARS 3 TIMES A DAY. 100 each 11 025 Active Continuous Glucose Legal Arbitrator (FreeStyle Kathi 3 [place]) deviceIndication s:Type 2 diabetes mellitus without complication, with long-term current use of insulin ([facility]) 1 each Once per day. Use as directed for CGM 1 each Active Continuous Glucose Sensor (FreeStyle Kathi 3 Plus Sensor) miscIndications: Type 2 diabetes mellitus without complication, with long-term current use of insulin ([facility]) Apply 1 every 15 days as directed for CGM 2 each Active glucose blood (FreeStyle Precision Morris Test) test strip Use to test blood sugar 3 times daily in case of CGM failure or extremes of BG 100 each Active Additional Information Patient not taking.Reported on 09/28/2025 atorvastatin (Lipitor) 80 MG tablet TAKE ONE TABLET BY MOUTH DAILY AT BEDTIME 90 tablet 3 Active D3 Super Strength 50 MCG (1999 UT) capsuleIndicatio ns:Vitamin D insufficiency TAKE ONE CAPSULE BY MOUTH EVERY DAY. 90 capsule 1 Active BD Pen Needle Jane 2nd Gen 32G X 4 MM misc FOR USE WITH INSULIN PEN. 100 each Active Aspirin Low Dose 81 MG EC tablet TAKE ONE TABLET BY MOUTH EVERY DAY 90 tablet 3 Active chlorhexidine (Peridex) 0.12 % solution Swish 15 mL morning and night for 1 minute. Spit, do not swallow. Do not eat or drink for 30 minutes following use. 473 mL Active acetaminophen (Tylenol 8 Hour) 650 MG ER tablet Take 1 tablet (650 mg) by mouth every 8 (eight) hours if needed for mild pain. Do not crush, chew, or split. 30 tablet Active metFORMIN XR (Glucophage-XR) 500 MG 24 hr tablet TAKE TWO TABLETS BY MOUTH TWICE A DAY 360 tablet 1 Active glipiZIDE XL (Glucotrol XL) 5 MG 24 hr tabletIndication s:Type 2 diabetes mellitus treated with insulin ([facility]) TAKE ONE TABLET BY MOUTH EVERY DAY 90 tablet 1 Active ezetimibe (Zetia) 10 MG tablet Take 10 mg by mouth. Active polyethylene glycol, PEG, 3350 (Glycolax) 17 GM/SCOOP powder TAKE 17 GRAMS ORALLY DAILY NEEDED FOR CONSTIPATION MIX POWDER IN 4 TO 8 OUNCES OF LIQUID BEFORE CONSUMING)). Active naproxen (Naprosyn) 500 MG tabletIndication s:Pain TAKE ONE TABLET BY MOUTH TWICE A DAY NEEDED FOR PAIN WITH FOOD 60 tablet 3 Active Tirzepatide (Mounjaro) 2.5 MG/0.5ML solution auto-injector Inject 2.5 mg under the skin 1 (one) time per week. 2 mL 1 025 2024 Active acetaminophen (Tylenol) 500 MG tablet Take 1 tablet (500 mg) by mouth every 6 (six) hours if needed for mild pain for up to 20 doses. 20 tablet 024 2024 Discontinued(D uplicate order (will not trigger notification to Pharmacy)) econazole nitrate 1 % creamIndications :Intertrigo Apply topically Once per day. 85 g 024 2024 glipiZIDE XL (Glucotrol XL) 5 MG 24 hr tabletIndication s:Type 2 diabetes mellitus treated with insulin (HCC) TAKE ONE TABLET BY MOUTH EVERY DAY 90 tablet 1 025 2024 Discontinued metFORMIN XR (Glucophage-XR) 500 MG 24 hr tablet Take 2 tablets (1,000 mg) by mouth 2 times daily. Do not crush, chew, or split. 120 tablet 11 025 2024 Discontinued Dulaglutide (Trulicity) 4.5 MG/0.5ML solution auto-injector Inject 4.5 mg under the skin 1 (one) time per week. 2 mL 2 025 2024 Discontinued(D ose adjustment) naproxen (Naprosyn) 500 MG tabletIndication s:Pain TAKE ONE TABLET BY MOUTH TWICE A DAY NEEDED FOR PAIN WITH FOOD 60 tablet 3 025 2024 Discontinued Active Problems Problem Noted Date Diagnosed Date Exertional chest pain 05/02/2025 Overview (05/02/2025): Following with [facility] cardiology Assessment & Plan (05/02/2025 12:44 PM EDT): - Consult in February 2025. Plan for treadmill stress test and echo. - ED precautions reviewed Lateral epicondylitis of left elbow 09/24/2024 Overview (09/24/2024): Followed by [facility] Ortho Tx: counterforce brace, referred to OT. Consider cortisone injection if conservative measures fail Hepatic steatosis 09/24/2024 Assessment & Plan (05/02/2025 12:30 PM EDT): Abd Aug 2024 in ED c/w hepatic steatosis Reviewed basic education regarding condition Lifestyle interventions encouraged Consult with Dr. Pittman in October 2024 Lab Results Component Value Date AST 10 08/28/2024 ALT 14 08/28/2024 TOTPROTEIN 7.9 08/28/2024 ALB 4.1 08/28/2024 ALP 73 08/28/2024 TOTALBILIRUB 0.5 08/28/2024 Assessment & Plan (09/24/2024 8:27 AM EDT): [facility] Aug 2024 in ED c/w hepatic steatosis Reviewed basic education regarding condition Lifestyle interventions encouraged Lab Results Component Value Date AST 10 08/28/2024 ALT 14 08/28/2024 TOTPROTEIN 7.9 08/28/2024 ALB 4.1 08/28/2024 ALP 73 08/28/2024 TOTALBILIRUB 0.5 08/28/2024 Class 3 severe obesity due t o [...] CVA Nov 2006 Healthcare maintenance 04/19/2023 Overview (05/02/2025): Colonoscopy: referred to GI 04/19/23, re-referral 07/02/24. Scheduled February 2025 for colonoscopy, NS. PSA: WNL March 2023 Smoking: none STI: asymptomatic labs neg March 2023 Last PE: 06/30/24 OPH: November 2024 with [facility]. No diabetic retinopathy Assessment & Plan (04/19/2023 9:41 AM EDT): Colonoscopy: referred to GI 04/19/23 PSA: shared decision making to proceed with screening March 2023 Smoking: none STI: asymptomatic labs pending -Hep B and PCV20 administered today Allergic rhinitis 09/23/2015 Hyperlipidemia associated with type 2 diabetes m ashaitus 09/23/2015 Assessment & Plan (04/18/2023 1:12 PM EDT): Continue with atorvastatin 80mg nightly Primary hypertension [...] Assessment & Plan (04/19/2023 9:37 AM EDT): BP goal < 130/80 mmHg Encouraged lifestyle interventions such as low salt diet and daily physical activity Continue with current med regimen: Amlodipine 10mg daily hydrochlorothiazide 12.5mg daily (History of angioedema with ACEi/ARB, avoid) Low back pain 09/23/2015 Mild intermittent asthma 09/23/2015 Assessment & Plan (06/30/2024 6:09 AM EDT): Reports well controlled Continues with albuterol PRN Assessment & Plan (04/19/2023 9:31 AM EDT): Reports well controlled Continues with albuterol PRN Obstructive sleep apnea syndrome 09/23/2015 Assessment & Plan (05/02/2025 12:33 PM EDT): Following with sleep medicine services of [facility]. Consult January 2025. Continue with good CPAP compliance. Assessment & Plan (07/02/2024 10:35 AM EDT): In need of updated CPAP Due for repeat sleep study, unclear when last report or titration. Ordered in hospital sleep study for further eval 11/20/23 Pt planning to reschedule appt Referral placed to Sleep Medicine on 06/30/24 Assessment & Plan (11/21/2023 10:12 AM EST): Continue with CPAP and lifestyle interventions Due for repeat sleep study, unclear when last report or titration. Ordered in hospital sleep study for further eval 11/20/23 Assessment & Plan (11/10/2023 10:59 PM EST): Continue with CPAP and lifestyle interventions Message sent to DME team to please assist with CPAP supplies Assessment & Plan (04/19/2023 9:31 AM EDT): Continue with CPAP and lifestyle interventions Type 2 diabetes mellitus 09/23/2015 Overview (05/02/2025): Lab Results Component Value Date HGBA1C 14.6 (A) 04/21/2025 HGBA1C 14.0 (A) 09/23/2024 HGBA1C 13.4 (A) 06/30/2024 HGBA1C 11.5 (H) 10/13/2023 HGBA1C >14.0 (H) 04/18/2023 HGBA1C 8.3 (H) 09/07/2021 A1c goal < 7%, above goal Current med regimen: Increase Trulicity 4.5mg subcutaneous weekly Metformin 1000mg BID Lantus 30 units at bedtime Glipizide 5mg daily -Discussed importance of lifestyle/dietary monitoring and interventions. -Reviewed ED precautions. -Consider initiation SGLT-2i once A1c </= 9% Assessment & Plan (05/02/2025 12:46 PM EDT): In agreement with increase of Trulicity to 4.5mg subcutaneous weekly. In the future, may want to consider switching to tirzepatide. Continue following with [facility] team Check GAD65 & IA-2 antibodies Assessment & Plan (11/10/2024 9:40 AM EST): [...] lantus to 20 units nightly. Referral to MTM. Assessment & Plan (04/19/2023 9:36 AM EDT): Lab Results Component Value Date HGBA1C 14.5 (A) 04/18/2023 A1c goal < 7%, not currently well controlled Current med regimen: Trulicity 3mg subcutaneous weekly Metformin 1000mg BID INCREASE to Lantus 25 units at bedtime Glipizide 5mg daily -Discussed importance of lifestyle/dietary monitoring and interventions. -Record BG readings and follow up in 2 weeks. -Reviewed ED precautions. -May need to consider short duration of bolus insulin until improved glucose control achieved. -Consider initiation SGLT-2i once A1c </= 9% Resolved Problems Problem Noted Date Diagnosed Date Resolved Date Open fracture of tooth 09/28/202509/29 Dental abscess 08/19/2025 09/29/2025 Dental calculus 08/19/2025 09/29/2025 Dental caries 08/19/2025 09/29/2025 Dental root caries 03/05/2024 Encounters Date Type Department Care Team Description 09/29/2025 9:15 AM EST Office Visit [facility] [address] [place] [address] Ailin Rizo FNP Type 2 diabetes mellitus without complication, with long-term current use of insulin (HCC) (Primary Dx); Dietary counseling; Exercise counseling; Encounter for immunization 09/29/2025 Orders Only GENERIC EXTERNAL DATA DEPARTMENT Provider, [employer] External Data 09/29/2025 Travel 09/28/2025 2:00 PM EST Office Visit [facility] [address] [place] [address] Humza Clay DDS Dental abscess (Primary Dx); Open fracture of tooth, sequela 09/27/2025 Travel 09/26/2025 Refill [facility] [address] [place] [phone] Ailin Rizo FNP Pain 09/04/[address] [address] Ailin Rizo FNP Type 2 diabetes mellitus treated with insulin (HCC) 08/30/[address] [address] Ailin Rizo FNP ER Follow-up 08/28/2025 Orders Only GENERIC EXTERNAL DATA DEPARTMENT Provider, Generic External Data 08/19/2025 10:00 AM EDT Office Visit [facility] [address] [place] [address] Alexa Murphy Dental abscess (Primary Dx); Dental plaque; Dental calculus; Dental caries 08/19/2025 Travel 08/16/[address] [address] Ailin Rizo FNP Nurse Triage 08/16/[address] [address] Ailin Rizo FNP Med Refill 08/09/2025 Refill [facility] [address] [place] [address] [place] [address] Ailin Rizo FNP 07/27/2025 Telephone [facility] [address] [place] [address] Ailin Rizo FNP Nurse Triage 07/21/2025 Telephone [facility] [address] [place] [address] Ailin Rizo FNP TC- TELEHEALTH APPT 07/21/2025 Travel 07/19/2025 Telephone [facility] [address] [place] [address] Ailin Rizo FNP Results 07/15/2025 Telephone [facility] [address] [place] [address] Ailin Rizo FNP FYI 07/14/2025 Telephone [facility] [address] [place] [address] Ailin Rizo FNP 07/14/2025 Telephone [facility] [address] [place] [address] Ailin Rizo FNP 07/08/2025 Results Follow-Up [address] [address] Chloe Jacobs NP Lipase, Amylase, Comprehensive Metabolic Panel, Additional followed-up results: 2 07/07/2025 2:45 PM EDT Office Visit [address] [address] Chloe Jacobs NP Right upper quadrant pain (Primary Dx) 07/07/2025 Orders Only GENERIC EXTERNAL DATA DEPARTMENT Provider, Generic External Data 07/07/2025 Travel 07/07/2025 Telephone [facility] [address] [place] [address] Ailin Rizo FNP nurse triage 07/05/2025 Travel 07/01/2025 Telephone [facility] [address] [place] [address] Ailin Rizo FNP Abd US Order from Last 3 Months Immunizations Immunization Administration Dates Next Due Hep B, adult 09/29/2025,04/18/2023,10/23/2021 Influenza injectable quadriv alent IIV4 with preservative [...] Mass Index 43.64 09/29/2025 9:13 AM EST Plan of Treatment Upcoming Encounters Date Type Department Care Team (Late st Contact Info) Description 10/26/2025 12:45 PM EST Office Visit [facility] [address] [place] [address] Alexa Murphy 11/09/2025 2:30 PM EST Office Visit [facility] [address] [place] [address] Humza Clay DDS [address] [place] [address] Health Maintenance Due Date Last Done Comments CT Colonography 1971 Colonoscopy 1971 Colorectal Cancer Screening 1971 FIT DNA/Cologuard 1971 FIT 1971 FOBT 1971 Sigmoidoscopy 1971 Diabetes: Foot Exam 1981 Eye Exam 1981 Alcohol/Substance Use Screening 1983 Hepatitis A Vaccines (1 of 2 - Risk 2-dose series) 1990 Dental Prophylaxis 03/31/2020 09/30/2019, 0 04/23/2018, 09/26/2016, Additional history exists Zoster Vaccines (1 of 2) 2021 COVID-19 Vaccine ( - season) 2025 12/25/2021, 04/13/2021, 03/16/2021 Influenza Vaccine (#1) 2025 , 09/10/2019, 11/06/2018, Additional history exists Diabetes: Hemoglobin A1C 12/30/2025 025, 05/17/2025, 04/21/2025, Additional history exists Dental Oral Exam 02/17/2026 08/19/2025, , 01/22/2018, Additional history exists Diabetes: Urine Protein Screening 05/17/2026 05/17/2025, 09/07/2021 Disability Screening 07/05/2026 07/05/2025 Lipid Panel 07/07/2026 07/07/2025, 0801/2025, 05/17/2025, Additional history exists Dental X-Ray: Bitewings 08/20/2026 08/19/20, 08/07/2024, 02/12/2024, Additional history exists Depression Screening 09/29/2026 09/29/2025, 09/29/20 SDOH Screening 09/29/2026 09/29/2025 Tobacco Screening 09/29/2026 09/29/2025 Dental X-Ray: Full Mouth 02/12/2027 02/12/2024, 02/24 DTaP/Tdap/Td Vaccines (3 - Td or Tdap) 06/30/2034 06/30/2024, 07/14/2013, 05/07/2006 RSV Patients and Patients Aged 60 years or older (1 - 1-dose 75+ series) 2046 Pneumococcal Vaccine: 50+ Years Completed 04/18/2023, 07/14/2013 HIV Screening Completed 05/17/2025, 03/26, 09/07/2021 Hepatitis C Screening Completed 05/17/2025 , 04/18/2023, 09/07/2021 Hepatitis B Vaccines Completed 09/29/2025, 04/18/2023, 10/23/2021 HIB Vaccines Aged Out No longer eligi ble based on patient's age to complete this topic HPV Vaccines Aged Out No longer eligi ble based on patient's age to complete this topic IPV Vaccines Aged Out No longer eligi ble based on patient's age to complete this topic Meningococcal B Vaccine Aged Out No l onger eligible based on patient's age to complete [...] PSA, TOTAL Routine 09/29/2025 10:33 AM EST POCT GLYCATED HEMOGLOBIN, TOTAL Routine 09/29/2025 9:17 AM EST Type 2 diabetes mellitus without complication, with long-term current use of insulin (HCC) POCT GLUCOSE Routine 09/29/2025 9:17 AM EST Type 2 diabetes mellitus without complication, with long-term current use of insulin (HCC) 14 EXTRACTION, ERUPTED TOOTH REQ REMOVAL OF BONE AND/OR SECTIONING OF TOOTH Routine 09/28/2025 2:00 PM EST CASE PRESENTATION, DETAILED AND EXTENSIVE TREATMENT PLANNING Routine 09/28/2025 2:[address] ABDOMEN PELVIS W CONTRAST Routine 08/28/2025 9:05 PM EDT URINALYSIS, COMPLETE Routine 08/28/2025 7:03 PM EDT CBC WITH AUTO DIFFERENTIAL Routine 08/28/2025 4:44 PM EDT LIPASE Routine 08/28/2025 4:44 PM EDT COMPREHENSIVE METABOLIC PANEL Routine 08/28/2025 4:44 PM EDT BITEWINGS - 4 RADIOGRAPHIC IMAGES Routine 08/19/2025 10:00 AM EDT CASE PRESENTATION, DETAILED AND EXTENSIVE TREATMENT PLANNING Routine 08/19/2025 10:00 AM EDT ORAL HYGIENE INSTRUCTIONS Routine 08/19/2025 10:00 AM EDT Dental abscess Dental plaque Dental calculus Dental caries INTRAORAL - PERIAPICAL FIRST RADIOGRAPHIC IMAGE Routine 08/19/2025 10:00 AM EDT Dental abscess PERIODIC ORAL EVALUATION - ESTABLISHED PATIENT Routine 08/19/2025 10:00 AM EDT US ABDOMEN LIMITED Urgent 07/16/2025 9: 07 AM EDT Right upper quadrant pain CRP, HIGH SENSITIVITY Routine 07/07/2025 3:37 PM EDT PSA, TOTAL Routine 07/07/2025 3:37 PM EDT LIPID PANEL, STANDARD Routine 07/07/2025 3:37 PM EDT CBC WITH AUTO DIFFERENTIAL Routine 07/07/2025 3:37 PM EDT Right upper quadrant pain COMPREHENSIVE METABOLIC PANEL Routine 07/07/2025 3:37 PM EDT Right upper quadrant pain AMYLASE Routine 07/07/2025 3:37 PM EDT Right upper quadrant pain LIPASE Routine 07/07/2025 3:37 PM EDT Right upper quadrant pain COMPREHENSIVE METABOLIC PANEL Routine 07/07/2025 Healthcare maintenance LIPID PANEL, STANDARD Routine 07/07/2025 Healthcare maintenance HEPATITIS C VIRAL RNA, QUANTITATIVE, REAL-TIME PCR Routine 05/17/2025 11:15 AM EDT Type 2 diabetes mellitus without complication, with long-term current use of insulin ([facility]) HIV 1/2 ANTIGEN/ANTIBODY, FOURTH GENERATION W/RFL Routine 05/17/2025 11:15 AM EDT Type 2 diabetes mellitus without complication, with long-term current use of insulin ([facility]) ALBUMIN, RANDOM URINE W/CREATININE Routine 05/17/2025 11:15 AM EDT Type 2 diabetes mellitus without complication, with long-term current use of insulin ([facility]) Healthcare maintenance INTRAORAL - COMPLETE SERIES OF RADIOGRAPHIC IMAGES Routine 02/12/2024 9:00 AM EDT Encounter for dental examination Dental calculus Periodontal disease PROPHYLAXIS - ADULT Routine 09/30/2019 1 2:00 AM EST from Last 3 Months or Most Recently Relevant to Health Maintenance Results * PSA,Total (09/29/2025 10:33 AM EST) Only the most recent of2 resultswithin the time period is included. Prostate Specific Antigen 0.47 <0.05 - 4.0 ng/mL [facility] Comment:PSA methodology: Abb mariam Alisean i ChemiluminescentMicroparticle Immunoassay (CMIA) 09/29/2025 10:3 3 AM EST 09/29/2025 10:33 AM EST us Generic External Data Provider LAB BLOOD ORDERAB LES Final Result [facility] [address] [place] [phone] * (ABNORMAL) POCT Hgb A1c (09/29/2025 9:17 AM EST) Hemoglobin A1C 13.4(A) 4.0 - 5.7 % QC Media Lot # [id number] Lot# Expiration Date [id number] Blood 09/29/2025 9:17 AM EST us Ailin Rizo ENVIRONMENTAL CONTROL ADMINISTRATOR POINT OF CARE TEST ENTER/EDIT ORDERABLES Final Result * (ABNORMAL) POCT Glucose (09/29/2025 9:17 AM EST) Glucose Blood, POC 345(A) 60 - 200 mg/dL QC Media Lot # [id number] Lot# Expiration Date [id number] Blood Capillary blood specimen / Unknown 09/29/2025 9:17 AM EST Ailin Sallie ENVIRONMENTAL CONTROL ADMINISTRATOR POINT OF CARE TEST ENTER/EDIT ORDERABLES Final Result * CT Abdomen Pelvis w/ Contrast (08/28/2025 9:05 PM EDT) Anatomical Region Laterality Modality Body, Pelvis, Abdomen Computed T omography 08/28/2025 9:05 PM EDT Narrative 08/28/2025 9:07 PM EDT [place] [address] CT Scan Report Signed Patient: Pavel Boyd MR#: [id number] 7 : 1970 Acct:[id number] Age/Sex: 54 / M ADM Date: 08/28/25 Loc: HO.ED Attending Dr: Ordering Physician: Evette Clark Date of Service: 08/28/25 Procedure(s): CT abdomen pelvis w IV con Accession Number(s): [id number] cc: Ailin Rizo; Evette Clark Report Number: [id number]: Total DLP = 1253.00 mGy-cm Reason for Exam: RUQ/ epigastric pain, dec BM, ?constipation CLINICAL HISTORY: RUQ epigastric pain, dec BM, ?constipation CT abdomen and pelvis with contrast Comparison: CT abdomen and pelvis most recently on 07/09/2025 Findings: No acute findings within visualized lung bases. Liver, gallbladder, spleen, pancreas, are unremarkable. Normal adrenal glands. No hydronephrosis or perinephric fat stranding. Unremarkable urinary bladder. Partially calcified but otherwise normal-sized prostate. Calcified but nonaneurysmal abdominal aorta and iliofemoral vessels. Nondistended stomach. Normal caliber small bowel. No obstruction. Scattered colonic diverticuli without CT evidence of acute diverticulitis. No acute appendicitis. No pathologically enlarged lymph nodes. No acute osseous abnormality. No lytic or sclerotic osseous lesions. Impression: 1. No acute findings identified. 2. Stable chronic/nonacute findings as above. This document has been electronically signed by: Uvaldo Jones MD on 08/28/2025 21:05:52 Dictated By: Uvaldo Jones MD Signed By: <Electronically signed by Uvaldo Jones MD in OV> 08/28/252106 DD/ 04 TD/TT: 08/28/252104 Manager Department: Procedure Note Donotuseinterpreter, Image - 08/28/[address] [place] [address] [address] Scan Report Signed Patient: Pavel Boyd LMR#: [id number] 7 : 1970Acct:[id number] Age/Sex: 54 / MADM Date: 08/28/25 Loc: HO.ED Attending Dr: Ordering Physician: Evette Clark Date of Service: 08/28/25 Procedure(s): CT abdomen pelvis w IV con Accession Number(s): [id number] cc: Ailin Rizo ENVIRONMENTAL CONTROL ADMINISTRATOR; Evette Clark Report Number: [id number]: Total DLP = 1253.00 mGy-cm Reason for Exam: RUQ/ epigastric pain, dec BM, ?constipation CLINICAL HISTORY: RUQ epigastric pain, dec BM, ?constipation CT abdomen and pelvis with contrast Comparison: CT abdomen and pelvis most recently on 07/09/2025 Findings: No acute findings within visualized lung bases. Liver, gallbladder, spleen, pancreas, are unremarkable. Normal adrenal glands. No hydronephrosis or perinephric fat stranding. Unremarkable urinary bladder. Partially calcified but otherwise normal-sized prostate. Calcified but nonaneurysmal abdominal aorta and iliofemoral vessels. Nondistended stomach. Normal caliber small bowel. No obstruction. Scattered colonic diverticuli without CT evidence of acute diverticulitis. No acute appendicitis. No pathologically enlarged lymph nodes. No acute osseous abnormality. No lytic or sclerotic osseous lesions. Impression: 1. No acute findings identified. 2. Stable chronic/nonacute findings as above. This document has been electronically signed by: Uvaldo Jones MD on 08/28/2025 21:05:52 Dictated By: Uvaldo Jones MD Signed By: <Electronically signed by Uvaldo Jones MD in OV> 08/28/252106 DD/ 04 TD/TT: 08/28/252104 Manager Department: [facility] External Provider IMG CT PROCEDURES Edited Result - Final * (ABNORMAL) Urinalysis Complete (08/28/2025 7:03 PM EDT) Color Urine Yellow [facility] Appearance Urine Clear [facility] PH 6.0 5.0 - 9.0 [facility] Glucose Urine UA >=1000(A) Negative mg/dL [facility] Urine Blood Negative Negative [facility] Specific [place] - Urine >=1.030(H) 1.005 - 1.025 [facility] Urine Protein Negative Neg-Trace mg/dL [facility] Urine Ketones Trace Negative mg/dL [facility] Nitrite Urine Negative Negative [facility] Leukocyte Esterase Urine Negative Negative [facility] RBC Urine 0-2 0 - 2 /HPF [facility] Urine WBC 0-5 0 - 5 /HPF [facility] Urine Squamous Epithelial Cell 0-2 0 - 2 /HPF [facility] Urine Bacteria None Seen None Seen [facility] Hyaline Casts, Urine 0-2 0 - 2 /LPF [facility] 08/28/2025 7:03 PM EDT 08/28/2025 7:05 PM EDT Generic External Data Provider LAB URINE ORDERAB LES Final Result [facility] [address] [place] [address] [phone] * (ABNORMAL) CBC auto differential (08/28/2025 4:44 PM EDT) Only the most recent of2 resultswithin the time period is included. White Blood Count 6.0 4.8 - 10.8 X10*3/uL [facility] Red Blood Count 4.76 4.60 - 5.80 X10*6/uL [facility] Hemoglobin 13.4(L) 14.0 - 18.0 g/dl [facility] Hematocrit 38.4(L) 42.0 - 52.0 % [facility] Mean Corpuscular Volume 80.7 80.0 - 98.0 fL [facility] Mean Corpuscular Hemoglobin 28.2 27.0 - 33.0 pg [facility] Mean Corpuscular HGB Conc 34.9 31.0 - 36.0 g/dl [facility] Red Cell Distribution Width 12.2 11.0 - 16.0 % [facility] Platelet Count 241 160 - 400 X10*3/uL [facility] Mean Platelet Volume 9.7 9.4 - 12.4 fL [facility] Neutrophils Percent Auto 64.0 45 - 73 % [facility] Imm Gran Pct Auto 0.3 0.0 - 0.4 % [facility] Lymphocytes Percent Auto 23.5 20 - 40 % [facility] Monocytes Percent Auto 9.2 2 - 11 % [facility] Eosinophils Percent Auto 2.5 0 - 4 % [facility] Basophils Percent Auto 0.5 0 - 2 % [facility] NRBC Pct Auto 0.0 0.0 - 0.2 /100WBC [facility] Neutrophils Absolute Auto 3.8 2.0 - 8.3 x10*3/uL [facility] Imm Gran Abs Auto 0.02 0.00 - 0.03 X10*3/uL [facility] Lymphocytes Absolute Auto 1.4 1.2 - 4.9 X10*3/uL [facility] Monocytes Absolute Auto 0.6 0.1 - 1.2 X10*3/uL [facility] Eosinophils Absolute Auto 0.2 0.0 - 0.4 X10*3/uL [facility] Basophils Absolute Auto 0.0 0.0 - 0.2 X10*3/uL [facility] NRBC Abs Auto 0.000 0.0 - 0.012 X10*3/uL [facility] 08/28/2025 4:44 PM EDT 08/28/2025 4:52 PM EDT Generic External Data Provider LAB BLOOD ORDERAB LES Final Result Performing Organization Address City/[facility]/ZIP Co de Phone Number [facility] [address] [place] [address] [phone] * Lipase (08/28/2025 4:44 PM EDT) Only the most recent of2 resultswithin the time period is included. Lipase 40 8 - 78 U/L [facility] 08/28/2025 4:44 PM EDT 08/28/2025 4:52 PM EDT us Generic External Data Provider LAB BLOOD ORDERAB LES Final Result Performing Organization Address [facility] de Phone Number [facility] [address] [place] [address] [phone] * (ABNORMAL) Comprehensive Metabolic Panel (08/28/2025 4:44 PM EDT) Only the most recent of3 resultswithin the time period is included. Sodium 136 135 - 145 mmol/L [facility] Potassium 4.3 3.3 - 5.1 mmol/L [facility] Chloride 103 96 - 108 mmol/L [facility] Carbon Dioxide 27 22 - 29 mmol/L [facility] Anion Gap 10(L) 12 - 20 [facility] Urea Nitrogen (BUN) 12 9 - 16 mg/dL [facility] Creatinine, Serum 0.64 0.5 - 1.4 mg/dL [facility] Creatinine Clr Calc Pharmacy 182.1 [facility] Comment:eGFR (calculated fro m the MDRD study equation) and eCrCl(calculated from the Cockcroft-Gault equation) are based ondifferent parameters and may not yield comparable results.If eCrCl result is absurd, please check patient'sheight/weight. Estimated Glomerular Filt Rate >60 [facility] Comment:Chronic Kidney Disea se: Estimated GFR < 60 mL/min/1.98b6Kmkwtx Kidney Disease: Estimated GFR < 15 mL/min/1.73m2 Glucose 367(HH) 60 - 115 mg/dL [facility] Comment:Critical value for t est(s):GLUR Results called to and readback by: LINDA Person calling: KUSFDate:08-28-25 Time:1709 Calcium 9.3 8.4 - 10.2 mg/dL [facility] Bilirubin, Total 0.5 0.0 - 1.0 mg/dL [facility] Aspartate Amino Transferase 15 5 - 37 U/L [facility] Alanine Aminotransferase 14 0 - 40 U/L [facility] Total Protein 7.3 6.5 - 8.0 g/dL [facility] Albumin Level 4.0 3.5 - 5.0 g/dL [facility] Alkaline Phosphatase 72 39 - 117 U/L [facility] 08/28/2025 4:44 PM EDT 08/28/2025 4:52 PM EDT us Generic External Data Provider LAB BLOOD ORDERAB LES Final Result Performing Organization Address City/State/[facility] Co de Phone Number [facility] [address] [place] [address] [phone] * US Abdomen Limited (07/16/2025 9:07 AM EDT) Anatomical Region Laterality Modality Abdomen Ultrasound 07/16/2025 9:07 AM EDT Narrative 07/16/2025 9:08 AM EDT [address] [address] Ultrasound Report Signed Patient: Pavel Boyd MR#: [id number] 7 : 1970 Acct:[id number] Age/Sex: 54 / M ADM Date: 07/15/25 Loc: HO.US Attending Dr: Chloe Jacobs Ordering Physician: Chloe Jacobs Date of Service: 07/15/25 Procedure(s): US abdomen limited Accession Number(s): [id number] cc: Chloe Jacobs; Ailin Rizo CLINICAL HISTORY: RUQ pain US abdomen limited Comparison: 08/28/2024 Findings: The visualized pancreas is normal. The aorta and inferior vena cava are normal caliber. The liver is normal in size and echotexture. There is no intrahepatic bile duct dilatation. The common duct is 4.0 mm in diameter. The gallbladder is normal. There is no sonographic Kay sign. The main portal vein is antegrade. The right kidney is 13.2 cm in length. No ascites. IMPRESSION: 1. Normal limited abdominal ultrasound. This document has been electronically signed by: Tato Camacho MD on 07/16/2025 09:07:07 Dictated By: Tato Camacho MD Signed By: <Electronically signed by Tato Camacho MD in OV> 07/16/25907 DD/ 6 TD/TT: 07/16/25906 Manager Department: Procedure Note Donotuseinterpreter, Image - 07/16/2025 [place] [address] Ultrasound Report Signed Patient: Pavel Boyd LMR#: [id number] 7 : 1970Acct:[id number] Age/Sex: 54 / MADM Date: 07/15/25 Loc: HO.US Attending Dr: Chloe Jacobs Ordering Physician: Chloe Jacobs Date of Service: 07/15/25 Procedure(s): US abdomen limited Accession Number(s): [id number] cc: Chloe Jacobs; Ailin Rizo CLINICAL HISTORY: RUQ pain US abdomen limited Comparison: 08/28/2024 Findings: The visualized pancreas is normal. The aorta and inferior vena cava are normal caliber. The liver is normal in size and echotexture. There is no intrahepatic bile duct dilatation. The common duct is 4.0 mm in diameter. The gallbladder is normal. There is no sonographic Kay sign. The main portal vein is antegrade. The right kidney is 13.2 cm in length. No ascites. IMPRESSION: 1. Normal limited abdominal ultrasound. This document has been electronically signed by: Tato Camacho MD on 07/16/2025 09:07:07 Dictated By: Tato Camacho MD Signed By: <Electronically signed by Tato Camacho MD in OV> 07/16/25907 DD/ 6 TD/TT: 07/16/25906 Manager Department: us Chloe Rejim SERVICE WRITER ADVISOR IMG US PROCEDURES Final Result * CRP, HIGH SENSITIVITY (07/07/2025 3:37 PM EDT) CRP, High Sensitivity 1.9 mg/L [facility] Comment: Reference RangeOptimal <1.0Jellinger PS et al. Endocr Pract.2017;23(Suppl 2):1- 87.For ages >17 Years:hs-CRP mg/L Risk According to AHA/CDC Guidelines<1.0 Lower relative cardiovascular risk.1.0-3.0 Average relative cardiovascular risk.3.1-10.0 Higher relative cardiovascular risk. Consider retesting in 1 to 2 weeks to exclude a benign transient elevation in the baseline CRP value secondary to infection or inflammation.>10.0 Persistent elevation, upon retesting, may be associated with infection and inflammation.Ventura TA, Devin GA, Main RW, et al. Markersof inflammation and cardiovascular disease:application to clinical and public health practice:A statement for healthcare professionals from theCenters for Disease Control and Prevention and theAmerican Heart Association. Circulation 2003; 107(3):499-511.THIS TEST WAS PERFORMED AT:[employer] [place] [id number] FERRARI MD 07/07/2025 3:37 PM EDT 07/07/2025 4:45 PM EDT us Generic External Data Provider LAB BLOOD ORDERAB LES Final Result [facility] [address] [place] [phone] * Amylase (07/07/2025 3:37 PM EDT) Amylase 38 28 - 100 U/L [facility] Blood Venous blood specimen / Unknown 07/07/2025 3:37 PM EDT 07/07/2025 4:45 PM EDT Chloe Arlene SERVICE WRITER ADVISOR LAB BLOOD ORDERABLES Final Resu lt Performing Organization Address [facility]/ZIP Co de Phone Number [facility] [address] [place] [address] [phone] * Lipid Panel, Standard (07/07/2025 3:37 PM EDT) Only the most recent of2 resultswithin the time period is included. Triglycerides 70 <150 mg/dL [facility] Comment:Desirable Triglyceri de: less than 150 mg/dLBorderline High Triglyceride 150-199 mg/dLHigh Triglyceride: 200-499 mg/dLVery High Triglyceride: greater than or equal to 5OO mg/dL Cholesterol 115 <200 mg/dL [facility] Comment:Desirable Cholestero l: less than 200 mg/dLBorderline High Cholesterol: 200-239 mg/dLHigh Cholesterol: greater than 239 mg/dL LDL Cholesterol Calculated 58 <100 mg/dL [facility] Comment:Desirable LDL: less than 100 mg/dLNear Optimal/Above Optimal LDL: 110- 129 mg/dLBorderline High LDL: 130-159 mg/dLHigh LDL: 160-189 mg/dLVery High LDL: greater than or equal to 190 mg/dL HDL Cholesterol 43 >40 mg/dL [facility] Comment:Desirable HDL: great er than 40 mg/dL Note: This HDL assay may give artificially low results in patients with liver disease. 07/07/2025 3:37 PM EDT 07/07/2025 4:45 PM EDT us Generic External Data Provider LAB BLOOD ORDERAB LES Final Result Performing Organization Address [facility]/ZIP Co de Phone Number [facility] [address] [place] [address] [phone] * Hepatitis C Viral RNA, Quantitative, Real-Time PCR (05/17/2025 11:15 AM EDT) Hepatitis C Viral Load <15 NOT DETECTED NOT DETECTED IU/mL [facility] HCV Log PCR <1.18 NOT DETECTED NOT DETECTED Log IU/mL [facility] Comment:For additional infor jesicacarl, please refer tohttp://education.[employer]/faq/EWS55m3(This link is being provided for informational/educational purposes only.)THIS TEST WAS PERFORMED AT:[facility] [place] [id number] FERRARI MD Blood 05/17/2025 11:1 5 AM EDT 05/17/2025 12:57 PM EDT Ailin Rizo ENVIRONMENTAL CONTROL ADMINISTRATOR LAB BLOOD ORDERABLES Final Res ult Performing Organization Address [facility]/ZIP Co de Phone Number [facility] [address] [place] [phone] * Albumin, Random Urine W/Creatinine (05/17/2025 11:15 AM EDT) Creatinine, Urine 166.90 mg/dL [facility] Microalbumin Urine 21.0 mg/L [facility] Microalbum Creatinine Ratio Ur 12.5 <30 ug/mg cr [facility] Comment:Albumin/Creatinine R atio Reference Ranges: Normal: < 30 ug/mg creatinine Microalbuminuria: 30 - 300 ug/mg creatinineClinical Albuminuria: > 300 ug/mg creatinine Urine 05/17/2025 11:1 5 AM EDT 05/17/2025 12:43 PM EDT Ailin Rizo ENVIRONMENTAL CONTROL ADMINISTRATOR LAB URINE ORDERABLES Final Res ult Performing Organization Address [facility]/ZIP Co de Phone Number [facility] [address] [place] [phone] * HIV-1/2 Antigen and Antibodies, Fourth Generation, with Reflexes (05/17/2025 11:15 AM EDT) HIV AB/AG Nonreactive Nonreactive [facility] Comment:HIV-1 p24 Ag and/or HIV-1/HIV-2 Ab not detected.A test result that is nonreactive does not exclude thepossibility of exposure to or infection with HIV-1 and/orHIV-2. Nonreactive results in this assay for individualswith prior exposure to HIV-1 and/or HIV-2 may be due toantigen and antibody levels that are below the limit ofdetection of this assay.The [employer] HIV Ag/Ab Combo assay result andsupplemental assay results should be interpreted inconjunction with the patient's clinical presentation,history and other laboratory results. If the results areinconsistent with clinical evidence, additional testing issuggested to confirm the result. Blood Venous blood specimen / Unknown 05/17/2025 11:15 AM EDT 05/17/2025 12:57 PM EDT us Ailin Rizo [facility] LAB BLOOD ORDERABLES Final Res ult [facility] [address] [place] [phone] from Last 3 Months or Most Recently Relevant to Health Maintenance Insurance DENTAL [facility] ONE CARE < 65 DENTAL - [facility] Care Teams Faculty Neuropsychologist Relationship Specialty Start Date End Date Ailin Rizo FNP [address] [place] [address] PCP - General Family Medicine 07/23/22 Juliet Garcai PharmD [address] [place] [address] Pharmacist Internal Medicine 03/09/25
--- OUTSIDE RECORDS SUMMARY | 2025-09-29 12:06 | XMS_ITS | Encounter Summary ---
Author Organization [employer] Address [address] [facility] [address] [place] [address] Care Team Providers Care Laboratory Mechanic Helper Name Role Phone Ailin Rizo Primary Care Provider [phone] Juliet Garcia PharmD Unavailable [phone] Reason for Visit * Reason Onset Date Comments FYI 07/15/2025 Encounter Details Date Type Department Care Team ([facility] st Contact Info) Description 07/15/2025 Telephone [facility] MEDICINE [address] [place] [address] Ailin Rizo FNP [address] [place], [place] [phone] FYI Social History Tobacco Use Types Packs/Day Years [...] encounter Miscellaneous Notes * Telephone Encounter - Mónica Hernandez RN - 07/15/2025 2:32 PM EDT Noted. Will route to provider as FYI. * Telephone Encounter - Ahsan Elliott - 07/15/2025 2:18 PM EDT TC from pt just wanted to let pcp TANISHA Rizo know he couldn't wait for Ultrasound apptmnt on 07/27 due to pain . So he went to [facility] today and had it done . Please call pt once receive results. documented in this encounter Plan of Treatment Upcoming Encounters Date Type Department Care Team (Late st Contact Info) Description 10/26/2025 12:45 PM EST Office Visit [facility] ADULT DENTAL [address] [place] [address] Alexa Murphy 11/09/2025 2:30 PM EST Office Visit [facility] ADULT [facility]ENT[facility] [address] [place] [address] Humza Clay DDS [address] [place] [address] documented as of this encounter Visit Diagnoses Not on filedocumented in this encounter Additional Health Concerns Assessment Noted Time PHQ-9 Depression Total Score: 3 06/30/20 24 9:37 AM EDT documented as of this encounter Care Teams Laboratory Mechanic Helper Relationship Specialty Start Date End Date Ailin Rizo FNP [address] [place] [address] PCP - General Family Medicine 07/23/22 Juliet Garcia PharmD [address] [place] [address] Pharmacist Internal Medicine 03/09/25 documented as of this encounter
--- OUTSIDE RECORDS SUMMARY | 2025-09-29 12:06 | XMS_ITS | Encounter Summary ---
Author Organization [employer] Address [address] [place] [address] [address] [place] [address] Care Team Providers Care Campus Security Director Name Role Phone Ailin Rizo PRODUCTION CELL LEADER Primary Care Provider [phone] Juliet Garcia PharmD Unavailable [phone] Reason for Visit * Reason Comments Med Refill Encounter Details Date Type Department Care Team (Late Contact Info) Description 06/11/2023 Refill [facility] [address] [place] [address] Gustine Juana [facility] [address] [place], [place] [phone] Vitamin D insufficiency Social History Tobacco Use [...] Description 10/26/2025 12:45 PM EST Office Visit [facility] ADULT [facility] [address] [place], [place] [phone] Alexa Murphy 11/09/2025 2:30 PM EST Office Visit [facility] ADULT [facility] [address] [place] [address] Humza Clay DDS [address] [place] [address] documented as of this encounter Visit Diagnoses Diagnosis Vitamin D insufficiency documented in this encounter Additional Health Concerns Assessment Noted Time PHQ-9 Depression Total Score: 2 04/18/20 23 3:00 PM EDT documented as of this encounter Care Teams Campus Security Director Relationship Specialty Start Date End Date Ailin Rizo FNP [address] [place] [address] PCP - General Family Medicine 07/23/22 Juliet Garcia PharmD [address] [place] [address] Pharmacist Internal Medicine 03/09/25 documented as of this encounter
--- OUTSIDE RECORDS SUMMARY | 2025-09-29 12:06 | XMS_ITS | Encounter Summary ---
Author Organization [employer] Address [address] [place] [address] [address] [place] [address] Care Team Providers Care Block Piler Name Role Phone Alinaisrael Ailin JACOME Primary Care Provider [phone] Juliet Garcia PharmD Unavailable [phone] Reason for Visit * Reason Comments Med Refill Encounter Details Date Type Department Care Team (Late st Contact Info) Description 06/11/2023 Refill [facility] MEDICINE [address] [place] [address] Xiomara Carreon FNP Pain Social History Tobacco Use Types Packs/Day [...] Description 10/26/2025 12:45 PM EST Office Visit [facility] ADULT DENTAL [address] [place], [place] [phone] Alexa Murphy 11/09/2025 2:30 PM EST Office Visit [facility] ADULT DENTAL [address] [place], [place] [phone] Humza Clay DDS [address] [place] [address] documented as of this encounter Visit Diagnoses Diagnosis Pain Generalized pain documented in this encounter Additional Health Concerns Assessment Noted Time PHQ-9 Depression Total Score: 2 04/18/20 23 3:00 PM EDT documented as of this encounter Care Teams Block Piler Relationship Specialty Start Date End Date Ailin Rizo FNP [address] [place] [address] PCP - General Family Medicine 07/23/22 Juliet Garcia PharmD [address] [place] [address] Pharmacist Internal Medicine 03/09/25 documented as of this encounter
--- OUTSIDE RECORDS SUMMARY | 2025-09-29 12:06 | XMS_ITS | Encounter Summary ---
Author Organization [employer] Address [address] [place] [address] Care Team Providers Care R D Internship Name Role Phone AlinaAilin wood HARDBOARD PRESS OPERATOR Primary Care Provider [phone] Juliet Garcia PharmD Unavailable [phone] Encounter Details Date Type Department Care Team (Latest Contact Info) Description 09/29/2025 Travel Social History Tobacco Use Types Packs/Day [...] is your housing situation today? I have christophetiki roque 09/29/[address] you [...] 12:45 PM EST Office Visit [facility] ADULT DENTAL [address] [place] [address] Alexa Murphy 11/09/2025 2:30 PM EST Office Visit [facility] ADULT DENT[facility] [address] [place] [address] Humza Clay DDS [address] [place] [address] documented as of this encounter Visit Diagnoses Not on filedocumented in this encounter Additional Health Concerns Assessment Noted Time PHQ-9 Depression Total Score: 3 09/29/20 9:15 AM EST documented as of this encounter Care Teams R D Internship Relationship Specialty Start Date End Date Ailin Rizo FNP [address] [place] [address] PCP - General Family Medicine 07/23/22 Juliet Garcia PharmD [address] [place] [phone] Pharmacist Internal Medicine 03/09/25 documented as of this encounter
--- OUTSIDE RECORDS SUMMARY | 2025-09-29 12:06 | XMS_ITS | Encounter Summary ---
Author Organization [employer] Address [address] [place] [address] [address] [place] [address] Care Team Providers Care Master Ocean Name Role Phone Ailin Rizo Primary Care Provider [phone] Juliet Garcia PharmD Unavailable [phone] Reason for Visit * Reason Comments Med Refill Encounter Details Date Type Department Care Team (Late st Contact Info) Description 02/04/2023 Refill [facility] [address] [place] [address] Ailin Rizo FNP [address] [place] [address] Vitamin D insufficiency Social History Tobacco Use [...] Description 10/26/2025 12:45 PM EST Office Visit [facility] ADULT DENTAL [address] [place] [address] Alexa Murphy 11/09/2025 2:30 PM EST Office Visit [facility] ADULT DENTAL [address] [place] [address] Humza Clay DDS [address] [place] [address] documented as of this encounter Visit Diagnoses Diagnosis Vitamin D insufficiency documented in this encounter Care Teams Master Ocean Relationship Specialty Start Date End Date Ailin Rizo FNP [address] [place] [address] PCP - General Family Medicine 07/23/22 Juliet Garcia PharmD [address] [place] [address] Pharmacist Internal Medicine 03/09/25 documented as of this encounter
== END 2025-09-29 10:23 | disposition home or self-care (01) ==
LOC: HO.LAB 10:22
PROVIDERS: PCP Registered Nurse; Visit Provider Nurse Practitioner Family
DX: Z12.5 Encounter for screening for malignant neoplasm of prostate (principal)
CPT/HCPCS: 36415; 84153

== ENCOUNTER 2025-09-30 14:29 | Outpatient (AMB) | payer OTHER, SELFPAY ==
--- OUTSIDE RECORDS SUMMARY | 2025-03-03 02:30 | XMS_ITS ---
Author Organization [facility] Address [address] [place] [address] Care Team Providers Care Supervisor Nuclear Medicine Name Role Phone JOSE ANGEL NICHOLS, DEVEN Primary Care Provider Nilesh Way [phone] REASON FOR VISIT screening Encounters Encounter Location Date Provider Diagnosis [facility] [place] [address] [place], [place] [phone] 03/03/2025 Nilesh Pittman Plan Of Treatment No Information Progress Notes * OLIVIA HAINESDOB:1970 ( 54 yo M)Acc No.[id number]:03/03/2025 COLON WITH MAC Patient: OLIVIA LAUREN Provider: Antoine Pittman MD :1970 A ge:54 Y S ex:Male Date:03/03/2025 Address:[address] [place] [address] [address] [place], [place] [id number] Pcp:DEVEN WALTER MD Subjective: * Chief Complaints: [...] 0 03/03/2025 Generated for Clyde jc/Girish/Akilitting on: 11/30/2024 05:44 PM EST
--- OUTSIDE RECORDS SUMMARY | 2025-09-28 14:00 | XMS_ITS | Encounter Summary ---
Author Organization [email or web address] Address [address] [facility] [address] [place] [address] Care Team Providers Care Net Mender Name Role Phone AlinaAilin wood WHEEL TRUER Primary Care Provider [phone] Juliet Garcia PharmD Unavailable [phone] Reason for Visit * Reason Comments Extraction Ext on tooth# 14 Encounter Details Date Type Department Care Team ([facility] st Contact Info) Description 09/28/2025 2:00 PM EST Office Visit [facility] ADULT DENTAL [address] [place] [address] Humza Clay DDS [address], [place] [phone] Dental abscess (Primary Dx); Open fracture of tooth, sequela Social History Tobacco Use Types Packs/Day Years Used Date Smoking Tobacco: Former Cigarettes Passive Smoke Exposure: Never Smokeless Tobacco: Former Comments:Pt Quit 14 years ag o Alcohol Use Standard Drinks/Week Comments Never 0 (1 standard drink = 0.6 oz pur e alcohol) Depression Answer Date Recorded Patient Health Questionnaire-9 Score 3 09/29/2025 Patient Health Questionnaire-9 Score 3 09/29/2025 Last PHQ-9: Questionnaire Data Not on file 1 11/29/2024 Housing Stability Answer Date Recorded What is your housing situation today? I have christophe roque 09/29/[address] you li ve. Do you have problems with any of the following? None of the above 09/29/2025 Food Insecurity Answer Date Recorded Within the past 12 months, y ou worried that your food would run out before you got money to buy more: Sometimes True 2024 Within the past 12 months,th e food you bought just didn't last and you didn't have enough money to get more: Sometimes True 09/29/2025 Transportation Answer Date Recorded In the past 12 months, has l ack of transportation kept you from medical appts, meetings, work or from getting things needed for daily living? Yes, it has kept me from medical appointments or getting medications. 09/29/2025 Utilities Answer Date Recorded In the past 12 months, has t he electric, gas, oil or water company threatened to shut off services in your home? No 09/29/2025 Depression Answer Date Recorded Patient Health Questionnaire-2 Score 1 09/29/2025 Internet Access Answer Date Recorded Internet Access Q1 Yes 09/29/2025 Internet Access Q2 Not on file 09/29/2025 Sex and Gender Information Value Date Recorded Sex Assigned at Male 09/24/2022 10:15 AM EDT Legal Sex Male 10:15 AM EDT Gender Identity Male 09/24/2022 10:15 AM EDT Sexual Orientation Straight 09/24/2022 10 :15 AM EDT documented as of this encounter Last Filed Vital Signs Vital Sign Reading Time Taken Comments Blood Pressure 134/80 09/28/2025 1:59 PM EST Pulse 70 09/28/2025 1:59 PM EST Temperature - - Respiratory Rate - - Oxygen Saturation - - Inhaled Oxygen Concentration - - Weight - - Height - - Body Mass Index - - documented in this encounter Progress Notes * Humza Clay, CHRISTINES - 09/28/2025 2:00 PM EST Patient ID: Pavel Boyd is a 54 y.o. male. Time Out: Timeout Date: 09/28/25, Timeout Time: 1356 (ext on tooth# 14) Location: [facility] Tooth: Maxilla and #14 Only, per pt request Procedure: Extraction Verified the above with patient, advertising assistant manager, and provider. Confirmed via patient's chart, intraorally and by radiographs. Atm Manager: not applicable Chief Complaint Patient presents with Extraction Ext on tooth# 14 Medical Hx: Vitals: Blood pressure 134/80, pulse 70. Medical History[1] Medications: Encounter Medications[2] Consent Obtained: The risks, benefits, indications, potential complications, and alternatives were explained to the patient and informed consent was obtained with good understanding. Treatment Provided: Dental procedures in this visit D9450 - CASE PRESENTATION, DETAILED AND EXTENSIVE TREATMENT PLANNING (Completed) Service provider: Humza Clay DDS Billing provider: Humza Clay DDS [id number] - EXTRACTION, ERUPTED TOOTH REQ REMOVAL OF BONE AND/OR SECTIONING OF TOOTH 14 (Completed) Service provider: Humza Clay DDS Billing provider: Humza Clay DDS Diagnosis: Dental abscess, Fractured tooth Topical: 20% Benzocaine Anesthesia: 2% Lidocaine (Xylocaine) w/ 1:100,000 epinephrine Number of Cartridges: 2 Injection Type: Buccal infiltration, Palatal infiltration, and Intrapapillary injection Confirmed profound anesthesia. Pharyngeal curtain and bite block placed. Removed tooth with elevators and forceps. Apices intact. Surgical Extraction: Yes, sectioned tooth with surgical handpiece and bur # 2 Socket curetted & irrigated with sterile water. Compressed alveolar bone. Sutures: Chromic Gut All adjacent teeth intact. Hemostasis achieved. Complications: None. Pt tolerated procedure well. Pt. States having analgesics at home Written and verbal post-op instructions given. Patient discharged in stable condition; ambulatory, alert, and oriented. NV: F/U as needed / cont. 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 Do not crush, chew, or split. 30 tablet 0 acetaminophen (Tylenol) 500 MG tablet Take 1 tablet (500 mg) by mouth every 6 (six) hours if neededfor mild pain for up to 20 doses. 20 tablet 0 albuterol (Ventolin HFA) 108 (90 Base) MCG/ACT inhaler Inhale 2 puffs every 4 (four) hours if needed for wheezing or shortness of breath. 18 g 3 Alcohol Swabs (B-D SINGLE USE SWABS REGULAR) pads USE TO TEST BLOOD SUGARS 3 TIMES A DAY. 100 each 11 Aspirin Low Dose 81 MG EC tablet TAKE ONE TABLET BY MOUTH EVERY DAY 90 tablet 3 atorvastatin (Lipitor) 80 MG tablet TAKE ONE TABLET BY MOUTH DAILY AT BEDTIME 90 tablet 3 BD Pen Needle Jane 2nd Gen 32G X 4 MM misc FOR USE WITH INSULIN PEN. 100 each 11 Blood Glucose Monitoring Suppl (Mobile Digital MediaStyle [place] Lite) w/Device kit Use to test blood sugar 3 times daily 1 kit 0 chlorhexidine (Peridex) 0.12 % solution Swish 15 mL morning and night for 1 minute. Spit, do not swallow. Do not eat or drink for 30 minutes following use. 473 mL 0 Continuous Glucose Heel Seater (FreeStyle Kathi 3 [place]) device 1 each Once per day. Use as directed for CGM 1 each 0 Continuous Glucose Sensor (FreeStyle Kathi 3 Plus Sensor) misc Apply 1 every 15 days as directed for CGM 2 each 11 cyclobenzaprine (Flexeril) 5 MG tablet TAKE 1 TO 2 TABLETS BY MOUTH THREE TIMES DAILY NEEDED FORBACK PAIN 60 tablet 2 D3 Super Strength 50 MCG (2000 UT) capsule TAKE ONE CAPSULE BY MOUTH EVERY DAY. 90 capsule 1 Dulaglutide (Trulicity) 4.5 MG/0.5ML solution auto-injector Inject 4.5 mg under the skin 1 (one) time per week. 2 mL 2 ezetimibe (Zetia) 10 MG tablet Take 10 mg by mouth. fluticasone (Flonase) 50 MCG/ACT nasal spray USE 1 SPRAY BY INTRANASAL ROUTE 2 TIMES A DAY IN EACH NOSTRIL. 16 g 5 insulin glargine (Lantus SoloStar) 100 UNIT/ML pen INJECT 30 UNITS SUBCUTANEOUSLY EVERY EVENING. 15mL 5 loratadine (Claritin) 10 MG tablet Take 1 tablet (10 mg) by mouth if needed each day for allergies.90 tablet 3 metFORMIN XR (Glucophage-XR) 500 MG 24 hr tablet TAKE TWO TABLETS BY MOUTH TWICE A DAY 360 tablet 1 Multiple Vitamins-Minerals (Cerovite Senior) tablet TAKE 1 TABLET BY MOUTH IN THE MORNING. 90 tablet 2 naproxen (Naprosyn) 500 MG tablet TAKE ONE TABLET BY MOUTH TWICE A DAY NEEDED FOR PAIN WITH FOOD60 tablet 3 polyethylene glycol, PEG, 3350 (Glycolax) 17 GM/SCOOP powder TAKE 17 GRAMS ORALLY DAILY NEEDED FOR CONSTIPATION MIX POWDER IN 4 TO 8 OUNCES OF LIQUID BEFORE CONSUMING)). FreeStyle lancets USE TO TEST BLOOD SUGAR 3 TIMES DAILY furosemide (Lasix) 40 MG tablet TAKE ONE TABLET BY MOUTH EVERY DAY (Patient not taking: Reported on09/28/2025) glipiZIDE XL (Glucotrol XL) 5 MG 24 hr tablet TAKE ONE TABLET BY MOUTH EVERY DAY 90 tablet 1 glucose blood (FREESTYLE LITE) test strip USE TO TEST BLOOD SUGAR 3 TIMES DAILY 100 each 11 glucose blood (FreeStyle Precision Morris Test) test strip Use to test blood sugar 3 times daily in case of CGM failure or extremes of BG (Patient not taking: Reported on 09/28/2025) 100 each 11 hydroCHLOROthiazide 12.5 MG tablet Take 1 tablet by mouth Once per day. (Patient not taking: Reported on 09/28/2025) hydrocortisone 2.5 % cream Apply topically 2 times daily. Apply pea sized amount to affected area twice daily for 2 weeks. (Patient not taking: Reported on 09/28/2025) 30 g 1 ketoconazole (NIZOral) 2 % cream Apply thin layer by topical route daily to affected area (Patient not taking: Reported on 09/28/2025) 30 g 1 Lancets misc Use to test blood sugar 3 times daily (Patient not taking: Reported on 09/28/2025) 100 each 3 metoprolol succinate XL (Toprol-XL) 25 MG 24 hr tablet Take 1 tablet by mouth Once per day. (Patient not taking: Reported on 09/28/2025) [DISCONTINUED] naproxen (Naprosyn) 500 MG tablet TAKE ONE TABLET BY MOUTH TWICE A DAY NEEDED FORPAIN WITH FOOD 60 tablet 3 No facility-administered encounter medications on file as of 09/28/2025. documented in this encounter Plan of Treatment Upcoming Encounters Date Type Department Care Team (Late st Contact Info) Description 10/26/2025 12:45 PM EST Office Visit [facility] ADULT DENTAL [address], [place] [phone] Alexa Murphy 11/09/2025 2:30 PM EST Office Visit [facility] ADULT DENTAL [address] [place] [address] Humza Clay DDS [address] [place] [address] documented as of this encounter Procedures Procedure Name Priority Date/Time Associated Diagnosis Comments 14 EXTRACTION, ERUPTED TOOTH REQ REMOVAL OF BONE AND/OR SECTIONING OF TOOTH Routine 09/28/2025 2:00 PM EST CASE PRESENTATION, DETAILED AND EXTENSIVE TREATMENT PLANNING Routine 09/28/2025 2:00 PM EST documented in this encounter Visit Diagnoses Diagnosis Dental abscess- Primary Periapical abscess without sinus Open fracture of tooth, sequela documented in this encounter Additional Health Concerns Assessment Noted Time PHQ-9 Depression Total Score: 3 06/30/20 24 9:37 AM EDT documented as of this encounter Care Teams Net Mender Relationship Specialty Start Date End Date Ailin Rizo FNP [address] [place] [address] PCP - General Family Medicine 07/23/22 Juliet Garcia PharmD [address] [place] [address] Pharmacist Internal Medicine 03/09/25 documented as of this encounter
--- OUTSIDE RECORDS SUMMARY | 2025-09-29 09:15 | XMS_ITS | Encounter Summary ---
Author Organization [employer] Address [address] [facility] [address] [place] [address] Care Team Providers Care Technical Support Manager Name Role Phone Ailin Rizo Primary Care Provider [phone] Juliet Garcia PharmD Unavailable [phone] Reason for Visit * Reason Comments Follow-up Diabetes Encounter Details Date Type Department Care Team ([facility] st Contact Info) Description 09/29/2025 9:15 AM EST Office Visit [facility] MEDICINE [address] [place] [address] Ailin Rizo FNP [address] [place] [address] Type 2 diabetes mellitus without complication, with long-term current use of insulin (HCC) (Primary Dx); Dietary counseling; Exercise counseling; Encounter for immunization; Penile rash; Muscle spasm Social History Tobacco Use Types Packs/Day Years Used Date Smoking Tobacco: Former Cigarettes Passive Smoke Exposure: Never Smokeless Tobacco: Former Tobacco Cessation:Counseling Given: Not Answered Comments:Pt Quit 14 years ago Alcohol Use Standard Drinks/Week Comments Never 0 [...] Sign Reading Time Taken Comments Blood Pressure 110/80 09/29/2025 9:13 AM EST Pulse 79 09/29/2025 9:13 AM EST Temperature 36.2 C (97.1 F) 09/29/2025 9:13 AM EST Respiratory Rate 13 09/29/2025 9:13 AM EST Oxygen Saturation 95% 09/29/2025 9:13 AM EST Inhaled Oxygen Concentration - - Weight 132 kg (291 lb 4 oz) 09/29/2025 9:[address] Height 174 cm (5' 8.5 ) 09/29/2025 9:13 AM EST Body Mass Index 43.64 09/29/2025 9:13 AM EST documented in this encounter Functional Status * Over the past 2 weeks, how often have you been bothered by any of the following problems? Question Answer Date of Assessment Author Patient Health Questionnaire -2 Score 1 09/29/2025 9:15 AM EST Binta Lang [place] * Little interest or pleasure in doing things Answer Date of Assessment Author Several days 09/29/2025 9:15 AM Ruma Montes [place] * Feeling down, depressed, or hopeless Answer Date of Assessment Author Not at all 09/29/2025 9:15 AM Ruma Montes [place] * Trouble falling or staying asleep, or sleeping too much Answer Date of Assessment Author Not at all 09/29/2025 9:15 AM Ruma Montes [place] * Feeling tired or having little energy Answer Date of Assessment Author Several days 09/29/2025 9:15 AM Ruma Montes [place] * Poor appetite or overeating Answer Date of Assessment Author Several days 09/29/2025 9:15 AM Ruma Montes [place] * Feeling bad about yourself - or that you are a failure or have let yourself or your family down Answer Date of Assessment Author Not at all 09/29/2025 9:15 AM Ruma Montes [place] * Trouble concentrating on things, such as reading the newspaper or watching television Answer Date of Assessment Author Not at all 09/29/2025 9:15 AM Ruma Montes [place] * Moving or speaking so slowly that other people could have noticed? Or the opposite - being so fidgety or restless that you have been moving around a lot more than usual. Answer Date of Assessment Author Not at all 09/29/2025 9:15 AM Ruma Montes [place] * Thoughts that you would be better off or hurting yourself in some way Answer Date of Assessment Author Not at all 09/29/2025 9:15 AM Ruma Montes [place] * Patient Health Questionnaire-9 Score Answer Date of Assessment Author 3 09/29/2025 9:15 AM Ruma Montes [place] * How difficult have these problems made it for you to do your work, take care of things at home, or get along with other people? Answer Date of Assessment Author Not difficult at all 09/29/2025 9:15 AM Binta Garcia [place] documented as of this encounter Progress Notes * AYAZ Sheikh - 09/29/2025 9:15 AM EST Subjective: Pavel Boyd is a 54 y.o. male w/ PMH CARSON, hypertension, T2DM, hepatic steatosis, HLD, and hx of stroke who presents to the office for a follow up visit: chronic conditions. Interim History: Last appt with PCP: 04/21/25. Continues to follow with multiple specialists. Assessment/plan below updated to reflect most recent available consult notes. Abdominal pain has resolved Dental abscess, treated by [facility] Dental team. Sleeping better s/p extraction. HPI: T2DM: Continues Trulicity, metformin, glipizide, and lantus 30 units nightly. Denies polydipsia, polyuria, polyphasia. Established with [facility] CDTM program, but needs to reschedule last appointment. [id number] today to 13.4%. Muscle tension left side of upper back, no known triggers. Chronic and intermittent for years. Describes as intermittent burning sensation and pain sometimes radiates. Social History Living situation: lives with Employment/Education: working at a [email or web address] Substance use: -alcohol: no daily use reported -tobacco: none reported -opioids: none reported Allergies[1] Review of Systems Constitutional: Negative for chills and fever. Respiratory: Negative for cough and wheezing. Cardiovascular: Negative for palpitations. Gastrointestinal: Negative for diarrhea and vomiting. Endocrine: Negative for polydipsia, polyphagia and polyuria. Musculoskeletal: Positive for myalgias. Skin: Negative for rash. Psychiatric/Behavioral: Negative for suicidal ideas. Visit Vitals BP 110/80 (BP Location: Left arm, Patient Position: Sitting, BP Cuff Size: Large adult) Pulse 79 Temp 97.1 ??F (36.2 ??C) (Oral) Resp 13 Ht 5' 8.5 (1.74 m) Wt 291 lb 4 oz (132 kg) SpO2 95% BMI 43.64 kg/m?? Smoking Status Former BSA 2.53 m?? Physical Exam Vitals reviewed. Constitutional: Appearance: Normal appearance. HENT: Head: Atraumatic. Right Ear: External ear normal. Left Ear: External ear normal. Cardiovascular: Rate and Rhythm: Normal rate and regular rhythm. Pulmonary: Effort: Pulmonary effort is normal. Breath sounds: Normal breath sounds. Musculoskeletal: Comments: Back: no erythema, edema, or ecchymosis. (+) muscle spasm and tenderness left paraspinal muscle thoracic region. Neurological: Mental Status: He is alert and oriented to person, place, and time. Psychiatric: Mood and Affect: Mood normal. Behavior: Behavior normal. Problem List Items Addressed This Visit Endocrine and Metabolic Type 2 diabetes mellitus, with long-term current use of insulin (HCC) - Primary Overview Lab Results Component Value Date HGBA1C 13.4 (A) 09/29/2025 HGBA1C 12.7 (H) 05/17/2025 HGBA1C 14.6 (A) 04/21/2025 HGBA1C 14.0 (A) 09/23/2024 HGBA1C 11.5 (H) 10/13/2023 HGBA1C >14.0 (H) 04/18/2023 A1c goal < 7%, above goal Current med regimen: Mounjaro 2.5mg subcutaneous weekly Metformin 1000mg BID Lantus 30 units at bedtime Glipizide 5mg daily -Discussed importance of lifestyle/dietary monitoring and interventions. -Reviewed ED precautions. -Consider initiation SGLT-2i once A1c </= 9% Current Assessment & Plan In agreement to switch Trulicity to Mounjaro. Continue following with [facility] CDTM team (encouraged to call to reschedule) Check GAD65 & IA-2 antibodies Relevant Medications Tirzepatide (Mounjaro) 2.5 MG/0.5ML solution auto-injector Other Relevant Orders POCT Glucose (Completed) POCT Hgb A1c (Completed) DEYANIRA Autoantibody GAD65, IA-2, and Insulin Autoantibody Skin Penile rash Current Assessment & Plan Consult with [facility] June 2025 Improved s/p use of charcoal soap F/up PRN Other Visit Diagnoses Dietary counseling Exercise counseling Encounter for immunization Relevant Orders HEPATITIS B VACCINE ADULT 20 yrs + (Completed) Muscle spasm - Discussed treatment options, plan for topical heat and light pressure at home. He will also follow up with [facility] coordinator to see if massage therapy is available/covered through insurance Follow up: 3 months extended, sooner as needed This note was drafted using Ambient (AI) technology. The patient/patient's guardian has been informed and has consented to the use of this technology: Yes [1] Allergies Allergen Reactions Rigo Inhibitors Angioedema and Hives Lisinopril Shellfish Protein-Containing Drug Products Shrimp Extract Unknown documented in this encounter Miscellaneous Notes * Assessment & Plan Note - AYAZ Sheikh - 09/30/2025 6:46 AM ESTAssociated Problem(s): Type 2 diabetes mellitus, with long-term current use of insulin (HCC) In agreement to switch Trulicity to Mounjaro. Continue following with [facility] CDTM team (encouraged to call to reschedule) Check GAD65 & IA-2 antibodies * Assessment & Plan Note - AYAZ Sheikh - 09/30/2025 6:37 AM ESTAssociated Problem(s): Penile rash Consult with [facility] June 2025 Improved s/p use of charcoal soap F/up PRN documented in this encounter Plan of Treatment Upcoming Encounters Date Type Department Care Team (Late st Contact Info) Description 10/26/2025 12:45 PM EST Office Visit [facility] ADULT DENTAL [address] [place] [address] Alexa Murphy 11/09/2025 2:30 PM EST Office Visit [facility] ADULT DENTAL [address] [place] [address] Humza Clay DDS [address] [place] [address] Scheduled Orders Name Type Priority Associated Diagnoses Orde r Schedule DEYANIRA Autoantibody GAD65, IA-2, and Insulin Autoantibody Lab Routine Type 2 diabetes mellitus without complication, with long-term current use of insulin (HCC) Expected: 09/29/2025 (Approximate), Expires: 09/29/2026 documented as of this encounter Procedures Procedure Name Priority Date/Time Associated Diagnosis Comments POCT GLYCATED HEMOGLOBIN, TOTAL Routine 09/29/2025 9:17 AM EST Type 2 diabetes mellitus without complication, with long-term current use of insulin (HCC) POCT GLUCOSE Routine 09/29/2025 9:17 AM EST Type 2 diabetes mellitus without complication, with long-term current use of insulin (HCC) documented in this encounter Results * (ABNORMAL) POCT Hgb A1c (09/29/2025 9:17 AM EST) Hemoglobin A1C 13.4(A) 4.0 - 5.7 % QC Media Lot # [id number] Lot# Expiration Date ,027 Blood 09/29/2025 9:17 AM EST us Ailin JACOME POINT OF CARE TEST ENTER/EDIT ORDERABLES Final Result * (ABNORMAL) POCT Glucose (09/29/2025 9:17 AM EST) Glucose Blood, POC 345(A) 60 - 200 mg/dL QC Media Lot # [id number] Lot# Expiration Date ,026 Blood Capillary blood specimen / Unknown 09/29/2025 9:17 AM EST us Ailin JACOME POINT OF CARE TEST ENTER/EDIT ORDERABLES Final Result documented in this encounter Visit Diagnoses Diagnosis Type 2 diabetes mellitus without complication, with long-term current use of insulin (HCC)- Primary Dietary counseling Dietary surveillance and counseling Exercise counseling Encounter for immunization Penile rash Muscle spasm Spasm of muscle documented in this encounter Additional Health Concerns Assessment Noted Time PHQ-9 Depression Total Score: 3 09/29/20 9:15 AM EST documented as of this encounter Care Teams Technical Support Manager Relationship Specialty Start Date End Date Ailin Rizo FNP [address] [place] [address] PCP - General Family Medicine 07/23/22 Juliet Garcia PharmD [address] [place] [address] Pharmacist Internal Medicine 03/09/25 documented as of this encounter
--- NOTE | 2025-09-30 14:34 | A.OFFVIS_ITS ---
Intake Visit Reasons: 3m/PSA Intake Note: Patient is present for 3M/PSA Urology Medication:NONE Antibiotic Allergy:NONE Blood Thinner:ASPIRIN Lens Grinder Rough Required: No Allergies lisinopril (LISINOPRIL) Allergy (Unknown, Verified 09/30/25 15:04) ANGIOEDEMA shrimp Allergy (Unknown, Verified 09/30/25 15:04) DIFFICULTY BREATHING LAVONNE Inhibitors Allergy (Verified 09/30/25 15:04) Unknown Medication List - Last Reconciled 09/30/25 by TALITA Pedroza albuterol sulfate 90 mcg/actuation (Ventolin HFA) 2 puffs inhalation Q4H PRN aspirin 81 mg PO DAILY atorvastatin 80 mg PO BEDTIME cholecalciferol (vitamin D3) 50 mcg PO DAILY cyclobenzaprine 5 mg PO BID PRN docusate sodium (Colace) 100 mg PO BID PRN dulaglutide (Trulicity) 3 mg subcut GOMEZ@0900 ezetimibe 10 mg PO DAILY glipizide ER 5 mg PO BEDTIME insulin glargine (Lantus Solostar U-100 Insulin) 18 units subcut BEDTIME loratadine 10 mg PO DAILY metformin ER 1,000 mg PO BID mbsimsmd-lbz-NQ-lycopen-lutein 0.4 mg-300 mcg- 250 mcg (Cerovite Senior) 1 tab PO DAILY naproxen 500 mg PO BID polyethylene glycol 3350 (Miralax) 17 grams PO DAILY PRN HPI Comments Details: Pavel is a 54-year-old male patient of Dr. Rizo. He has a past medical history of asthma, allergic rhinitis, class 3 obesity, obstructive sleep apnea, cerebrovascular accident, hyperlipidemia, type 2 diabetes, and hypertension. He presents to the office today for follow-up. In discussion with the patient today reports to be doing and feeling well. He denies having had any bothersome urinary issues or concerns since his last office visit here. He reports penile rash she had been experiencing which initiated initial visit he has not experienced. He denies urinary urgency, urinary frequency, incontinence, nocturia, hematuria, dysuria, foul smelling urine, changes to urinary stream, flank pain, fever, and or chills. He is happy with his current voiding parameters. PSAs are as follows: 07/19 0.5, 10/19 0.5 In office urinalysis results reviewed with the patient today. He otherwise offers no other issues or concerns at this time. [facility] Medical History Asthma Allergic rhinitis Class 3 obesity CARSON (obstructive sleep apnea) CVA (cerebral vascular accident) (~2005) HLD (hyperlipidemia) Insulin dependent type 2 diabetes mellitus Hypertension Social History Household Members: Spouse Household Members Other:: Housing: Apartment Do you presently have visiting nurse or other home services: No Alcohol intake: current Alcohol intake frequency: holidays/special occasions only Patient Tobacco Use Status: Former Tobacco user Advance Directives Date on File: 10/18/23 service: No Current occupational status: employed Current occupation: [employer]/ right hand dominant Review of Systems Const All systems reviewed & are unremarkable except as noted in HPI and below Physical Exam Const General: cooperative, healthy appearing, comfortable, no acute distress, well developed, alert and awake Nutritional Appearance: overweight Orientation/consciousness: patient oriented x3 Limitations: no limitations HEENT Head: Yes normal to inspection, Yes normocephalic and Yes atraumatic Ears: hearing grossly normal bilaterally Eyes General: appearance normal, both eyes and all related structures Neck Neck: Yes normal visual inspection and Yes trachea midline Chest Chest palpation & inspection: normal inspection of the chest Resp Effort & Inspection: normal respiratory effort and able to speak in complete sentences Cardio Rate: regular rate GI Inspection: Yes normal to inspection General: Yes no CVA tenderness Back/Spine/Pelvis Back: no CVA tenderness Skin General skin exam: no rashes or lesions noted Neuro General: patient oriented x3 Extrem General: Yes normal to inspection Psych Appearance: grossly normal and well kempt Mental Status: mental status grossly normal Speech and movement: Normal speech and movement present and Clear speech present Affect: normal affect Attitude: cooperative Thought process: Normal thought process present Thought content: Normal thought content present Insight: Fair insight present (Psych) Judgement: Fair judgement present (Psych) Results AMB Urinalysis, Automated UA Leukoctes 0 Alea/uL Last Edit by LATOSHA Kingston on 09/30/25 14:44 UA Nitrite Negative Last Edit by LATOSHA Kingston on 09/30/25 14:44 UA Urobilinogen 0.2 mg/dL Last Edit by LATOSHA Kingston on 09/30/25 14:4 4 UA Protein 15 mg/dL Last Edit by LATOSHA Kingston on 09/30/25 14:44 UA pH 5.5 Last Edit by Oh Zapata CCM on 09/30/25 14:44 UA Blood 0 Jeronimo/uL Last Edit by LATOSHA Kingston on 09/30/25 14:44 UA Specific Redmond 1.025 Last Edit by Oh Zapata CCM on 09/30/25 14: 44 UA Ketone Negative Last Edit by Oh Zapata CCM on 09/30/25 14:44 UA Bilirubin 0 mg/dL Last Edit by LATOSHA Kingston on 09/30/25 14:44 UA Glucose 500 mg/dL Last Edit by LATOSHA Kingston on 09/30/25 14:44 Results Reviewed Results Reviewed: Laboratory Last Values Urine pH (Auto) 5.5 09/30/25 14:43 Specific Redmond (Auto) 1.025 09/30/25 14:43 Urine Protein (Auto) 15 mg/dL 09/30/25 14:43 Glucose (UA)(Auto) 500 mg/dL 09/30/25 14:43 Urine Ketones (Auto) Negative 09/30/25 14:43 Urine Blood (Auto) 0 Jeronimo/uL 09/30/25 14:43 Urine Nitrite (Auto) Negative 09/30/25 14:43 Urine Bilirubin (Auto) 0 mg/dL 09/30/25 14:43 Urine Urobilinogen (Auto) 0.2 mg/dL 09/30/25 14:43 Leukocyte Esterase (Auto) 0 Alea/uL 09/30/25 14:43 Assessment & Plan Assessment & Plan (1) Penile rash: Code(s): R21 - Rash and other nonspecific skin eruption Category: Medical Plan In office urinalysis results with the patient today; as noted above. Most recent PSA results reviewed with the patient today; as noted above. He currently denies any bothersome urinary issues or concerns. He reports be happy with current voiding parameters. Will continue with surveillance monitoring. Will obtain PSA in 1 year. Follow-up in 1 year with PSA and PVR; or sooner with any issues, concerns, and or questions. Orders: Orders Prostate Specific Antigen 09/29/25 Z12.5 - Encounter for screening for malignant neoplasm of prostate AMB Urinalysis Automated 09/30/25 Z13.9 - Encounter for screening, unspecified Patient Instructions: The patient had an opportunity to ask questions regarding the treatment plan. All questions were answered. Physical exam, labs, and imaging were discussed and reviewed in detail. As well as risks, benefits, and discussion of treatment choices. No major barriers to understanding were identified. The patient expressed understanding and agreement with the above treatment plan. The patient was made aware they should contact our office by phone for worsening of their current condition, the appearance of new symptoms, or with any questions or concerns. Compliance is encouraged with any medications and follow up testing that is ordered. It is a privilege to be allowed the opportunity to participate in? your urological care.? Again, if you have any questions or concerns If you have any questions or concerns please do not hesitate to contact me. The office is [phone]. This note is constructed using voice recognition software. While every effort has been made to ensure accuracy bulk materials handling plant operator errors may have been included. Yours sincerely, TALITA Pedroza Coding Level of Care Code Est Pt Level 3 (66067) Diagnoses Penile rash R21
--- OUTSIDE RECORDS SUMMARY | 2025-09-30 17:44 | XMS_ITS | Encounter Summary ---
Author Organization [employer] Address [address] [facility] 7t [place] [address] Care Team Providers Care Enterprise Services Manager Name Role Phone Ailin Rizo Primary Care Provider [phone] Juliet Garcia PharmD Unavailable Reason for Visit * Reason Onset Date Comments Medication Question 11/03/2024 Encounter Details Date Type Department Care Team ([facility] st Contact Info) Description 11/03/2024 Telephone [facility] MEDICINE [address] [place] [address] Ailin Rizo FNP [address] [place], [place] [phone] Medication Question Social History Tobacco Use Types [...] pt and spouse requesting script for Amlodipine. Woven Blind Loom Tender did not see medication on medlist. Woven Blind Loom Tender advise will send a message. Contact pt at [phone] * Telephone Encounter - Dheeraj Adamson - 11/03/2024 3:11 PM EST Tc from spouse requesting a callback as she informs pcp was supposed to give pt a script (unknown name ) to medication and pt has been waiting . Callback number [phone] documented in this encounter Plan of Treatment Upcoming Encounters Date Type Department Care Team (Late st Contact Info) Description 10/26/2025 12:45 PM EST Office Visit [facility] ADULT DENTAL [address] [place] [address] Alexa Murphy 11/09/2025 2:30 PM EST Office Visit [facility] ADULT DENTAL [address] [place] [address] Humza Clay DDS [address] [place] [address] documented as of this encounter Visit Diagnoses Not on filedocumented in this encounter Additional Health Concerns Assessment Noted Time PHQ-9 Depression Total Score: 3 06/30/20 24 9:37 AM EDT documented as of this encounter Care Teams Enterprise Services Manager Relationship Specialty Start Date End Date Ailin Rizo FNP [address] [place] [address] PCP - General Family Medicine 07/23/22 Juliet Garcia PharmD [address] [place] [address] Pharmacist Internal Medicine 03/09/25 documented as of this encounter
--- OUTSIDE RECORDS SUMMARY | 2025-09-30 17:44 | XMS_ITS | Encounter Summary ---
Author Organization [employer] Address [address] [facility] [facility] [address] 7[address] [place] [address] Care Team Providers Care Brusher Name Role Phone Ailin Rizo Primary Care Provider [phone] Juliet Garcia PharmD Unavailable [phone] Reason for Visit * Reason Comments Med Refill Encounter Details Date Type Department Care Team ([facility] st Contact Info) Description 10/04/2024 Refill [facility] MEDICINE [address] [place] [address] Ailin Rizo FNP [address] [place], [place] [phone] Primary hypertension Social History Tobacco Use Types [...] Description 10/26/2025 12:45 PM EST Office Visit [facility] ADULT DENTAL [address] [place] [address] Alexa Murphy 11/09/2025 2:30 PM EST Office Visit [facility] ADULT DENTAL [address] [place] [address] Humza Clay DDS [address] [place] [address] documented as of this encounter Visit Diagnoses Diagnosis Primary hypertension Unspecified essential hypertension documented in this encounter Additional Health Concerns Assessment Noted Time PHQ-9 Depression Total Score: 3 06/30/20 24 9:37 AM EDT documented as of this encounter Care Teams Brusher Relationship Specialty Start Date End Date Ailin Rizo FNP [address] [place] [address] PCP - General Family Medicine 07/23/22 Juliet Garcia PharmD [address] [place] [address] Pharmacist Internal Medicine 03/09/25 documented as of this encounter
--- OUTSIDE RECORDS SUMMARY | 2025-09-30 17:44 | XMS_ITS | Encounter Summary ---
Author Organization [employer] Address [address] [facility] 7t [place] [address] Care Team Providers Care Chair Finisher Name Role Phone Ailin iRzo Primary Care Provider [phone] Juliet Garcia PharmD Unavailable Reason for Visit * Reason Comments Med Refill Encounter Details Date Type Department Care Team ([facility] st Contact Info) Description 09/10/2024 Refill [facility] MEDICINE [address] [place] [address] Ailin Rizo FNP [address] [place], [place] [phone] Type 2 diabetes mellitus treated with insulin ([facility]) Social History Tobacco Use Types Packs/Day Years [...] 12:45 PM EST Office Visit [facility] ADULT DENTAL [address] [place] [address] Alexa Murphy 11/09/2025 2:30 PM EST Office Visit [facility] ADULT DENTAL [address] [place] [address] Humza Clay DDS [address] [place] [address] documented as of this encounter Visit Diagnoses Diagnosis Type 2 diabetes mellitus treated with insulin (HCC) documented in this encounter Additional Health Concerns Assessment Noted Time PHQ-9 Depression Total Score: 3 06/30/20 24 9:37 AM EDT documented as of this encounter Care Teams Chair Finisher Relationship Specialty Start Date End Date Ailin Rizo FNP [address] [place] [address] PCP - General Family Medicine 07/23/22 Juliet Garcia PharmD [address] [place] [address] Pharmacist Internal Medicine 03/09/25 documented as of this encounter
--- OUTSIDE RECORDS SUMMARY | 2025-09-30 17:44 | XMS_ITS | Encounter Summary ---
Author Organization [employer] Address [address] [facility] 7t [place] [address] Care Team Providers Care Clother In Name Role Phone Ailin Rizo Primary Care Provider [phone] Juliet Garcia PharmD Unavailable [phone] Reason for Visit * Reason Comments Med Refill Encounter Details Date Type Department Care Team (Late st Contact Info) Description 06/06/2025 Refill [facility] MEDICINE [address] [place] [address] Ailin Rizo FNP [address] [place], [place] [phone] Type 2 diabetes mellitus treated with insulin ([facility]) Social History Tobacco Use Types Packs/Day Years [...] Description 10/26/2025 12:45 PM EST Office Visit [facility] ADULT DENTAL [address] [place] [address] Alexa Murphy 11/09/2025 2:30 PM EST Office Visit [facility] ADULT DENTAL [address] [place] [address] Humza Clay DDS [address] [place] [address] documented as of this encounter Visit Diagnoses Diagnosis Type 2 diabetes mellitus treated with insulin (HCC) documented in this encounter Additional Health Concerns Assessment Noted Time PHQ-9 Depression Total Score: 3 06/30/20 24 9:37 AM EDT documented as of this encounter Care Teams Clother In Relationship Specialty Start Date End Date Ailin Rizo FNP [address] [place] [address] PCP - General Family Medicine 07/23/22 Juliet Garcia PharmD [address] [place] [address] Pharmacist Internal Medicine 03/09/25 documented as of this encounter
--- OUTSIDE RECORDS SUMMARY | 2025-09-30 17:44 | XMS_ITS | Patient Health Record ---
Author Organization [facility] Address [address] [place] [address] Care Team Providers Care Mental Health Counselor Name Role Phone DEVEN WALTER MD Primary Care Provider Nilesh Way Unavailable [phone] Allergies Allergen (clinical drug ingredient) Drug/Non Drug [...] Status Risk Notes Problem Colon cancer screening (601556755) Colon cancer screening (Z12.11) Active confirmed Problem Diarrhea (57971805) Diarrhea (R19.7) Active confirmed Problem Fatty liver (508807390) Fatty liver (K76.0) Active confirmed Vital Signs Blood pressure diastolic 00 mm Hg 11/10/2024 Height 5 ft 10 in in 11/10/2024 Blood pressure systolic 00 mm Hg 11/10/2024 Weight 306 lbs 11/10/2024 BMI 43.90 kg/m2 11/10/2024 Encounters Encounter Location Date Provider Diagnosis [facility] [address] [place] [phone] 11/10/2024 Nilesh Pittman Colon cancer screening Z12.11 ; Fatty liver K76.0 and Diarrhea R19.7 [facility] [address] [place] [phone] 03/07/2025 Nilesh Pittman Assessments Encounter Date Diagnosis [...] Insured Coverage Start Date Coverage End Date [facility] [address] Attn Claims BARI Stanley [id number] OLIVIA HAINES Self - patient is the [...] lesion, biliary disease, splenomegaly, nor ascites Denies [place],renal disease HTN Hyperlipidemia Surgical History Surgery Date(Month/Year) dental work
--- OUTSIDE RECORDS SUMMARY | 2025-09-30 17:44 | XMS_ITS | Encounter Summary ---
Author Organization [employer] Address [address] [facility] [address] 7t [place] [address] Care Team Providers Care Property Clerk Name Role Phone Ailin Rizo Primary Care Provider [phone] Juliet Garcia PharmD Unavailable [phone] Reason for Visit * Reason Comments Med Refill Encounter Details Date Type Department Care Team (Late st Contact Info) Description 06/08/2024 Refill [facility] MEDICINE [address] [place] [address] Ailin Rizo FNP [address] [place], [place] [phone] Primary hypertension Social History Tobacco Use Types [...] Description 10/26/2025 12:45 PM EST Office Visit [facility] ADULT DENTAL [address] [place] [address] Alexa Murphy 11/09/2025 2:30 PM EST Office Visit [facility] ADULT DENTAL [address] [place] [address] Humza Clay DDS [address] [place] [address] documented as of this encounter Visit Diagnoses Diagnosis Primary hypertension Unspecified essential hypertension documented in this encounter Additional Health Concerns Assessment Noted Time PHQ-9 Depression Total Score: 2 04/18/20 23 3:00 PM EDT documented as of this encounter Care Teams Property Clerk Relationship Specialty Start Date End Date Aiiln Rizo FNP [address] [place] [address] PCP - General Family Medicine 07/23/22 Juliet Garcia PharmD [address] [place] [address] Pharmacist Internal Medicine 03/09/25 documented as of this encounter
--- OUTSIDE RECORDS SUMMARY | 2025-09-30 17:45 | XMS_ITS | Clinical Summary ---
Author Organization [facility] Address [address] [facility] [address] [place] [address] Phone Care Team Providers Care Spa Attendant Name Role Phone Pcp, Unknown Primary Care [...] topic Medical Devices Not on file Insurance [facility] MEDICARE REPLACEMENT [facility] MEDICARE REPLACEMENT [facility] MEDICARE REPLACEMENT [facility] MEDICARE REPLACEMENT [facility] MEDICARE REPLACEMENT [facility] MEDICARE REPLACEMENT Care Teams Spa Attendant Relationship Specialty Start Date End Date Pcp, Unknown PCP - General 09/03/24 Additional Source Comments The information contained in this document represents components of the legal health record. It is not the complete legal health record.[facility]
--- OUTSIDE RECORDS SUMMARY | 2025-09-30 17:45 | XMS_ITS | Encounter Summary ---
Author Organization [employer] Address [address] [place] [address] 7[address] [place] [address] Care Team Providers Care Shipping Coordinator Name Role Phone Ailin Rizo Primary Care Provider [phone] Juliet Garcia PharmD Unavailable [phone] Encounter Details Date Type Department Care Team (Latest Contact Info) Description 09/30/2019 Abstract [facility] CONVERSIONS Dental, Provider, DDS Social History [...] 10/26/2025 12:45 PM EST Office Visit [facility] ADULT DENTAL [address] [place] [address] Alexa Murphy 11/09/2025 2:30 PM EST Office Visit [facility] ADULT DENTAL [address] [place] [address] Humza Clay DDS [address] [place] [address] documented as of this encounter Visit Diagnoses Not on filedocumented in this encounter Care Teams Shipping Coordinator Relationship Specialty Start Date End Date Ailin Rizo FNP [address] [place] [address] PCP - General Family Medicine 07/23/22 Juliet Garcia, Aurelio [address] [place] [address] Pharmacist Internal Medicine 03/09/25 documented as of this encounter
--- OUTSIDE RECORDS SUMMARY | 2025-09-30 17:45 | XMS_ITS | Encounter Summary ---
Author Organization [employer] Address [address] [facility] [facility] [address] 7[address] [place] [address] Care Team Providers Care Computer Publisher Name Role Phone AlinaAilin wood PRIMARY GRADE TEACHER Primary Care Provider [phone] Juliet Garcia PharmD Unavailable [phone] Encounter Details Date Type Department Care Team [...] Description 10/26/2025 12:45 PM EST Office Visit [facility] ADULT DENTAL [address] [place] [address] Alexa Murphy 11/09/2025 2:30 PM EST Office Visit [facility] ADULT DENTAL [address] [place] [address] Humza Clay DDS [address] [place] [address] documented as of this encounter Visit Diagnoses Not on filedocumented in this encounter Additional Health Concerns Assessment Noted Time PHQ-9 Depression Total Score: 3 06/30/20 24 9:37 AM EDT documented as of this encounter Care Teams Computer Publisher Relationship Specialty Start Date End Date Ailin Rizo FNP [address] [place] [address] PCP - General Family Medicine 07/23/22 Juliet Garcia PharmD [address] [place] [address] Pharmacist Internal Medicine 03/09/25 documented as of this encounter
--- OUTSIDE RECORDS SUMMARY | 2025-09-30 17:45 | XMS_ITS | Encounter Summary ---
Author Organization [employer] Address [address] [facility] 7t [place] [address] Care Team Providers Care Press Pipe Inspector Name Role Phone Ailin Rizo AYAZ Primary Care Provider [phone] Juliet Garcia PharmD Unavailable [phone] Reason for Referral * Consultation (Routine) - Pending Review Specialty Diagnoses / Procedures Referred By Contac t Referred To Contact Pharmacy Diagnoses Type 2 diabetes mellitus without complication, with long-term current use of insulin (HCC) Ángela Penny MD [address] [place] [address] Phone: tel: fax: Referral ID Status Reason Start Date Expiration Date Visits Requested Visits Authorized [id number] Pending Review Consult and Treat 12/01/2024 12/01/2025 6 6 Encounter Details Date Type Department Care Team (Late st Contact Info) Description 12/01/2024 Orders Only [facility] MEDICINE [address] [place] [address] Ángela Penny MD [address] [place] [address] [phone] Type 2 diabetes mellitus without complication, with [...] Description 10/26/2025 12:45 PM EST Office Visit [facility] ADULT DENTAL [address] [place] [address] Alexa Murphy 11/09/2025 2:30 PM EST Office Visit [facility] ADULT DENTAL [address] [place] [address] Humza Clay DDS [address] [place] [address] Scheduled Referrals Name Type Priority Associated Diagnoses Orde r Schedule Referral to Pharmacy CDTM Outpatient Referral Routine Type 2 diabetes mellitus without complication, with long-term current use of insulin ([facility]) Ordered: 12/01/2024 documented as of this encounter Visit Diagnoses Diagnosis Type 2 diabetes mellitus without complication, with long-term current use of insulin ([facility])- Primary documented in this encounter Additional Health Concerns Assessment Noted Time PHQ-9 Depression Total Score: 3 06/30/20 24 9:37 AM EDT documented as of this encounter Care Teams Press Pipe Inspector Relationship Specialty Start Date End Date Ailin Rizo FNP [address] [place] [address] PCP - General Family Medicine 07/23/22 Juliet Garcia PharmD [address] [place] [address] Pharmacist Internal Medicine 03/09/25 documented as of this encounter
--- OUTSIDE RECORDS SUMMARY | 2025-09-30 17:45 | XMS_ITS | Encounter Summary ---
Author Organization [employer] Address [address] [facility] [address] [place] [address] Care Team Providers Care Assembler For Puller Over Hand Name Role Phone Ailin Rizo Primary Care Provider [phone] Juliet Garcia PharmD Unavailable [phone] Reason for Visit * Reason Onset Date Comments Med Refill 08/16/2025 Encounter Details Date Type Department Care Team ([facility] st Contact Info) Description 08/16/2025 Telephone [facility] MEDICINE [address] [place] [address] Ailin Rizo FNP [address] [place], [place] [phone] Med Refill Social History Tobacco Use Types [...] 08/16/2025 12:22 PM EDT Medication sent to [facility] on 08/09/25 with 11 refills. * Telephone Encounter - Monique Alston - 08/16/2025 12:11 PM EDT TC from pt requesting medication refill. Medications needing refill : - BD Pen Needle Jane 2nd Gen 32G X 4 MM misc To be sent to: - [facility] - [address] documented in this encounter Plan of Treatment Upcoming Encounters Date Type Department Care Team (Late st Contact Info) Description 10/26/2025 12:45 PM EST Office Visit [facility] ADULT DENTAL [address] [place] [address] Alexa Murphy 11/09/2025 2:30 PM EST Office Visit [facility]ULT [facility] [address] [place] [address] Humza Clay DDS [address] [place], [place] [phone] documented as of this encounter Visit Diagnoses Not on filedocumented in this encounter Additional Health Concerns Assessment Noted Time PHQ-9 Depression Total Score: 3 06/30/20 24 9:37 AM EDT documented as of this encounter Care Teams Assembler For Puller Over Hand Relationship Specialty Start Date End Date Ailin Rizo FNP [address] [place] [address] PCP - General Family Medicine 07/23/22 Juliet Garcia PharmD [address] [place] [address] Pharmacist Internal Medicine 03/09/25 documented as of this encounter
--- OUTSIDE RECORDS SUMMARY | 2025-09-30 17:45 | XMS_ITS | Encounter Summary ---
Author Organization [employer] Address [address] [facility] [address] [place] [address] Care Team Providers Care Basic Sciences Professor Name Role Phone Ailin Rizo Primary Care Provider [phone] Juliet Garcia PharmD Unavailable [phone] Encounter Details Date Type Department Care Team (Late st Contact Info) Description 11/28/2022 Orders Only [facility]ED[facility] [address] [place] [address] Aria Montgomery LPN Social History Tobacco Use [...] Description 10/26/2025 12:45 PM EST Office Visit [facility] ADULT DENTAL [address] [place] [address] Alexa Murphy 11/09/2025 2:30 PM EST Office Visit [facility] ADULT DENTAL [address] [place], [place] [phone] Humza Clay DDS [address] [place] [address] documented as of this encounter Visit Diagnoses Not on filedocumented in this encounter Care Teams Basic Sciences Professor Relationship Specialty Start Date End Date Ailin Rizo FNP [address] [place] [address] PCP - General Family Medicine 07/23/22 Juliet Garcia PharmD [address] [place] [address] Pharmacist Internal Medicine 03/09/25 documented as of this encounter
--- OUTSIDE RECORDS SUMMARY | 2025-09-30 17:45 | XMS_ITS | Encounter Summary ---
Author Organization [employer] Address [address] [place] [address] [address] [place] [address] Care Team Providers Care Gold Nib Grinder Name Role Phone Ailin Rizo Primary Care Provider [phone] Juliet Garcia PharmD Unavailable [phone] Reason for Visit * Reason Comments Med Refill Encounter Details Date Type Department Care Team (Late st Contact Info) Description 02/04/2023 Refill [facility] [address] [place] [address] Ailin Rizo FNP [address] [place] [address] Vitamin D insufficiency Social History Tobacco Use [...] 12:45 PM EST Office Visit [facility] ADULT DENTAL [address] [place] [address] Alexa Murphy 11/09/2025 2:30 PM EST Office Visit [facility] ADULT DENTAL [address] [place] [address] Humza Clay DDS [address] [place] [address] documented as of this encounter Visit Diagnoses Diagnosis Vitamin D insufficiency documented in this encounter Care Teams Gold Nib Grinder Relationship Specialty Start Date End Date Ailin Rizo FNP [address] [place] [address] PCP - General Family Medicine 07/23/22 Juliet Garcia PharmD [address] [place] [address] Pharmacist Internal Medicine 03/09/25 documented as of this encounter
--- OUTSIDE RECORDS SUMMARY | 2025-09-30 17:45 | XMS_ITS | Encounter Summary ---
Author Organization [employer] Address [address] [facility] [address] [place] [address] Care Team Providers Care Childcare Center Administrator Name Role Phone Ailin Rizo Primary Care Provider [phone] Juliet Garcia PharmD Unavailable [phone] Reason for Visit * Reason Onset Date Comments Appointment Request 03/04/2023 Encounter Details Date Type Department Care Team (Late Contact Info) Description 03/04/2023 Telephone [facility] MEDICINE [address] [place] [address] Ailin Rizo FNP [address] [place] [address] Appointment Request Social History Tobacco Use Types [...] - 03/04/2023 9:43 AM EDT Tc from [facility] requesting a Physical appt for pt. Please contact pt at [phone] documented in this encounter Plan of Treatment Upcoming Encounters Date Type Department Care Team (Late Contact Info) Description 10/26/2025 12:45 PM EST Office Visit [facility] ADULT DENTAL [address] [place] [address] Alexa Murphy 11/09/2025 2:30 PM EST Office Visit [facility] ADULT DENTAL [address] [place], [place] [phone] Humza Clay DDS [address] [place] [address] documented as of this encounter Visit Diagnoses Not on filedocumented in this encounter Care Teams Childcare Center Administrator Relationship Specialty Start Date End Date Ailin Rizo FNP [address] [place] [address] PCP - General Family Medicine 07/23/22 Juliet Garcia PharmD [address] [place] [address] Pharmacist Internal Medicine 03/09/25 documented as of this encounter
--- OUTSIDE RECORDS SUMMARY | 2025-09-30 17:45 | XMS_ITS | Clinical Summary ---
Author Organization [employer] Address [address] [facility] [address] [place] [address] Care Team Providers Care Prepleater Name Role Phone Ailin Rizo Primary Care Provider [phone] Juliet Garcia PharmD Unavailable [phone] Allergies Active Allergy Reactions Criticality Noted Date [...] with long-term current use of insulin ([facility]) Use to test blood sugar 3 times daily 100 each 3 024 Active Additional Information Patient not taking.Reported on 09/28/2025 Blood Glucose Monitoring Suppl (FreeStyle Arabi Lite) w/Device kitIndications:T ype 2 diabetes mellitus without complication, with long-term current use of insulin ([facility]) Use to test blood sugar 3 times daily 1 kit Active glucose blood (FREESTYLE LITE) test stripIndications :Type 2 diabetes mellitus without complication, with long-term current use of insulin ([facility]) USE TO TEST BLOOD SUGAR 3 [...] with long-term current use of insulin ([facility]) USE TO TEST BLOOD SUGARS 3 TIMES A DAY. 100 each 11 025 Active Continuous Glucose Piano Mechanic (FreeStyle Kathi 3 Riggins) deviceIndication s:Type 2 diabetes mellitus without complication, with long-term current use of insulin ([facility]) 1 each Once per day. Use as directed for CGM 1 each Active Continuous Glucose Sensor (FreeStyle Kathi 3 Plus Sensor) miscIndications: Type 2 diabetes mellitus without complication, with long-term current use of insulin ([facility]) Apply 1 every 15 days as directed [...] s:Type 2 diabetes mellitus treated with insulin ([facility]) TAKE ONE TABLET BY MOUTH EVERY DAY [...] 3 Active Tirzepatide (Mounjaro) 2.5 MG/0.5ML solution auto-injectorInd ications:Type 2 diabetes mellitus without complication, with long-term current use of insulin (HCC) Inject 2.5 mg under the skin 1 [...] Active Problems Problem Noted Date Diagnosed Date Penile rash 09/30/2025 Assessment & Plan (09/30/2025 6:37 AM EST): Consult with [facility] Urology June 2025 Improved s/p use of charcoal soap F/up PRN Exertional chest pain 05/02/2025 Overview (05/02/2025): Following with [facility] cardiology Assessment & Plan (05/02/2025 12:44 PM EDT): - Consult in February 2025. Plan for treadmill stress test and echo. - ED precautions reviewed Lateral epicondylitis of left elbow 09/24/2024 Overview (09/24/2024): Followed by [facility] Ortho Tx: counterforce brace, referred to [...] Last PE: 06/30/24 OPH: November 2024 with [facility]. No diabetic retinopathy Assessment & Plan (04/19/2023 [...] EDT): Following with sleep medicine services of [facility]. Consult January 2025. Continue with good [...] CPAP and lifestyle interventions Type 2 diabetes mellitus, wi th long-term current use of insulin 09/23/2015 Overview (09/30/2025): Lab Results Component Value Date HGBA1C 13.4 [...] once A1c </= 9% Assessment & Plan (09/30/2025 6:46 AM EST): In agreement to switch Trulicity to Mounjaro. Continue following with [facility] team (encouraged to call to reschedule) Check GAD65 & IA-2 antibodies Assessment & Plan (05/02/2025 12:46 PM EDT): In agreement with increase of Trulicity to 4.5mg subcutaneous weekly. In the future, may want to consider switching to tirzepatide. Continue following with [facility] team Check GAD65 & IA-2 [...] 9:15 AM EST Office Visit [facility] MEDICINE [address] [place] [phone] Ailin Rizo FNP Type 2 diabetes mellitus without complication, with long-term current use of insulin (HCC) (Primary Dx); Dietary counseling; Exercise counseling; Encounter for immunization; Penile rash; Muscle spasm 09/29/2025 Orders Only GENERIC EXTERNAL DATA DEPARTMENT Provider, Generic External Data 09/29/2025 Travel 09/28/2025 2:00 PM EST Office Visit [facility] ADULT DENTAL [address] [place] [address] Humza Clay DDS Dental abscess (Primary Dx); Open fracture of tooth, sequela 09/27/2025 Travel 09/26/2025 Refill [facility] [address] [place] [address] Ailin Rizo FNP Pain 09/04/2025 Refill [facility] [address] [place] [address] Ailin Rizo FNP Type 2 diabetes mellitus treated with insulin (HCC) 08/30/2025 Telephone [facility] [address] [place] [phone] Ailin Rizo FNP ER Follow-up 08/28/2025 Orders Only GENERIC EXTERNAL DATA DEPARTMENT Provider, Generic External Data 08/19/2025 10:00 AM EDT Office Visit [facility] ADULT DENTAL [address] [place] [phone] Katherine Alexa Dental abscess (Primary Dx); Dental plaque; Dental calculus; Dental caries 08/19/2025 Travel 08/16/[address] [address] Ailin Rizo FNP Nurse Triage 08/16/[address] [address] Ailin Rizo FNP Med Refill 08/09/[address] [address] Ailin Rizo FNP 07/27/2025 Telephone [facility] PEDS [address] [place] [address] Ailin Rizo FNP Nurse Triage 07/21/2025 Telephone [facility] [address] [place] [address] Ailin Rizo FNP TC- TELEHEALTH APPT 07/21/2025 Travel 07/19/2025 Telephone [facility] [address] [place] [address] Ailin Rizo FNP Results 07/15/[address] [address] Ailin Rizo FNP FYI 07/14/2025 Telephone [facility] [address] [place] [address] Ailin Rizo FNP 07/14/2025 Telephone [facility] [address] [place] [address] Ailin Rizo FNP 07/08/2025 Results Follow-Up [address] [address] Chloe Jacobs NP Lipase, Amylase, Comprehensive Metabolic Panel, Additional followed-up results: 2 07/07/2025 2:45 PM EDT Office Visit [address] [place] [address] Chloe Jacobs NP Right upper quadrant pain (Primary Dx) 07/07/2025 Orders Only GENERIC EXTERNAL DATA DEPARTMENT Provider, Generic External Data 07/07/2025 Travel 07/07/2025 Telephone [facility] [address] [place] [address] Ailin Rizo FNP nurse triage 07/05/2025 Travel 07/01/2025 Telephone [facility] [address] [place] [address] Ailin Rizo FNP Abd US Order from [...] 12:45 PM EST Office Visit [facility] ADULT DENTAL [address] [place] [address] Alexa Murphy 11/09/2025 2:30 PM EST Office Visit [facility] ADULT D[facility] [address], [place] [phone] Humza Clay, DDS [address] [place] [address] Health Maintenance Due Date Last Done Comments [...] Zoster Vaccines (1 of 2) 2021 Diabetes: Hemoglobin A1C 12/30/2025 025, 05/17/2025, 04/21/2025, Additional history exists Dental Oral Exam 02/17/2026 08/19/2025, , 01/22/2018, Additional history exists Diabetes: Urine Protein Screening 05/17/2026 05/17/2025, 09/07/2021 Influenza Vaccine (#1) 2026 , 09/10/2019, 11/06/2018, Additional history exists Postponed from 07/26/2025 (Patient Refused) Disability Screening 07/05/2026 07/05/2025 Lipid Panel 07/07/2026 07/07/2025, 06/25, 05/17/2025, Additional history exists Dental X-Ray: Bitewings 08/20/2026 08/19/20, 08/07/2024, 02/12/2024, Additional history exists Depression Screening 09/29/2026 09/29/2025, 09/29/20 SDOH Screening 09/29/2026 09/29/2025 Tobacco Screening 09/29/2026 09/29/2025 COVID-19 Vaccine ( season) 2026 12/25/2021, 04/13/2021, 03/16/2021 Postponed from 07/26/2025 (Patient Refused) Dental X-Ray: Full Mouth 02/12/2027 02/12/2024, 02/24 [...] complication, with long-term current use of insulin ([facility]) HIV 1/2 ANTIGEN/ANTIBODY, FOURTH GENERATION W/RFL Routine 05/17/2025 11:15 AM EDT Type 2 diabetes mellitus without complication, with long-term current use of insulin ([facility]) ALBUMIN, RANDOM URINE W/CREATININE Routine 05/17/2025 11:15 AM EDT Type 2 diabetes mellitus without complication, with long-term current use of insulin ([facility]) Healthcare maintenance INTRAORAL - COMPLETE SERIES OF [...] Specific Antigen 0.47 <0.05 - 4.0 ng/mL [facility] Comment:PSA methodology: Abb mariam Alisean i ChemiluminescentMicroparticle Immunoassay (CMIA) 09/29/2025 10:3 3 AM EST 09/29/2025 10:33 AM EST us Generic External Data Provider LAB BLOOD ORDERAB LES Final Result [facility] [address] [place] [phone] * (ABNORMAL) POCT Hgb A1c (09/29/2025 9:17 AM EST) Hemoglobin A1C 13.4(A) 4.0 - 5.7 % QC Media Lot # [id number] Lot# Expiration Date ,027 Blood 09/29/2025 9:17 AM EST Ailin KIMP POINT OF CARE TEST ENTER/EDIT ORDERABLES Final Result * (ABNORMAL) POCT Glucose (09/29/2025 9:17 AM EST) Glucose Blood, POC 345(A) 60 - 200 mg/dL QC Media Lot # [id number] Lot# Expiration Date ,026 Blood Capillary blood specimen / Unknown 09/29/2025 9:17 AM EST Ailin KIMP POINT OF CARE TEST ENTER/EDIT ORDERABLES Final Result * CT Abdomen Pelvis w/ Contrast (08/28/2025 9:05 PM EDT) Anatomical Region Laterality Modality Body, Pelvis, Abdomen Computed T omography 08/28/2025 9:05 PM EDT Narrative 08/28/2025 9:07 PM EDT [address] [address] [address] Scan Report Signed Patient: Pavel Boyd MR#: [id number] 7 : 1970 Acct:[id number] Age/Sex: 54 / M ADM Date: 08/28/25 Loc: HO.ED Attending Dr: Ordering Physician: Evette Clark Date of Service: 08/28/25 Procedure(s): CT abdomen pelvis w IV con Accession Number(s): [id number] cc: Ailin Rizo; Evette Clark Report Number: [id number]: Total DLP = 1253.00 mGy-cm Reason for [...] in OV> 08/28/252106 DD/ 04 TD/TT: 08/28/252104 Gang Hemstitching Machine Operator: Procedure Note Donotuseinterpreter, Image - 08/28/[address] [place] [address] [address] Scan Report Signed Patient: Pavel Boyd LMR#: [id number] 7 : 1970Acct:[id number] Age/Sex: 54 / MADM Date: 08/28/25 Loc: HO.ED Attending Dr: Ordering Physician: Evette Clark Date of Service: 08/28/25 Procedure(s): CT abdomen pelvis w IV con Accession Number(s): [id number] cc: Ailin Rizo; Evette Clark Report Number: [id number]: Total DLP = 1253.00 mGy-cm Reason for [...] in OV> 08/28/252106 DD/ 04 TD/TT: 08/28/252104 Gang Hemstitching Machine Operator: us [facility] External Provider IMG CT PROCEDURES Edited Result - Final * (ABNORMAL) Urinalysis Complete (08/28/2025 7:03 PM EDT) Color Urine Yellow [facility] Appearance Urine Clear [facility] PH 6.0 5.0 - 9.0 [facility] Glucose Urine UA >=1000(A) Negative mg/dL [facility] Urine Blood Negative Negative [facility] Specific [place] - Urine >=1.030(H) 1.005 - 1.025 [facility] Urine Protein Negative Neg-Trace mg/dL [facility] Urine Ketones Trace Negative mg/dL [facility] Nitrite Urine Negative Negative [facility] Leukocyte Esterase Urine Negative Negative [facility] RBC Urine 0-2 0 - 2 /HPF [facility] Urine WBC 0-5 0 - 5 /HPF [facility] Urine Squamous Epithelial Cell 0-2 0 - 2 /HPF [facility] Urine Bacteria None Seen None Seen [facility] Hyaline Casts, Urine 0-2 0 - 2 /LPF [facility] 08/28/2025 7:03 PM EDT 08/28/2025 7:05 PM EDT us Generic External Data Provider LAB URINE ORDERAB LES Final Result [facility] [address] [place], [place] [phone] * (ABNORMAL) CBC auto differential (08/28/2025 4:44 PM EDT) Only the most recent of2 resultswithin the time period is included. White Blood Count 6.0 4.8 - 10.8 X10*3/uL [facility] Red Blood Count 4.76 4.60 - 5.80 X10*6/uL [facility] Hemoglobin 13.4(L) 14.0 - 18.0 g/dl [facility] Hematocrit 38.4(L) 42.0 - 52.0 % [facility] Mean Corpuscular Volume 80.7 80.0 - 98.0 fL [facility] Mean Corpuscular Hemoglobin 28.2 27.0 - 33.0 pg [facility] Mean Corpuscular HGB Conc 34.9 31.0 - 36.0 g/dl [facility] Red Cell Distribution Width 12.2 11.0 - 16.0 % [facility] Platelet Count 241 160 - 400 X10*3/uL [facility] Mean Platelet Volume 9.7 9.4 - 12.4 fL [facility] Neutrophils Percent Auto 64.0 45 - 73 % [facility] Imm Gran Pct Auto 0.3 0.0 - 0.4 % [facility] Lymphocytes Percent Auto 23.5 20 - 40 % [facility] Monocytes Percent Auto 9.2 2 - 11 % [facility] Eosinophils Percent Auto 2.5 0 - 4 % [facility] Basophils Percent Auto 0.5 0 - 2 % [facility] NRBC Pct Auto 0.0 0.0 - 0.2 /100WBC [facility] Neutrophils Absolute Auto 3.8 2.0 - 8.3 x10*3/uL [facility] Imm Gran Abs Auto 0.02 0.00 - 0.03 X10*3/uL [facility] Lymphocytes Absolute Auto 1.4 1.2 - 4.9 X10*3/uL [facility] Monocytes Absolute Auto 0.6 0.1 - 1.2 X10*3/uL [facility] Eosinophils Absolute Auto 0.2 0.0 - 0.4 X10*3/uL [facility] Basophils Absolute Auto 0.0 0.0 - 0.2 X10*3/uL [facility] NRBC Abs Auto 0.000 0.0 - 0.012 X10*3/uL [facility] 08/28/2025 4:44 PM EDT 08/28/2025 4:52 PM EDT Generic External Data Provider LAB BLOOD ORDERAB LES Final Result Performing Organization Address City/[facility]/ZIP Co de Phone Number [facility] [address] [place] [phone] * Lipase (08/28/2025 4:44 PM EDT) Only the most recent of2 resultswithin the time period is included. Lipase 40 8 - 78 U/L [facility] 08/28/2025 4:44 PM EDT 08/28/2025 4:52 PM EDT Generic External Data Provider LAB BLOOD ORDERAB LES Final Result Performing Organization Address [facility]/ZIP Co de Phone Number [facility] [address] [place] [phone] * (ABNORMAL) Comprehensive Metabolic Panel (08/28/2025 4:44 PM EDT) Only the most recent of3 resultswithin the time period is included. Sodium 136 135 - 145 mmol/L [facility] Potassium 4.3 3.3 - 5.1 mmol/L [facility] Chloride 103 96 - 108 mmol/L [facility] Carbon Dioxide 27 22 - 29 mmol/L [facility] Anion Gap 10(L) 12 - 20 [facility] Urea Nitrogen (BUN) 12 9 - 16 mg/dL [facility] Creatinine, Serum 0.64 0.5 - 1.4 mg/dL [facility] Creatinine Clr Calc Pharmacy 182.1 [facility] Comment:eGFR (calculated fro m the MDRD study equation) and eCrCl(calculated from the Cockcroft-Gault equation) are based ondifferent parameters and may not yield comparable results.If eCrCl result is absurd, please check patient'sheight/weight. Estimated Glomerular Filt Rate >60 [facility] Comment:Chronic Kidney Disea se: Estimated GFR < 60 mL/min/1.88t2Dxdfaa Kidney Disease: Estimated GFR < 15 mL/min/1.73m2 Glucose 367(HH) 60 - 115 mg/dL [facility] Comment:Critical value for t est(s):GLUR Results called to and readback by: LINDA Person calling: KUSFDate:08-28-25 Time:1709 Calcium 9.3 8.4 - 10.2 mg/dL [facility] Bilirubin, Total 0.5 0.0 - 1.0 mg/dL [facility] Aspartate Amino Transferase 15 5 - 37 U/L [facility] Alanine Aminotransferase 14 0 - 40 U/L [facility] Total Protein 7.3 6.5 - 8.0 g/dL [facility] Albumin Level 4.0 3.5 - 5.0 g/dL [facility] Alkaline Phosphatase 72 39 - 117 U/L [facility] 08/28/2025 4:44 PM EDT 08/28/2025 4:52 PM EDT us Generic External Data Provider LAB BLOOD ORDERAB LES Final Result [facility] [address] [place] [phone] * US Abdomen Limited (07/16/2025 9:07 AM EDT) Anatomical Region Laterality Modality Abdomen Ultrasound 07/16/2025 9:07 AM EDT Narrative 07/16/2025 9:08 AM EDT [address] [address] Ultrasound Report Signed Patient: Pavel Boyd MR#: [id number] 7 : 1970 Acct:[id number] Age/Sex: 54 / M ADM Date: 07/15/25 Loc: HO.US Attending Dr: Chloe Jacobs Ordering Physician: Chloe Jacobs Date of Service: 07/15/25 Procedure(s): US abdomen limited Accession Number(s): [id number] cc: Chloe Jacobs; Ailin Rizo CLINICAL HISTORY: [...] signed by Tato Camacho MD in OV> 07/16/25 0908 DD/ 09 TD/TT: 07/16/25 09 Gang Hemstitching Machine Operator: Procedure Note Donotuseinterpreter, Image - 07/16/[address] [address] Ultrasound Report Signed Patient: Pavel Boyd LMR#: [id number] 7 : 1970Acct:[id number] Age/Sex: 54 / MADM Date: 07/15/25 Loc: HO.US Attending Dr: Chloe Jacobs Ordering Physician: Chloe Jacobs Date of Service: 07/15/25 Procedure(s): US abdomen limited Accession Number(s): [id number] cc: Chloe Jacobs; SallieAilin AYAZ CLINICAL HISTORY: RUQ pain US abdomen limited [...] signed by Tato Camacho MD in OV> 07/16/25 09 DD/ 6 TD/TT: 07/16/25 09 Gang Hemstitching Machine Operator: us Chloe Jacobs TRAFFIC SAFETY ADMINISTRATOR IMG US PROCEDURES Final Result * CRP, HIGH SENSITIVITY (07/07/2025 3:37 PM EDT) CRP, High Sensitivity 1.9 mg/L [facility] Comment: Reference RangeOptimal <1.0Alice PS et al. Endocr Pract.2017;23(Suppl 2):1- 87.For ages >17 Years:hs-CRP mg/L Risk According to AHA/CDC Guidelines<1.0 Lower relative cardiovascular risk.1.0-3.0 Average relative cardiovascular risk.3.1-10.0 Higher relative cardiovascular risk. Consider retesting in 1 to 2 weeks to exclude a benign transient elevation in the baseline CRP value secondary to infection or inflammation.>10.0 Persistent elevation, upon retesting, may be associated with infection and inflammation.Audrey TA, Devin GA, Main RW, et al. Markersof inflammation and cardiovascular disease:application to clinical and public health practice:A statement for healthcare professionals from theCenters for Disease Control and Prevention and theAmerican Heart Association. Circulation 2003; 107(3):499-511.THIS TEST WAS PERFORMED AT:[facility] [employer] [place] [phone] FERRARI MD 07/07/2025 3:37 PM EDT 07/07/2025 4:45 PM EDT us Generic External Data Provider LAB BLOOD ORDERAB LES Final Result Performing Organization Address City/[facility]/ZIP Co de Phone Number [facility] [address] [place] [phone] * Amylase (07/07/2025 3:37 PM EDT) Amylase 38 28 - 100 U/L [facility] Blood Venous blood specimen / Unknown 07/07/2025 3:37 PM EDT 07/07/2025 4:45 PM EDT us Chloe Jacobs TRAFFIC SAFETY ADMINISTRATOR LAB BLOOD ORDERABLES Final Resu lt Performing Organization Address [facility] Co de Phone Number [facility] [address] [place] [phone] * Lipid Panel, Standard (07/07/2025 3:37 PM EDT) Only the most recent of2 resultswithin the time period is included. Triglycerides 70 <150 mg/dL [facility] Comment:Desirable Triglyceri de: less than 150 mg/dLBorderline High Triglyceride 150-199 mg/dLHigh Triglyceride: 200-499 mg/dLVery High Triglyceride: greater than or equal to 5OO mg/dL Cholesterol 115 <200 mg/dL [facility] Comment:Desirable Cholestero l: less than 200 mg/dLBorderline High Cholesterol: 200-239 mg/dLHigh Cholesterol: greater than 239 mg/dL LDL Cholesterol Calculated 58 <100 mg/dL [facility] Comment:Desirable LDL: less than 100 mg/dLNear Optimal/Above Optimal LDL: 110- 129 mg/dLBorderline High LDL: 130-159 mg/dLHigh LDL: 160-189 mg/dLVery High LDL: greater than or equal to 190 mg/dL HDL Cholesterol 43 >40 mg/dL [facility] Comment:Desirable HDL: great er than 40 mg/dL Note: This HDL assay may give artificially low results in patients with liver disease. 07/07/2025 3:37 PM EDT 07/07/2025 4:45 PM EDT us Generic External Data Provider LAB BLOOD ORDERAB LES Final Result Performing Organization Address [facility] Co de Phone Number [facility] [address] [place] [phone] * Hepatitis C Viral RNA, Quantitative, Real-Time PCR (05/17/2025 11:15 AM EDT) Hepatitis C Viral Load <15 NOT DETECTED NOT DETECTED IU/mL [facility] HCV Log PCR <1.18 NOT DETECTED NOT DETECTED Log IU/mL [facility] Comment:For additional infor tee, please refer tohttp://education.Weathermob/faq/GJF93l2(This link is being provided for informational/educational purposes only.)THIS TEST WAS PERFORMED AT:[facility] [employer] [place] [phone] FERRARI MD Blood 05/17/2025 11:1 5 AM EDT 05/17/2025 12:57 PM EDT us Ailin Rizo DOUGH CUTTER LAB BLOOD ORDERABLES Final Res ult Performing Organization Address [facility] Co de Phone Number [facility] [address] [place] [phone] * Albumin, Random Urine W/Creatinine (05/17/2025 11:15 AM EDT) Creatinine, Urine 166.90 mg/dL [facility] Microalbumin Urine 21.0 mg/L [facility] Microalbum Creatinine Ratio Ur 12.5 <30 ug/mg cr [facility] Comment:Albumin/Creatinine R atio Reference Ranges: Normal: < 30 ug/mg creatinine Microalbuminuria: 30 - 300 ug/mg creatinineClinical Albuminuria: > 300 ug/mg creatinine Urine 05/17/2025 11:1 5 AM EDT 05/17/2025 12:43 PM EDT Ailin Alinaisrael [facility] LAB URINE ORDERABLES Final Res ult [facility] [address] [place] [phone] * HIV-1/2 Antigen and Antibodies, Fourth Generation, with Reflexes (05/17/2025 11:15 AM EDT) HIV AB/AG Nonreactive Nonreactive [facility] Comment:HIV-1 p24 Ag and/or HIV-1/HIV-2 Ab not detected.A test result that is nonreactive does not exclude thepossibility of exposure to or infection with HIV-1 and/orHIV-2. Nonreactive results in this assay for individualswith prior exposure to HIV-1 and/or HIV-2 may be due toantigen and antibody levels that are below the limit ofdetection of this assay.The [employer] HIV Ag/Ab Combo assay result andsupplemental assay results should be interpreted inconjunction with the patient's clinical presentation,history and other laboratory results. If the results areinconsistent with clinical evidence, additional testing issuggested to confirm the result. Blood Venous blood specimen / Unknown 05/17/2025 11:15 AM EDT 05/17/2025 12:57 PM EDT Ailin Rizo [facility] LAB BLOOD ORDERABLES Final Res ult Performing Organization Address [facility]/State/ZIP Co de Phone Number [facility] [address] [place] [phone] from Last 3 Months or Most Recently Relevant to Health Maintenance Insurance [facility] [address] [facility] Care Teams Prepleater Relationship Specialty Start Date End Date Ailin Rizo FNP [address] [place] [address] PCP - General Family Medicine 07/23/22 Juliet Garcia, RashiD [address] [place] [address] Pharmacist Internal Medicine 03/09/25
--- OUTSIDE RECORDS SUMMARY | 2025-09-30 17:45 | XMS_ITS | Encounter Summary ---
Author Organization [employer] Address [address] [facility] 7t [place] [address] Care Team Providers Care Budget Coordinator Name Role Phone Ailin Rizo CAN PATCHER Primary Care Provider [phone] Juliet Garcia PharmD Unavailable [phone] Encounter Details Date Type Department Care Team ([facility] st Contact Info) Description 09/29/2025 Orders Only [...] 10/26/2025 12:45 PM EST Office Visit [facility] [address] [place] [address] Alexa Murphy 11/09/2025 2:30 PM EST Office Visit [facility] [address] [place] [address] Humza Clay DDS [address] [place] [address] documented as of this encounter Procedures Procedure Name Priority Date/Time Associated Diagnosis Comments PSA, TOTAL Routine 09/29/2025 10:33 AM EST documented in this encounter Results * PSA,Total (09/29/2025 10:33 AM EST) Prostate Specific Antigen 0.47 <0.05 - 4.0 ng/mL [facility] Comment:PSA methodology: Dane Neri i ChemiluminescentMicroparticle Immunoassay (CMIA) 09/29/2025 10:3 3 AM EST 09/29/2025 10:33 AM EST us Generic External Data Provider LAB BLOOD ORDERAB LES Final Result [facility] [address] [place] [phone] documented in this encounter Visit Diagnoses Not on filedocumented in this encounter Additional Health Concerns Assessment Noted Time PHQ-9 Depression Total Score: 3 09/29/20 25 9:15 AM EST documented as of this encounter Care Teams Budget Coordinator Relationship Specialty Start Date End Date Ailin Rizo FNP [address] [place] [address] PCP - General Family Medicine 07/23/22 Juliet Garcia PharmD [address] [place] [address] Pharmacist Internal Medicine 03/09/25 documented as of this encounter
--- OUTSIDE RECORDS SUMMARY | 2025-09-30 17:45 | XMS_ITS | Encounter Summary ---
Author Organization [employer] Address [address] [place] [address] [address] [place] [address] Care Team Providers Care Territory Development Manager Name Role Phone Alinaisrael Ailin JACOME Primary Care Provider [phone] Juliet Garcia PharmD Unavailable [phone] Reason for Visit * Reason Comments Med Refill Encounter Details Date Type Department Care Team (Late st Contact Info) Description 06/11/2023 Refill [facility] [address] [place] [address] Xiomara Carreon FNP Pain Social History Tobacco [...] Description 10/26/2025 12:45 PM EST Office Visit [facility]ULT DENT[facility] [address] [place], [place] [phone] Alexa Murphy 11/09/2025 2:30 PM EST Office Visit [facility] [address] [place], [place] [phone] Humza Clay DDS [address] [place] [address] documented as of this encounter Visit Diagnoses Diagnosis Pain Generalized pain documented in this encounter Additional Health Concerns Assessment Noted Time PHQ-9 Depression Total Score: 2 04/18/20 23 3:00 PM EDT documented as of this encounter Care Teams Territory Development Manager Relationship Specialty Start Date End Date Ailin Rizo FNP [address] [place] [address] PCP - General Family Medicine 07/23/22 Juliet Garcia PharmD [address] [place] [address] Pharmacist Internal Medicine 03/09/25 documented as of this encounter
--- OUTSIDE RECORDS SUMMARY | 2025-09-30 17:45 | XMS_ITS | Encounter Summary ---
Author Organization [employer] Address [address] [place] [address] [address] [address] Care Team Providers Care Manager Long Term Care Name Role Phone Ailin Rizo Primary Care Provider [phone] Juliet Garcia PharmD Unavailable [phone] Reason for Visit * Reason Comments Med Refill Encounter Details Date Type Department Care Team (Late st Contact Info) Description 01/13/2023 Refill [facility] [address] [place] [address] Ailin Rizo FNP [address] [place] [address] Vitamin D insufficiency Social History Tobacco Use [...] Description 10/26/2025 12:45 PM EST Office Visit [facility] [address] [place] [address] Alexa Murphy 11/09/2025 2:30 PM EST Office Visit [facility] [address] [place] [address] Humza Clay DDS [address] [place] [address] documented as of this encounter Visit Diagnoses Diagnosis Vitamin D insufficiency documented in this encounter Care Teams Manager Long Term Care Relationship Specialty Start Date End Date Ailin Rizo FNP [address] [place] [address] PCP - General Family Medicine 07/23/22 Juliet Garcia PharmD [address] [place] [address] Pharmacist Internal Medicine 03/09/25 documented as of this encounter
--- OUTSIDE RECORDS SUMMARY | 2025-09-30 17:45 | XMS_ITS | Encounter Summary ---
Author Organization [employer] Address [address] [facility] 7t [place] [address] Care Team Providers Care Weight Loss Consultant Name Role Phone Ailin Rizo Primary Care Provider Juliet Garcia PharmD Unavailable [phone] Reason for Visit * Reason Comments Med Refill Encounter Details Date Type Department Care Team ([facility] st Contact Info) Description 09/26/2025 Refill [facility] [address] [place] [address] Ailin Rizo FNP [address] [place], [place] [phone] Pain Social History Tobacco Use Types Packs/Day [...] Description 10/26/2025 12:45 PM EST Office Visit [facility] [address] [place] [address] Alexa Murphy 11/09/2025 2:30 PM EST Office Visit [facility] [address] [place] [address] Humza Clay DDS [address] [place] [address] documented as of this encounter Visit Diagnoses Diagnosis Pain Generalized pain documented in this encounter Additional Health Concerns Assessment Noted Time PHQ-9 Depression Total Score: 3 06/30/20 24 9:37 AM EDT documented as of this encounter Care Teams Weight Loss Consultant Relationship Specialty Start Date End Date Ailin Rizo FNP [address] [place] [address] PCP - General Family Medicine 07/23/22 Juliet Garcia PharmD [address] [place] [address] Pharmacist Internal Medicine 03/09/25 documented as of this encounter
--- OUTSIDE RECORDS SUMMARY | 2025-09-30 17:45 | XMS_ITS | Encounter Summary ---
Author Organization [employer] Address [address] [place] [address] 7t [place] [address] Care Team Providers Care Recovery Analyst Name Role Phone Ailin Rizo INDUSTRIAL DESIGNER Primary Care Provider [phone] Juliet Garcia PharmD Unavailable [phone] Reason for Visit * Reason Comments Med Refill Encounter Details Date Type Department Care Team (Late Contact Info) Description 06/11/2023 Refill [facility] [address] [place] [address] [place] [facility] [address] [place], [place] [phone] Vitamin D insufficiency Social History Tobacco Use [...] Description 10/26/2025 12:45 PM EST Office Visit [facility] [address] [place], [place] [phone] Alexa Murphy 11/09/2025 2:30 PM EST Office Visit [facility] [address] [place] [address] Humza Clay DDS [address] [place] [address] documented as of this encounter Visit Diagnoses Diagnosis Vitamin D insufficiency documented in this encounter Additional Health Concerns Assessment Noted Time PHQ-9 Depression Total Score: 2 04/18/20 23 3:00 PM EDT documented as of this encounter Care Teams Recovery Analyst Relationship Specialty Start Date End Date Ailin Rizo FNP [address] [place] [address] PCP - General Family Medicine 07/23/22 Juliet Garcia PharmD [address] [place] [address] Pharmacist Internal Medicine 03/09/25 documented as of this encounter
--- OUTSIDE RECORDS SUMMARY | 2025-09-30 17:45 | XMS_ITS | Encounter Summary ---
Author Organization [employer] Address [address] [facility] [address] [place] [address] Care Team Providers Care Authorization Rep Name Role Phone Ailin Rizo Primary Care Provider [phone] Juliet Garcia PharmD Unavailable [phone] Encounter Details Date Type Department Care Team ([facility] st Contact Info) Description 05/07/2023 Telephone [facility] [address] [place] [address] Ailin Rizo FNP [address] [place] [address] Social History Tobacco Use Types Packs/Day Years [...] - 05/07/2023 2:06 PM EDT Tc from [facility] calling to inform PCP, in regards to upcoming appt on 05/09/23. States patient needs a new CPAP machine and new sleep study test. documented in this encounter Plan of Treatment Upcoming Encounters Date Type Department Care Team (Late st Contact Info) Description 10/26/2025 12:45 PM EST Office Visit [facility] [address] [place] [address] Alexa Murphy 11/09/2025 2:30 PM EST Office Visit [facility] [address] [place] [address] Humza Clay DDS [address] [place] [address] documented as of this encounter Visit Diagnoses Not on filedocumented in this encounter Additional Health Concerns Assessment Noted Time PHQ-9 Depression Total Score: 2 04/18/20 3:00 PM EDT documented as of this encounter Care Teams Authorization Rep Relationship Specialty Start Date End Date Ailin Rizo FNP [address] [place] [address] PCP - General Family Medicine 07/23/22 Juliet Garcia PharmD [address] [place] [address] Pharmacist Internal Medicine 03/09/25 documented as of this encounter
--- OUTSIDE RECORDS SUMMARY | 2025-09-30 17:45 | XMS_ITS | Encounter Summary ---
Author Organization [employer] Address [address] [facility] [address] [address] 7[address] [place] [address] Care Team Providers Care Deliverer Pharmacy Name Role Phone Ailin Rizo Primary Care Provider [phone] Juliet Garcia PharmD Unavailable [phone] Reason for Visit * Reason Comments Med Refill Encounter Details Date Type Department Care Team (Late st Contact Info) Description 04/27/2024 Refill [facility] [address] [place] [address] Ailin Rizo FNP [address] [place], [place] [phone] Primary hypertension Social History Tobacco Use Types [...] 10/26/2025 12:45 PM EST Office Visit [facility]ULT [facility] [address] [place] [address] Alexa Murphy 11/09/2025 2:30 PM EST Office Visit [facility] [address] [place] [address] Humza Clay DDS [address] [place] [address] documented as of this encounter Visit Diagnoses Diagnosis Primary hypertension Unspecified essential hypertension documented in this encounter Additional Health Concerns Assessment Noted Time PHQ-9 Depression Total Score: 2 04/18/20 23 3:00 PM EDT documented as of this encounter Care Teams Deliverer Pharmacy Relationship Specialty Start Date End Date Ailin Rizo FNP [address] [place] [address] PCP - General Family Medicine 07/23/22 Juliet Garcia PharmD [address] [place] [address] Pharmacist Internal Medicine 03/09/25 documented as of this encounter
--- OUTSIDE RECORDS SUMMARY | 2025-09-30 17:45 | XMS_ITS | Encounter Summary ---
Author Organization [employer] Address [address] [facility] [address] 7[address] [place] [address] Care Team Providers Care Windows Application Administrator Name Role Phone Ailin Rizo Primary Care Provider [phone] Juliet Garcia PharmD Unavailable [phone] Reason for Visit * Reason Comments Med Refill Encounter Details Date Type Department Care Team (Late st Contact Info) Description 04/01/2024 Refill [facility] [address] [place] [address] Ailin Rizo FNP [address] [place], [place] [phone] Social History Tobacco Use Types Packs/Day Years [...] 12:45 PM EST Office Visit [facility] [address] [place] [address] Alexa Murphy 11/09/2025 2:30 PM EST Office Visit [facility] [address] [place] [address] Humza Clay DDS [address] [place] [address] documented as of this encounter Visit Diagnoses Not on filedocumented in this encounter Additional Health Concerns Assessment Noted Time PHQ-9 Depression Total Score: 2 04/18/20 23 3:00 PM EDT documented as of this encounter Care Teams Windows Application Administrator Relationship Specialty Start Date End Date Ailin Rizo FNP [address] [place] [address] PCP - General Family Medicine 07/23/22 Juliet Garcia PharmD [address] [place] [address] Pharmacist Internal Medicine 03/09/25 documented as of this encounter
--- OUTSIDE RECORDS SUMMARY | 2025-09-30 17:45 | XMS_ITS | Encounter Summary ---
Author Organization [employer] Address [address] [facility] 7t [place] [address] Care Team Providers Care Tape Duplicator Name Role Phone Ailin Rizo Primary Care Provider [phone] Juliet Garcia PharmD Unavailable [phone] Reason for Visit * Reason Onset Date Comments FYI 07/15/2025 Encounter Details Date Type Department Care Team ([facility] st Contact Info) Description 07/15/2025 Telephone [facility] [address] [place] [address] Ailin Rizo FNP [address] [place], [place] [phone] FYI Social History Tobacco Use Types Packs/Day [...] to pain . So he went to [facility] today and had it done . Please call pt once receive results. documented in this encounter Plan of Treatment Upcoming Encounters Date Type Department Care Team (Late st Contact Info) Description 10/26/2025 12:45 PM EST Office Visit [facility] [address] [place] [address] Alexa Murphy 11/09/2025 2:30 PM EST Office Visit [facility] [address] [place] [address] Humza Caly DDS [address] [place] [address] documented as of this encounter Visit Diagnoses Not on filedocumented in this encounter Additional Health Concerns Assessment Noted Time PHQ-9 Depression Total Score: 3 06/30/20 24 9:37 AM EDT documented as of this encounter Care Teams Tape Duplicator Relationship Specialty Start Date End Date Ailin Rizo FNP [address] [place] [address] PCP - General Family Medicine 07/23/22 Juliet Garcia PharmD [address] [place] [address] Pharmacist Internal Medicine 03/09/25 documented as of this encounter
--- OUTSIDE RECORDS SUMMARY | 2025-09-30 17:45 | XMS_ITS | Encounter Summary ---
Author Organization [employer] Address [address] [facility] [address] [place] [address] Care Team Providers Care Stain Sprayer Name Role Phone AlinaAilin wood PARTNER MANAGEMENT CONSULTANT Primary Care Provider [phone] Juliet Garcia PharmD Unavailable [phone] Encounter Details Date Type Department Care Team [...] Description 10/26/2025 12:45 PM EST Office Visit [facility] [address] [place] [address] Alexa Murphy 11/09/2025 2:30 PM EST Office [facility] [address] [place] [address] Humza Clay DDS [address] [place] [address] documented as of this encounter Visit Diagnoses Not on filedocumented in this encounter Additional Health Concerns Assessment Noted Time PHQ-9 Depression Total Score: 3 09/29/20 9:15 AM EST documented as of this encounter Care Teams Stain Sprayer Relationship Specialty Start Date End Date Ailin Rizo FNP [address] [place] [address] PCP - General Family Medicine 07/23/22 Juliet Garcia PharmD [address] [place] [address] Pharmacist Internal Medicine 03/09/25 documented as of this encounter
== END 2025-09-30 15:03 | disposition home or self-care (01) ==
LOC: HO.HUSH 14:30
PROVIDERS: PCP Registered Nurse; Visit Provider Nurse Practitioner Family
DX: Z13.9 Encounter for screening, unspecified (principal)

== ENCOUNTER → 2025-09-30 14:29 | Outpatient (BNVA) | payer OTHER, SELFPAY | PROVIDERS: PCP Registered Nurse; Visit Provider Nurse Practitioner Family | DX: R21 Rash and other nonspecific skin eruption (principal) | CPT/HCPCS: 81003; 99212 ==